=== PATIENT | female | born 1985 | race Caucasian/White ===

== ENCOUNTER 2017-02-22 13:29 | Inpatient (IN) | payer OTHER ==
[~2017-02-22] VITALS: Ht 185.4 cm; Wt 112.6 kg
[2017-02-22] VITALS (7 sets, daily range): BP systolic 110–147; BP diastolic 59–93; PULSE 48–98; RESP 14–22; O2SAT 91–100
--- NOTE | 2017-02-22 13:29 | ED.REPORT ---
HPI-Cardiac Arrest Date of Service Feb 22, 2017 ED Provider: Jenaro Lang MD Patient is a 31 year old female with a history of depression and previous cardiac arrest (torsades de pointes) Who presents to the ED via EMS due to cardiac arrest. Per the patient's Mother, the patient was in a chair, started having difficulty breathing and then became unresponsive, as she slumped to the ground she said in an agonal voice, "it is my heart". Upon EMS arrival, the patient was pulseless and apneic and CPR was started. Patient received cardioversion when found to be in ventricular tachycardia, also received 2 doses of epinephrine with a return of spontaneous circulation and a sinus rhythm. En route that patient was given Succs and Etomidate follow by Versed. She was intubated prior to arrival. She never regained consciousness other than to "alonzo the tube " Nursing Notes Stated Complaint: CARDIAC ARREST Nursing Notes Reviewed: Yes Allergies: Coded Allergies: lactase (Verified Allergy, Intermediate, 05/30/15) PALPITATIONS Sulfa (Sulfonamide Antibiotics) (Verified Adverse Reaction, Unknown, hallucinations, 02/22/17) General Time Seen by Provider: 01:44 Chief Complaint Cardiac arrest, found dwn Down Time Prior to EMS: 1 - 20 min Total Time Arrest to Arrival: 21 - 40 min Context: Resuscitation: Initial rhythm V tach Hx Obtained From: Other family..., EMS Unable to Obtain Hx: Patient condition (intubated) Arrived By: Ambulance Onset Occurred: Just prior to arrival Symptom Duration: Since onset Similar Sx Previous: No Past Medical History Past Medical History Patient states history of V-tach related to anti-depressent use for which she reports she was shocked 7 times (Torsades de Pointes) Reports: Depression Smoking History Never Smoker Social History Alcohol Use: Denies alcohol use Drug Use: Denies drug use Other Social History: Lives with parents Ambulatory Status Independent Review of Systems Unable to Obtain ROS Patient condition, Intubated Physical Exam Initial Vital Signs Vital Signs (First) Date Time Temp Pulse Resp B/P Pulse Ox O2 Delivery O2 Flow Rate FiO2 02/22/17 13:36 93 14 110/69 96 Mechanical Ventilator Initial VS: Reviewed Alertness: Positive: Sedated, Unresponsive Respiratory / Chest: Atraumatic, Breath sounds NL, Breath sounds = bilat Cardiovascular: Heart rate NL, Regular rhythm, Heart sounds NL Abdomen: Atraumatic, Soft Head / Eyes: Atraumatic, Normocephalic blood in ET tube Neck: Atraumatic, Supple Back: Atraumatic Upper Extremity / MS: Atraumatic, Inspection NL Lower Extremity / Pelvis / MS: Atraumatic, No edema Skin: Atraumatic, Color NL, No rash, Warm, Dry Mental Status: Positive: Unresponsive Interpretation & Diagnostics Lab Results Interpretation Result Diagram: 02/22/17 1340 02/22/17 1340 Test 02/22/17 13:40 White Blood Count 11.9th/mm3 (3.8-10.1) Red Blood Count 4.46mil/mm3 (3.90-5.20) Hemoglobin 13.7g/dL (12.0-15.6) Hematocrit 41.3% (35.0-46.0) Mean Corpuscular Volume 92.6fL (81-100) Mean Corpuscular Hemoglobin 30.7pg (27.0-35.0) Mean Corpuscular Hemoglobin Concent 33.2% (32.0-37.0) Red Cell Distribution Width 13.7% (12.3-15.4) Platelet Count chanelle/L (150-400) Neutrophils (%) (Auto) 68.3% (40-74) Lymphocytes (%) (Auto) 25.0% (14-46) Monocytes (%) (Auto) 2.4% (4-12) Eosinophils (%) (Auto) 2.8% (0-5) Basophils (%) (Auto) 0.3% (0-3) Hold Blue Top Tube Received (Received) Sodium Level 139mEq/L (134-144) Potassium Level 3.8mEq/L (3.5-5.2) Chloride Level 101mEq/L (97-108) Carbon Dioxide Level 16mmol/L (18-29) Blood Urea Nitrogen 10mg/dL (6-20) Creatinine 0.85mg/dL (0.57-1.00) Estimat Glomerular Filtration Rate 110mL/min (>59) Glucose Level 233mg/dL (60-99) Calcium Level 8.7mg/dL (8.5-10.1) Total Bilirubin 0.5mg/dL (0.0-1.2) Aspartate Amino Transf (AST/SGOT) 194U/L (0-50) Alanine Aminotransferase (ALT/SGPT) 125U/L (0-32) Alkaline Phosphatase 103U/L (25-150) Troponin T 0.200ug/L (0.0-0.011) Pro-B-Type Natriuretic Peptide 113.4pg/mL (0-130) Total Protein 6.5g/dL (6.4-8.4) Albumin 3.9g/dL (3.4-5.0) Lab Results Interpretation: BLOOD GAS REPORT: pH 7.140/pCO2 67/pO2 73.6/ cHCO3(P) 21.9/cBase(B) -8.0 ECG Interpretation ECG Interpretation: nonspecific intraventricular conduction delay nonspecific diffuse repol abnormalities Time: 14:09 Interpreted by: ED physician Normal ECG Interpretation: Normal rate (87), Normal sinus rhythm X-Ray Chest Interpretation Chest Xray Interpretation: infiltrate in the right lung line and tube in expected position View: Portable, 1 view Interpretation / Wet Read by: Wet read ED physician Procedures Central Line Placement Time: 13:53 Procedure Performed by: ED physician Consent / Setup / Site Prep: No consent - emergent, Needle aspirate performed, Oxygen administered, Pulse oximeter applied, ocean fishing guide applied , Hand hygiene observed, Standard surgical scrub, Sterile drapes applied, Position supine Skin Preparation Agent: Betadine Local Anesthesia: Lidocaine 1% Procedural Sedation/Analgesia: Sedation: Versed Side / Location / Ultrasound: Internal jugular right Catheter / Lumen / Technique: Triple lumen, Good blood return, Secured w catheter device Post-Procedure / Complications: Antibiotic oint applied, Dressing placed, CXR neg for pneumothorax, Condition improved, Tolerated procedure well, Patient stable Re-Eval/Medical Decision Re-Evaluation/Progress : Time of Eval: 14:04 Re-Evaluation/Progress Note: Discussed plan for admit with family. All questions were addressed. Consultation : Referral / Consult Name: Kai Guallpa MD Consulted With: Hospitalist Call Returned at: 14:17 Director Sanitation Bureau: Agrees with eval, Agrees with plan, Accepts admit Counseled Regarding: Diagnosis, Lab results, Need for admission Discharge & Departure Impression: Primary Impression: Cardiac arrest Disposition: ADMITTED TO HOSPITAL All VS Reviewed: Yes Condition: Stable Referrals: NURIS REEDER PA-C (PCP) Crit Care Except Billable Proc Time Spent: 30-74 minutes Services Performed: Patient management by me, Time spent at bedside, Reviewing test results, Reviewing imaging, Discussing patient care, Documentation in record, Time with fam/surrogate Scribe Attestation Portions of this note were transcribed by Sunita Lockwood. I, Dr. Lang personally performed the history, physical exam and medical decision-making; I reviewed and confirmed the accuracy of the information in the transcribed note. Signed by: Milton Wilde, 02/22/17 copies to: NURIS REEDER PA-C, Kirk H MD Feb 22, 2017 13:29 Clarita Lockwood Feb 22, 2017 13:53 Jenaro Lang MD Feb 22, 2017 13:29 Clarita Lockwood Feb 22, 2017 13:53
--- NOTE | 2017-02-22 13:53 | ABG ---
DateTimeAnalyzed 13:46:00 -_ pH ____7.140 - 7.350 7.450 pCO2 ___67.1__ -mmHg 35.0 45.0 pO2 ___73.6__ -mmHg 69.0 116 HCO3- ___21.9__ -mmol/L 22.0 26.0 ABE ___-8.0__ -mmol/L -2.0 2.0 tHb ___13.1__ -g/dL 12.0 18.0 O2Hb ___88.3__ -% COHb ____0.2__ -% 0.0 1.5 MetHb ____0.9__ -% 0.4 1.5 sO2 ___89.3__ -% FIO2 __100.0__ -% PEEP ___10.0__ -cmH2O Set_RR ___22.0__ -b/min Vt __550.0__ -L Drawn By as - Date/Time Notified____ 13:52:00 -_ Spontaneous_RR ___22.0__ -b/min Oxygen Device 1 VENTILATOR - Notified By ams - Notified Whom dr trung - B 757 -mmHg tO2 ___16.3__ -Vol% Jim test _Positive -
[2017-02-22 13:56] LABS: BASOPHILS % (AUTO) 0.3 % (0-3)
[2017-02-22 14:01] LABS: EOSINOPHILS % (AUTO) 2.8 % (0-5); MONOCYTES % (AUTO) 2.4 % (4-12); Mean Corpuscular Hemoglobin 30.7 pg (27.0-35.0); Mean Corpuscular Volume 92.6 fL (81-100); NEUTROPHILS % (AUTO) 68.3 % (40-74)
[2017-02-22 14:32] LABS: TROPONIN T 0.2 ug/L (0.0-0.011)
--- NOTE | 2017-02-22 14:39 | DRSVH ---
PROCEDURE: X-RAY CHEST ONE VIEW, PORTABLE ([id number]) INDICATIONS: Respiratory distress syndrome TECHNIQUE: One view of the chest was acquired. COMPARISON: None. FINDINGS: Surgical changes and devices: Endotracheal tube is present approximately 37 mm superior to the justin . Right-sided central venous catheter is present with distal tip overlying the distal SVC/right atria l junction. Nasogastric tube is present with distal tip projecting below the left hemidiaphragm. Lungs and pleura: There is an overall appearance of increased pulmonary vascularity with more focal o pacities identified in the right upper and mid lobes as well as left upper lobe. Mediastinum: Mediastinal contours appear normal. Heart size is normal. Bones and chest wall: No suspicious bony lesions. Overlying soft tissues appear unremarkable. IMPRESSION: 1. Support lines as above. 2. Patchy opacities as described above. These could be customer response representative of Findings are suggestive of e meme. However, developing areas of airspace disease such as atelectasis and/or pneumonia cannot be ex cluded. Dictated by: Mikaela Davila M.D. on 02/22/2017 at 14:36 Approved by: Mikaela Davila M.D. on 02/22/2017 at 14:38
[2017-02-22] MEDS ORDERED: LAMO25TA2 PO (14:55)
[2017-02-22] MEDS ORDERED: fentaNYL-PF 50 mCg/mL 2 mL Inj IV PRN (14:55)
[2017-02-22] MEDS ORDERED: 0.9% Sodium Chloride 500 ML IV PRN (14:55)
[2017-02-22] MEDS ORDERED: ARIP10TA16 PO (14:55)
[2017-02-22] MEDS ORDERED: NS IV SCH ×2 (14:55)
[2017-02-22] MEDS ORDERED: FENTANYL IV SCH ×2 (14:55)
[2017-02-22] MEDS ORDERED: OMEP20CA11 PO (15:01)
[2017-02-22] MEDS ORDERED: FEG324 PO (15:01)
[2017-02-22] MEDS ORDERED: VALC TOP (15:01)
[2017-02-22] MEDS ORDERED: IBUP-1827 PO (15:01)
[2017-02-22] MEDS ORDERED: ASCO250T7 PO (15:01)
[2017-02-22] MEDS ORDERED: OXYC-407 PO (15:01)
[2017-02-22] MEDS ORDERED: NORE-75 PO (15:01)
[2017-02-22] MEDS ORDERED: LORA0.5T PO (15:01)
[2017-02-22] MEDS ORDERED: SIME125C PO (15:01)
[2017-02-22] MEDS ORDERED: SODI51CR DT (15:01)
[2017-02-22] MEDS ORDERED: ACET500C49 PO (15:01)
--- NOTE | 2017-02-22 15:03 | DRSVH ---
PROCEDURE: CT BRAIN WITHOUT CONTRAST ([id number]) INDICATIONS: altered LOC TECHNIQUE: Noncontrast 4.5 mm thick angled axial sections acquired from the foramen magnum to the vertex, with c oronal reformats. COMPARISON: None. FINDINGS: Image quality: Excellent. CSF spaces: Basal cisterns are patent. No extra-axial fluid collections. Ventricles are normal in size and shape. Brain: No midline shift. No intracranial masses or hemorrhage. Burgos-white matter interface is norm al. Skull and face: Calvarium and visualized facial bones are intact, without suspicious lesions. Sinuses: Scattered, mild fluid is present within the ethmoid and sphenoid sinuses. IMPRESSION: 1. No acute intracranial process. 2. Scattered ethmoid and sphenoid sinus fluid Dictated by: Mikaela Davila M.D. on 02/22/2017 at 15:01 Approved by: Mikaela Davila M.D. on 02/22/2017 at 15:02
[2017-02-22] MEDS ORDERED: ZINC50TA4 PO (15:06)
[2017-02-22] MEDS ORDERED: VITA1CAP16 PO (15:06)
[2017-02-22] MEDS ORDERED: [UNRECOGNIZED DRUG - CODE] PO (15:06)
[2017-02-22] MEDS ORDERED: MAGN500C4 PO (15:06)
[2017-02-22] MEDS ORDERED: CLOT15CR66 TP (15:06)
[2017-02-22] MEDS ORDERED: UBID100C PO (15:06)
[2017-02-22] MEDS ORDERED: CHOL10008 PO (15:06)
[2017-02-22] MEDS ORDERED: 0.9% Sodium Chloride (Chilled) 500 ML IV PRN (15:11)
[2017-02-22] MEDS ORDERED: 0.9% Sodium Chloride (Chilled) 1,000 ML IV PRN (15:11)
[2017-02-22] MEDS ORDERED: 0.9% Sodium Chloride (Chilled) 2,000 ML IV ONE (15:11)
[2017-02-22] MEDS ORDERED: Acetaminophen IV 1,000 MG in IV Premix 1 EACH IV PRN (15:15)
[2017-02-22] MEDS ORDERED: Calcium GLUCOnate 10% (Gm) 1 Gm/10 mL Inj IV PRN (15:15)
[2017-02-22] MEDS ORDERED: Dexmedetomidine Inj 400 MCG in 0.9% Sodium Chloride 100 ML IV PRN (15:30)
[2017-02-22] MEDS ORDERED: Dexmedetomidine 400 mCg/100 mL 400 MCG in IV Premix 1 EACH IV PRN (15:36)
--- NOTE | 2017-02-22 15:49 | PCM.HPMED ---
Subjective Date of Service Feb 22, 2017 Primary Provider: Admitting Physician: Kai Guallpa MD Primary Care Physician: Nuris Reeder Pa-C Attending Physician: Kai Guallpa MD Admit Status: From the Emergency Department Chief Complaint: Cardiac Arrest History of Present Illness: Nancy Leon is a 31-year-old female patient with past medical history significant for triple X syndrome(47XXX), chronic anxiety, depression, and previous cardiac arrest in 2011 who presents to the ED via EMS as a result of cardiac arrest. 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 Mother tried to open her airway by moving her jaw. Patient then states in an agonal voice, "it is my heart" and slumps to the ground. When EMS arrived, the patient was pulseless and apneic and CPR was started. Patient received cardioversion when found to be in ventricular tachycardia, also received 2 doses of epinephrine with a return of spontaneous circulation and a sinus rhythm. En route that patient was given Succs and Etomidate follow by Versed. She was intubated prior to arrival. Earlier in the day, patient was doing her usual routine and walking the dogs for less than half a mile. Patient's mother states that she has not been involved much with her daughter's medical care because she has been trying to back off in allow her daughter some more independence. As a result, it was difficult for her to recount recent doctor appointments, medication changes, and diagnoses. Mother mentions that patient had her galbladder removed at [facility] in 2012 due to the "liver problems" and jaundice. Mother states that patient was recently seen at [facility] by a memory care physician. She is also being seen by [facility] psychiatrist. Currently, her medications include aripiprazole 5 mg by mouth daily, lamotrigine 200 mg daily, Fluoxetine 20 mg daily, lorazepam 0.5 by mouth 3 times a day when necessary anxiety, and oxycodone/acetaminophen when necessary for pain. Based on clinic records by Dr. 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 She was brought to [facility] in [place], intubated and received 7 cardioversion shocks. Her medications were discontinued with the exception of 5 mg of Abilify daily and with that her prolonged QT interval normalized. She was seen by Dr. Constance Kothari on a couple of occasions the following year. A one- week Holter monitor was performed for evaluation of symptomatic palpitations and eventually she was told that her heart was normal and that no further treatment was needed. In 2013, she underwent an exercise stress echo cardiogram at [facility] to evaluate her palpitations and this showed a normal size left ventricle and normal left ventricular contractility post exercise. More recently, in July 2016, she underwent a 48 hour Holter monitor to evaluate her symptoms of palpitations which demonstrated rare PAC and rare PVC Vital signs on arrival shows pulse of 93, RR 18, blood pressure 110/69, 96% on mechanical ventilator. Initial ABGs were significant for pH 7.140/pCO2 67/pO2 73.6/ cHCO3(P) 21.9/cBase(B) -8.0. Chest x-ray shows patchy opacities in the right upper and middle lobes as well as the left upper lobe the ojy, could be circulation representative of edema or atelectasis or pneumonia. CT of the brain showed no acute intracranial process. EKG shows sinus rhythm with heart rate of 87 and QTC of 483. Patient was brought to CCU and started on cooling protocol. Review of Systems: The comprehensive review of systems was conducted with the patient and found to be negative except as above in the history of present illness. Allergies Coded Allergies: lactase (Verified Allergy, Intermediate, 05/30/15) PALPITATIONS Sulfa (Sulfonamide Antibiotics) (Verified Adverse Reaction, Unknown, hallucinations, 02/22/17) Home Medications Acetaminophen 500 mg PRN Aripiprazole 5 mg daily Ferrous gluconate 324 mg daily Ibuprofen 600 mg every 6 when necessary Lamictal 200 mg daily Fluoxetine 20 mg daily Lorazepam 0.5 mg 3 times a day as needed Magnesium 500 mg at bedtime Omeprazole 20 mg daily Oxycodone 5 mg every 6 when necessary Simethicone 125 mg every 8 when necessary PMH Patient states history of V-tach related to anti-depressent use for which she reports she was shocked 7 times (Torsades de Pointes) in 2011, triple X syndrome(47XXX), chronic anxiety, and depression Surgical History patient had a cholecystectomy in 2013 at [facility]. Family History Family history significant for cardiovascular disease and diabetes: Father with diabetes mellitus type II and dementia, mother with hyperlipidemia and hypertension Social History Hx Alcohol Use: No Hx Substance Use: No Smoking Status: Never Smoker Living Arrangement: with Family Exam Vital Signs Vital Sign - Last Date Time Temp Pulse Resp B/P Pulse Ox O2 Delivery O2 Flow Rate FiO2 02/22/17 14:55 88 98 100 02/22/17 14:17 20 147/93 Mechanical Ventilator Exam General: Intubated and comatose, well-developed, well-nourished Head: Normocephalic, atraumatic. External ears without defect. Eyes: Pupils equal, round, and reactive to light and accommodation. Anicteric sclerae, injected conjunctivae. Cardiovascular: Regular rate and rhythm with no murmurs, rubs, or gallops appreciated Pulmonary: Coarse breath sounds due to ventilation status, no wheezes, rales, or rhonchi. Normal respiratory effort with no use of accessory muscles. Abdomen: Bowel tones present. Soft, nontender, nondistended. Extremities: No clubbing, cyanosis, trace edema Skin: Normal temperature, turgor, and texture; no rash, ulcers, or subcutaneous nodules appreciated. Neurological: Unable to assess Psychiatric: Unable to assess Lab and Diagnostics Result Diagram: 02/22/17 1340 02/22/17 1340 X-Rays, CTs and MRIs X-RAY CHEST ONE VIEW, PORTABLE IMPRESSION: 1. Support lines as above. 2. Patchy opacities as described above. These could be circulation representative of Findings are suggestive of edema. However, developing areas of airspace disease such as atelectasis and/or pneumonia cannot be excluded. Dictated by: Mikaela Davila M.D. on 02/22/2017 at 14:36 Approved by: Mikaela Davila M.D. on 02/22/2017 at 14:38 CT BRAIN WITHOUT CONTRAST IMPRESSION: 1. No acute intracranial process. 2. Scattered ethmoid and sphenoid sinus fluid Dictated by: Mikaela Davila M.D. on 02/22/2017 at 15:01 Approved by: Mikaela Davila M.D. on 02/22/2017 at 15:02 Assessment & Plan 31-year-old female patient with past medical history significant for triple X syndrome(47XXX), chronic anxiety, depression, and previous cardiac arrest in 2011 who presents to the ED via EMS as a result of cardiac arrest. Acute cardiac arrest, present on arrival, active Prior episode in 2011 suspected due to long QT syndrome secondary to polypharmacy Patient saw Dr. Trina Villagran for workup of palpitations. Workup suggests no arrhythmia or cardiac ischemia. Per pt's pharmacy pt takes Fluoxetine, Aripiprazole which could possibly contribute to QT elongation - QTc on arrival 483, EKG in Jul shows QTc 433 - Patient placed on cooling protocol - Given LR fluid bolus 500 mL - Norepinephrine for pressure support - Initial troponin elevated, continue to trend - CK-MB pending, continue to trend - Keep magnesium >2, potassium >4 - Blood cultures 4 - Serial ABGs - Echo pending - Cardiology consulting, Dr. Peña, recommending possible ICD placement pending successful outcome. Acute hypoxemic respiratory distress, present on arrival, active Patient unconscious on arrival, required intubation by EMS - Patient initially sedated with Propofol and fentanyl - Vent settings to be managed by CCU team Acute leukocytosis, present on arrival, active Minimal elevation of white blood cells, likely secondary to stress reaction, although pneumonia process cannot be ruled out at this time. - Chest x-ray shows edema possibly secondary to pneumonia - Blood cultures 4 - Sputum cultures pending - Procalcitonin pending - UA pending - Prophylactic Zosyn to cover for aspiration pneumonia. Elevations in liver enzymes, present on arrival, active Possibly due to hypoperfusion secondary to cardiac arrest, however unlikely to occur so quickly Per mother pt has history of elevated liver enzymes secondary to unspecific biliary pathology, requesting records from [place] where workup was done. - Continue to monitor Lactic acidosis, present on arrival, active Likely secondary to stress reaction in conjunction with cardiac hypoperfusion - Continue to monitor until normalized Acute Hyperglycemia, present on arrival, active - Glucose on admission 233 - No prior history of diabetes - A1c pending - Glucose management per cooling protocol Chronic pain, presumed stable - Patient currently sedated with propofol and fentanyl - Resume home medications when awake Anxiety - Takes Abilify and Lamictal at home - Currently sedated with propofol and fentanyl - Resume home medications when awake Depression Possibly due to suicide attempt/overdose, mother states prior history of suicidal ideation without a plan or previous attempts. - Utox pending - Per Pharmacy, takes Prozac, Abilify and Lamictal at home - Currently sedated with propofol and fentanyl - Resume home medications when awake Triple X syndrome, presumed stable - No known correlation with cardiac arrhythmia or cardiac arrest. - Consider other genetic phenomena as possible explanations to cardiac arrest/ arrhythmias - Per cardiology, possible channelopathy which would be treated with ICD placement. Disposition: Patient admitted under inpatient status with expected length of stay > 2 midnights for severity of present symptoms, complexities of treatment plan and risk for adverse event VTE Prophylaxis: Sub-Q Heparin (Unfractionated) Resuscitation Status: CPR: Attempt Resuscitation Attending Statement The patient was seen and examined together with Drs. Luevano and on 02/22 and I agree with the history, exam and plan as outlined in the note above. . copies to: NURIS REEDER PA-C, Adam J DO Feb 22, 2017 15:49 Rosanne Luevano DO Feb 22, 2017 17:08 Kai Guallpa MD Feb 23, 2017 07:35
[2017-02-22] MEDS ORDERED: Piper-Tazo 3.375 Gm/50 mL D5W Minibag Plus - Q8H over 4 hrs IV ONE ×2 (16:00)
[2017-02-22 16:06] LABS: APPEARANCE,URINE CLEAR (CLEAR,HAZY); COLOR,URINE STRAW (YELLOW); OCCULT BLOOD,URINE SMALL (NEGATIVE); PH,URINE 5.5 (5.0-8.0); UROBILINOGEN,URINE NORMAL (NORMAL)
[2017-02-22] MEDS: fentaNYL 2,500 mCg/250 mL IV Premix IV SCH (16:13)
[2017-02-22] MEDS: Cisatracurium 2,000 mCg/mL 10 mL Inj IV PRN ×3 (16:24→23:03)
[2017-02-22 16:28] LABS: INR 0.94 ratio
[2017-02-22] MEDS ORDERED: Sodium Chloride LOK Flush 10 mL Syringe IVFLUSH PRN ×2 (16:50)
--- NOTE | 2017-02-22 17:05 | ABG ---
DateTimeAnalyzed 16:58:00 -_ pH ____7.417 - 7.350 7.450 pCO2 ___27.9__ -mmHg 35.0 45.0 pO2 287 -mmHg 69.0 116 HCO3- ___17.6__ -mmol/L 22.0 26.0 ABE ___-5.3__ -mmol/L -2.0 2.0 tHb ___12.5__ -g/dL 12.0 18.0 O2Hb ___98.1__ -% COHb ____0.4__ -% 0.0 1.5 MetHb ____1.0__ -% 0.4 1.5 sO2 ___99.5__ -% FIO2 __100.0__ -% PEEP ___10.0__ -cmH2O Set_RR ___22.0__ -b/min Vt __580.0__ -L Drawn By as - Date/Time Notified____ 17:04:00 -_ Spontaneous_RR ___22.0__ -b/min Oxygen Device 1 VENTILATOR - Notified By ams - Notified Whom dr lorenz - B 756 -mmHg tO2 ___17.9__ -Vol% Jim test _Positive -
[2017-02-22 17:16] LABS: BASOPHILS % (AUTO) 0.3 % (0-3)
[2017-02-22 17:54] LABS: Magnesium 1.7 mg/dL (1.6-2.6); Phosphorus 2.5 mg/dL (2.5-4.9)
[2017-02-22 18:00] LABS: EOSINOPHILS % (AUTO) 0.3 % (0-5); Mean Corpuscular Hemoglobin 30.4 pg (27.0-35.0); Mean Corpuscular Volume 91.1 fL (81-100); NEUTROPHILS % (AUTO) 75.4 % (40-74); Platelet Count 226 bil/L (150-400)
[2017-02-22 18:23] LABS: TROPONIN T 2.62 ug/L (0.0-0.011)
--- NOTE | 2017-02-22 18:25 | CONS ---
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 HISTORY OF ILLNESS: The patient is a 31-year-old, white female, with triple X, trisomy X syndrome, and a prior history of eij-ur-cchmeeip cardiac arrest with polymorphic ventricular tachycardia several years ago. She was seen at [facility] for that episode and those records are not currently available to me. She was in her usual state of health earlier today when she suddenly developed shortness of breath and lightheadedness. She called her mother stating, "It's my heart," and then collapsed. Paramedics arrived to find her pulseless and apneic in ventricular tachycardia. It is not clear whether she received bystander CPR. After several countershocks and rounds of epinephrine, return of spontaneous circulation occurred. My best estimate of time elapsed to ROSC is 10-15 minutes. She was intubated during this process and transported to [facility]. She has had a CT scan of the brain which was unremarkable. A chest x-ray showed appropriate position of her endotracheal tube and central venous catheter. Her EKG showed minimal prolongation of her QT interval to 480 msec and only slight elevation of her troponin to 0.2. She was brought to the intensive care unit on mechanical ventilation, and I have been asked to participate in her care by providing ventilator management. All other orders have already been written and all other aspects of her complex presentation will be managed by either her primary team or other consultants, and this was expressed to me by her attending physician, Dr. Guallpa. She has been placed on a hypothermia protocol with a goal temperature of 33 degrees and is receiving boluses of chilled saline. She has become hypotensive and norepinephrine has been ordered. It is not clear that Cardiology has yet seen the patient. She has now also been pharmacologically paralyzed due to shivering. No additional history is available. PAST MEDICAL HISTORY: 1. Trisomy X. 2. Prior history [id number] cardiac arrest. 3. Depression. PAST SURGICAL HISTORY: Status post lap cholecystectomy. FAMILY HISTORY: Significant for cardiovascular disease and diabetes. SOCIAL HISTORY: A never smoker who does not use alcohol or recreational drugs. She lives with her mother. OUTPATIENT MEDICATIONS: Include: 1. Aripiprazole 5 mg daily. 2. Iron sulfate. 3. Ibuprofen. 4. Lamictal 200 mg daily. 5. Fluoxetine 20 mg daily. 6. Lorazepam 0.5 mg t.i.d. p.r.n. 7. Magnesium at h.s. 8. Omeprazole 20 mg daily. 9. Oxycodone 5 mg q.6 as needed. 10. Simethicone 125 mg q.8 p.r.n. DRUG ALLERGIES: 1. SULFONAMIDE ANTIBIOTICS. 2. LACTASE. REVIEW OF SYSTEMS: Unobtainable from patient as she is intubated, sedated, and paralyzed. Mother is at her bedside and reports that the patient had not reported any acute complaints in the day preceding her collapse. PHYSICAL EXAMINATION: This is an obese woman who is orally intubated and on mechanical ventilation. When she first arrived in ICU, she had spontaneous opening of her eyes with dysconjugate gaze and blinking. Pupils were equal at 9 mm and equally reactive directly and consensually. HEENT exam: She has a right IJ catheter in place, advanced to 18 cm. She has an orotracheal tube and orogastric tube in place as well. The neck is free of adenopathy or crepitus. The trachea seems midline and there is no palpable thyroid tissue. The chest shows symmetric expansion. On auscultation, she has scattered coarse rales in all phan without wheezing. Cardiac exam shows a regularly regular rhythm with soft S1 and S2. No murmur, gallop, or rub is heard. There are occasional extrasystoles. The abdomen is soft. There is no organomegaly, mass or bruit. I cannot detect any bowel tones. The extremities are without cyanosis, clubbing. They are cool. Pulses are 1+ at the radial arteries bilaterally as well as the dorsalis pedis bilaterally. Database is per the electronic medical record. Chest x-ray shows asymmetric diffuse reticular interstitial infiltrate throughout the right lung which is suggestive of unilateral pulmonary edema. Heart is relatively somewhat displaced into the right chest. Endotracheal tube tip lies approximately 3.5 cm above the justin and a right internal jugular and gastric tube appear to lie in their appropriate positions. Her CBC showed a hemoglobin of 13.7, hematocrit of 41. WBC of 11.9, and platelets were clumped and unable to be counted accurately. Her chemistries show sodium 139, potassium 3.8, chloride 101, total CO2 of 16, BUN of 10, creatinine of 0.85, random glucose of 233, and a lactic acid of 2.2. Total calcium is 8.7. LFTs are mildly elevated with an AST of 194 and an ALT of 155. Alk phos is normal. Troponin slightly elevated at 0.20. BNP is normal at 113. Her initial arterial blood gas showed a pH of 7.14 with a pCO2 of 67 and a pO2 of 73. A more recent gas while on mechanical ventilation shows a pH of 7.4, pCO2 of 28, and a pO2 of 287. Her EKG shows normal sinus rhythm, with minimally prolonged QT, corrected of 480 msec. Otherwise, intervals and segments without any evidence for acute or remote ischemia or infarct. IMPRESSION: [id number] cardiac arrest with what was ventricular tachycardia by report. This occurs in a relatively young woman with a prior personal history of polymorphic ventricular tachycardia in 2011. Based on this history, a primary arrhythmia is likely. Nevertheless, drug toxicities and other common causes for cardiac arrest including pulmonary embolism should be considered. The medication list provided by the patient's mother does include oral estrogens which might place her at risk for thromboembolic disease and the mother does report that the patient has a history of intermittent lower extremity edema, although it has always been symmetric. Her ventilator settings are appropriate for now but for her hyperoxia and I have ordered her fractional inspired oxygen concentration to be titrated to maintain her O2 saturation at 93% or greater. Some form of therapeutic temperature management does seem appropriate, although targeting her temperature to 33 degrees as opposed to 36 does not appear to be any more effective, based on recent studies. Furthermore, it may produce greater problems in her management with regard to hypotension, bradyarrhythmias and fluid and electrolyte disorders in addition to necessitating the use of pharmacologic paralysis with its attendant additional risks. I would not have selected 33 as her goal temperature but was not consulted before this was chosen by her admitting hospitalist team. She should have routine intensive care unit prophylactic measures instituted and in addition to writing ventilator orders, I have taken the liberty of writing for some subcutaneous heparin and acid suppression. RECOMMEND: 1. Maintain mechanical ventilation until she has completed prescribed period of therapeutic temperature management/hypothermia. Once she is normothermic, further decision regarding suitability for ventilator liberation will be based on her neurologic exam and cardiopulmonary status at the time. 2. Routine ICU prophylaxis with elevation of head of bed, chlorhexidine, oral hygiene, acid suppression, and VTE (venous thromboembolism) prophylaxis with subcutaneous unfractionated heparin. All other aspects of her care will be the domain of her primary admitting service and those consultants that they involve, including Cardiology. Thank you for requesting a ventilator management consultation in this unfortunate woman. We will continue to follow her oxygenation and ventilation until she has been extubated. 25 minutes critical care time exclusive of shared time and procedures MTDD
--- NOTE | 2017-02-22 18:31 | NUR ---
Transfer Pt arrived from ED to CCU room #2019 at 1445. Intubated with vent at 100% and Spo2 100% Hypothermia protocol started. Propofol at 20mcg/kg/min, Fentanyl at 50mcg/hr, and chilled NS wide open. Pt started to shiver, nimbex push given. BP dropped to 88/37. Dr. Guallpa notified and consulted pt and pts mother who is at bedside. Levophed started at 0.05mcg/kg/min and would like it to stay that low. ordered for K+ to stay >4 and Mg >2. CVP=18, titrated fluids in half. Right 3L IJ patent.Labs sent. Urine sent. MRSA swab sent.Donohue had 1850cc out of light yellow urine. Large loose BM. Zosyn given. Lungs course. Suctioning bright red blood r/t difficult intubation per transport team.
--- NOTE | 2017-02-22 19:01 | CONS ---
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 At present, patient is intubated, sedated, going through hypothermia protocol. I got most of the history from the patient's mother, reviewed Cardiology office note dictated by Dr. Mena. CHIEF COMPLAINT: Cardiac arrest. PRESENT HISTORY: This 31-year-old, female, who has a history of triple X syndrome, severe depression, chronic anxiety, history of syncopal polymorphous ventricular tachycardia cardiac arrest in 2011 which was thought due to prolonged QTc due to multiple psychotropic medications. Required seven cardioversion shocks, treated at [facility] at that time, had cardiac arrest again today. 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 Suddenly, her mother heard gurgling noises coming from the patient. There was a foam coming from her mouth. Her arm was twisted. Patient's mother is a nurse. She checked her pulse and tried to listen to her heart using a stethoscope but she could not find a pulse or heart sounds. Before the patient completely collapsed, she heard the voice that, "It is my heart." Patient's mother called 911. According to her, it took about 9 minutes for the EMS to arrive to the patient's house. The patient was found to be in ventricular tachycardia and received epinephrine as well as cardioversion. The patient underwent ACLS protocol. Spontaneous circulation was obtained. She got intubated. She was brought to the hospital. At present, she is going through hypothermia protocol. I reviewed Dr. Mena's note done in August 2016. The patient had an exercise stress echo in September 2013. At that time, there was no obvious ischemia infarction. LV function was preserved. The patient underwent 48-hour Holter monitor on July 24, 2016. At that time, predominant rhythm was sinus with average heart rate 92, minimum 55, maximum 148 with sinus tachycardia. There were rare PACs and PVCs. No ventricular tachycardia. During symptoms of palpitations, lightheadedness, weakness, nausea, and anxiety, most of the time rhythm was sinus with heart rate ranging 84-133 beats per minute without any other significant arrhythmias. According to her mother, a couple of months ago, she was started on fluoxetine as well. She has been on Abilify and Lamictal for long time. The patient has very severe depression. There have been times patient has thought about suicide but never carried out. According to the mother recently she was not thinking about suicide. No history of drug abuse or alcohol abuse. No family history of sudden cardiac . No recent fever, chills or chest pain or palpitation or shortness of breath or recurrence of seizure. PAST MEDICAL HISTORY: History of torsades type of polymorphic ventricular tachycardia in 2011. which was felt due to prolonged QTc due to multiple psychotropic medications. History of triple X syndrome, anxiety, severe depression. PAST SURGICAL HISTORY: History of cholecystectomy in 2012. ALLERGIES: The patient is allergic to: 1. LACTASE. 2. SULFA. HOME MEDICATION: 1. Abilify 5 mg daily. 2. Ferrous sulfate 325 mg daily. 3. Ibuprofen 600 mg as needed. 4. Lamictal 200 mg daily. 5. Fluoxetine 20 mg daily. 6. Lorazepam 0.5 mg three times a day. 7. Magnesium 500 mg at bedtime. 8. Omeprazole 20 mg daily. 9. Oxycodone 5 mg as needed. 10. Simethicone 125 mg every 8 hours. FAMILY HISTORY: Positive for hypertension, hyperlipidemia, diabetes mellitus, and cardiovascular disease. SOCIAL HISTORY: As per mother, no history of substance abuse or alcohol abuse or smoking. REVIEW OF SYSTEM: As patient is intubated, unable to obtain review of system. I tried to get as much information from the mother as possible. PHYSICAL EXAMINATION: At present, patient is on levophed 0.5. Blood pressure systolic around 110. Pulse rate about 88, respiratory rate 20, oxygen saturation on FiO2 60, 99%. HEENT: No significant anemia, jaundice. Neck: No apparent JVD. Chest: Decreased air entry at the bases. CVS: S1, S2 normal. No S3, no S4. I do not appreciate any significant murmur. Abdomen: No obvious pulsatile mass or hepatosplenomegaly. Extremities cool. She is going through hypothermia protocol. No evidence of critical limb ischemia. STATISTICAL ANALYST could not be performed as patient is sedated. LABORATORIES: WBC 11.9, hemoglobin 13.7, platelets pending. Polymorphs 68.3. Sodium 139, potassium 3.8, BUN 10, creatinine 0.85. Lactic acid 2.2. Total bilirubin 0.5. AST 194, ALT 125, troponin T 0.200. Albumin 3.9. INR 0.94. CT head did not reveal any acute process. Scattered ethmoid and sphenoid sinus fluid. X-ray chest: Normal size heart. Increased pulmonary vascularity and more focal opacities identified in the right upper and middle lobes as well as left upper lobe. EKG today at around 2:09 p.m. revealed sinus rhythm with normal axis, MN interval 177 msec, QTc 483 msec, with some nonspecific ST-T changes. No evidence of pre-excitation. ASSESSMENT AND PLAN: Acute cardiac arrest due to ventricular tachycardia with prolonged QTc on surface EKG, likely due to prolonged QT likely due to psychiatric medications. The patient has known history of polymorphic ventricular tachycardia in 2011 with cardiac arrest at that time. At that time, she was treated in [facility]. Previous stress echo did not reveal any ischemia, infarction or structural heart disease. She had a Holter monitor in July 2016. At that time also she did not have any significant ventricular arrhythmias. There is a possibility that she may have some kind of channelopathy which is triggered by antidepressant psych medications. She has history of severe depression and she will need those medications. At this point of time will continue hypothermia protocol. Continue pressor support with Levophed. With central line check CVP and keep the CVP around 12. Close monitoring of electrolytes. Once hypothermia protocol is completed and there is a meaningful recovery, I will ask our EP team to evaluate the patient regarding AICD insertion. Management of other medical problems I will leave up to hospitalist team. Discussed the plan with the patient's mother. She agrees and concurs. At present, overall prognosis is guarded. We will also obtain 2D echo in the morning. Thanks for the cardiology consult. This is a critical care cardiology consult, and total time spent today about 75 minutes.
[2017-02-22] MEDS: LacriLube S.O.P. 3.5 Gm Ophthalmic Ointment BOTH_EYES SCH (19:59)
[2017-02-22] MEDS: Norepinephrine 8,000 mCg/250 mL NS Premix IV PRN ×2 (20:01→23:09)
[2017-02-22] MEDS: Heparin 5,000 Unit/mL Inj SUBQ SCH (20:54)
[2017-02-22] MEDS: Famotidine Inj 20 MG in IV Premix 1 EACH IV SCH (20:55)
[2017-02-22] MEDS: Chlorhexidine 0.12% 15 mL Oral Solution MT SCH (20:55)
[2017-02-22] MEDS: Piperacillin-Tazo 3.375 Gm Inj 3.375 GM in Dextrose 5% Minibag Plus 50 ML IV SCH (20:55)
--- NOTE | 2017-02-22 21:37 | ABG ---
DateTimeAnalyzed 21:28:00 -_ pH ____7.373 - 7.350 7.450 pCO2 ___22.6__ -mmHg 35.0 45.0 pO2 165 -mmHg 69.0 116 HCO3- ___12.8__ -mmol/L 22.0 26.0 ABE __-10.3__ -mmol/L -2.0 2.0 tHb ___13.9__ -g/dL 12.0 18.0 O2Hb ___97.8__ -% COHb ____0.3__ -% 0.0 1.5 MetHb ____0.8__ -% 0.4 1.5 sO2 ___98.9__ -% FIO2 ___60.0__ -% PEEP ___10.0__ -cmH2O Set_RR ___22.0__ -b/min Vt __580.0__ -L Drawn By TLA - Date/Time Notified____ 21:36:00 -_ Spontaneous_RR ___22.0__ -b/min Oxygen Device 1 VENTILATOR - Notified By TLA - Notified Whom ___Dr. Robert/Nathan- RN - B 756 -mmHg tO2 ___19.4__ -Vol% Jim test N/A -
[2017-02-22 21:50] LABS: BASOPHILS % (AUTO) 0.1 % (0-3); EOSINOPHILS % (AUTO) 0.2 % (0-5); MONOCYTES % (AUTO) 5.9 % (4-12); Mean Corpuscular Hemoglobin 30.5 pg (27.0-35.0); Mean Corpuscular Volume 92.1 fL (81-100); NEUTROPHILS % (AUTO) 77.2 % (40-74); Platelet Count 326 bil/L (150-400)
[2017-02-22 22:21] LABS: Magnesium 1.6 mg/dL (1.6-2.6)
[2017-02-22 22:33] LABS: Phosphorus 0.9 mg/dL (2.5-4.9)
[2017-02-22 22:34] LABS: TROPONIN T 1.49 ug/L (0.0-0.011)
[2017-02-22] MEDS: Magnesium Sulf 4 Gm/100 mL H2O 4 GM in IV Premix 1 EACH IV PRN (22:54)
[2017-02-22] MEDS: KCl 40 mEq/100 mL IV Premix (K < 3 & Creat <2) IV SCH (23:09)
--- NOTE | 2017-02-22 23:53 | NUR ---
TEMP/shivering/BP: At the start of of shift pt was alarming venting with arm and shoulder tremors noted. Pt was given 20,000 mcg bolus of nimbex T of four was 0:4 after nimbex and Bis was 42-47. At 1850 pt's temp was 35.2 1000ml bolus of chilled NS was given ice packs were placed to bilateral groin area and in arm pits. IV tylenol was given and arctic sun was checked. Water flow rate said marginal connections were checked and one was not completely engaged. After connections were checked water flow rate said good. BP dropped into 80s/40s and levophed was titrated to keep MAP >80 per hypothermia protocol. After aggressive treatment temp reached target at 2035 1 1/2 hours after start of shift and 6hrs after protocol was started.
[2017-02-22] MEDS ORDERED: POTASSIUM PHOS IV ONE (23:59)
[2017-02-22] MEDS ORDERED: SODIUM CHLORIDE 0.9% IV ONE (23:59)
[2017-02-23] VITALS (14 sets, daily range): BP systolic 107–136; BP diastolic 60–84; PULSE 41–57; RESP 20; O2SAT 99–100
[2017-02-23] MEDS: Heparin 5,000 Unit/mL Inj SUBQ SCH ×3 (01:02→16:05)
[2017-02-23] MEDS: Chlorhexidine 0.12% 15 mL Oral Solution MT SCH ×6 (01:02→20:09)
[2017-02-23] MEDS ORDERED: DOBUTamine 500 mg/250 D5W 500,000 MCG in IV Premix 1 EACH IV PRN (01:03)
[2017-02-23 01:04] LABS: Magnesium 3.4 mg/dL (1.6-2.6)
[2017-02-23] MEDS ORDERED: DOBUTamine 500 mg/250 mL D5W IV PRN (01:05)
--- NOTE | 2017-02-23 01:34 | ABG ---
DateTimeAnalyzed 01:26:00 -_ pH ____7.313 - 7.350 7.450 pCO2 ___26.0__ -mmHg 35.0 45.0 pO2 198 -mmHg 69.0 116 HCO3- ___12.8__ -mmol/L 22.0 26.0 ABE __-11.7__ -mmol/L -2.0 2.0 tHb ___14.1__ -g/dL 12.0 18.0 O2Hb ___97.9__ -% COHb ____0.2__ -% 0.0 1.5 MetHb ____0.8__ -% 0.4 1.5 sO2 ___98.9__ -% FIO2 ___60.0__ -% PEEP ___10.0__ -cmH2O Set_RR ___22.0__ -b/min Vt __580.0__ -L Drawn By TLA - Date/Time Notified____ 01:34:00 -_ Spontaneous_RR ___20.0__ -b/min Oxygen Device 1 VENTILATOR - Notified By TLA - Notified Whom ___Dr. Sullenberger/Nathan-RN - B 757 -mmHg tO2 ___19.7__ -Vol% Jim test _Positive -
[2017-02-23] MEDS: Cisatracurium 2,000 mCg/mL 10 mL Inj IV PRN ×5 (02:20→21:31)
[2017-02-23] MEDS: KCl 40 mEq/100 mL IV Premix (K < 3 & Creat <2) IV SCH (03:31)
[2017-02-23 03:46] LABS: BASOPHILS % (AUTO) 0.1 % (0-3); EOSINOPHILS % (AUTO) 0.1 % (0-5); MONOCYTES % (AUTO) 6.5 % (4-12); Mean Corpuscular Hemoglobin 30.7 pg (27.0-35.0); Mean Corpuscular Volume 91.1 fL (81-100); NEUTROPHILS % (AUTO) 79.5 % (40-74); Platelet Count 180 bil/L (150-400)
[2017-02-23 04:06] LABS: INR 0.95 ratio
[2017-02-23 04:26] LABS: Magnesium 2.8 mg/dL (1.6-2.6); Phosphorus 1.5 mg/dL (2.5-4.9)
[2017-02-23 04:36] LABS: TROPONIN T 0.966 ug/L (0.0-0.011)
[2017-02-23] MEDS: Piperacillin-Tazo 3.375 Gm Inj 3.375 GM in Dextrose 5% Minibag Plus 50 ML IV SCH ×3 (04:43→20:09)
[2017-02-23] MEDS ORDERED: Cisatracurium 2,000 mCg/mL 10 mL Inj ONE (05:23)
--- NOTE | 2017-02-23 05:53 | ABG ---
DateTimeAnalyzed 05:47:00 -_ pH ____7.352 - 7.350 7.450 pCO2 ___27.9__ -mmHg 35.0 45.0 pO2 244 -mmHg 69.0 116 HCO3- ___15.1__ -mmol/L 22.0 26.0 ABE ___-8.8__ -mmol/L -2.0 2.0 tHb ___12.8__ -g/dL 12.0 18.0 O2Hb ___98.3__ -% COHb ____0.1__ -% 0.0 1.5 MetHb ____1.0__ -% 0.4 1.5 sO2 ___99.4__ -% FIO2 ___60.0__ -% PEEP ___10.0__ -cmH2O Set_RR ___20.0__ -b/min Vt __580.0__ -L Drawn By TLA - Date/Time Notified____ 05:53:00 -_ Spontaneous_RR ___20.0__ -b/min Oxygen Device 1 VENTILATOR - Notified By TLA - Notified Whom Nathan- RN - B 757 -mmHg tO2 ___18.2__ -Vol% Jim test _Positive -
[2017-02-23] MEDS: Magnesium Sulf 4 Gm/100 mL H2O 4 GM in IV Premix 1 EACH IV PRN (06:12)
[2017-02-23] MEDS ORDERED: 0.9% Sodium Chloride 500 ML IV ONE (06:30)
--- NOTE | 2017-02-23 06:46 | NUR ---
Labs/shivering: Pt currently has K-phos, K, and Mag rides infusing. Lactic acid has been climbing and 0330 result of 4.[address] Alvarado orders were received to give 500ml bolus of NS and recheck lactic at 0700. Nimbex boluses were reordered for shivering about every 3-4 hours.
[2017-02-23] MEDS: Lactated Ringer's 1,000 ML IV PRN ×4 (07:35→20:09)
[2017-02-23] MEDS: Famotidine Inj 20 MG in IV Premix 1 EACH IV SCH ×2 (08:07→20:09)
[2017-02-23] MEDS: LacriLube S.O.P. 3.5 Gm Ophthalmic Ointment BOTH_EYES SCH ×2 (08:07→20:09)
--- NOTE | 2017-02-23 09:14 | DRSVH ---
[facility] [address] [place] [address] Echocardiogram Report Name: MOMO WORKMAN LStudy Date: 08/2016 Height: 73 in Hospital Exam Location: [facility] Weight: 286 lb Gender: Female BSA: 2.5 m2 : 1985 Age: 31 yrs BP: 136/82 mm Hg Reason For Study: Cardiac Arrest Ordering Physician: HOSPITALIST [facility] Performed By: Aleshia Vo Ref[facility] Phys[facility] Interpretation Summary Technically difficult echocardiogram due to patient positioning and limited acoustic imaging windows. The patient was intubated during the exam. The left ventricle is grossly normal size. The ejection fraction is estimated to be 50-55% (s/p cardiac arrest). In 09/2013, LV EF was 60-65%. The right ventricle is not well visualized. No significant valvular pathology seen. The IVC is dilated. Inspiratory collapse cannot be assessed because of mechanical ventilation, thus CVP cannot be estimated.. Procedure: A two-dimensional transthoracic echocardiogram with color flow and Doppler was performed. Technically difficult echocardiogram due to patient positioning and limited acoustic imaging windows. The patient was intubated during the exam. The apical views were difficult to obtain and are suboptimal in quality. The subcostal views were difficult to obtain and are suboptimal in quality. The patient was in normal sinus rhythm during the exam. Left Ventricle: The left ventricle is grossly normal size. Proximal septal thickening is noted. The ejection fraction is estimated to be 50-55%. Regional wall motion abnormalities cannot be excluded due to limited visualization. Assessment of diastolic parameters indicates normal left ventricular diastolic function and normal filling pressures. Right Ventricle: The right ventricle is not well visualized. Atria: The left atrium grossly appears normal in size. Right atrium not well visualized. Mitral Valve: The mitral valve is grossly normal. There is no mitral regurgitation noted. Aortic Valve: The aortic valve is grossly normal. There is no hemodynamically significant valvular aortic stenosis. No aortic regurgitation is present. Tricuspid Valve: The tricuspid valve is not well visualized. There is trace tricuspid regurgitation. Pulmonary artery pressures cannot be estimated because of the lack of a measurable TR jet velocity. Pulmonic Valve: The pulmonic valve is not well visualized. There is no pulmonic valvular regurgitation. Great Vessels: The aortic root is normal size. The ascending aorta could not be visualized. Inspiratory collapse cannot be assessed because of mechanical ventilation, thus CVP cannot be estimated.. The IVC is dilated, but has some respiratory collapse suggesting high central venous pressure. Pericardium/ Pleura There is no pericardial effusion. There is no pleural effusion. MMode/2D Measurements & Calculations IVC diam: 2.5 cm LVOT diam: 2.2 cm Doppler Measurements & Calculations Ao V2 max Ao V2 mean LV V1 max PG LALA indexed to BSA : 113.7 cm/sec : 78.1 cm/sec (cm^2/m^2): 1.3 Ao max P.2 mmHgAo V2 VTI LV V1 VTI Ao mean PG : 19.5 cm LVOT Max Jhonatan LALA(V,D): 3.4 cm2 : 98.3 cm/sec LALA(I,D): 3.3 cm sev ratio: 0.83 Reading Physician:HENRIQUE
--- NOTE | 2017-02-23 09:57 | ABG ---
DateTimeAnalyzed 09:49:00 -_ pH ____7.283 - 7.350 7.450 pCO2 ___37.7__ -mmHg 35.0 45.0 pO2 115 -mmHg 69.0 116 HCO3- ___17.3__ -mmol/L 22.0 26.0 ABE ___-8.3__ -mmol/L -2.0 2.0 tHb ___12.7__ -g/dL 12.0 18.0 O2Hb ___96.2__ -% COHb ____0.2__ -% 0.0 1.5 MetHb ____1.0__ -% 0.4 1.5 sO2 ___97.4__ -% FIO2 ___40.0__ -% PRVC 580 - PEEP ___10.0__ -cmH2O Set_RR ___20.0__ -b/min Vt __586.0__ -L Drawn By jmw - Date/Time Notified____ 09:56:00 -_ Spontaneous_RR ___20.0__ -b/min Oxygen Device 1 VENTILATOR - Notified By jmw - Notified Whom DR GEE - B 758 -mmHg tO2 ___17.3__ -Vol% Jim test _Positive -
[2017-02-23 10:05] LABS: INR 0.97 ratio
[2017-02-23 10:13] LABS: BASOPHILS % (AUTO) 0.1 % (0-3); EOSINOPHILS % (AUTO) 0.1 % (0-5); MONOCYTES % (AUTO) 4.7 % (4-12); Mean Corpuscular Hemoglobin 30.1 pg (27.0-35.0); Mean Corpuscular Volume 91.1 fL (81-100); Platelet Count 170 bil/L (150-400)
[2017-02-23] MEDS: Norepinephrine 8,000 mCg/250 mL NS Premix IV PRN ×2 (10:24→22:57)
--- NOTE | 2017-02-23 10:32 | PCM.PNMED ---
Subjective Date of Service Feb 23, 2017 Subjective Ventilator management Consult Note Nancy is a 31 yo woman with triple X syndrome and a history of prior out of hospital cardiac arrest due to Tors[place] who sustained an [id number] VT arrest 02/22 and was brought to [facility] ED intubated. Her admitting team has start her on hypothermia protocol with a goal temperature of 33. I have been asked to provide ventilator management while she requires intubation and ventilation. Interval History Over night, she has been hypotensive, requiring both norepinephrine and dobutamine. Additionally, she has a metabolic acidosis and multiple metabolic abnormalities.She has received sedation, magnesium and cisatracurium to manage the shivering associated with the hypothermia ordered but continues to shiver. Exam Vital Signs Vital Sign - Last Date Time Temp Pulse Resp B/P Pulse Ox O2 Delivery O2 Flow Rate FiO2 02/23/17 08:41 55 134/81 100 50 02/23/17 08:01 Ventilator 02/23/17 08:01 32.9 20 Intake and Output 02/22/17 02/22/17 02/23/17 Cumulative From/Thru 15:00 23:00 07:00 02/22/17 13:36 - 02/23/17 05:44 Intake Total 1610 ml 4768 ml 6378 ml Output Total 1860 ml 1470 ml 3330 ml Balance -250 ml 3298 ml 3048 ml Intake IV Total 1610 ml 4768 ml 6378 ml Output Urine Total 1850 ml 1270 ml 3120 ml Gastric Drainage Total 10 ml 200 ml 210 ml # Bowel Movements 1 1 Exam Pale, obese woman orally intubated on vent. No response to voice or light touch. SpO2 100% Lungs Scattered fine rales, NO wheezes CV Distant HT's , normal S1S2, no m/g/r Abd Soft, No HSM, No BT's, mass, bruit Ext Cool, 1+ DP pulses, trace LE edema Neuro Sedated and pharmacologically paralyzed on ventilator. IVs and Medications Medications Reviewed: Medications were reviewed in detail Lab and Diagnostics Reviewed in detail Result Diagram: 02/23/1733502/23/17335 X-Rays, CTs and MRIs X-RAY CHEST ONE VIEW, PORTABLE IMPRESSION: 1. Support lines as above. 2. Patchy opacities as described above. These could be herbicide service sales representative of Findings are suggestive of edema. However, developing areas of airspace disease such as atelectasis and/or pneumonia cannot be excluded. Dictated by: Mikaela Davila M.D. on 02/22/2017 at 14:36 Approved by: Mikaela Davila M.D. on 02/22/2017 at 14:38 CT BRAIN WITHOUT CONTRAST IMPRESSION: 1. No acute intracranial process. 2. Scattered ethmoid and sphenoid sinus fluid Dictated by: Mikaela Davila M.D. on 02/22/2017 at 15:01 Approved by: Mikaela Davila M.D. on 02/22/2017 at 15:02 Assessment & Plan IMPRESSION Acute respiratory failure following out of hospital cardiac arrest. Oxygenation and ventilation are appropriate. She is developing a metabolic acidosis which may reflect poor tissue perfusion as a result of poor cardiac output which would not be explained by her ejection fraction of 50% by echocardiogram yesterday. Her echocardiogram was very technically difficult due to her positioning and medical devices but her CXR has an unusual cardiac shadow and her heart appears shifted towards the right side and I wonder if she has additional congenital structural cardiac anomalies. In addition to a primary arrhythmia as the cause for her arrest, other potential causes including PE should be considered but I will leave it to her primary team and cardiology to consider whether to obtain a CT angiogram which in addition to examining for PE would also give us some reassurance regarding her cardiovascular anatomy. RECOMMENDATION No change in ventilation for now. Continue to titrate FiO2 to maintain SpO2 >/= 93% Consider CT pulmonary angiogram Adjust her temperature goal if her shock and acidosis progress Pain Evaluation: Adequate Pain Control VTE Prophylaxis: Sub-Q Heparin (Unfractionated) Resuscitation Status: CPR: Attempt Resuscitation Time spent 15 minutes spent in ventilator management Zaid Ramos MD Feb 23, 2017 10:32 although pneumonia process cannot be ruled out at this time. - Chest x-ray shows edema possibly secondary to pneumonia - Blood cultures 4 - Sputum cultures pending - Procalcitonin pending - UA pending - Prophylactic Zosyn to cover for aspiration pneumonia. Elevations in liver enzymes, present on arrival, active Possibly due to hypoperfusion secondary to cardiac arrest, however unlikely to occur so quickly Per mother pt has history of elevated liver enzymes secondary to unspecific biliary pathology, requesting records from [facility] where workup was done. - Continue to monitor Lactic acidosis, present on arrival, active Likely secondary to stress reaction in conjunction with cardiac hypoperfusion - Continue to monitor until normalized Acute Hyperglycemia, present on arrival, active - Glucose on admission 233 - No prior history of diabetes - A1c pending - Glucose management per cooling protocol Chronic pain, presumed stable - Patient currently sedated with propofol and fentanyl - Resume home medications when awake Anxiety - Takes Abilify and Lamictal at home - Currently sedated with propofol and fentanyl - Resume home medications when awake Depression Possibly due to suicide attempt/overdose, mother states prior history of suicidal ideation without a plan or previous attempts. - Utox pending - Per Pharmacy, takes Prozac, Abilify and Lamictal at home - Currently sedated with propofol and fentanyl - Resume home medications when awake Triple X syndrome, presumed stable - No known correlation with cardiac arrhythmia or cardiac arrest. - Consider other genetic phenomena as possible explanations to cardiac arrest/ arrhythmias - Per cardiology, possible channelopathy which would be treated with ICD placement. Disposition: Patient admitted under inpatient status with expected length of stay > 2 midnights for severity of present symptoms, complexities of treatment plan and risk for adverse event Pain Evaluation: Adequate Pain Control VTE Prophylaxis: Sub-Q Heparin (Unfractionated) Resuscitation Status: CPR: Attempt Resuscitation Time spent 15 minutes spent in ventilator management Zaid Ramos MD Feb 23, 2017 10:32
[2017-02-23 10:35] LABS: Magnesium 3.4 mg/dL (1.6-2.6); Phosphorus 2.2 mg/dL (2.5-4.9)
[2017-02-23] MEDS ORDERED: 0.9% Sodium Chloride 1,000 ML IV SCH (10:40)
[2017-02-23 10:48] LABS: TROPONIN T 0.783 ug/L (0.0-0.011)
--- NOTE | 2017-02-23 11:24 | DRSVH ---
PROCEDURE: X-RAY CHEST ONE VIEW, PORTABLE ([id number]) INDICATIONS: respiratory failure TECHNIQUE: One view of the chest was acquired. COMPARISON: [facility], CR, XR CHEST 1VW (PORTABLE), 02/22/2017, 14:03. FINDINGS: Surgical changes and devices: Endotracheal tube and right internal jugular catheter appears unchanged in position. The internal jugular catheter tip is redemonstrated within the proximal right atrium a pproximately 2 cm inferior to the cavoatrial junction. There is a nasogastric tube redemonstrated wi th the tip not well-visualized. Lungs and pleura: No pleural effusions or pneumothorax. There are confluent airspace opacities rede monstrated within the right lung suggestive of pneumonia. Mild pulmonary edema is redemonstrated. Mediastinum: Mediastinal contours appear unchanged. Heart size is normal. Bones and chest wall: No suspicious bony lesions. Overlying soft tissues appear unremarkable. IMPRESSION: 1. Confluent right airspace opacities suggestive of pneumonia. Recommend attention on followup. 2. Persistent mild pulmonary edema. 3. Lines and tubes redemonstrated with the tip of the right internal jugular catheter redemonstrated in the right atrium. The tip of the nasogastric tube is not well-visualized on the current study wi th possible interval retraction. Recommend a repeat study when clinically feasible. Dictated by: Nate Cai M.D. on 02/23/2017 at 11:20 Approved by: Nate Cai M.D. on 02/23/2017 at 11:22
[2017-02-23] MEDS ORDERED: Sodium Phosphate Inj 40 MEQ in Dextrose 5% 500 ML IV ONE (13:10)
--- NOTE | 2017-02-23 13:43 | PROG NOTE ---
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 She is sedated. She is on vent. She had an echocardiogram today which revealed grossly normal left ventricular size. LV ejection fraction appears to be 50% to 55%. In September 2013, it was about 60% to 65%. Right ventricle was not well seen. I do not see any significant pericardial effusion. No significant valvular pathology. IVC dilated. Inspiratory collapse could not be assessed because of mechanical ventilation. She is on Levophed 0.07 and 2.5 mcg of dobutamine. Cardiac index is about 3.2 L and cardiac output 8. She is on FiO2 40%, with oxygen saturation 100%. CVP is around 12-14. OBJECTIVE: Blood pressure 134/81, heart rate 55, respiratory rate 20. Patient is sedated. Neck: Difficult to comment upon JVD. Chest: Decreased air entry. CVS: Distant heart sounds but no new murmur. No S3, no S4. Abdomen: No obvious pulsatile mass. Extremities: No new significant pedal edema or evidence of critical limb ischemia. TAG PRESS OPERATOR could not be examined. Telemetry: Sinus with sinus mary without any sustained ventricular tachycardia. LABORATORIES: WBC 9, hemoglobin 11.9, platelets 170. Sodium 139, potassium 4.6, BUN 8, creatinine 0.55. Lactic acid in the morning was 4.3, now decreased to 2.6. Magnesium 3.4, AST 105, ALT 90, phosphorus 2.2. Calcium 7.8. The peak CPK 364, now 458. Troponin T peaked to 0.62; decreased to 0.783. Procalcitonin 1.52. X-ray chest: Right lung airspace opacities suggestive of pneumonia with mild pulmonary edema. Heart size normal. Yesterday, she was on negative balance of 250 mL. Today she is in positive balance of 3298 mL. ASSESSMENT AND PLAN: Cardiac arrest due to ventricular tachycardia with prolonged QTc on surface EKG, likely due to psychiatric medications. The patient has known history of polymorphic ventricular tachycardia in 2011 due to multiple psychiatric medications. For at least 9 minutes, there was no CPR done before EMS came and resuscitated her. She has known history of triple X syndrome and very severe depression, chronic anxiety. She cannot function without psychiatric medications. At this point of time, she is undergoing hypothermia protocol. Will stop dobutamine but continue small dose of Levophed. Her troponin elevation, CPK, likely due to CPR. Considering her age and lack of CAD risk factors, I am not suspecting atherosclerotic coronary artery disease. In the past exercise stress echo did not reveal ischemia infarction. She has metabolic acidosis which can cause myocardial suppression as well. At this point of time, from cardiac perspective, we will recommend continuation of hemodynamic support. Pulmonary team suggested PE workup, which I will leave up to our hospitalist team. From cardiac perspective, we will continue to evaluate her. Once hypothermia protocol is completed and good neurological recovery, I will recommend AICD insertion for secondary prevention. Discussed the plan with the hospitalist team, as well as her mother. Total time spent today for this critical care followup, at least 50 minutes.
--- NOTE | 2017-02-23 15:36 | NUR ---
Restraints discontinued at 0830 Pt has been receiving nimbex as needed for shivering. She has not made attempts to move her arms in between doses. Restraints discontinued for now. Will continue to observe and request order if needed to protect lines and tubes.
[2017-02-23] MEDS: fentaNYL 2,500 mCg/250 mL IV Premix IV SCH (16:04)
[2017-02-23 16:50] LABS: Magnesium 2.9 mg/dL (1.6-2.6)
--- NOTE | 2017-02-23 17:35 | NUR ---
P: Resp, Hemodynamics, Neuro, Social I,E: Pt remains on the vent, FIO2 was weaned down to 40% this am and sats remain 99-100%. Secretions are minimal to scant, pt does not have a cough effort. Secretions are clear with blood in them. Pt is in SB with IVCD (at times) and increased QT, no ectopi. BP has been stable with MAP high 70's to 80's. Although I titrated the Dobutamine down and just turned it off at 1630 hrs and pt did drop her BP to 88/54, CI is 2.2 currently. Levophed was increased to .08mcg. Pt's CVP was 16 at 1600hrs. UOP was 2050cc this shift. She received a total of 2000cc fluid bolus's this shift per protocol. Last hemodynamics were CI 2.2, CVP 16, SVI 52 TPRI 2595. Labs per protocol and replacing phos at this time. Pt is sedated with propofol and fentanyl. She does not obey commands, pupils are reactive to light. She has brief episodes of a shivering type of shaking which lasts briefly and then she stops. She does not seem to have a gag reflex at this time either. Mother is in the room at the bedside and asking approp questions.
--- NOTE | 2017-02-23 17:49 | NUR ---
Social Work- Initial Assessment/Multidisciplinary Rounds Data: See Initial Assessment and Advance Directive intervention for additional information. Pt is a 31 year old female admitted post cardiac and pulmonary arrest per H&P. Pt's insurance is [employer] and PCP is Sona Huerta PA-C. Pt's readmit risk score is 3/8, moderate risk. Pt's NOK and d/c planning lathe operator contact lens is mother Slava Leon, . Pt discussed in multidisciplinary rounds, pt is vented undergoing cooling and re-warming protocol. No SW needs identified in rounds at this time, no SW orders received. SW met with mother at bedside regarding d/c plan, SW role explained. Pt sedated and vented and unable to participate at this time. Pt's capacity for self-care assessed. 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 Pt drives. Pt uses no DME. Pt has no LTC or VA benefits. Pt has no Advance Directive and pt's mother declined this information. Pt has diagnosis of chronic anxiety and depression. Pt's mother reports that pt sees a psychiatrist through [facility] in [place] as well as a private therapist [facility]rera in [place]. [facility] manages pt's psychiatric medications. Pt's mother feels that pt is coping well and her mental health is stable. Pt's mother confirms that pt knows the crisis line if she were to need it. SW wrote phone number and plan on whiteboard for reference, pt's mother declined d/c planning checklist. Provided business card to pt's mother. SW will continue to follow and check in with pt when pt is appropriate. Assessment: Pt was previously independent with ADLs and self-care Plan: Evolving; pt will be evaluated by Cardiology mid week, potential ICD placement. No SW needs identified at this time, SW continues to follow for discharge planning needs as they arise. JUAN Strong Addendum: 02/23/17 at 1753 by ZURDO MCCABE Amended: Links added.
--- NOTE | 2017-02-23 18:37 | PCM.PNMED ---
Subjective Date of Service Feb 23, 2017 Subjective overnight: Difficulty with reaching goal temperature not entertained until 2034 approximately 6 hours after cooling protocol was initiated. Patient remained on levo fed and dobutamine with blood pressures as low as 80s/40s overnight for mean arterial pressure less than 80 per hypothermia protocol. Today given the patient's echo with normal EF the patient was slowly titrated off dobutamine. She remained on it nor epi to keep pressures stabilized. Patient's fluids were changed to one half normal saline with lactated Ringer boluses. Patient's procalcitonin and white blood cell count dropped, given findings on x-ray of pneumonia, clinical indications that antibiotics are working. Exam Vital Signs Vital Sign - Last Date Time Temp Pulse Resp B/P Pulse Ox O2 Delivery O2 Flow Rate FiO2 02/23/17 04:30 Ventilator 02/23/17 04:30 33.0 57 20 136/82 100 60 Intake and Output 02/22/17 02/22/17 02/23/17 Cumulative From/Thru 15:00 23:00 07:00 02/22/17 13:36 - 02/23/17 05:44 Intake Total 1610 ml 4768 ml 6378 ml Output Total 1860 ml 1470 ml 3330 ml Balance -250 ml 3298 ml 3048 ml Intake IV Total 1610 ml 4768 ml 6378 ml Output Urine Total 1850 ml 1270 ml 3120 ml Gastric Drainage Total 10 ml 200 ml 210 ml # Bowel Movements 1 1 Exam General: Young female intubated and sedated Eyes: Pupils constricted equal round and reactive to light, anicteric sclera, noninjected conjunctiva HENT: ET tube in place, dry mucous membranes without central cyanosis, oropharynx clear without purulent exudate or cobblestoning mucosa Neck: Supple, trachea midline, without thyromegaly or JVD Cardiovascular: Bradycardic rate and regular rhythm, distant S1 and S2 heart sounds without murmurs rubs or gallops noted Lungs: Are to Wrap around Torso, Coarse breath sounds noted bilaterally in the axillary regions right worse than left, no wheezing noted Abdomen: Soft, nondistended, tympanic to percussion, normal active bowel sounds , without organomegaly Extremities: No cyanosis clubbing or edema noted, pulses intact bilaterally at dorsalis pedis and radial : Donohue catheter in place Skin: Cool and dry Neuro: Unable to assess given intubated and sedated Psych: Unable to assess given intubated and sedated Lab and Diagnostics Result Diagram: 02/23/17 03302/23/17 033 X-Rays, CTs and MRIs X-RAY CHEST ONE VIEW, PORTABLE IMPRESSION: 1. Support lines as above. 2. Patchy opacities as described above. These could be sales representative cash registers of Findings are suggestive of edema. However, developing areas of airspace disease such as atelectasis and/or pneumonia cannot be excluded. Approved by: Mikaela Davila M.D. on 02/22/2017 at 14:38 CT BRAIN WITHOUT CONTRAST IMPRESSION: 1. No acute intracranial process. 2. Scattered ethmoid and sphenoid sinus fluid Approved by: Mikaela Davila M.D. on 02/22/2017 at 15:02 X-RAY CHEST ONE VIEW, PORTABLE IMPRESSION: 1. Confluent right airspace opacities suggestive of pneumonia. Recommend attention on followup. 2. Persistent mild pulmonary edema. 3. Lines and tubes redemonstrated with the tip of the right internal jugular catheter redemonstrated in the right atrium. The tip of the nasogastric tube is not well-visualized on the current study with possible interval retraction. Recommend a repeat study when clinically feasible. Approved by: Nate Cai M.D. on 02/23/2017 at 11:22 Cardiac Echo Impressions Echocardiogram Report Interpretation Summary Technically difficult echocardiogram due to patient positioning and limited acoustic imaging windows. The patient was intubated during the exam. The left ventricle is grossly normal size. The ejection fraction is estimated to be 50-55% (s/p cardiac arrest). In 09/2013, LV EF was 60-65%. The right ventricle is not well visualized. No significant valvular pathology seen. The IVC is dilated. Inspiratory collapse cannot be assessed because of mechanical ventilation, thus CVP cannot be estimated.. Reading Physician:AM Assessment & Plan 31-year-old female patient with past medical history significant for triple X syndrome([id number]), chronic anxiety, depression, and previous cardiac arrest in 2011 who presents to the ED via EMS as a result of cardiac arrest. Acute cardiac arrest, present on arrival, active Prior episode in 2011 at [facility] suspected due to long QT syndrome secondary to polypharmacy Patient saw Dr. Mena August for workup of palpitations. Workup suggests no arrhythmia or cardiac ischemia. Per pt's pharmacy pt takes Fluoxetine, Aripiprazole which could possibly contribute to QT elongation - QTc on arrival 483, EKG in Jul shows QTc 433 - Patient placed on cooling protocol, with plans to initiate rewarming at approximately 8:30 PM - Norepinephrine for pressure support, currently titrating off the dobutamine - Initial troponin elevated and trended until negative - CK-MB elevated and trended until negative - Keep magnesium >2, potassium >4 - Blood cultures 4 - Serial daily ABGs and chest x-rays while intubated - Echo shows intact EF - Cardiology consulting, Dr. Peña, recommending possible ICD placement pending successful outcome. Acute hypoxemic respiratory distress, present on arrival, active Patient unconscious on arrival, required intubation by EMS - Patient sedated with Propofol and fentanyl - Vent settings to be managed by CCU team - ABG when corrected for hypothermia protocol shows a primary metabolic acidosis with compensated toward respiratory alkalosis with low CO2 Acute pneumonia likely secondary to aspiration, present on arrival, active - Given leukocytosis with elevated pro calcitonin and Chest x-ray consistent with to pneumonia - Blood cultures 4 - Sputum cultures pending - Prophylactic Zosyn to cover for aspiration pneumonia. Elevations in liver enzymes, present on arrival, active Possibly due to hypoperfusion secondary to cardiac arrest, currently improving consistent with hypoperfusion Per mother pt has history of elevated liver enzymes secondary to unspecific biliary pathology, requesting records from [facility] where workup was done. - Continue to monitor Lactic acidosis, present on arrival, active - Lactic acid trended until normal - ABG when corrected for hypothermia protocol shows a primary metabolic acidosis with compensated toward respiratory alkalosis with low CO2 Likely secondary to stress reaction in conjunction with cardiac hypoperfusion - Continue to monitor until normalized Acute Hyperglycemia, present on arrival, active - Glucose on admission 233 - No prior history of diabetes - A1c pending - Glucose management per cooling protocol Chronic pain, presumed stable - Patient currently sedated with propofol and fentanyl - Resume home medications when awake Anxiety - Takes Abilify and Lamictal at home - Currently sedated with propofol and fentanyl - Resume home medications and monitoring for QT prolongation when awake Depression Possibly due to suicide attempt/overdose, mother states prior history of suicidal ideation without a plan or previous attempts. - Utox pending - Per Pharmacy, takes Prozac, Abilify and Lamictal at home - Currently sedated with propofol and fentanyl - Resume home medications when awake Triple X syndrome, presumed stable - No known correlation with cardiac arrhythmia or cardiac arrest. - Consider other genetic phenomena as possible explanations to cardiac arrest/ arrhythmias - Per cardiology, possible channelopathy which would be treated with ICD placement. The patient is likely to remain inpatient for several more days at minimal as she is weaned off ventilator support and pressor medications. Pain Evaluation: Adequate Pain Control VTE Prophylaxis: Sub-Q Heparin (Unfractionated) Resuscitation Status: CPR: Attempt Resuscitation Attending Statement The patient was seen and examined together with Dr. Petersen on 02/23/2017 and I agree with the history, exam and plan as outlined in the note above. . Saul Petersen DO Feb 23, 2017 07:19 Kai Guallpa MD Feb 24, 2017 13:50
[2017-02-23] MEDS: Cisatracurium 200,000 mCg/100 mL NS IV SCH ×2 (22:38)
[2017-02-23 22:40] LABS: Magnesium 2.6 mg/dL (1.6-2.6)
[2017-02-24] VITALS (13 sets, daily range): BP systolic 105–139; BP diastolic 61–94; PULSE 38–90; RESP 18–20; O2SAT 98–100
[2017-02-24] MEDS: Heparin 5,000 Unit/mL Inj SUBQ SCH ×3 (00:52→16:03)
[2017-02-24] MEDS: Chlorhexidine 0.12% 15 mL Oral Solution MT SCH ×6 (00:52→20:27)
[2017-02-24] MEDS: Norepinephrine 8,000 mCg/250 mL NS Premix IV PRN ×4 (02:15→11:50)
[2017-02-24 03:30] LABS: BASOPHILS % (AUTO) 0.2 % (0-3); EOSINOPHILS % (AUTO) 1.1 % (0-5); MONOCYTES % (AUTO) 3.3 % (4-12); Mean Corpuscular Volume 89.5 fL (81-100); NEUTROPHILS % (AUTO) 70.8 % (40-74); Platelet Count 247 bil/L (150-400)
[2017-02-24 04:04] LABS: Magnesium 2.5 mg/dL (1.6-2.6); Phosphorus 3.9 mg/dL (2.5-4.9)
[2017-02-24] MEDS: Piperacillin-Tazo 3.375 Gm Inj 3.375 GM in Dextrose 5% Minibag Plus 50 ML IV SCH ×3 (04:42→20:42)
--- NOTE | 2017-02-24 06:10 | NUR ---
Heart rate/BP/shivering: Pt was started back on dobutamine for slow HR of 36 it was titrate on and off twice. Pt BP was up and down LR bolus was given and levophed was titrated. Pt had large amount of urine output for first 4 hours of shift then decreased to between 40-80 mls/hr. Nimbex gtt was started for shivering was able to titrate off.
[2017-02-24] MEDS: Cisatracurium 200,000 mCg/100 mL NS IV SCH ×6 (06:14→21:57)
--- NOTE | 2017-02-24 06:28 | ABG ---
DateTimeAnalyzed 06:19:00 -_ pH ____7.371 - 7.350 7.450 pCO2 ___26.2__ -mmHg 35.0 45.0 pO2 104 -mmHg 69.0 116 HCO3- ___14.8__ -mmol/L 22.0 26.0 ABE ___-8.6__ -mmol/L -2.0 2.0 tHb ___12.6__ -g/dL 12.0 18.0 O2Hb ___95.9__ -% COHb ____0.4__ -% 0.0 1.5 MetHb ____1.0__ -% 0.4 1.5 sO2 ___97.3__ -% FIO2 ___30.0__ -% PRVC 580 - PEEP ___10.0__ -cmH2O Set_RR ___20.0__ -b/min Vt __586.0__ -L Drawn By TLA - Date/Time Notified____ 06:28:00 -_ Spontaneous_RR ___20.0__ -b/min Oxygen Device 1 VENTILATOR - Notified By TLA - Notified Whom Nathan- RN - B 759 -mmHg tO2 ___17.1__ -Vol% Jim test _Positive -
[2017-02-24] MEDS: Famotidine Inj 20 MG in IV Premix 1 EACH IV SCH ×2 (07:50→20:27)
[2017-02-24] MEDS: LacriLube S.O.P. 3.5 Gm Ophthalmic Ointment BOTH_EYES SCH ×2 (07:50→20:27)
[2017-02-24] MEDS: Lactated Ringer's 1,000 ML IV PRN (07:51)
--- NOTE | 2017-02-24 08:34 | DRSVH ---
PROCEDURE: X-RAY CHEST ONE VIEW, PORTABLE ([id number]) INDICATIONS: pneumonia TECHNIQUE: One view of the chest was acquired. COMPARISON: [facility], CR, XR CHEST 1VW (PORTABLE), 02/23/2017, 4:50. FINDINGS: Surgical changes and devices: Endotracheal and nasogastric tubes are redemonstrated with interval adv ancement of the nasogastric tube into the stomach. Right internal jugular catheter is unchanged in p osition with the tip in the proximal right atrium. Lungs and pleura: No pleural effusions or pneumothorax. There is persistent mild pulmonary edema, d ecreased from the prior study. Evaluation slightly limited due to rotation. Mediastinum: Mediastinal contours appear prominent due to rotation. Heart size is normal. Bones and chest wall: No suspicious bony lesions. Overlying soft tissues appear unremarkable. IMPRESSION: 1. Decreased but persistent mild pulmonary edema. Dictated by: Nate Cai M.D. on 02/24/2017 at 8:31 Approved by: Nate Cai M.D. on 02/24/2017 at 8:33
--- NOTE | 2017-02-24 11:31 | PCM.PNMED ---
Subjective Date of Service Feb 24, 2017 Subjective Subjective: Patient unable to participate in her care at this point due to be intubated and comatose. Events Overnight: No acute events overnight. ROS: Due to the patient being comatose, a review of systems was unable to be obtained. Exam Vital Signs Vital Sign - Last Date Time Temp Pulse Resp B/P Pulse Ox O2 Delivery O2 Flow Rate FiO2 02/24/17 08:30 Ventilator 02/24/17 08:30 35.9 58 18 118/78 100 30 Intake and Output 02/23/17 02/23/17 02/24/17 Cumulative From/Thru 15:00 23:00 07:00 02/22/17 13:36 - 02/24/17 06:08 Intake Total 3664 ml 5698 ml 48118 ml Output Total 2130 ml 1000 ml 6460 ml Balance 1534 ml 4698 ml 9280 ml Intake IV Total 3664 ml 5698 ml 31470 ml Output Urine Total 2050 ml 900 ml 6070 ml Gastric Drainage Total 80 ml 100 ml 390 ml # Bowel Movements 1 2 Exam General: Intubated and comatose, well-developed, well-nourished Head: Normocephalic, atraumatic. External ears without defect. Eyes: Pupils equal, round, and minimally reactive to light. Anicteric sclerae, injected conjunctivae. Cardiovascular: Regular rate and rhythm with no murmurs, rubs, or gallops appreciated Pulmonary: Coarse breath sounds due to ventilation status, no wheezes, rales, or rhonchi. Normal respiratory effort with no use of accessory muscles. Abdomen: Bowel tones present. Soft, nondistended. Extremities: No clubbing, cyanosis, trace edema Skin: Normal temperature, turgor, and texture; no rash, ulcers, or subcutaneous nodules appreciated. Neurological: Unable to assess Psychiatric: Unable to assess IVs and Medications IV Fluids 5700 mL normal saline delivered with IV medications. Medications Reviewed: Medications were reviewed in detail Medications High-risk medications include: Propofol Fentanyl Norepinephrine Lab and Diagnostics Result Diagram: 02/24/1731702/24/17317 X-Rays, CTs and MRIs X-RAY CHEST ONE VIEW, PORTABLE IMPRESSION: 1. Support lines as above. 2. Patchy opacities as described above. These could be international representative of Findings are suggestive of edema. However, developing areas of airspace disease such as atelectasis and/or pneumonia cannot be excluded. Approved by: Mikaela Davila M.D. on 02/22/2017 at 14:38 CT BRAIN WITHOUT CONTRAST IMPRESSION: 1. No acute intracranial process. 2. Scattered ethmoid and sphenoid sinus fluid Approved by: Mikaela Davila M.D. on 02/22/2017 at 15:02 X-RAY CHEST ONE VIEW, PORTABLE IMPRESSION: 1. Confluent right airspace opacities suggestive of pneumonia. Recommend attention on followup. 2. Persistent mild pulmonary edema. 3. Lines and tubes redemonstrated with the tip of the right internal jugular catheter redemonstrated in the right atrium. The tip of the nasogastric tube is not well-visualized on the current study with possible interval retraction. Recommend a repeat study when clinically feasible. Approved by: Nate Cai M.D. on 02/23/2017 at 11:22 X-RAY CHEST ONE VIEW, PORTABLE IMPRESSION: 1. Decreased but persistent mild pulmonary edema. Dictated by: Nate Cai M.D. on 02/24/2017 at 8:31 Approved by: Nate Cai M.D. on 02/24/2017 at 8:33 Cardiac Echo Impressions Echocardiogram Report Interpretation Summary Technically difficult echocardiogram due to patient positioning and limited acoustic imaging windows. The patient was intubated during the exam. The left ventricle is grossly normal size. The ejection fraction is estimated to be 50-55% (s/p cardiac arrest). In 09/2013, LV EF was 60-65%. The right ventricle is not well visualized. No significant valvular pathology seen. The IVC is dilated. Inspiratory collapse cannot be assessed because of mechanical ventilation, thus CVP cannot be estimated.. Reading Physician:AM Assessment & Plan 31-year-old female patient with past medical history significant for triple X syndrome([id number]), chronic anxiety, depression, and previous cardiac arrest in 2011 who presents to the ED via EMS as a result of cardiac arrest. Acute cardiac arrest, present on arrival, active Prior episode in 2011 at [facility] suspected due to long QT syndrome secondary to polypharmacy Patient saw Dr. Trina Villagran for workup of palpitations. Workup suggests no arrhythmia or cardiac ischemia. Per pt's pharmacy pt takes Fluoxetine, Aripiprazole which could possibly contribute to QT elongation - QTc on arrival 483, EKG in Jul shows QTc 433 - Patient initially placed on cooling protocol, with rewarming terminating at approximately 12:00 PM on 02/24 - Continue Norepinephrine for pressure support as needed - Keep magnesium >2, potassium >4 - Blood cultures 4 - Serial daily ABGs and chest x-rays while intubated - Echo shows intact EF other results as above - Cardiology consulting, Dr. Peña, recommending possible ICD placement pending successful outcome. Acute hypoxemic respiratory distress, present on arrival, active Patient unconscious on arrival, required intubation by EMS - Patient sedated with Propofol and fentanyl - Vent settings to be managed by CCU team - Saturating well on current vent settings Acute pneumonia likely secondary to aspiration, present on arrival, active - Given leukocytosis with elevated procalcitonin and Chest x-ray consistent with to pneumonia - Blood cultures 4 pending - Sputum cultures pending - Prophylactic Zosyn to cover for aspiration pneumonia. Elevations in liver enzymes, present on arrival, improving Possibly due to hypoperfusion secondary to cardiac arrest, currently improving consistent with hypoperfusion - Continue to monitor Lactic acidosis, present on arrival, Resolved Likely secondary to stress reaction in conjunction with cardiac hypoperfusion - Lactic acid trended until normal - ABG when corrected for hypothermia protocol shows a primary metabolic acidosis with compensated toward respiratory alkalosis with low CO2 Acute Hyperglycemia, present on arrival, active - Glucose on admission 233 - No prior history of diabetes - A1c 5.8 - Glucose management per cooling protocol Chronic pain, presumed stable - Patient currently sedated with propofol and fentanyl - Resume home medications when awake Anxiety - Takes Aripiprazole and Lamotrigine at home - Currently sedated with propofol and fentanyl - Resume home medications and monitoring for QT prolongation when awake Depression Possibly due to suicide attempt/overdose, mother states prior history of suicidal ideation without a plan or previous attempts. - Utox pending - Per Pharmacy, takes Prozac, Aripiprazole and Lamotrigine at home - Currently sedated with propofol and fentanyl - Resume home medications when awake Triple X syndrome, presumed stable - No known correlation with cardiac arrhythmia or cardiac arrest. - Consider other genetic phenomena as possible explanations to cardiac arrest/ arrhythmias - Per cardiology, possible channelopathy which would be treated with ICD placement. Disposition: Prognosis guarded in this case due to presentation. I expect 2-3 more days of ventilation management with 5-7 more days of hospitalization in best case scenario. VTE Prophylaxis: Sub-Q Heparin (Unfractionated) VTE Mechanical Devices: Intermittant Pneumatic CD Resuscitation Status: CPR: Attempt Resuscitation Attending Statement The patient was seen and examined together with Dr. Carvalho on 02/24/17 and I agree with the history, exam and plan as outlined in the note above. Alcon Carvalho DO Feb 24, 2017 11:31 Vale Hairston DO Feb 27, 2017 16:29 Alcon Carvalho DO Feb 24, 2017 11:31
[2017-02-24 13:39] LABS: Magnesium 2.3 mg/dL (1.6-2.6); Phosphorus 4.4 mg/dL (2.5-4.9)
--- NOTE | 2017-02-24 14:41 | PCM.PNMED ---
Subjective Date of Service Feb 24, 2017 Subjective Ventilator Management Note Nancy is a 31 yo woman with triple X syndrome and a history of prior out of hospital cardiac arrest due to [place] who sustained an [id number] VT arrest 02/22 and was brought to [facility] ED intubated. Her admitting team has start her on hypothermia protocol with a goal temperature of 33. I have been asked to provide ventilator management while she requires intubation and ventilation. Interval History Now rewarmed and off paralytics but continues on fentanyl at 75 mcg/hr and propofol at 20 mcg/kg/hr. Has spontaneous eye opening and appears at times to follow some commands from her mother who is at bedside. Remains on norepi gtt to support BP. Exam Vital Signs Vital Sign - Last Date Time Temp Pulse Resp B/P Pulse Ox O2 Delivery O2 Flow Rate FiO2 02/24/17 12:30 36.8 68 18 132/77 100 Mechanical Ventilator 30 Intake and Output 02/23/17 02/23/17 02/24/17 Cumulative From/Thru 15:00 23:00 07:00 02/22/17 13:36 - 02/24/17 06:08 Intake Total 3664 ml 5698 ml 46743 ml Output Total 2130 ml 1000 ml 6460 ml Balance 1534 ml 4698 ml 9280 ml Intake IV Total 3664 ml 5698 ml 11369 ml Output Urine Total 2050 ml 900 ml 6070 ml Gastric Drainage Total 80 ml 100 ml 390 ml # Bowel Movements 1 2 Exam Obese pale woman orally intubated on vent. Eyes open but not tracking. SpO2 100%, Temp 37.2 Lungs Good air movement, NO wheezes CV RRR, no m/g/r, Normal S1S2 Abd Soft, NO HSM, rare BT's, not apparently tender Ext Warm, DP pulses 1+ bilaterally Neuro Gaze appears conjugate, PERRL, No spontaneous movements. no tremor, myoclonus. IVs and Medications Medications Reviewed: Medications were reviewed in detail Lab and Diagnostics Reviewed in detail Result Diagram: 02/24/17 0318 02/24/17 1235 X-Rays, CTs and MRIs X-RAY CHEST ONE VIEW, PORTABLE IMPRESSION: 1. Support lines as above. 2. Patchy opacities as described above. These could be airline security representative of Findings are suggestive of edema. However, developing areas of airspace disease such as atelectasis and/or pneumonia cannot be excluded. Approved by: Mikaela Davila M.D. on 02/22/2017 at 14:38 CT BRAIN WITHOUT CONTRAST IMPRESSION: 1. No acute intracranial process. 2. Scattered ethmoid and sphenoid sinus fluid Approved by: Mikaela Davila M.D. on 02/22/2017 at 15:02 X-RAY CHEST ONE VIEW, PORTABLE IMPRESSION: 1. Confluent right airspace opacities suggestive of pneumonia. Recommend attention on followup. 2. Persistent mild pulmonary edema. 3. Lines and tubes redemonstrated with the tip of the right internal jugular catheter redemonstrated in the right atrium. The tip of the nasogastric tube is not well-visualized on the current study with possible interval retraction. Recommend a repeat study when clinically feasible. Approved by: Nate Cai M.D. on 02/23/2017 at 11:22 X-RAY CHEST ONE VIEW, PORTABLE IMPRESSION: 1. Decreased but persistent mild pulmonary edema. Dictated by: Nate Cai M.D. on 02/24/2017 at 8:31 Approved by: Nate Cai M.D. on 02/24/2017 at 8:33 Personally reviewed today's CXR. Heart appears displaced rightward but she is rotated. Prominent Lt pulmonary artery and slight increase in interstitial markings bilaterally. All devices appear to be in proper position Cardiac Echo Impressions Echocardiogram Report Interpretation Summary Technically difficult echocardiogram due to patient positioning and limited acoustic imaging windows. The patient was intubated during the exam. The left ventricle is grossly normal size. The ejection fraction is estimated to be 50-55% (s/p cardiac arrest). In 09/2013, LV EF was 60-65%. The right ventricle is not well visualized. No significant valvular pathology seen. The IVC is dilated. Inspiratory collapse cannot be assessed because of mechanical ventilation, thus CVP cannot be estimated.. Reading Physician:AM Assessment & Plan IMPRESSION Acute respiratory failure following out of hospital cardiac arrest. Oxygenation and ventilation are appropriate. She remains with a significant metabolic acidosis which may reflect poor tissue perfusion as a result of poor cardiac output which would not be explained by her ejection fraction of 50% by echocardiogram yesterday. Propofol infusion syndrome can also produce a metabolic acidosis but this would be highly unlikely in her age and at her relatively low dose. Her echocardiogram was very technically difficult due to her positioning and medical devices but her CXR has an unusual cardiac shadow and her heart appears shifted towards the right side and I wonder if she has additional congenital structural cardiac anomalies. In addition to a primary arrhythmia as the cause for her arrest, other potential causes including PE should be considered but I will leave it to her primary team and cardiology to consider whether to obtain a CT angiogram which in addition to examining for PE would also give us some reassurance regarding her cardiovascular anatomy. If she undergoes a brain CT, I will repeat my recommendation to consider CT pulmonary angiogram to exclude pulmonary embolism as the cause for her collapse. RECOMMENDATION No change in ventilation for now. Continue to titrate FiO2 to maintain SpO2 >/= 93% Hold sedation and perform serial neurological exams off sedation. Spontaneous breathing trial should be deferred until her metabolic acidosis has been evaluated and addressed. If she does not appear to have normal awakening after 12 to 24 hours off all sedation, obtain CT, EEG, and Neurologic consultation. Please see above recommendations regarding CT pulmonary angiogram. Evaluate and correct her metabolic acidosis at least some of which is likely to be iatrogenic and due to the large amounts of saline that she has received. Remaining aspects of her care to be addressed by her primary team and their other consultants. Pain Evaluation: Adequate Pain Control VTE Prophylaxis: Sub-Q Heparin (Unfractionated) Resuscitation Status: CPR: Attempt Resuscitation Time spent 15 minutes spent in ventilator management Pain Evaluation: Adequate Pain Control VTE Prophylaxis: Sub-Q Heparin (Unfractionated) VTE Mechanical Devices: Intermittant Pneumatic CD Resuscitation Status: CPR: Attempt Resuscitation Time spent 20 minutes spent in ventilator management. Zaid Ramos MD Feb 24, 2017 14:41 - Resume home medications when awake Anxiety - Takes Abilify and Lamictal at home - Currently sedated with propofol and fentanyl - Resume home medications and monitoring for QT prolongation when awake Depression Possibly due to suicide attempt/overdose, mother states prior history of suicidal ideation without a plan or previous attempts. - Utox pending - Per Pharmacy, takes Prozac, Abilify and Lamictal at home - Currently sedated with propofol and fentanyl - Resume home medications when awake Triple X syndrome, presumed stable - No known correlation with cardiac arrhythmia or cardiac arrest. - Consider other genetic phenomena as possible explanations to cardiac arrest/ arrhythmias - Per cardiology, possible channelopathy which would be treated with ICD placement. The patient is likely to remain inpatient for several more days at minimal as she is weaned off ventilator support and pressor medications. VTE Prophylaxis: Sub-Q Heparin (Unfractionated) VTE Mechanical Devices: Intermittant Pneumatic CD Resuscitation Status: CPR: Attempt Resuscitation Zaid Ramos MD Feb 24, 2017 14:41
--- NOTE | 2017-02-24 15:54 | NUR ---
P: Change in neuro status I: Pt normothermic on cooling blanket. Re-warmed at 1230. Labs drawn and electrolytes WNL. NPO. OGT draining brownish fluid. Donohue patent and draining 100-200cc/hr. Norepinephrine gtt down to 0.15mcqs. Propofol and fentanyl gtts off per Dr. Ramos. Restraints applied at that time for pt safety when she wakes up. Pt opens her eyes but stares upward. Does not trach or follow any commands. CVP 16. Cheetah numbers okay. Turned Q 2 hours. Oral care Q 4 hours. Mother at bedside and updated on pt's condition and plan of care. SCD's on. E: Stable S: Restraints on for pt safety while sedation off. Frequent rounding.
[2017-02-24] MEDS: fentaNYL 2,500 mCg/250 mL IV Premix IV SCH (16:02)
--- NOTE | 2017-02-24 16:10 | PROG NOTE ---
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 She has finished cooling protocol. Now she is going through this warm-up phase. No active movement. She is on 0.3 Levophed. Dobutamine was discontinued. OBJECTIVE: Vitals: Blood pressure 132/77, heart rate 68, respiratory rate 18, oxygen saturation 100% on 30% FiO2. Cardiac index 3.2. Cardiac output 9.3. TPR 77. CVP around 16. Urine output yesterday 3600; today so far 1000 mL. It is somewhere 100-200 cc/hour. Upon admission, her weight was 130 kg; today 135 kg. No significant anemia. Neck; Difficult to comment upon JVD. Chest: Decreased air entry. CVS: S1, S2 normal. No S3, no S4. Abdomen: No obvious pulsatile mass. Extremities: No significant pedal edema. Vascular: No evidence of critical limb ischemia. GAMING CAGE CASHIER: The patient is sedated. Telemetry: At present sinus rhythm without any obvious ventricular tachycardia, occasional PVCs. LABORATORIES: WBC 16, hemoglobin 12.1, platelets 247. Sodium 142, potassium 4.6, BUN 5, creatinine 0.62. AST decreased to 55. ALT 69. Lactic acid 1.2. ASSESSMENT AND PLAN: Status post cardiac arrest due to ventricular tachycardia with prolonged QTc on surface EKG, likely due to psychiatric medications with underlying respiratory failure, possible pneumonia with abnormal troponin likely due to CPR cardiac resuscitation and LV ejection fraction 50% to 55%, sinus bradycardia during hypothermia. At present, patient is going through hypothermia protocol. She has a history of polymorphic ventricular tachycardia, cardiac arrest in 2011 due to multiple psychiatric medications. The patient has known history of syndrome X and severe depression. At present, from cardiology perspective, we will recommend continuation of supportive management. I would like to keep her CVP around 12. If needed will recommend intermittent IV Lasix to optimize the volume status. Since her admission, she is up by 5 kg as per the input/output charting. If she wakes up with complete neurological recovery, she will benefit with AICD insertion. She does not have any traditional significant atherosclerotic CAD risk factors. Previous ischemic workup was negative. Discussed the plan with the patient's mother as well as hospital staff. Tomorrow, my associate, Dr. Bhakta, will be available to evaluate the patient. Total time spent today for critical care followup is about 40 minutes.
--- NOTE | 2017-02-24 17:57 | NUR ---
P: Pt's Mother anxiety. I: Pt's mother is getting very irritated and worried over updates from and myself. and came back to talk with the pt's mother and sister. Both Doctors stressed that we had to wait and give the pt time to wake up. Pt's mother and sister demonstrates understanding and is more calm E: Family calmer Try and reinforce having to wait. Pt is stable otherwise with norepinephrine gtt off and propofol gtt and fentanyl gtt off as well.
[2017-02-24] MEDS: Acetaminophen IV 1,000 MG in IV Premix 1 EACH IV PRN (18:32)
[2017-02-25] VITALS (11 sets, daily range): BP systolic 93–125; BP diastolic 47–105; PULSE 78–97; RESP 18; O2SAT 98–100
[2017-02-25] MEDS: Chlorhexidine 0.12% 15 mL Oral Solution MT SCH ×6 (01:15→19:54)
[2017-02-25] MEDS: Heparin 5,000 Unit/mL Inj SUBQ SCH ×3 (01:15→17:20)
[2017-02-25] MEDS: Acetaminophen IV 1,000 MG in IV Premix 1 EACH IV PRN ×2 (01:16→12:31)
--- NOTE | 2017-02-25 03:34 | ABG ---
DateTimeAnalyzed 03:28:00 -_ pH ____7.358 - 7.350 7.450 pCO2 ___33.9__ -mmHg 35.0 45.0 pO2 ___84.7__ -mmHg 69.0 116 HCO3- ___18.6__ -mmol/L 22.0 26.0 ABE ___-5.7__ -mmol/L -2.0 2.0 tHb ___10.6__ -g/dL 12.0 18.0 O2Hb ___94.6__ -% COHb ____0.6__ -% 0.0 1.5 MetHb ____0.8__ -% 0.4 1.5 sO2 ___95.9__ -% FIO2 ___30.0__ -% PRVC 580 - PEEP ___10.0__ -cmH2O Set_RR ___18.0__ -b/min Drawn By MD - Date/Time Notified____ 03:34:00 -_ Spontaneous_RR ___20.0__ -b/min Oxygen Device 1 VENTILATOR - Notified By MD - Notified Whom RN J.ELENO - B 755 -mmHg tO2 ___14.1__ -Vol% Jim test N/A -
[2017-02-25] MEDS: Piperacillin-Tazo 3.375 Gm Inj 3.375 GM in Dextrose 5% Minibag Plus 50 ML IV SCH ×3 (04:39→19:54)
[2017-02-25 06:16] LABS: BASOPHILS % (AUTO) 0.2 % (0-3); EOSINOPHILS % (AUTO) 0.7 % (0-5); MONOCYTES % (AUTO) 5.1 % (4-12); Mean Corpuscular Hemoglobin 30.2 pg (27.0-35.0); Mean Corpuscular Volume 92.6 fL (81-100); NEUTROPHILS % (AUTO) 72.5 % (40-74); Platelet Count 184 bil/L (150-400)
--- NOTE | 2017-02-25 07:37 | PCM.PNMED ---
Subjective Date of Service Feb 25, 2017 Subjective Pulmonology Critical Care Progress Note: Nancy Leon is a 31 yo woman with triple X syndrome and a prior history of cardiac arrest due to polymorphic VT in 2011 who was brought to [facility] ED intubated for out of hospital cardiac arrest on 02/22/2017. She was on hypothermia protocol with a goal temperature of 33 until yesterday 02/24/2017. ICU team have been asked to provide ventilator management while she requires intubation and ventilation. Hospital and Ventilator Day #4. She was rewarmed and off all paralytics, sedation, and vasopressor yesterday. No acute event overnight. This morning, patient has spontaneous eye opening and appears at times to follow some commands from her mother who is at bedside. However, she does not follow commands for me. Exam Vital Signs Vital Sign - Last Date Time Temp Pulse Resp B/P Pulse Ox O2 Delivery O2 Flow Rate FiO2 02/25/17 04:30 Ventilator 02/25/17 04:30 37.5 97 18 115/67 100 30 Intake and Output 02/24/17 02/24/17 02/25/17 Cumulative From/Thru 15:00 23:00 07:00 02/22/17 13:36 - 02/25/17 06:01 Intake Total 3375 ml 2531 ml 08632 ml Output Total 1850 ml 2000 ml 02808 ml Balance 1525 ml 531 ml 86705 ml Intake IV Total 3375 ml 2531 ml 70373 ml Output Urine Total 1800 ml 1600 ml 9470 ml Gastric Drainage Total 50 ml 400 ml 840 ml # Bowel Movements 2 Exam General: Obese young woman, intubated and sedated, spontaneously opens eyes upon verbal stimuli with dysconjugate gaze and blinking. Head: Normocephalic, atraumatic. External ears without defect. Eyes: Pupils equal, round, and minimally reactive to light. Anicteric sclerae, conjunctivae moist. Mouth: ET and OG tube in place. Cardiovascular: Regular rate and rhythm with no murmurs, rubs, or gallops appreciated Pulmonary: Coarse breath sounds, no wheezes, rales, or rhonchi. Normal respiratory effort with no use of accessory muscles. Abdomen: Bowel tones present. Soft, nondistended, no apparent tenderness Extremities: No clubbing, cyanosis, trace edema. Skin: hands are cool to touch, normal turgor and texture; no rash, ulcers, or subcutaneous nodules appreciated. Neurological: Unable to assess due to patient's inability to follow command. IVs and Medications Medications Reviewed: Medications were reviewed in detail Lab and Diagnostics Result Diagram: 02/25/17 0545 02/24/17 1235 X-Rays, CTs and MRIs X-RAY CHEST ONE VIEW, PORTABLE IMPRESSION: 1. Support lines as above. 2. Patchy opacities as described above. These could be hospital sales representative of Findings are suggestive of edema. However, developing areas of airspace disease such as atelectasis and/or pneumonia cannot be excluded. Approved by: Mikaela Davila M.D. on 02/22/2017 at 14:38 CT BRAIN WITHOUT CONTRAST IMPRESSION: 1. No acute intracranial process. 2. Scattered ethmoid and sphenoid sinus fluid Approved by: Mikaela Davila M.D. on 02/22/2017 at 15:02 X-RAY CHEST ONE VIEW, PORTABLE IMPRESSION: 1. Confluent right airspace opacities suggestive of pneumonia. Recommend attention on followup. 2. Persistent mild pulmonary edema. 3. Lines and tubes redemonstrated with the tip of the right internal jugular catheter redemonstrated in the right atrium. The tip of the nasogastric tube is not well-visualized on the current study with possible interval retraction. Recommend a repeat study when clinically feasible. Approved by: Nate Cai M.D. on 02/23/2017 at 11:22 X-RAY CHEST ONE VIEW, PORTABLE IMPRESSION: 1. Decreased but persistent mild pulmonary edema. Dictated by: Nate Cai M.D. on 02/24/2017 at 8:31 Approved by: Nate Cai M.D. on 02/24/2017 at 8:33 Personally reviewed today's CXR. Heart appears displaced rightward but she is rotated. Prominent Lt pulmonary artery and slight increase in interstitial markings bilaterally. All devices appear to be in proper position Cardiac Echo Impressions Echocardiogram Report Interpretation Summary Technically difficult echocardiogram due to patient positioning and limited acoustic imaging windows. The patient was intubated during the exam. The left ventricle is grossly normal size. The ejection fraction is estimated to be 50-55% (s/p cardiac arrest). In 09/2013, LV EF was 60-65%. The right ventricle is not well visualized. No significant valvular pathology seen. The IVC is dilated. Inspiratory collapse cannot be assessed because of mechanical ventilation, thus CVP cannot be estimated.. Reading Physician:HENRIQUE Assessment & Plan 31-year-old female patient with past medical history significant for triple X syndrome(47XXX), chronic anxiety, depression, and previous cardiac arrest in 2011 who presents to the ED intubated on the field as a result of cardiac arrest. Acute hypoxemic respiratory distress following cardiac arrest, present on admission, active -Oxygenation and ventilation are appropriate on current vent settings. Patient has been off all sedation since yesterday. -Continue to titrate FiO2 and PEEP to maintain SpO2 >/= 93%. Will consider spontaneous breathing trial today if patient is more alert. -CXR today does not show significant changes from yesterday, but has a persistent, unusual cardiac shadow and her heart appears shifted towards the right side. Her echocardiogram was very technically difficult due to her positioning and medical devices. -In addition to a primary arrhythmia as the cause for her arrest, other potential causes including PE should be considered. Note that patient is taking Estrogen as outpatient. -Will obtain a CT angiogram which in addition to examining for PE would also give us some reassurance regarding her cardiovascular anatomy. -Will also check CT brain at the same time as the CT angiogram chest. Acute cardiac arrest, present on admission, resolved. - Likely secondary to QT prolongation due to polypharmacy. Similar episode in 2011 at [place] suspected due to long QT syndrome secondary to polypharmacy as well. - Per pt's pharmacy patient takes Fluoxetine and Aripiprazole which could possibly contribute to QT elongation. - QTc on arrival 483, EKG in Jul shows QTc 433 - Patient was initially placed on cooling protocol and was rewarmed yesterday; now at normal temperature. - Keep magnesium >2, potassium >4 - Echo shows normal EF as above - Per Cardiology, possible channelopathy which would be treated with ICD placement. Metabolic acidosis, present on admission, improved. - Anion gap is 13 today. - May reflect poor tissue perfusion as a result of poor cardiac output which would not be explained by her ejection fraction of 50% by echocardiogram. Also could be iatrogenic and due to the large amounts of saline that she has received. - Lactic acid normalized. Acute pneumonia likely secondary to aspiration, present on arrival, improved. - Given leukocytosis with elevated procalcitonin and Chest x-ray consistent with pneumonia, now improving - Blood and sputum cultures have been negative. - Continue empirical antibiotic with Zosyn to cover for aspiration pneumonia. Day #4. Remaining aspects of her care to be addressed by her primary team and their other consultants. Elevations in liver enzymes, present on arrival, improving - Possibly due to hypoperfusion secondary to cardiac arrest, currently improving consistent with hypoperfusion Acute Hyperglycemia, present on arrival, resolved - Glucose on admission 233 - No prior history of diabetes - A1c 5.8 Triple X syndrome, presumed stable - No known correlation with cardiac arrhythmia or cardiac arrest. - Consider other genetic phenomena as possible explanations to cardiac arrest/ arrhythmia Chronic pain, presumed stable Anxiety/Depression Patient is on Ranitidine BID for GI prophylaxis and Heparin SQ for DVT prophylaxis. Pain Evaluation: Adequate Pain Control VTE Prophylaxis: Sub-Q Heparin (Unfractionated) VTE Mechanical Devices: Intermittant Pneumatic CD Resuscitation Status: CPR: Attempt Resuscitation Ara Lehman DO Feb 25, 2017 07:37 VTE Mechanical Devices: Intermittant Pneumatic CD Resuscitation Status: CPR: Attempt Resuscitation Ara Lehman DO Feb 25, 2017 07:37 VTE Mechanical Devices: Intermittant Pneumatic CD Resuscitation Status: CPR: Attempt Resuscitation Ara Lehman DO Feb 25, 2017 07:37 Ara Lehman DO Feb 25, 2017 07:37
[2017-02-25] MEDS: Cisatracurium 200,000 mCg/100 mL NS IV SCH ×4 (08:02→16:35)
[2017-02-25] MEDS: LacriLube S.O.P. 3.5 Gm Ophthalmic Ointment BOTH_EYES SCH ×2 (08:06→19:54)
[2017-02-25] MEDS: Famotidine Inj 20 MG in IV Premix 1 EACH IV SCH ×2 (08:09→19:54)
--- NOTE | 2017-02-25 08:14 | DRSVH ---
PROCEDURE: X-RAY CHEST ONE VIEW, PORTABLE ([id number]) INDICATIONS: respiratory distress TECHNIQUE: One view of the chest was acquired. COMPARISON: [facility], CR, XR CHEST 1VW (PORTABLE), 02/24/2017, 5:02. FINDINGS: Surgical changes and devices: ET tube with tip 3.9 CM above the justin or at right IJ CVC with tip at the RA/SVC junction. Enteric tube with tip in the proximal stomach. Lungs and pleura: No pleural effusions or pneumothorax. Left basilar and midlung pulmonary opacities . Stable pulmonary edema. Mediastinum: Mediastinal contours appear normal. Heart size is normal. Bones and chest wall: No suspicious bony lesions. Overlying soft tissues appear unremarkable. IMPRESSION: Stable pulmonary edema and left mid and lower lung pulmonary opacities. Stable support devices. Dictated by: Nazario Cr M.D. on 02/25/2017 at 8:10 Approved by: Nazario Cr M.D. on 02/25/2017 at 8:12
--- NOTE | 2017-02-25 08:56 | NUR ---
NUTRITION ASSESSMENT Assess: 31 YO F admitted to CCU for cardiac arrest requiring intubation. Pt s/p cooling protocol, now off sedation. Plan to check for PE. Pt with likely aspiration PNA. Pt has been NPO X 3 days. Plan for breathing trials, possible extubation in the near future per CCU rounds. PMHX: V-tach, Triple X syndrome, anxiety, depression, cardiac arrest. DIET: NPO. LABS: Ca 7.8, (02/24): Alb 3.2 MEDICATIONS: Reviewed. GI: 1 BM 02/23. OGT. SKIN: No issues noted. ANTHROPOMETRICS: Wt: 134.4 kg, BMI 39.1 kg/m2, Admit: 130.0 kg, IBW: 75.0 kg. ESTIMATED NEEDS: BMI/VENT Calories: 8947-0969 kcal/day (20-22 kcal/kg BW) Protein: 113-135 g/day (1.5-1.8 g/kg IBW) NUTRITION DIAGNOSIS: 1) Inadequate oral intake related to decreased ability to consume sufficient energy as evidenced by NPO/Vent status. INTERVENTION: 1) If pt unable to be extubated soon, recommend initiating enteral nutrition. Recommend Jevity 1.5 starting at 10 ml/hr. Once tolerance established, advanced 10 ml q 4 hr to goal rate of 80 ml/hr. At goal TF will provide 2640 kcal, 112 g protein; meeting 100% calorie, 99% protein needs. MONITOR/EVALUATE: NPO/Vent status, nutrition support, POC, labs, GI/nutrition status. Follow per high nutrition risk guidelines. Addendum: 02/25/17 at [address] Unsigned orders placed in chart.
[2017-02-25] MEDS: Lactated Ringer's 1,000 ML IV PRN (11:14)
--- NOTE | 2017-02-25 15:08 | PCM.PNMED ---
Subjective Date of Service Feb 25, 2017 Subjective Subjective: Patient is unable to participate in her care this time due to being intubated and comatose. Events Overnight: No acute events overnight. ROS: Due to the patient being comatose, a review of systems was unable to be obtained. Exam Vital Signs Vital Sign - Last Date Time Temp Pulse Resp B/P Pulse Ox O2 Delivery O2 Flow Rate FiO2 02/25/17 12:53 85 114/57 100 45 02/25/17 12:00 37.7 18 Mechanical Ventilator Intake and Output 02/24/17 02/24/17 02/25/17 Cumulative From/Thru 15:00 23:00 07:00 02/22/17 13:36 - 02/25/17 06:01 Intake Total 3375 ml 2531 ml 32426 ml Output Total 1850 ml 2000 ml 95566 ml Balance 1525 ml 531 ml 91199 ml Intake IV Total 3375 ml 2531 ml 60779 ml Output Urine Total 1800 ml 1600 ml 9470 ml Gastric Drainage Total 50 ml 400 ml 840 ml # Bowel Movements 2 Exam General: Intubated and comatose, well-developed, well-nourished Head: Normocephalic, atraumatic. External ears without defect. Eyes: Pupils equal, round, and reactive to light. Anicteric sclerae, injected conjunctivae. Cardiovascular: Regular rate and rhythm with no murmurs, rubs, or gallops appreciated Pulmonary: Coarse breath sounds due to ventilation status, no wheezes, rales, or rhonchi. Normal respiratory effort with no use of accessory muscles. Abdomen: Bowel tones present. Soft, obese nondistended. Extremities: No clubbing, cyanosis, trace edema Skin: Normal temperature, turgor, and texture; no rash, ulcers, or subcutaneous nodules appreciated. Neurological: Eye opening to verbal stimuli, withdrawing to pain, Babinski negative, pupillary reflex intact Psychiatric: Unable to assess IVs and Medications IV Fluids 2500 mL normal saline delivered with IV medications. Medications Reviewed: Medications were reviewed in detail Lab and Diagnostics Result Diagram: 02/25/17 0545 02/25/1745 X-Rays, CTs and MRIs X-RAY CHEST ONE VIEW, PORTABLE IMPRESSION: 1. Support lines as above. 2. Patchy opacities as described above. These could be international sales representative of Findings are suggestive of edema. However, developing areas of airspace disease such as atelectasis and/or pneumonia cannot be excluded. Approved by: Mikaela Davila M.D. on 02/22/2017 at 14:38 CT BRAIN WITHOUT CONTRAST IMPRESSION: 1. No acute intracranial process. 2. Scattered ethmoid and sphenoid sinus fluid Approved by: Mikaela Davila M.D. on 02/22/2017 at 15:02 X-RAY CHEST ONE VIEW, PORTABLE IMPRESSION: 1. Confluent right airspace opacities suggestive of pneumonia. Recommend attention on followup. 2. Persistent mild pulmonary edema. 3. Lines and tubes redemonstrated with the tip of the right internal jugular catheter redemonstrated in the right atrium. The tip of the nasogastric tube is not well-visualized on the current study with possible interval retraction. Recommend a repeat study when clinically feasible. Approved by: Nate Cai M.D. on 02/23/2017 at 11:22 X-RAY CHEST ONE VIEW, PORTABLE IMPRESSION: 1. Decreased but persistent mild pulmonary edema. Dictated by: Nate Cai M.D. on 02/24/2017 at 8:31 Approved by: Nate Cai M.D. on 02/24/2017 at 8:33 Personally reviewed today's CXR. Heart appears displaced rightward but she is rotated. Prominent Lt pulmonary artery and slight increase in interstitial markings bilaterally. All devices appear to be in proper position Cardiac Echo Impressions Echocardiogram Report Interpretation Summary Technically difficult echocardiogram due to patient positioning and limited acoustic imaging windows. The patient was intubated during the exam. The left ventricle is grossly normal size. The ejection fraction is estimated to be 50-55% (s/p cardiac arrest). In 09/2013, LV EF was 60-65%. The right ventricle is not well visualized. No significant valvular pathology seen. The IVC is dilated. Inspiratory collapse cannot be assessed because of mechanical ventilation, thus CVP cannot be estimated.. Reading Physician:HENRIQUE Assessment & Plan 31-year-old female patient with past medical history significant for triple X syndrome(47XXX), chronic anxiety, depression, and previous cardiac arrest in 2011 who presents to the ED via EMS as a result of cardiac arrest. Acute cardiac arrest, present on arrival, active Prior episode in 2011 at [place] suspected due to long QT syndrome secondary to polypharmacy Patient saw Dr. Trina Villagran for workup of palpitations. Workup suggests no arrhythmia or cardiac ischemia. Per pt's pharmacy pt takes Fluoxetine, Aripiprazole which could possibly contribute to QT elongation - QTc on arrival 483, EKG in Jul shows QTc 433 - Patient initially placed on cooling protocol, with rewarming terminating at approximately 12:00 PM on 02/24 - Patient maintaining blood pressures without support - Keep magnesium >2, potassium >4 - Blood cultures 4 negative - Serial daily ABGs and chest x-rays while intubated - Echo shows intact EF other results as above - Cardiology consulting, Dr. Peña, recommending possible ICD placement pending successful outcome. Acute hypoxemic respiratory distress, present on arrival, active Patient unconscious on arrival, required intubation by EMS - Patient initially sedated with Propofol and fentanyl - No sedation currently, patient continues to have minimal neurologic activity. - Vent settings to be managed by CCU team - Pressure support trial on 02/25 continue to extubation when appropriate - Saturating well on current vent settings Acute pneumonia likely secondary to aspiration, present on arrival, active - Given leukocytosis with elevated procalcitonin and Chest x-ray consistent with pneumonia - Blood cultures 4 negative - Sputum cultures showed normal erin - Prophylactic Zosyn to cover for aspiration pneumonia. Elevations in liver enzymes, present on arrival, improving Possibly due to hypoperfusion secondary to cardiac arrest - Continue to monitor Lactic acidosis, present on arrival, Resolved Likely secondary to stress reaction in conjunction with cardiac hypoperfusion - Lactic acid trended until normal Acute Hyperglycemia, present on arrival, active - Glucose on admission 233 - No prior history of diabetes - A1c 5.8 - Glucose management per cooling protocol Chronic pain, presumed stable - Resume home medications when awake and alert Anxiety - Takes Aripiprazole and Lamotrigine at home - Resume home medications and monitoring for QT prolongation when awake Depression Possibly due to suicide attempt/overdose, mother states prior history of suicidal ideation without a plan or previous attempts. - Per Pharmacy, takes Prozac, Aripiprazole and Lamotrigine at home - Resume home medications when awake Triple X syndrome, presumed stable - No known correlation with cardiac arrhythmia or cardiac arrest. - Consider other genetic phenomena as possible explanations to cardiac arrest/ arrhythmias - Per cardiology, possible channelopathy which would be treated with ICD placement. VTE Prophylaxis: Sub-Q Heparin (Unfractionated) VTE Mechanical Devices: Intermittant Pneumatic CD Resuscitation Status: CPR: Attempt Resuscitation Attending Statement The patient was seen and examined together with Dr. Carvalho on 02/25/17 and I agree with the history, exam and plan as outlined in the note above. Alcon Carvalho DO Feb 25, 2017 15:08 Vale Hairston DO Feb 26, 2017 07:34 Alcon Carvalho DO Feb 25, 2017 15:08
--- NOTE | 2017-02-25 15:40 | DRSVH ---
PROCEDURE: CT BRAIN WITHOUT CONTRAST ([id number]) INDICATIONS: cardiac arrest GCS of 6-9 off sedation TECHNIQUE: Noncontrast 4.5 mm thick angled axial sections acquired from the foramen magnum to the vertex, with c oronal reformats. COMPARISON: [facility], CT, CT BRAIN WO CON, 02/22/2017, 14:35. FINDINGS: Image quality: Excellent. CSF spaces: Basal cisterns are patent. No extra-axial fluid collections. Ventricles are normal in size and shape. Brain: No midline shift. No intracranial masses or hemorrhage. Burgos-white matter interface is norm al. Skull and face: Calvarium and visualized facial bones are intact, without suspicious lesions. Sinuses: Moderate mucosal thickening within the bilateral sphenoid sinuses. Visualized sinuses and m astoids are otherwise clear. IMPRESSION: No acute process. Dictated by: Cruz Morley M.D. on 02/25/2017 at 15:38 Approved by: Cruz Morley M.D. on 02/25/2017 at 15:39
--- NOTE | 2017-02-25 15:44 | DRSVH ---
PROCEDURE: CT ANGIO CHEST PULMONARY EMBOLISM ([id number]) INDICATIONS: cardiac arrest TECHNIQUE: After the administration of intravenous contrast, 2 mm thick sections acquired from the pulmonary api misbah to the posterior costophrenic angles. 3-dimensional maximum intensity projection (MIP) coronal a nd sagittal reformats were then acquired through the thorax. For radiation dose reduction, the follo wing was used: automated exposure control, adjustment of mA and/or kV according to patient size. COMPARISON: None. FINDINGS: Image quality: Partially degraded by motion artifact. Pulmonary arteries: Pulmonary arteries are normal in size, and demonstrate no intraluminal filling d efects to suggest central pulmonary embolism. Lungs and pleura: Moderate bilateral lower lobe airspace opacity. Mild patchy airspace opacity within the right upper lobe dependently. No pneumothorax. Small bilateral pleural effusions are present. Ce ntral and peripheral airways are patent. ETT is present. Mediastinum: Heart size is enlarged, without pericardial effusion. No mediastinal or hilar adenopat hy. Thoracic aorta is normal in caliber and enhancement. Esophagus is normal in caliber, without hi atal hernia. Bones and chest wall: No suspicious bony lesions. Ribs and thoracic spine appear intact throughout. Thyroid gland is within normal limits. No axillary or supraclavicular adenopathy. Abdomen: Visualized portions of the upper abdomen demonstrate a small amount of perihepatic ascites. IMPRESSION: 1. No pulmonary embolus. 2. Bilateral lower lobe and right upper lobe pneumonia. Small parapneumonic effusions bilaterally. 3. Small amount of perihepatic ascites. 4. Cardiomegaly. Dictated by: Cruz Morley M.D. on 02/25/2017 at 15:39 Approved by: Cruz Morley M.D. on 02/25/2017 at 15:43
[2017-02-25] MEDS: fentaNYL 2,500 mCg/250 mL IV Premix IV SCH (16:10)
--- NOTE | 2017-02-25 19:25 | NUR ---
Stable on current vent settings, PEEP decreased to 6, FiO2 45%. Saturations 98-100%. Suctioning for small amounts rust tinged secretions. Positive cough and gag. Opens eyes to verbal stimuli but is not purposeful with gaze or following cues. fine tremor noted with turns or PROM, mother states that pt has similar tremor at home when anxious or having "panic attack". Tube feeds not initiated until Furnace [employer]er is able to meet with mother regarding gluten and lactose intolerance. Pt has been eliminating both from diet over past 18 months r/t belief they were contributing to her palpitations. Even with reassurance that her heart issues most likely were not related to dietary issues it also seems that it has lessened some irritable bowel symptoms she also had been experiencing.
[2017-02-26] VITALS (12 sets, daily range): BP systolic 107–136; BP diastolic 52–78; PULSE 67–79; RESP 14–18; O2SAT 97–100
[2017-02-26] MEDS: Chlorhexidine 0.12% 15 mL Oral Solution MT SCH ×6 (00:17→20:45)
[2017-02-26] MEDS: Heparin 5,000 Unit/mL Inj SUBQ SCH ×3 (00:17→16:31)
[2017-02-26] MEDS: Cisatracurium 200,000 mCg/100 mL NS IV SCH ×6 (01:08→18:14)
[2017-02-26] MEDS: Piperacillin-Tazo 3.375 Gm Inj 3.375 GM in Dextrose 5% Minibag Plus 50 ML IV SCH ×3 (04:40→20:45)
[2017-02-26 04:55] LABS: BASOPHILS % (AUTO) 0.2 % (0-3); EOSINOPHILS % (AUTO) 1.3 % (0-5); MONOCYTES % (AUTO) 4.3 % (4-12); Mean Corpuscular Hemoglobin 30.4 pg (27.0-35.0); NEUTROPHILS % (AUTO) 64.4 % (40-74); Platelet Count 147 bil/L (150-400)
--- NOTE | 2017-02-26 04:57 | NUR ---
Vent, Neuro VS as noted. Sats high 90s on 45% fio2 without desats. Suctioning small amounts brownish sputum per ETT. Tele sinus rhythm 60-70s. Pt opens eyes to stimulation. Has very slow protective blink response. Does not follow commands, interact or track. Extention of arms and legs with tremors noted after stimulation. Resolve briefly with repositioning then return and eventually resolve at rest. Mother at bedside and answered her questions as needed. Am labs drawn easily per R CVL. CXR completed. Tolerated well.
--- NOTE | 2017-02-26 05:25 | NUR ---
Donor Referral Service. Confirmed Donor Referral Service has been notified re pt status with referral number [id number].
[2017-02-26 05:39] LABS: Magnesium 1.9 mg/dL (1.6-2.6)
--- NOTE | 2017-02-26 06:27 | ABG ---
DateTimeAnalyzed 06:19:00 -_ pH ____7.497 - 7.350 7.450 pCO2 ___23.6__ -mmHg 35.0 45.0 pO2 168 -mmHg 69.0 116 HCO3- ___18.1__ -mmol/L 22.0 26.0 ABE ___-3.9__ -mmol/L -2.0 2.0 tHb ____9.2__ -g/dL 12.0 18.0 O2Hb ___97.5__ -% COHb ____0.9__ -% 0.0 1.5 MetHb ____0.8__ -% 0.4 1.5 sO2 ___99.2__ -% FIO2 ___45.0__ -% PRVC 580 - PEEP ____6.0__ -cmH2O Set_RR ___18.0__ -b/min Drawn By TLA - Date/Time Notified____ 06:26:00 -_ Spontaneous_RR ___18.0__ -b/min Oxygen Device 1 VENTILATOR - Notified By TLA - Notified Whom Ananth W- RN - B 756 -mmHg tO2 ___13.0__ -Vol% Jim test _Positive -
[2017-02-26] MEDS: Famotidine Inj 20 MG in IV Premix 1 EACH IV SCH ×2 (08:17→20:45)
[2017-02-26] MEDS: LacriLube S.O.P. 3.5 Gm Ophthalmic Ointment BOTH_EYES SCH ×2 (08:17→20:45)
--- NOTE | 2017-02-26 08:49 | DRSVH ---
PROCEDURE: X-RAY CHEST ONE VIEW, PORTABLE ([id number]) INDICATIONS: respiratory failure TECHNIQUE: One view of the chest was acquired. COMPARISON: [facility], CR, XR CHEST 1VW (PORTABLE), 02/25/2017, 5:33. FINDINGS: Surgical changes and devices: ET tube, central venous catheter and NG tube are stable in appearance. Lungs and pleura: No pleural effusions or pneumothorax. Increasing opacification noted in the lung b ases which could represent atelectasis, aspiration or pneumonia. Mediastinum: Mediastinal contours appear normal. Heart size is normal. Bones and chest wall: No suspicious bony lesions. Overlying soft tissues appear unremarkable. IMPRESSION: Increasing by basilar opacities compatible atelectasis, pneumonia or aspiration. Please c orrelate with clinical and laboratory data. Dictated by: Sharona Gaspar MD, PhD on 02/26/2017 at 8:46 Approved by: Sharona Gaspar MD, PhD on 02/26/2017 at 8:47
--- NOTE | 2017-02-26 11:09 | NUR ---
NUTRITION ASSESSMENT Assess: 31 YO F admitted to CCU for cardiac arrest requiring intubation. Pt s/p cooling protocol, now off sedation. Pt with likely aspiration PNA. Pt has been NPO X 3 days. Enteral nutrition to start today. TF was unable to be started yesterday due to pt's mother's concerns regarding gluten and lactose, as pt has been following these diet restrictions. During CCU rounds, reassured mother that formula is gluten free and suitable for lactose intolerance but does contain milk ingredients. Mother okay with proceeding with enteral nutrition. Orders already in [employer]. Plan for EEG today. PMHX: V-tach, Triple X syndrome, anxiety, depression, cardiac arrest. DIET: NPO. LABS: Ca 7.8, T.bili 1.9, ALT 40, Alb 2.8 MEDICATIONS: Reviewed. Pressor. GI: 1 BM 02/23. OGT. SKIN: No issues noted. ANTHROPOMETRICS: Wt: 133.5 kg, BMI 38.8 kg/m2, Admit: 130.0 kg, IBW: 75.0 kg. ESTIMATED NEEDS: BMI/VENT Calories: 5974-6929 kcal/day (20-22 kcal/kg BW) Protein: 113-135 g/day (1.5-1.8 g/kg IBW) NUTRITION DIAGNOSIS: 1) Inadequate oral intake related to decreased ability to consume sufficient energy as evidenced by NPO/Vent status.---PERSISTS. INTERVENTION: 1) Recommend Jevity 1.5 starting at 10 ml/hr. Once tolerance established, advanced 10 ml q 4 hr to goal rate of 80 ml/hr. At goal TF will provide 2640 kcal, 112 g protein; meeting 100% calorie, 99% protein needs. Orders already in [employer]. MONITOR/EVALUATE: NPO/Vent status, TF tolerance/advance, POC, labs, GI/nutrition status. Follow per high nutrition risk guidelines.
[2017-02-26 12:30] LABS: Mean Corpuscular Hemoglobin 30.3 pg (27.0-35.0); Mean Corpuscular Volume 93.2 fL (81-100)
--- NOTE | 2017-02-26 14:50 | PCM.PNMED ---
Subjective Date of Service Feb 26, 2017 Subjective Subjective: Patient continues to be unable to participate in her care at this point due to intubation and being comatose despite lack of sedation Events Overnight: No acute events overnight. ROS: Due to the patient being comatose, a review of systems was unable to be obtained. Exam Vital Signs Vital Sign - Last Date Time Temp Pulse Resp B/P Pulse Ox O2 Delivery O2 Flow Rate FiO2 02/26/17 12:25 37.4 79 14 126/64 98 35 02/26/17 12:24 Ventilator Intake and Output 02/25/17 02/25/17 02/26/17 Cumulative From/Thru 15:00 23:00 07:00 02/22/17 13:36 - 02/26/17 06:49 Intake Total 1130 ml 670 ml 30883 ml Output Total 1200 ml 1550 ml 34742 ml Balance -70 ml -880 ml 64716 ml Intake IV Total 1130 ml 670 ml 00054 ml Output Urine Total 1200 ml 1200 ml 74006 ml Gastric Drainage Total 350 ml 1190 ml # Bowel Movements 0 2 Exam General: Intubated and comatose, well-developed, well-nourished Head: Normocephalic, atraumatic. External ears without defect. Eyes: Pupils equal, round, and reactive to light. Anicteric sclerae, injected conjunctivae. Cardiovascular: Regular rate and rhythm with no murmurs, rubs, or gallops appreciated Pulmonary: Coarse breath sounds due to ventilation status, no wheezes, rales, or rhonchi. Normal respiratory effort with no use of accessory muscles. Abdomen: Bowel tones present. Soft, obese nondistended. Extremities: No clubbing, cyanosis, trace edema Skin: Normal temperature, turgor, and texture; no rash, ulcers, or subcutaneous nodules appreciated. Neurological: Spontaneous eye opening, appears to be responding to verbal stimuli, unable to follow commands at this point, withdrawing to pain, Babinski negative, pupillary reflex intact Psychiatric: Unable to assess IVs and Medications IV Fluids 670 mL normal saline delivered with IV medications. Medications Reviewed: Medications were reviewed in detail Lab and Diagnostics Result Diagram: 02/26/17 1219 02/26/17 0445 X-Rays, CTs and MRIs X-RAY CHEST ONE VIEW, PORTABLE IMPRESSION: 1. Support lines as above. 2. Patchy opacities as described above. These could be development representative of Findings are suggestive of edema. However, developing areas of airspace disease such as atelectasis and/or pneumonia cannot be excluded. Approved by: Mikaela Davila M.D. on 02/22/2017 at 14:38 CT BRAIN WITHOUT CONTRAST IMPRESSION: 1. No acute intracranial process. 2. Scattered ethmoid and sphenoid sinus fluid Approved by: Mikaela Davila M.D. on 02/22/2017 at 15:02 X-RAY CHEST ONE VIEW, PORTABLE IMPRESSION: 1. Confluent right airspace opacities suggestive of pneumonia. Recommend attention on followup. 2. Persistent mild pulmonary edema. 3. Lines and tubes redemonstrated with the tip of the right internal jugular catheter redemonstrated in the right atrium. The tip of the nasogastric tube is not well-visualized on the current study with possible interval retraction. Recommend a repeat study when clinically feasible. Approved by: Nate Cai M.D. on 02/23/2017 at 11:22 X-RAY CHEST ONE VIEW, PORTABLE IMPRESSION: 1. Decreased but persistent mild pulmonary edema. Dictated by: Nate Cai M.D. on 02/24/2017 at 8:31 Approved by: Nate Cai M.D. on 02/24/2017 at 8:33 Personally reviewed today's CXR. Heart appears displaced rightward but she is rotated. Prominent Lt pulmonary artery and slight increase in interstitial markings bilaterally. All devices appear to be in proper position Cardiac Echo Impressions Echocardiogram Report Interpretation Summary Technically difficult echocardiogram due to patient positioning and limited acoustic imaging windows. The patient was intubated during the exam. The left ventricle is grossly normal size. The ejection fraction is estimated to be 50-55% (s/p cardiac arrest). In 09/2013, LV EF was 60-65%. The right ventricle is not well visualized. No significant valvular pathology seen. The IVC is dilated. Inspiratory collapse cannot be assessed because of mechanical ventilation, thus CVP cannot be estimated.. Reading Physician:HENRIQUE Assessment & Plan 31-year-old female patient with past medical history significant for triple X syndrome([id number]), chronic anxiety, depression, and previous cardiac arrest in 2011 who presents to the ED via EMS as a result of cardiac arrest. Acute encephalopathy, present on admission, active - Since weaning from sedation patient continues to have minimal neurologic activity - This is possibly secondary to slow metabolism of propofol and fentanyl, however likely due to anoxic brain injury secondary to cardiac arrest - Patient continues to progress slowly from a neurologic standpoint - EEG obtained 02/26, results pending - Discussed with the family the fact that she may continue to progress neurologically, however there is also possibility that she will stop progressing at some point and this may become her new baseline. - Goals at this point are to progress toward extubation while awaiting return of neurological function. Acute cardiac arrest, present on arrival, stable Prior episode in 2011 at [place] suspected due to long QT syndrome secondary to polypharmacy Patient saw Dr. Trina Villagran for workup of palpitations. Workup suggests no arrhythmia or cardiac ischemia. Per pt's pharmacy pt takes Fluoxetine, Aripiprazole which could possibly contribute to QT elongation - QTc on arrival 483, EKG in Jul shows QTc 433 - Patient initially placed on cooling protocol, with rewarming terminating at approximately 12:00 PM on 02/24 - Patient maintaining blood pressures without support - Blood cultures 4 negative - Keep magnesium >2, potassium >4 - Serial daily ABGs and chest x-rays while intubated - Echo shows intact EF other results as above - Cardiology consulting, Dr. Peña, recommending possible ICD placement pending successful outcome. Acute hypoxemic respiratory distress, present on arrival, stable Patient unconscious on arrival, required intubation by EMS - Patient initially sedated with Propofol and fentanyl - No sedation currently, patient continues to have minimal neurologic activity. - Vent settings to be managed by CCU team, decreasing ventilation needs at this time - Pressure support trial on 02/26 continue to extubation when appropriate - Saturating well on current vent settings Acute pneumonia likely secondary to aspiration, present on arrival, resolving - Given leukocytosis with elevated procalcitonin and Chest x-ray consistent with pneumonia - Blood cultures 4 negative - Sputum cultures showed normal erin - Prophylactic Zosyn to cover for aspiration pneumonia. Elevations in liver enzymes, present on arrival, resolved Possibly due to hypoperfusion secondary to cardiac arrest - Continue to monitor Lactic acidosis, present on arrival, Resolved Likely secondary to stress reaction in conjunction with cardiac hypoperfusion - Lactic acid trended until normal Acute Hyperglycemia, present on arrival, stable - Glucose on admission 233 - No prior history of diabetes - A1c 5.8 -Patient is currently NPO, continue to monitor glucose Chronic pain, presumed stable - Resume home medications when awake and alert Anxiety - Takes Aripiprazole and Lamotrigine at home - Resume home medications and monitoring for QT prolongation when awake Depression Cannot rule out suicide attempt/overdose, mother states prior history of suicidal ideation without a plan or previous attempts. - Per Pharmacy, takes Prozac, Aripiprazole and Lamotrigine at home - Resume home medications when awake Triple X syndrome, presumed stable - No known correlation with cardiac arrhythmia or cardiac arrest. - Consider other genetic phenomena as possible explanations to cardiac arrest/ arrhythmias - Per cardiology, possible channelopathy which would be treated with ICD placement. Disposition: Prognosis guarded at this time due to minimal neurological progression off of sedation. VTE Prophylaxis: Sub-Q Heparin (Unfractionated) VTE Mechanical Devices: Intermittant Pneumatic CD Resuscitation Status: CPR: Attempt Resuscitation Attending Statement The patient was seen and examined together with Dr. Carvalho on 02/26/17 and I agree with the history, exam and plan as outlined in the note above. Alcon Carvalho DO Feb 26, 2017 14:50 Vale Hairston DO Feb 27, 2017 07:33
[2017-02-26 16:37] LABS: Mean Corpuscular Hemoglobin 30.4 pg (27.0-35.0); Mean Corpuscular Volume 93.4 fL (81-100)
--- NOTE | 2017-02-26 17:57 | PROG NOTE ---
[address] [address] PROGRESS NOTE PATIENT: MOMO OWRKMAN : 1985 MR#: [id number] ADMIT: 02/22/2017 JOB ID: [id number] DATE: 02/26/2017 PULMONARY CRITICAL CARE FOLLOWUP NOTE: PROBLEM NUMBER: 1. Polymorphic V-tach. 2. Long QT syndrome. 3. Anoxic encephalopathy secondary to number one. SUBJECTIVE: None. OBJECTIVE: Temperature 37.1 with T-max being 37.4. Pulse mid 70s. Respiratory rate 14 with ventilator set at 14. Blood pressure 128/78. O2 sat on an FiO2 of 35%, PEEP of 6, is 99%. I and O shows 3.6 L in, 3.2 L out. General appearance: No acute distress. Eyes: Conjunctivae are pink. Pupils about 2-3 mm and reactive. Neurologic: Opens eyes to verbal stimuli. No conjugate movement. Pupils react to light. Motor: Maybe some very slight withdrawal from painful stimuli to lower extremities. No withdrawal to uncomfortable stimuli to the arms. Chest: Clear anterolaterally. Pulmonary mechanics normal. Heart: Regular rhythm. Heart tones normal. Abdomen: Soft. Bowel tones present. Extremities: Trace to 1+ pretibial edema. LABORATORY DATA: Shows a white count of 7400. No differential available. Hemoglobin stable at 8.7. Platelet count stable at 153,000. Sodium 140, potassium 4.3, chloride 108, CO2 is 17, BUN 11, creatinine 0.7. Calcium 7.8, phosphorus 1.9. Total bilirubin 1.9. AST 46 and normal. ALT 40 and slightly elevated. Alkaline phos normal at 84. Albumin 2.8. TSH is 0.8. IMAGING: Chest x-ray shows some slight increase in bibasilar infiltrates. ASSESSMENT: 1. Polymorphic ventricular tachycardia. No evidence of arrhythmias. 2. Anoxic encephalopathy. No particular change in her neuro status. EEG has been accomplished. Waiting for report. 3. Aspiration pneumonia. Doing reasonably well. No real good evidence for significant infection. May only be a pneumonitis. In any case, antibiotics will continue for a bit longer and then are probably being DC'ed. PLAN: 1. Continue current regimen. 2. Continue to monitor neuro status. 3. Discussed the situation with the patient's sister and mother. TIME SPENT: 45 minutes.
--- NOTE | 2017-02-26 17:58 | NUR ---
Cardiac/respiratory/neuro SR per cardiac rehabilitation specialist, HR 80s. QT 0.37. Temperature max, 37.4. Pt opening eyes to verbal stimuli, unable to track or make eye contact. Flexion/small movements noted in upper extremities with painful stimuli, left>right. Continues on PRVC with 35% fi02 and peep of 6. Overbreathing ventilator, RR 14 to 17. Scant secretions with ET suction. Sp02 >98%. Tolerating trickle feeding. Blood glucose trending in 80s. Donohue to DD with adequate output. Family remains at bedside.
[2017-02-26 22:06] LABS: Mean Corpuscular Hemoglobin 30.8 pg (27.0-35.0); Mean Corpuscular Volume 93.8 fL (81-100)
[2017-02-27] VITALS (12 sets, daily range): BP systolic 110–139; BP diastolic 61–88; PULSE 63–82; RESP 14–15; O2SAT 96–99
[2017-02-27] MEDS: Chlorhexidine 0.12% 15 mL Oral Solution MT SCH ×6 (00:17→21:36)
[2017-02-27] MEDS: Heparin 5,000 Unit/mL Inj SUBQ SCH ×3 (00:20→17:36)
[2017-02-27] MEDS: Lactated Ringer's 1,000 ML IV PRN ×2 (02:15→05:37)
[2017-02-27] MEDS: Cisatracurium 200,000 mCg/100 mL NS IV SCH ×2 (02:47)
[2017-02-27 05:16] LABS: BASOPHILS % (AUTO) 0.3 % (0-3); EOSINOPHILS % (AUTO) 2.6 % (0-5); MONOCYTES % (AUTO) 5.6 % (4-12); Mean Corpuscular Hemoglobin 31.2 pg (27.0-35.0); Mean Corpuscular Volume 92.6 fL (81-100); NEUTROPHILS % (AUTO) 53.2 % (40-74); Platelet Count 168 bil/L (150-400)
[2017-02-27] MEDS: Piperacillin-Tazo 3.375 Gm Inj 3.375 GM in Dextrose 5% Minibag Plus 50 ML IV SCH ×3 (05:36→21:36)
[2017-02-27 07:07] LABS: Unsaturated Iron Binding 193.8 ug/dL
--- NOTE | 2017-02-27 07:36 | NUR ---
Respiratory/Neuro Patient remains vented, 30% FiO2, PEEP 6, RR 14, TV 580. Patient opens eyes to vocal stimuli, moves BUE spontaneously but not to command, will grimace with turns, and occationally emotional and appears to be crying.SR to SBrady with rest, Stach to 100s with activity. Mom remained at bedside through date night caregiver.
[2017-02-27] MEDS: Famotidine Inj 20 MG in IV Premix 1 EACH IV SCH ×2 (07:42→21:35)
[2017-02-27] MEDS: LacriLube S.O.P. 3.5 Gm Ophthalmic Ointment BOTH_EYES SCH ×2 (07:43→21:35)
--- NOTE | 2017-02-27 09:57 | PCM.PNMED ---
Subjective Date of Service Feb 27, 2017 Subjective Pulmonology Critical Care Progress Note: Nancy Leon is a 31 yo woman with triple X syndrome and a prior history of cardiac arrest due to polymorphic VT in 2011 who was brought to [facility] ED intubated for out of hospital cardiac arrest on 02/22/2017. She was on hypothermia protocol with a goal temperature of 33 until 02/24/2017, when she was rewarmed and taken off all paralytics, sedations, and vasopressor. ICU team have been asked to provide ventilator management while she requires intubation and ventilation. She was Hospital and Ventilator Day #6. No acute event overnight. Patient remains on the ventilator at 30% FiO2 and 6cm PEEP. Nursing reports that patient has been opening eyes to vocal stimuli, moving bilateral upper extremities spontaneously, will grimace with turns, and occasionally becomes teary. This morning, patient opens eyes spontaneously and withdraws from pain stimuli in the UE and LE. She appears slightly more alert than the past couple days, but still does not follow commands. Patient has had good urine output and normal BMs. Tube feeding was initiated yesterday. Exam Vital Signs Vital Sign - Last Date Time Temp Pulse Resp B/P Pulse Ox O2 Delivery O2 Flow Rate FiO2 02/27/17 07:52 Ventilator 02/27/17 07:46 37.2 64 15 128/69 97 30 Intake and Output 02/26/17 02/26/17 02/27/17 Cumulative From/Thru 15:00 23:00 07:00 02/22/17 13:36 - 02/27/17 06:30 Intake Total 721 ml 1054 ml 00097 ml Output Total 1300 ml 1400 ml 02711 ml Balance -579 ml -346 ml 9461 ml Intake IV Total 634 ml 854 ml 74801 ml Tube Feeding 47 ml 120 ml 167 ml Tube Irrigant 40 ml 80 ml 120 ml Output Urine Total 1300 ml 1400 ml 53514 ml Gastric Drainage Total 1190 ml # Bowel Movements 1 3 Exam General: Obese young woman, intubated and sedated, spontaneously opens eyes upon verbal stimuli. Head: Normocephalic, atraumatic. External ears without defect. Eyes: Pupils equal, round, and minimally reactive to light. Anicteric sclerae, conjunctivae moist. Mouth: ET and OG tube in place. Cardiovascular: Regular rate and rhythm with no murmurs, rubs, or gallops appreciated Pulmonary: Coarse breath sounds, but relatively clear to auscultation. No wheezes, rales, or rhonchi. Abdomen: Bowel tones present. Soft, nondistended, no apparent tenderness Extremities: No clubbing, cyanosis, trace edema. Skin: extremities are warm to touch, normal turgor and texture; no rash, ulcers , or subcutaneous nodules appreciated. Neurological: Unable to assess due to patient's inability to follow command. Slight withdrawal from pain stimuli. IVs and Medications Medications Reviewed: Medications were reviewed in detail Lab and Diagnostics Result Diagram: 02/27/17 0500 02/27/17 0500 X-Rays, CTs and MRIs X-RAY CHEST ONE VIEW, PORTABLE IMPRESSION: 1. Support lines as above. 2. Patchy opacities as described above. These could be mill representative of Findings are suggestive of edema. However, developing areas of airspace disease such as atelectasis and/or pneumonia cannot be excluded. Approved by: Mikaela Davila M.D. on 02/22/2017 at 14:38 CT BRAIN WITHOUT CONTRAST IMPRESSION: 1. No acute intracranial process. 2. Scattered ethmoid and sphenoid sinus fluid Approved by: Mikaela Davila M.D. on 02/22/2017 at 15:02 X-RAY CHEST ONE VIEW, PORTABLE IMPRESSION: 1. Confluent right airspace opacities suggestive of pneumonia. Recommend attention on followup. 2. Persistent mild pulmonary edema. 3. Lines and tubes redemonstrated with the tip of the right internal jugular catheter redemonstrated in the right atrium. The tip of the nasogastric tube is not well-visualized on the current study with possible interval retraction. Recommend a repeat study when clinically feasible. Approved by: Nate Cai M.D. on 02/23/2017 at 11:22 X-RAY CHEST ONE VIEW, PORTABLE IMPRESSION: 1. Decreased but persistent mild pulmonary edema. Dictated by: Nate Cai M.D. on 02/24/2017 at 8:31 Approved by: Nate Cai M.D. on 02/24/2017 at 8:33 Personally reviewed today's CXR. Heart appears displaced rightward but she is rotated. Prominent Lt pulmonary artery and slight increase in interstitial markings bilaterally. All devices appear to be in proper position Cardiac Echo Impressions Echocardiogram Report Interpretation Summary Technically difficult echocardiogram due to patient positioning and limited acoustic imaging windows. The patient was intubated during the exam. The left ventricle is grossly normal size. The ejection fraction is estimated to be 50-55% (s/p cardiac arrest). In 09/2013, LV EF was 60-65%. The right ventricle is not well visualized. No significant valvular pathology seen. The IVC is dilated. Inspiratory collapse cannot be assessed because of mechanical ventilation, thus CVP cannot be estimated.. Reading Physician:HENRIQUE Assessment & Plan 31-year-old female with medical history of triple X syndrome(47XXX), chronic anxiety, depression, and previous cardiac arrest in 2011 who was sent to the ED via EMS after she was intubated on the field as a result of cardiac arrest. Anoxic encephalopathy, active. -Patient has slight improvement in her mental status today. Will continue to monitor. -Patient has been off all sedation medications for a few days. -EEG was done yesterday. Report still pending. Will contact neurology to follow up on this. -Brain CT did not reveal any acute intracranial processes. -Avoid drugs that can induce cognitive impairment like benzo or opioids if possible. Acute hypoxemic respiratory distress following cardiac arrest, present on admission, improved. -Oxygenation and ventilation are appropriate on current vent settings. -Continue to titrate FiO2 and PEEP to maintain SpO2 >/= 93%. Will consider spontaneous breathing trial today if patient is more alert. -Her echocardiogram was very technically difficult due to her positioning and medical devices, but cardiac anatomy appears normal on CT chest. -In addition to a primary arrhythmia as the cause for her arrest, other potential causes including PE was considered and ruled out by CT angiogram chest. Polymorphic ventricular tachycardia, present on admission, resolved. - Likely secondary to QT prolongation due to polypharmacy. Similar episode in 2011 at [place] suspected due to long QT syndrome secondary to polypharmacy as well. - Per pt's pharmacy patient takes Fluoxetine and Aripiprazole which could possibly contribute to QT elongation. - QTc on arrival 483, EKG in Jul shows QTc 433 - Patient was initially placed on cooling protocol and was rewarmed. - Normal - Keep magnesium >2, potassium >4 - Echo shows normal EF as above - Per Cardiology, possible channelopathy which would be treated with AICD placement. Normocytic anemia, stable. - Likely secondary to hemodilution from IVF. - Patient is off on all IVF currently and has had good urine output, but she is still positive over 9L. - No other sign of fluid overload and thus will hold off diuresis. - H/H has been stable. Will continue to monitor. Transfusion threshold is <7. - Iron panel showed slightly low Fe (34) but high Ferritin (274). Patient takes Iron supplement as outpatient. - B12 and Folate pending. Acute pneumonia likely secondary to aspiration, present on arrival, improved. - Given leukocytosis with elevated procalcitonin and Chest x-ray consistent with pneumonia, now improving - Blood and sputum cultures have been negative. - Patient finishes the 5 days of Zosyn today. Will continue to monitor her signs and symptoms off the antibiotics. Metabolic acidosis, present on admission, resolved. - May reflect poor tissue perfusion as a result of poor cardiac output which would not be explained by her ejection fraction of 50% by echocardiogram. Also could be iatrogenic and due to the large amounts of saline that she has received. - Lactic acid normalized. Remaining aspects of her care to be addressed by her primary team and their other consultants: Elevations in liver enzymes, present on arrival, resolved. - Possibly due to hypoperfusion secondary to cardiac arrest, currently improving consistent with hypoperfusion Acute Hyperglycemia, present on arrival, resolved. - Glucose on admission 233 - No prior history of diabetes - A1c 5.8 Triple X syndrome, presumed stable. - No known correlation with cardiac arrhythmia or cardiac arrest. - Consider other genetic phenomena as possible explanations to cardiac arrest/ arrhythmia Chronic pain, presumed stable Anxiety/Depression Patient is on Ranitidine BID for GI prophylaxis and Heparin SQ for DVT prophylaxis. Time spent: 40 minutes. Pain Evaluation: Adequate Pain Control GI Prophylaxis: H2 maddison VTE Prophylaxis: Sub-Q Heparin (Unfractionated) VTE Mechanical Devices: Intermittant Pneumatic CD Resuscitation Status: CPR: Attempt Resuscitation Aar Lehman DO Feb 27, 2017 09:56
[2017-02-27] MEDS: Acetaminophen IV 1,000 MG in IV Premix 1 EACH IV PRN ×2 (11:11→18:09)
--- NOTE | 2017-02-27 12:02 | PCM.PNMED ---
Subjective Date of Service Feb 27, 2017 Subjective Subjective: Patient is still intubated and currently only response minimally to pain. The patient responds in the lower extremities more significantly than in the upper extremities, however yesterday she was not responding in the upper extremities at all so this is an improvement. Events Overnight: No acute events overnight. ROS: Due to the patient being comatose, a review of systems was unable to be obtained. Exam Vital Signs Vital Sign - Last Date Time Temp Pulse Resp B/P Pulse Ox O2 Delivery O2 Flow Rate FiO2 02/27/17 11:27 Ventilator 02/27/17 11:26 37.0 63 14 125/73 98 30 Intake and Output 02/26/17 02/26/17 02/27/17 Cumulative From/Thru 15:00 23:00 07:00 02/22/17 13:36 - 02/27/17 06:30 Intake Total 721 ml 1054 ml 81077 ml Output Total 1300 ml 1400 ml 57811 ml Balance -579 ml -346 ml 9461 ml Intake IV Total 634 ml 854 ml 11593 ml Tube Feeding 47 ml 120 ml 167 ml Tube Irrigant 40 ml 80 ml 120 ml Output Urine Total 1300 ml 1400 ml 75778 ml Gastric Drainage Total 1190 ml # Bowel Movements 1 3 Exam General: Intubated and comatose, well-developed, well-nourished Head: Normocephalic, atraumatic. External ears without defect. Eyes: Pupils equal, round, and reactive to light. Anicteric sclerae, injected conjunctivae. Cardiovascular: Regular rate and rhythm with no murmurs, rubs, or gallops appreciated Pulmonary: Coarse breath sounds due to ventilation status, no wheezes, rales, or rhonchi. Normal respiratory effort with no use of accessory muscles. Abdomen: Bowel tones present. Soft, obese nondistended. Extremities: No clubbing, cyanosis, trace edema Skin: Normal temperature, turgor, and texture; no rash, ulcers, or subcutaneous nodules appreciated. Neurological: Spontaneous eye opening, appears to be responding to verbal stimuli, unable to follow commands at this point, withdrawing to pain, Babinski negative, pupillary reflex intact Psychiatric: Unable to assess IVs and Medications Medications Reviewed: Medications were reviewed in detail Lab and Diagnostics Result Diagram: 02/27/17 0500 02/27/17 0500 X-Rays, CTs and MRIs X-RAY CHEST ONE VIEW, PORTABLE IMPRESSION: 1. Support lines as above. 2. Patchy opacities as described above. These could be industrial sales representative of Findings are suggestive of edema. However, developing areas of airspace disease such as atelectasis and/or pneumonia cannot be excluded. Approved by: Mikaela Davila M.D. on 02/22/2017 at 14:38 CT BRAIN WITHOUT CONTRAST IMPRESSION: 1. No acute intracranial process. 2. Scattered ethmoid and sphenoid sinus fluid Approved by: Mikaela Davila M.D. on 02/22/2017 at 15:02 X-RAY CHEST ONE VIEW, PORTABLE IMPRESSION: 1. Confluent right airspace opacities suggestive of pneumonia. Recommend attention on followup. 2. Persistent mild pulmonary edema. 3. Lines and tubes redemonstrated with the tip of the right internal jugular catheter redemonstrated in the right atrium. The tip of the nasogastric tube is not well-visualized on the current study with possible interval retraction. Recommend a repeat study when clinically feasible. Approved by: Nate Cai M.D. on 02/23/2017 at 11:22 X-RAY CHEST ONE VIEW, PORTABLE IMPRESSION: 1. Decreased but persistent mild pulmonary edema. Dictated by: Nate Cai M.D. on 02/24/2017 at 8:31 Approved by: Nate Cai M.D. on 02/24/2017 at 8:33 Personally reviewed today's CXR. Heart appears displaced rightward but she is rotated. Prominent Lt pulmonary artery and slight increase in interstitial markings bilaterally. All devices appear to be in proper position Cardiac Echo Impressions Echocardiogram Report Interpretation Summary Technically difficult echocardiogram due to patient positioning and limited acoustic imaging windows. The patient was intubated during the exam. The left ventricle is grossly normal size. The ejection fraction is estimated to be 50-55% (s/p cardiac arrest). In 09/2013, LV EF was 60-65%. The right ventricle is not well visualized. No significant valvular pathology seen. The IVC is dilated. Inspiratory collapse cannot be assessed because of mechanical ventilation, thus CVP cannot be estimated.. Reading Physician:AM Assessment & Plan 31-year-old female patient with past medical history significant for triple X syndrome(47XXX), chronic anxiety, depression, and previous cardiac arrest in 2011 who presents to the ED via EMS as a result of cardiac arrest. Acute anoxic encephalopathy, present on admission, active Since weaning from sedation patient continues to have minimal neurologic activity - Likely due to anoxic brain injury secondary to cardiac arrest - Patient continues to progress slowly from a neurologic standpoint - EEG obtained 02/26, results show delta waves with some possible anoxic brain injury -Neurology (Dr. Marc) has been contacted and will evaluate the patient - Discussed with the family the fact that she may continue to progress neurologically, however there is also possibility that she will stop progressing at some point and this may become her new baseline. - Goals at this point are to progress toward extubation while awaiting return of neurological function. Acute cardiac arrest, present on arrival, stable Prior episode in 2011 at [facility] suspected due to long QT syndrome secondary to polypharmacy Patient saw Dr. Trina Villagran for workup of palpitations. Workup suggests no arrhythmia or cardiac ischemia. Per pt's pharmacy pt takes Fluoxetine, Aripiprazole which could possibly contribute to QT elongation - QTc on arrival 483, EKG in Jul shows QTc 433 - Patient initially placed on cooling protocol, with rewarming terminating at approximately 12:00 PM on 02/24 - Patient maintaining blood pressures without support - Blood cultures 4 negative - Keep magnesium >2, potassium >4 - Serial daily ABGs and chest x-rays while intubated - Echo shows intact EF other results as above - Cardiology consulted, Dr. Peña, recommending possible ICD placement pending successful outcome. Acute hypoxemic respiratory distress, present on arrival, stable Patient unconscious on arrival, required intubation by EMS - Patient initially sedated with Propofol and fentanyl - No sedation currently, patient continues to have minimal neurologic activity. - Vent settings to be managed by CCU team, decreasing ventilation needs at this time - Pressure support trial on 02/27 continue to extubation when appropriate - Saturating well on current vent settings Acute pneumonia likely secondary to aspiration, present on arrival, resolving - Given leukocytosis with elevated procalcitonin and Chest x-ray consistent with pneumonia - Blood cultures 4 negative - Sputum cultures showed normal erin - Prophylactic Zosyn to cover for aspiration pneumonia. Elevations in liver enzymes, present on arrival, resolved Possibly due to hypoperfusion secondary to cardiac arrest - Continue to monitor Lactic acidosis, present on arrival, Resolved Likely secondary to stress reaction in conjunction with cardiac hypoperfusion - Lactic acid trended until normal Acute Hyperglycemia, present on arrival, stable - Glucose on admission 233 - No prior history of diabetes - A1c 5.8 -Patient is currently NPO, continue to monitor glucose Chronic pain, presumed stable - Resume home medications when awake and alert Anxiety - Takes Aripiprazole and Lamotrigine at home - Resume home medications and monitoring for QT prolongation when awake Depression Cannot rule out suicide attempt/overdose, mother states prior history of suicidal ideation without a plan or previous attempts. - Per Pharmacy, takes Prozac, Aripiprazole and Lamotrigine at home - Resume home medications when awake Triple X syndrome, presumed stable - No known correlation with cardiac arrhythmia or cardiac arrest. - Consider other genetic phenomena as possible explanations to cardiac arrest/ arrhythmias - Per cardiology, possible channelopathy which would be treated with ICD placement. Disposition: Patient prognosis guarded due to decreased neurological activity, no assessments for discharge can be made at this time. GI Prophylaxis: H2 maddison VTE Prophylaxis: Sub-Q Heparin (Unfractionated) VTE Mechanical Devices: Intermittant Pneumatic CD Resuscitation Status: CPR: Attempt Resuscitation Attending Statement The patient was seen and examined together with Dr. Carvalho on 02/27/17 and I have added additional information to the note above. Alcon Carvalho DO Feb 27, 2017 12:02 Vale Hairston DO Feb 27, 2017 16:12
[2017-02-27] MEDS: fentaNYL-PF 50 mCg/mL 2 mL Inj IVPUSH PRN (13:00)
--- NOTE | 2017-02-27 13:14 | NUR ---
NUTRITION FOLLOW-UP: Assess: 31 YO F admitted to CCU following cardiac arrest, requiring intubation, now status post hypothermia protocol. Sedation has been discontinued due to patient's acute encephalopathy. However, the report today during CCU rounds is that the patient's mentation is significantly improved. POC today is potential spontaneous breathing trial. Enteral feeding was initiated yesterday, and the patient appears to be tolerating it well, advancing toward goal appropriately. PMHX: V-tach, Triple X syndrome, anxiety, depression, cardiac arrest. DIET: NPO. ENTERAL FEEDING: Jevity 1.5 currently at 20 ml/hr, advancing 10 ml every 4 hr. to goal rate 80 ml/hr, which will provide 2640 kcal, 112 g protein; meeting 100% calorie, 99% protein needs. LABS: Ca 8.4, Iron 34, Ferritin 75, Alb 2.9. MEDICATIONS: Reviewed. GI: BM x 1 today. SKIN: No issues noted. ANTHROPOMETRICS: Wt: 133.5 kg, BMI 38.8 kg/m2, Admit: 130.0 kg, IBW: 75.0 kg. ESTIMATED NEEDS: BMI/VENT Calories: 9336-1065 kcal/day (20-22 kcal/kg BW) Protein: 113-135 g/day (1.5-1.8 g/kg IBW) NUTRITION DIAGNOSIS: 1) Inadequate oral intake related to decreased ability to consume sufficient energy as evidenced by NPO/Vent status - IMPROVED WITH ENTERAL FEEDING. INTERVENTION: 1) No additional interventions at this time. MONITOR/EVALUATE: NPO/Vent status, enteral feeding tolerance/advance, POC, labs, GI/nutrition status. Follow per high nutrition risk guidelines.
--- NOTE | 2017-02-27 16:41 | NUR ---
Respiratory/cardiac/pain/neuro/nutrition Pulmonary: Continues on PRVC with 30% fi02 and 6 of PEEP. Attempted SBT twice this shift, RR decreased to < 4 and trial discontinued. Scant creamy secretions with pink streaks. Viscous lidocaine applied to oral cavity for patient comfort. Cardiac: SR/SB with IVCD per grommet machine operator. Pressure stable. QT within normal limits. Afebrile. Neuro: Neurology consulted. Pt opening eyes to verbal stimuli and withdraws to painful stimuli in upper and lower extremities. Making eye contact with staff and open/closing eyes on command. Pain: Tearful and restless throughout shift. PRN tylenol and fentanyl ordered and administered for pain, continuing to monitor. Nutrition: Tolerating jevity 1.5 tube feeding. Residuals < 50cc. Blood glucose controlled, 90s.
--- NOTE | 2017-02-27 18:40 | PCM.CHPMED ---
Subjective Date of Service: Feb 27, 2017 Provider requesting consult: Ara Lehman DO Primary Physician: Admitting Physician: Vale Hairston DO Primary Care Physician: Sona Huerta Pa-C Attending Physician: Vale Hairston DO Chief Complaint: Chief Complaint: NEUROLOGY CONSULTATION Encephalopathy in CCU post cardiac arrest. History of Present Illness: Nancy Leon is a 31-year-old female patient with past medical history significant for triple X syndrome(47XXX), chronic anxiety, depression, and previous cardiac arrest in 2011 secondary to [place] who presents to the ED via EMS as a result of cardiac arrest . Neurology consultation is being obtained due to encephalopathy. Per patient's mother who is at bedside, patient is in her usual state of health sitting on a chair when she suddenly heard gurgling noises and saw the patient foaming at the mouth. The patient's mother was concerned that this was due to a seizure and she attempted to protect her airway by jaw thrust. Patient's mother states that the patient stated in distressing voice that "it is my heart" and subsequently lost tone and follow ground. Patient's mother states that during this time no CPR was performed. Patient subsequent called 911 and took EMS about 10 minutes to arrive at the scene. Patient's mother states that she attempted to listen to the patient's heart with a stethoscope and heard no heart sounds. After EMS arrival patient had a return of spontaneous circulation with sinus rhythm. On admission 6 days ago patient had a CT of her brain which was unremarkable. She subsequently had a repeat CT of the brain 2 days ago which again was unremarkable. Patient has now been off of sedation for several days, completing cooling protocol 4 days prior. She remains intubated. Per the ICU team the patient has been difficult to arouse but has been improving over the last few days. She has some spontaneous movement of her upper and lower extremities and is able to turn her head spontaneously. She is able to localize to voice and does appear to recognize her name. Patient was given 1 dose of fentanyl today due to pain. No other sedative has been provided to the patient last several days. Review of Systems: A comprehensive review of systems was not obtainable due to the patient's mental status. PMH Past Medical History triple X syndrome(47XXX) chronic anxiety depression Bedside Blood Glucose: 99 Surgical History cholecystectomy in 2013 at [place] in [facility]. Home Medications Acetaminophen 500 mg PRN Aripiprazole 5 mg daily Ferrous gluconate 324 mg daily Ibuprofen 600 mg every 6 when necessary Lamictal 200 mg daily Fluoxetine 20 mg daily Lorazepam 0.5 mg 3 times a day as needed Magnesium 500 mg at bedtime Omeprazole 20 mg daily Oxycodone 5 mg every 6 when necessary Simethicone 125 mg every 8 when necessary Allergies: Coded Allergies: lactase (Verified Allergy, Intermediate, 05/30/15) PALPITATIONS Sulfa (Sulfonamide Antibiotics) (Verified Adverse Reaction, Unknown, hallucinations, 02/22/17) Family History Family History Family history significant for cardiovascular disease and diabetes: Father with diabetes mellitus type II and dementia, mother with hyperlipidemia and hypertension Social History Hx Alcohol Use: NoHx Substance Use: No Smoking Status: Never Smoker Living Arrangement: with Family Exam Vital Signs Vital Sign - Last Date Time Temp Pulse Resp B/P Pulse Ox O2 Delivery O2 Flow Rate FiO2 02/27/17 15:14 36.9 82 15 119/88 97 Mechanical Ventilator 30 Intake and Output 02/26/17 02/26/17 02/27/17 Cumulative From/Thru 15:00 23:00 07:00 02/22/17 13:36 - 02/27/17 06:30 Intake Total 721 ml 1054 ml 16397 ml Output Total 1300 ml 1400 ml 64690 ml Balance -579 ml -346 ml 9461 ml Intake IV Total 634 ml 854 ml 89520 ml Tube Feeding 47 ml 120 ml 167 ml Tube Irrigant 40 ml 80 ml 120 ml Output Urine Total 1300 ml 1400 ml 81281 ml Gastric Drainage Total 1190 ml # Bowel Movements 1 3 Additional Information: General: Obese female laying in a CCU room intubated and restrained at 2 points. Respiratory: Mechanically ventilated Abdomen: Obese, soft Neuro: Unable to follow commands, pupils are dilated, equal round and reactive to light, corneal reflex is intact, no doll's eyes, gag reflex intact, deep tendon reflexes brisk at the biceps tendon of the right arm as well as patellar tendon after right leg as compared to the left biceps and patellar tendons. Toes upgoing on the right leg. Positive Norma's bilaterally. No clonus. Lab and Diagnostics Result Diagram: 02/27/17 0500 02/27/17 0500 X-Rays, CTs and MRIs CT BRAIN WITHOUT CONTRAST IMPRESSION: 1. No acute intracranial process. 2. Scattered ethmoid and sphenoid sinus fluid Dictated by: Mikaela Davila M.D. on 02/22/2017 at 15:01 CT BRAIN WITHOUT CONTRAST IMPRESSION: No acute process. Dictated by: Cruz Morley M.D. on 02/25/2017 at 15:38 Assessment & Plan Assessment Nancy Leon is a 31-year-old female patient with past medical history significant for triple X syndrome(47XXX), chronic anxiety, depression, and previous cardiac arrest in 2011 secondary to [place] who presents to the ED via EMS as a result of cardiac arrest . Neurology consultation is being obtained due to encephalopathy. Encephalopathy -Likely secondary to anoxic brain injury. -EEG reviewed by Dr. Marc and notable for diffuse slowing is nonspecific however posterior region does have sweats present which is suggestive of anoxic brain injury. -Patient's exam does show brisk flexes on the right side with positive Babinski and Norma's reflexes which could be suggestive of either an upper motor neuron lesion or spinal cord lesion but may be nonspecific. -Review of patient's CT on admission and most recent CT from 2 days ago is surprisingly unremarkable and does not correlate to her localized neurological findings which argues that they are nonspecific. -Reassuring signs are reserved corneal reflex and negative doll's eyes however she is not able to follow commands. -There is a possible spike on the EEG although the patient's history is not consistent with seizure. We will repeat EEG tomorrow a.m. -If patient continues in her current state and no improvement is noted consider repeating a CT on Friday. -MRI would be a much more sensitive and specific test however we are unable to perform due to patient's intubated status. Thank you for allowing us to participate in the care of this patient. Problems: Pain Evaluation: Adequate Pain Control GI Prophylaxis: H2 maddison VTE Prophylaxis: Sub-Q Heparin (Unfractionated) VTE Mechanical Devices: Intermittant Pneumatic CD Resuscitation Status: CPR: Attempt Resuscitation Thao Doran DO Feb 27, 2017 17:04
[2017-02-28] VITALS (11 sets, daily range): BP systolic 113–167; BP diastolic 64–94; PULSE 59–78; RESP 14–19; O2SAT 96–99
[2017-02-28] MEDS: Heparin 5,000 Unit/mL Inj SUBQ SCH ×3 (00:33→16:27)
[2017-02-28] MEDS: Chlorhexidine 0.12% 15 mL Oral Solution MT SCH ×6 (00:33→19:56)
[2017-02-28] MEDS: Acetaminophen IV 1,000 MG in IV Premix 1 EACH IV PRN (01:12)
[2017-02-28 04:44] LABS: BASOPHILS % (AUTO) 0.2 % (0-3); EOSINOPHILS % (AUTO) 4.2 % (0-5); MONOCYTES % (AUTO) 8.6 % (4-12); Mean Corpuscular Hemoglobin 31.3 pg (27.0-35.0); Mean Corpuscular Volume 91.3 fL (81-100); Platelet Count 202 bil/L (150-400)
--- NOTE | 2017-02-28 06:30 | NUR ---
Respiratory/Neuro/Pain/Nutrition Patient slept through most of the night, able to open eyes to voice, opens and closes eyes to command, able to grossly move upper extremities bilaterally. Patient grows tense with fine tremors with activity, resolves with rest. Temp max 37.9. Tylenol given for pain, patient grimaces and occationally cries with activity. Vent 30%FiO2, PEEP 6, RR 14, TV 580. Tube feed Jevity 1.5 infusing at 60ml/hr, increase to goal of 80ml/hr. Mom slept at bedside.
[2017-02-28] MEDS ORDERED: Ondansetron 2 mg/mL 2 mL Inj IVPUSH SCH (08:05)
--- NOTE | 2017-02-28 08:52 | DRSVH ---
PROCEDURE: X-RAY CHEST ONE VIEW, PORTABLE ([id number]) INDICATIONS: Respiratory failure TECHNIQUE: One view of the chest was acquired. COMPARISON: [facility], CT, CT ANGIO CHEST PE, 02/25/2017, 15:05. [facility] , CR, XR CHEST 1VW (PORTABLE), 02/26/2017, 4:12. FINDINGS: Surgical changes and devices: Endotracheal and nasogastric tubes as well as right internal jugular ca theter appear unchanged in position. The right internal jugular catheter tip extends into the right atrium. Lungs and pleura: There are persistent small bilateral pleural effusions and medial bibasilar retroc ardiac consolidation. There is also mild left perihilar consolidation. Mediastinum: Mediastinal contours appear normal. Heart size is normal. Bones and chest wall: No suspicious bony lesions. Overlying soft tissues appear unremarkable. IMPRESSION: 1. Persistent bibasilar retrocardiac consolidation consistent with pneumonia possibly due to aspirat ion. 2. Small bilateral pleural effusions. 3. Right internal jugular catheter tip demonstrated in the right atrium, approximately 3 cm inferior to the cavoatrial junction. Dictated by: Nate Cai M.D. on 02/28/2017 at 8:42 Approved by: Nate Cai M.D. on 02/28/2017 at 8:50
[2017-02-28] MEDS: Famotidine Inj 20 MG in IV Premix 1 EACH IV SCH ×2 (09:28→19:56)
[2017-02-28] MEDS: LacriLube S.O.P. 3.5 Gm Ophthalmic Ointment BOTH_EYES SCH ×2 (09:28→19:56)
--- NOTE | 2017-02-28 10:56 | PCM.PNMED ---
Subjective Date of Service Feb 28, 2017 Subjective Pulmonology Critical Care Progress Note: Nancy Leon is a 31 yo woman with triple X syndrome and a prior history of cardiac arrest due to polymorphic VT in 2011 who was brought to [facility] ED intubated for out of hospital cardiac arrest on 02/22/2017. She was on hypothermia protocol with a goal temperature of 33 until 02/24/2017, when she was rewarmed and taken off all paralytics, sedations, and vasopressor. ICU team have been asked to provide ventilator management while she requires intubation and ventilation. She was Hospital and Ventilator Day #7. Rewarm day #5. Overnight, patient had a temperature of 37.9 that resolved with Tylenol. Per nursing, she was able to open eyes to voice and verbal command as well as grossly move upper extremities bilaterally. She also grimaces and occasionally cries with activity. Patient remains on the ventilator at 30%FiO2, PEEP 6, RR 14 , TV 580. Tube feed was increased to goal of 80ml/hr. Early this morning, nursing reports an episode vomiting that followed by a 30- second asystole on telemetry. Tube feeding was therefore put on hold. Patient was given a dose of Zofran and has not had any symptoms since. At the time of my examination, patient does not open eyes or have any meaningful response. She does not open eyes or withdraw from pain stimuli today. Apparently, her neurological status has been waxed and waned as she is more responsive to the nurses. Exam Vital Signs Vital Sign - Last Date Time Temp Pulse Resp B/P Pulse Ox O2 Delivery O2 Flow Rate FiO2 02/28/17 08:18 79 167/94 99 30 02/28/17 07:45 37.2 19 Nasal Cannula Intake and Output 02/27/17 02/27/17 02/28/17 Cumulative From/Thru 15:00 23:00 07:00 02/22/17 13:36 - 02/28/17 06:22 Intake Total 996 ml 1435 ml 11303 ml Output Total 1250 ml 1500 ml 41031 ml Balance -254 ml -65 ml 9142 ml Intake IV Total 711 ml 795 ml 24120 ml Tube Feeding 205 ml 560 ml 932 ml Tube Irrigant 80 ml 80 ml 280 ml Output Urine Total 1250 ml 1500 ml 43816 ml Gastric Drainage Total 1190 ml # Bowel Movements 3 Exam General: Obese young woman, intubated and sedated, unresponsive to pain or verbal commands, no eye opening. Head: Normocephalic, atraumatic. External ears without defect. Eyes: Pupils are dilated, equal, round, and reactive to light. Anicteric sclerae , conjunctivae moist. Mouth: ET and OG tube in place. Cardiovascular: Regular rate and rhythm with no murmurs, rubs, or gallops appreciated Pulmonary: Coarse breath sounds, but relatively clear to auscultation. No wheezes, rales, or rhonchi. Abdomen: Bowel tones present. Soft, nondistended, no apparent tenderness. Extremities: No clubbing, cyanosis, trace edema. Skin: extremities are warm to touch, normal turgor and texture; no rash, ulcers , or subcutaneous nodules appreciated. Neurological: Unable to follow commands. Negative Babinski's. Positive Norma' s bilaterally. No clonus. IVs and Medications Medications Reviewed: Medications were reviewed in detail Medications Fentanyl 25-50mcg IVP Q4H PRN severe pain. Lab and Diagnostics Result Diagram: 02/28/1742902/28/17429 X-Rays, CTs and MRIs X-RAY CHEST ONE VIEW, PORTABLE IMPRESSION: 1. Support lines as above. 2. Patchy opacities as described above. These could be entry level sales representative of Findings are suggestive of edema. However, developing areas of airspace disease such as atelectasis and/or pneumonia cannot be excluded. Approved by: Mikaela Davila M.D. on 02/22/2017 at 14:38 CT BRAIN WITHOUT CONTRAST IMPRESSION: 1. No acute intracranial process. 2. Scattered ethmoid and sphenoid sinus fluid Approved by: Mikaela Davila M.D. on 02/22/2017 at 15:02 X-RAY CHEST ONE VIEW, PORTABLE IMPRESSION: 1. Confluent right airspace opacities suggestive of pneumonia. Recommend attention on followup. 2. Persistent mild pulmonary edema. 3. Lines and tubes redemonstrated with the tip of the right internal jugular catheter redemonstrated in the right atrium. The tip of the nasogastric tube is not well-visualized on the current study with possible interval retraction. Recommend a repeat study when clinically feasible. Approved by: Nate Cai M.D. on 02/23/2017 at 11:22 X-RAY CHEST ONE VIEW, PORTABLE IMPRESSION: 1. Decreased but persistent mild pulmonary edema. Dictated by: Nate Cai M.D. on 02/24/2017 at 8:31 Approved by: Nate Cai M.D. on 02/24/2017 at 8:33 Personally reviewed today's CXR. Heart appears displaced rightward but she is rotated. Prominent Lt pulmonary artery and slight increase in interstitial markings bilaterally. All devices appear to be in proper position Cardiac Echo Impressions Echocardiogram Report Interpretation Summary Technically difficult echocardiogram due to patient positioning and limited acoustic imaging windows. The patient was intubated during the exam. The left ventricle is grossly normal size. The ejection fraction is estimated to be 50-55% (s/p cardiac arrest). In 09/2013, LV EF was 60-65%. The right ventricle is not well visualized. No significant valvular pathology seen. The IVC is dilated. Inspiratory collapse cannot be assessed because of mechanical ventilation, thus CVP cannot be estimated.. Reading Physician:AM Assessment & Plan 31-year-old female with medical history of triple X syndrome(47XXX), chronic anxiety, depression, and previous cardiac arrest in 2011 who was sent to the ED via EMS after she was intubated on the field as a result of cardiac arrest. Anoxic encephalopathy, active. -Inconsistent and fluctuating neurological status, appears worse today. -Neurological exam reveals brisk flexes on the right side with Norma's reflexes which could be suggestive of an upper motor neuron lesion or cortical injury. Per neurology, there is also a brainstem injury. -Neurology consulted. We appreciate their input. EEG done on 02/[address] Marc and notable for diffuse slowing, but is nonspecific for seizure or brain injury. Plan for repeat EEG today. -CT brain on admission and 02/25 were both unremarkable and do not correlate to her localized neurological findings . -MRI would be a much more sensitive and specific test, but unable to perform due to patient's intubated status and arrhythmia. Will discuss with neurology about repeating CT head today. -Patient has been off all sedation medications for a few days, except for Fentanyl PRN severe pain, which she only got a dose yesterday. -Minimize drugs that can induce cognitive impairment like benzo or opioids if possible. Acute hypoxemic respiratory distress following cardiac arrest, present on admission, improved. -Oxygenation and ventilation are appropriate on current vent settings. -Continue to titrate FiO2 and PEEP to maintain SpO2 >/= 93%. Will continue with spontaneous breathing trial once daily. -Her echocardiogram was very technically difficult due to her positioning and medical devices, but cardiac anatomy appears normal on CT chest. -In addition to a primary arrhythmia as the cause for her arrest, other potential causes including PE was considered and ruled out by CT angiogram chest. Polymorphic ventricular tachycardia, present on admission, resolved. - Likely secondary to QT prolongation due to polypharmacy. Similar episode in 2011 at [place] suspected due to long QT syndrome secondary to polypharmacy as well. - Per pt's pharmacy patient takes Fluoxetine and Aripiprazole which could possibly contribute to QT elongation. - QTc on arrival 483, EKG in Jul shows QTc 433 - Patient was initially placed on cooling protocol and was rewarmed. - Patient had an episode of 30-sec asytole this morning, which is concerning for anoxic brain injury. - Keep magnesium >2, potassium >4 - Echo shows normal EF as above - Per Cardiology, will place EAD pads and consider life vest vs. AICD placement if patient wakes up. - Avoid QT-prolongation medications, including antiemetics. Normocytic anemia, stable. - Likely secondary to hemodilution from IVF. - Patient is off on all IVF currently and has had good urine output, but she is still positive over 9L. - No other sign of fluid overload and thus will hold off diuresis. - H/H has been stable. Will continue to monitor. Transfusion threshold is <7. - Iron panel showed slightly low Fe (34) but high Ferritin (274). Patient takes Iron supplement as outpatient. - B12 and Folate pending. Acute pneumonia likely secondary to aspiration, present on arrival, improved. - Given leukocytosis with elevated procalcitonin and Chest x-ray consistent with pneumonia, now improving - Blood and sputum cultures have been negative. - Patient finishes the 5 days of Zosyn today. Will continue to monitor her signs and symptoms off the antibiotics. Metabolic acidosis, present on admission, resolved. - May reflect poor tissue perfusion as a result of poor cardiac output which would not be explained by her ejection fraction of 50% by echocardiogram. Also could be iatrogenic and due to the large amounts of saline that she has received. - Lactic acid normalized. Remaining aspects of her care to be addressed by her primary team and their other consultants: Elevations in liver enzymes, present on arrival, resolved. - Possibly due to hypoperfusion secondary to cardiac arrest, currently improving consistent with hypoperfusion Acute Hyperglycemia, present on arrival, resolved. - Glucose on admission 233 - No prior history of diabetes - A1c 5.8 Triple X syndrome, presumed stable. - No known correlation with cardiac arrhythmia or cardiac arrest. - Consider other genetic phenomena as possible explanations to cardiac arrest/ arrhythmia Chronic pain, presumed stable Anxiety/Depression Patient is on Ranitidine BID for GI prophylaxis and Heparin SQ for DVT prophylaxis. Time spent: 50 minutes. Pain Evaluation: Adequate Pain Control GI Prophylaxis: H2 maddison VTE Prophylaxis: Sub-Q Heparin (Unfractionated) VTE Mechanical Devices: Intermittant Pneumatic CD Resuscitation Status: CPR: Attempt Resuscitation LehmanAra Reddy Feb 28, 2017 10:56 Resuscitation Status: CPR: Attempt Resuscitation Ara Lehman DO Feb 28, 2017 10:56
[2017-02-28] MEDS: MetoCLOpramide 5 mg/mL 2 mL Inj IVPUSH SCH ×2 (12:13→16:28)
--- NOTE | 2017-02-28 13:04 | DRSVH ---
PROCEDURE: CT BRAIN WITHOUT CONTRAST ([id number]) INDICATIONS: Encephalopathy TECHNIQUE: Noncontrast 4.5 mm thick angled axial sections acquired from the foramen magnum to the vertex, with c oronal reformats. COMPARISON: [facility], CT, CT BRAIN WO CON, 02/25/2017, 15:05. [facility], CT, CT BRAIN WO CON, 02/22/2017, 14:35. FINDINGS: Image quality: Degraded by motion artifact. CSF spaces: Basal cisterns are patent. No extra-axial fluid collections. Ventricles are normal in size and shape. Brain: No midline shift. No intracranial masses or hemorrhage. [place]-white matter interface is norm al. Skull and face: Calvarium and visualized facial bones are intact, without suspicious lesions. Sinuses: Visualized sinuses and mastoids are clear. IMPRESSION: Limited evaluation demonstrating no acute process. Dictated by: Cruz Morley M.D. on 02/28/2017 at 13:02 Approved by: Cruz Morley M.D. on 02/28/2017 at 13:02
--- NOTE | 2017-02-28 13:21 | PCM.PNMED ---
Subjective Date of Service Feb 28, 2017 Subjective NEUROLOGY PROGRESS NOTE Patient remains obtunded and non-verbal. No reports of seizure activity. Per primary team patient had a 30 second sinus pause earlier today. EEG is pending this morning. Exam Vital Signs Vital Sign - Last Date Time Temp Pulse Resp B/P Pulse Ox O2 Delivery O2 Flow Rate FiO2 02/28/17 08:18 79 167/94 99 30 02/28/17 07:45 37.2 19 Nasal Cannula Intake and Output 02/27/17 02/27/17 02/28/17 Cumulative From/Thru 15:00 23:00 07:00 02/22/17 13:36 - 02/28/17 06:22 Intake Total 996 ml 1435 ml 71053 ml Output Total 1250 ml 1500 ml 11679 ml Balance -254 ml -65 ml 9142 ml Intake IV Total 711 ml 795 ml 79446 ml Tube Feeding 205 ml 560 ml 932 ml Tube Irrigant 80 ml 80 ml 280 ml Output Urine Total 1250 ml 1500 ml 24925 ml Gastric Drainage Total 1190 ml # Bowel Movements 3 Exam General: Obese female laying in a CCU room intubated and restrained at 2 points. Respiratory: Mechanically ventilated Abdomen: Obese, soft Neuro: Unable to follow commands, pupils are dilated, equal round and reactive to light, corneal reflex is intact, patient unable to protect her eyes, no doll' s eyes, gag reflex intact, deep tendon reflexes brisk bilaterally today. Toes upgoing on the right leg. Positive Norma's bilaterally and more notable today. 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 Neurology consultation is being obtained due to encephalopathy. Encephalopathy -Likely secondary to anoxic brain injury. -EEG reviewed by Dr. Marc and notable for diffuse slowing is nonspecific however posterior region does have slowing present which is suggestive of anoxic brain injury. -Patient's exam is worsened today with now diffuse hyperreflexia. This coupled with sinus pause is suggestive of brainstem injury. -Would repeat CT brain JANEE. MRI would be preferable but will differ to primary team regarding the safety during such a prolonged test with sinus pauses. -Patient is not able to protect her eyes this morning which she was able to do yesterday. -EEG today. -No indication for mannitol or steroids give this patient's likely etiology of likely increased ICP is anoxic injury. Thank you for allowing us to participate in the care of this patient. GI Prophylaxis: H2 maddison VTE Prophylaxis: Sub-Q Heparin (Unfractionated) VTE Mechanical Devices: Intermittant Pneumatic CD Resuscitation Status: CPR: Attempt Resuscitation Thao Doran DO Feb 28, 2017 11:21
--- NOTE | 2017-02-28 15:10 | NUR ---
Emesis/neuro response At 0817 this morning patient had 32second cardiac paus. At the time patient had perfuse emesis of undigested gastric tube feed. Patient had estimated 300ml of emesis. Oral care/suction and ET suction was done. Tube feeding was stopped and additional 200ml of undigested feed was removed through OG. MD was made aware. Portable chest X-ray to follow up on possible aspiration during emesis was completed. Patient received a dose of Zofran IV x1 following emesis. Consulted with MD and pharmacist regarding unit-nausea medications- Antiemetic was changes to Reglan 10mg IV q6h based on patients resent cardiac events. Dose was also given this morning prior to transfer to CT for schedule head CT today. Patient did not have any additional emesis episodes so far today. OG remained to low continue suction, tube feeding was not resumed at this time. Pacer pads were placed on the patient this morning per MD requesting-ZOLL in the room at all times. Cardiology consult was ordered by attending hospitalist. Eye opening to verbal commands but past that patient was not able to follow commands. Occasionally perform a weak hand squeeze to repeated requests but not consistently. Lower extremity rigid bilaterally. Patient was more ridged during turning and repositioning and was experiencing body shaking from waist down. Pupils were equal about 4-5mm in diameter and slow to response to the light- MD aware- head CT completed today, EEG to complete today.
--- NOTE | 2017-02-28 15:46 | PCM.PNCARD ---
Subjective Date of service Feb 28, 2017 Chief Complaint Cardiac arrest History of Present Illness 31 yo h/o report torsades de pointes cardiac arrest in 2011 here with recurrent cardiac arrest while on antipsychotics and anti-depressants. Subjective: Patient remains intubated. Patient was thought to have a long 22 second pause this morning, during/right after moving and during emesis. Exam Vital Signs Vital Sign - Last Date Time Temp Pulse Resp B/P Pulse Ox O2 Delivery O2 Flow Rate FiO2 02/28/17 12:06 37.1 59 14 141/78 99 Mechanical Ventilator 40 Intake and Output 02/27/17 02/27/17 02/28/17 Cumulative From/Thru 15:00 23:00 07:00 02/22/17 13:36 - 02/28/17 06:22 Intake Total 996 ml 1435 ml 42411 ml Output Total 1250 ml 1500 ml 82598 ml Balance -254 ml -65 ml 9142 ml Intake IV Total 711 ml 795 ml 55273 ml Tube Feeding 205 ml 560 ml 932 ml Tube Irrigant 80 ml 80 ml 280 ml Output Urine Total 1250 ml 1500 ml 85255 ml Gastric Drainage Total 1190 ml # Bowel Movements 3 General appearance: intubated HEET: Normocephalic atraumatic, no scleral icterus, tongue midline, mucous membranes moist Neck: supple Cardiovascular: RRR, normal S1 and normal S2, no murmurs/ rubs/gallops, PMI nondisplaced, no JVD, no peripheral edema Respiratory: Good aeration, coarse Abdomen: Soft, nontender, obese, + bowel sounds Neuro: obtunded with occasional flickering of eyes and opened eyes twice to command, opened eyes wide with noxious stimuli to her sternum, unable to move fingers to command Lab and Diagnostics Result Diagram: 02/28/17 0430 02/28/17 0430 Assessment & Plan Assessment 31 yo h/o report torsades de pointes cardiac arrest in 2011 here with recurrent cardiac arrest while on antipsychotics and anti-depressants: # Telemetry pause: The reported telemetry pause of over 20 seconds appears to be a cooking malfunction as it is a completely straight line without any activity. Patient does not have other smaller pauses but they all appear less than 3 seconds. Patient does not need temporary pacemaker pads on her at this time. # Cardiac arrest: Patient has history of torsades related to VT arrest in 2011. Suspect that this current cardiac arrest is due to prolonged QTc from her multiple antipsychotics. Patient is already severe psychotics now in her QTc is normal. I think patient would benefit from a ICD for secondary prevention of sudden cardiac , assuming she has a reasonable recovery from neurological standpoint. - Continue to monitor for meaningful neurological recovery to consider ICD placement # Neurological injury: Patient has suffered significant anoxic brain injury based on her poor neurological function. She does have some purposeful eye movement but no limb movements. Would defer to neurology for assessment and prognosis. - Continue to monitor. Problems: Pain Evaluation: Adequate Pain Control GI Prophylaxis: H2 maddison VTE Prophylaxis: Sub-Q Heparin (Unfractionated) VTE Mechanical Devices: Intermittant Pneumatic CD Resuscitation Status: CPR: Attempt Resuscitation Time spent I spent 45 minutes of critical care time taking care of the patient's electrical issues of the heart and speaking with the mother, sister, and primary hospitalist service. Simone Friend MD Feb 28, 2017 15:46
--- NOTE | 2017-02-28 16:09 | PCM.PNMED ---
Subjective Date of Service Feb 28, 2017 Subjective Subjective: Patient unable to participate in her care at this time due to being intubated and comatose Events Overnight: No acute events overnight. ROS: Due to the patient being comatose, a review of systems was unable to be obtained. Exam Vital Signs Vital Sign - Last Date Time Temp Pulse Resp B/P Pulse Ox O2 Delivery O2 Flow Rate FiO2 02/28/17 15:41 75 147/81 98 30 02/28/17 12:06 37.1 14 Mechanical Ventilator Intake and Output 02/27/17 02/27/17 02/28/17 Cumulative From/Thru 14:59 22:59 06:59 02/22/17 13:36 - 02/28/17 06:22 Intake Total 996 ml 1435 ml 19156 ml Output Total 1250 ml 1500 ml 74229 ml Balance -254 ml -65 ml 9142 ml Intake IV Total 711 ml 795 ml 82504 ml Tube Feeding 205 ml 560 ml 932 ml Tube Irrigant 80 ml 80 ml 280 ml Output Urine Total 1250 ml 1500 ml 50340 ml Gastric Drainage Total 1190 ml # Bowel Movements 3 Exam General: Intubated and comatose, well-developed, well-nourished Head: Normocephalic, atraumatic. External ears without defect. Eyes: Pupils equal, round, and reactive to light. Anicteric sclerae, injected conjunctivae. Cardiovascular: Regular rate and rhythm with no murmurs, rubs, or gallops appreciated Pulmonary: Coarse breath sounds due to ventilation status, no wheezes, rales, or rhonchi. Normal respiratory effort with no use of accessory muscles. Abdomen: Bowel tones present. Soft, obese nondistended. Extremities: No clubbing, cyanosis, trace edema Skin: Normal temperature, turgor, and texture; no rash, ulcers, or subcutaneous nodules appreciated. Neurological: Neurological exam changes significantly minute to minute. Typically observed: Spontaneous eye opening, appears to be responding to verbal stimuli, at times able to follow commands with repeated stimulation, withdrawing to pain, Babinski negative on the left, weakly positive on the right , pupillary reflex intact Psychiatric: Unable to assess IVs and Medications IV Fluids 800 mL normal saline delivered with IV medications. Medications Reviewed: Medications were reviewed in detail Lab and Diagnostics Result Diagram: 9/8/17 0430 9/8/17 0430 X-Rays, CTs and MRIs X-RAY CHEST ONE VIEW, PORTABLE IMPRESSION: 1. Support lines as above. 2. Patchy opacities as described above. These could be order entry representative of Findings are suggestive of edema. However, developing areas of airspace disease such as atelectasis and/or pneumonia cannot be excluded. Approved by: Mikaela Davila M.D. on 02/22/2017 at 14:38 CT BRAIN WITHOUT CONTRAST IMPRESSION: 1. No acute intracranial process. 2. Scattered ethmoid and sphenoid sinus fluid Approved by: Mikaela Davila M.D. on 02/22/2017 at 15:02 X-RAY CHEST ONE VIEW, PORTABLE IMPRESSION: 1. Confluent right airspace opacities suggestive of pneumonia. Recommend attention on followup. 2. Persistent mild pulmonary edema. 3. Lines and tubes redemonstrated with the tip of the right internal jugular catheter redemonstrated in the right atrium. The tip of the nasogastric tube is not well-visualized on the current study with possible interval retraction. Recommend a repeat study when clinically feasible. Approved by: Nate Cai M.D. on 02/23/2017 at 11:22 X-RAY CHEST ONE VIEW, PORTABLE IMPRESSION: 1. Decreased but persistent mild pulmonary edema. Dictated by: Nate Cai M.D. on 02/24/2017 at 8:31 Approved by: Nate Cai M.D. on 02/24/2017 at 8:33 CT ANGIO CHEST PULMONARY EMBOLISM IMPRESSION: 1. No pulmonary embolus. 2. Bilateral lower lobe and right upper lobe pneumonia. Small parapneumonic effusions bilaterally. 3. Small amount of perihepatic ascites. 4. Cardiomegaly. Dictated by: Cruz Morley M.D. on 02/25/2017 at 15:39 Approved by: Cruz Morley M.D. on 02/25/2017 at 15:43 CT BRAIN WITHOUT CONTRAST IMPRESSION: No acute process. Dictated by: Cruz Morley M.D. on 02/25/2017 at 15:38 Approved by: Cruz Morley M.D. on 02/25/2017 at 15:39 X-RAY CHEST ONE VIEW, PORTABLE IMPRESSION: Increasing by basilar opacities compatible atelectasis, pneumonia or aspiration. Please correlate with clinical and laboratory data. Dictated by: Sharona Gaspar MD, PhD on 02/26/2017 at 8:46 Approved by: Sharona Gaspar MD, PhD on 02/26/2017 at 8:47 X-RAY CHEST ONE VIEW, PORTABLE IMPRESSION: 1. Persistent bibasilar retrocardiac consolidation consistent with pneumonia possibly due to aspiration. 2. Small bilateral pleural effusions. 3. Right internal jugular catheter tip demonstrated in the right atrium, approximately 3 cm inferior to the cavoatrial junction. Dictated by: Nate Cai M.D. on 02/28/2017 at 8:42 Approved by: Nate Cai M.D. on 02/28/2017 at 8:50 CT BRAIN WITHOUT CONTRAST IMPRESSION: Limited evaluation demonstrating no acute process. Dictated by: Cruz Morley M.D. on 02/28/2017 at 13:02 Approved by: Cruz Morley M.D. on 02/28/2017 at 13:02 Cardiac Echo Impressions Echocardiogram Report Interpretation Summary Technically difficult echocardiogram due to patient positioning and limited acoustic imaging windows. The patient was intubated during the exam. The left ventricle is grossly normal size. The ejection fraction is estimated to be 50-55% (s/p cardiac arrest). In 09/2013, LV EF was 60-65%. The right ventricle is not well visualized. No significant valvular pathology seen. The IVC is dilated. Inspiratory collapse cannot be assessed because of mechanical ventilation, thus CVP cannot be estimated.. Reading Physician:AM Assessment & Plan 31-year-old female patient with past medical history significant for triple X syndrome([id number]), chronic anxiety, depression, and previous cardiac arrest in 2011 who presents to the ED via EMS as a result of cardiac arrest. Acute anoxic encephalopathy, present on admission, active Since weaning from sedation patient continues to have minimal neurologic activity Likely due to anoxic brain injury secondary to cardiac arrest - Patient continues to progress slowly from a neurologic standpoint - EEG obtained 02/26, results show delta waves with some possible anoxic brain injury -Neurology (Dr. Marc) has been contacted and will evaluate the patient On 02/28 patient had a 30sec sinus pause while being moved, patient was unresponsive during this time, and subsequently vomited. - New symptoms are suggestive of brainstem injury secondary to increased intracranial pressure . - Stat CT scan showed no acute changes from previous. - MRI would be the preferred modality for brain imaging, however considering the patient's recent sinus pause, combined with the length of the test it seems to be imprudent to attempt at this time. - Repeat EEG scheduled for 02/28 -Discussed the new findings with family who is aware that the situation is tenuous - Goals at this point are to progress toward extubation while awaiting return of neurological function. Acute cardiac arrest, present on arrival, stable Prior episode in 2011 at [place] suspected due to long QT syndrome secondary to polypharmacy Patient saw Dr. Trina Villagran for workup of palpitations. Workup suggests no arrhythmia or cardiac ischemia. Per pt's pharmacy pt takes Fluoxetine, Aripiprazole which could possibly contribute to QT elongation - QTc on arrival 483, EKG in Jul shows QTc 433 - Patient initially placed on cooling protocol, with rewarming terminating at approximately 12:00 PM on 02/24 - Keep magnesium >2, potassium >4 - Echo shows intact EF other results as above - On 02/28 patient had a 30sec sinus pause while being moved, patient was unresponsive during this time, and subsequently vomited. - New symptoms are suggestive of increased intracranial pressure. - Cardiology consulted, Dr. Friend following case was discussed with him at length Acute hypoxemic respiratory distress, present on arrival, stable Patient unconscious on arrival, required intubation by EMS - Patient initially sedated with Propofol and fentanyl - No sedation currently, patient continues to have minimal neurologic activity. - Vent settings to be managed by CCU team - Daily pressure support trials, continue to extubation when appropriate - Saturating well on current vent settings - Pulmonology (Dr. Sol) following case was discussed extensively with him today. Acute pneumonia likely secondary to aspiration, present on arrival, resolving - Given leukocytosis with elevated procalcitonin and Chest x-ray consistent with pneumonia - Blood cultures 4 negative - Sputum cultures showed normal erin - Prophylactic Zosyn discontinued Elevations in liver enzymes, present on arrival, resolved Possibly due to hypoperfusion secondary to cardiac arrest - Continue to monitor Lactic acidosis, present on arrival, Resolved Likely secondary to stress reaction in conjunction with cardiac hypoperfusion - Lactic acid trended until normal Acute Hyperglycemia, present on arrival, stable - Glucose on admission 233 - No prior history of diabetes - A1c 5.8 -Patient is currently NPO, continue to monitor glucose Chronic pain, presumed stable - Resume home medications when awake and alert Anxiety - Takes Aripiprazole and Lamotrigine at home - Hold home medications Depression Cannot rule out suicide attempt/overdose, mother states prior history of suicidal ideation without a plan or previous attempts. - Per Pharmacy, takes Prozac, Aripiprazole and Lamotrigine at home - Hold home medications Triple X syndrome, presumed stable - No known correlation with cardiac arrhythmia or cardiac arrest. - Consider other genetic phenomena as possible explanations to cardiac arrest/ arrhythmias - Per cardiology, possible channelopathy which would be treated with ICD placement. Disposition: Patient prognosis guarded due to decreased neurological activity, no assessments for discharge can be made at this time. GI Prophylaxis: H2 maddison VTE Prophylaxis: Sub-Q Heparin (Unfractionated) VTE Mechanical Devices: Intermittant Pneumatic CD Resuscitation Status: CPR: Attempt Resuscitation Attending Statement The patient was seen and examined together with Dr. Carvalho on 02/28/17 and I have added additional information to the note above. Alcon Carvalho DO Feb 28, 2017 16:09 Vlae Hairston DO Mar 01, 2017 13:05
--- NOTE | 2017-02-28 17:35 | NUR ---
Social Work: Multidisciplinary Rounds D/A: Pt discussed in multidisciplinary rounds; the patient remains in CCU vented in a comatose state. Per provider and progress notes, pt is having minimal neurologic activity. Pt is having 30 second cardiac pauses. Prognosis is unknown at this time. Per progress notes, suicide attempt/overdose cannot be ruled out at this time. P: Case management/social work continues to follow. At this time, we just continue to follow and will assist if needs arise. JAUN Paiz
[2017-02-28] MEDS: Lactated Ringer's 1,000 ML IV SCH (18:13)
[2017-02-28] MEDS ORDERED: Alteplase (Cathflo) 1 mg/mL 2 mL Inj IVPUSH ONE ×3 (18:15)
--- NOTE | 2017-02-28 18:34 | NUR ---
Diarrhea Patient had two diarrheal stools this afternoon and again this evening- Reglan 10mg IV was heled at 1630 today. MD was made aware and discontinued Reglan IV. Patient required full linen changes and received two full bed baths during the shift following each stooling. Skin care as per protocol and PRN, continue assessment.
--- NOTE | 2017-02-28 19:35 | PROCED ---
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 TECHNICAL DESCRIPTION: This digital EEG was recorded using 25 scalp and ear, and two EKG electrodes. It was reviewed in bipolar and referential montages following reformatting in the [employer]. During the recording, the patient was noted to be comatose. There was no clear background activity. This EEG is characterized by delta activity (at times high amplitude) which is interrupted by 3-5 second pauses of burst suppression. The patient did not respond to voice commands. There was no electrocortical change noted. Deep pressure stimulation to the index finger and great toenail bed did demonstrate withdrawal; however, no electrocortical correlation was noted. Hyperventilation was not performed. Photic stimulation from 1-30 hertz did not elicit any photic driving response. The EKG rhythm strip revealed a heart rate of 40-60 beats per minute. No sleep was appreciated. There appears to be less cortical activity on today's electroencephalogram when compared to yesterday's. IMPRESSION: This electroencephalogram performed in the comatose state is abnormal. The generalized high-amplitude delta slowing associated with intermittent burst suppression lasting from 3-5 seconds is suggestive of moderate to severe cerebral cortical dysfunction/encephalopathy. Although this may be seen in a wide variety of different clinical conditions, given the patient's clinical history, this is highly suggestive of anoxic brain damage and associated with a poor prognosis. Clinical correlation is advised. [facility]
[2017-03-01] VITALS (13 sets, daily range): BP systolic 123–154; BP diastolic 62–88; PULSE 55–86; RESP 12–20; O2SAT 97–99
[2017-03-01] MEDS: Chlorhexidine 0.12% 15 mL Oral Solution MT SCH ×6 (00:07→21:06)
[2017-03-01] MEDS: Heparin 5,000 Unit/mL Inj SUBQ SCH ×3 (00:07→17:04)
[2017-03-01 04:27] LABS: BASOPHILS % (AUTO) 0.2 % (0-3); EOSINOPHILS % (AUTO) 3.5 % (0-5); MONOCYTES % (AUTO) 7.6 % (4-12); Mean Corpuscular Hemoglobin 30.6 pg (27.0-35.0); Mean Corpuscular Volume 93.3 fL (81-100); NEUTROPHILS % (AUTO) 38.9 % (40-74); Platelet Count 177 bil/L (150-400)
--- NOTE | 2017-03-01 04:32 | ABG ---
DateTimeAnalyzed 04:25:00 -_ pH ____7.480 - 7.350 7.450 pCO2 ___25.8__ -mmHg 35.0 45.0 pO2 100 -mmHg 69.0 116 HCO3- ___19.0__ -mmol/L 22.0 26.0 ABE ___-3.4__ -mmol/L -2.0 2.0 tHb ____8.4__ -g/dL 12.0 18.0 O2Hb ___96.5__ -% COHb ____0.9__ -% 0.0 1.5 MetHb ____0.7__ -% 0.4 1.5 sO2 ___98.1__ -% FIO2 ___30.0__ -% PRVC 580 - PEEP ____6.0__ -cmH2O Set_RR ___14.0__ -b/min Drawn By MK - Date/Time Notified____ 04:31:00 -_ Spontaneous_RR ___14.0__ -b/min Oxygen Device 1 VENTILATOR - Notified By MK - B 757 -mmHg tO2 ___11.6__ -Vol% Ijm test _Positive -
[2017-03-01 05:11] LABS: Magnesium 1.8 mg/dL (1.6-2.6); Phosphorus 2.8 mg/dL (2.5-4.9)
--- NOTE | 2017-03-01 06:40 | DRSVH ---
PROCEDURE: X-RAY CHEST ONE VIEW, PORTABLE ([id number]) INDICATIONS: 31 year-old female with respiratory failure. TECHNIQUE: One view of the chest was acquired. COMPARISON: [facility], CR, XR CHEST 1VW (PORTABLE), 02/28/2017, 8:31. [facility], CR, XR CHEST 1VW (PORTABLE), 02/26/2017, 4:12. [facility], CR, XR CHEST 1VW (ZORAN BLE), 02/25/2017, 5:33. FINDINGS: Patient is rotated on the frontal projection. Surgical changes and devices: Endotracheal tube and nasogastric tube remain in expected positions. Ri ght internal jugular central venous catheter is again noted, with tip in the right atrium. Lungs and pleura: No pleural effusions or pneumothorax. Bilateral infrahilar airspace opacities pers ist. Lung volumes are decreased. Mediastinum: Mediastinal contours appear normal. Heart size is normal. Bones and chest wall: No suspicious bony lesions. Overlying soft tissues appear unremarkable. IMPRESSION: 1. Decreased lung volumes, with persistent bibasilar atelectasis, aspiration, or pneumonia. 2. Right internal jugular central venous catheter tip remains in the right atrium. Dictated by: Saud Ruiz M.D. on 03/01/2017 at 6:34 Approved by: Saud Ruiz M.D. on 03/01/2017 at 6:38
--- NOTE | 2017-03-01 07:19 | NUR ---
P) Cardiac/Respiratory Pt.'s cardiac rhythm is sinus/sinus mary with MF PVC's, rate initially in the 80's and dropped to the 50's, BP stable. Lungs mildly coarse and decreased in bases, bronchospastic cough, hyper gag reflex, parra mucous suctioned from ET tube, small to moderate amounts. Opens her eyes but does not appear to track or follow any commands. Of note on release of restraints for repositioning her L hand flew towards her face and the ET tube. Mother in attendance and seems hopeful. I) Close observation, meds per 's orders, turning q2h and cont. rotation, floating heels. E) resting, frequently restless but not purposeful, does withdraw from pain.
[2017-03-01] MEDS: LacriLube S.O.P. 3.5 Gm Ophthalmic Ointment BOTH_EYES SCH ×2 (08:55→21:06)
[2017-03-01] MEDS: Famotidine Inj 20 MG in IV Premix 1 EACH IV SCH ×2 (08:55→21:06)
--- NOTE | 2017-03-01 11:01 | NUR ---
NUTRITION FOLLOW-UP: Assess: 31 YO F admitted to CCU following cardiac arrest, requiring intubation, now status post hypothermia protocol. Sedation has been discontinued due to patient's likely anoxic brain injury and possible brainstem injury. Enteral feeding was initiated 02/26; she was tolerating feeding well until she had a large emesis early yesterday morning, when it was put on hold, where it remains. Residuals were minimal, and the patient was having normal bowel movements. Overnight, however, the patient began to have diarrhea. The patient's mother is concerned that the patient's lactose intolerance may be a contributory factor. However, during case management rounds today, Dr. Hairston doesn't feel the emesis or the diarrhea are related to the tube feeding formula, which is designed for lactose intolerance. Orders received to restart enteral feeding following MRI possibly scheduled today. Orders rewritten to restart at trophic rate for 12 hours to better assess tolerance. PMHX: V-tach, Triple X syndrome, anxiety, depression, cardiac arrest. DIET: NPO. ENTERAL FEEDING TO BE RESTARTED TODAY: Jevity 1.5 to restart at 10 ml/hr x 12 hr; subsequently advancing 5 ml every 4 hr. to goal rate 80 ml/hr, which will provide 2640 kcal, 112 g protein; meeting 100% calorie, 99% protein needs. LABS: Cr 0.47, Alb 3.1, Procalcitonin 0.19. MEDICATIONS: Reviewed. No sedation. GI: BM x 2 (02/28), diarrhea. SKIN: No issues noted. Antonio 12. ANTHROPOMETRICS: Wt: 129.9 kg, BMI 37.0 kg/m2, Admit: 130.0 kg, IBW: 75.0 kg. ESTIMATED NEEDS: BMI/VENT Calories: 4677-0584 kcal/day (20-22 kcal/kg BW) Protein: 113-135 g/day (1.5-1.8 g/kg IBW) NUTRITION DIAGNOSIS: 1) Inadequate oral intake related to decreased ability to consume sufficient energy as evidenced by NPO/Vent status - PERSISTS. INTERVENTION: 1) No additional interventions at this time. MONITOR/EVALUATE: NPO/Vent status, enteral feeding restart / tolerance/advance, POC, labs, GI/nutrition status. Follow per high nutrition risk guidelines.
[2017-03-01] MEDS: Lactated Ringer's 1,000 ML IV SCH (11:38)
--- NOTE | 2017-03-01 11:41 | PCM.PNMED ---
Subjective Date of Service Mar 01, 2017 Subjective Subjective: Events Overnight: No acute events overnight. ROS: Due to the patient being comatose, a review of systems was unable to be obtained. Exam Vital Signs Vital Sign - Last Date Time Temp Pulse Resp B/P Pulse Ox O2 Delivery O2 Flow Rate FiO2 03/01/17 10:32 66 14 124/67 97 30 03/01/17 08:20 Ventilator 03/01/17 08:20 37.2 Intake and Output 02/28/17 02/28/17 03/01/17 Cumulative From/Thru 15:00 23:00 07:00 02/22/17 13:36 - 03/01/17 06:00 Intake Total 758 ml 723 ml 46847 ml Output Total 600 ml 1425 ml 82925 ml Balance 158 ml -702 ml 8598 ml Intake IV Total 758 ml 723 ml 35744 ml Tube Feeding 932 ml Tube Irrigant 280 ml Output Urine Total 825 ml 43779 ml Gastric Drainage Total 300 ml 600 ml 2090 ml Emesis 300 ml 300 ml # Bowel Movements 2 5 Exam General: Intubated and somnolent, well-developed, well-nourished Head: Normocephalic, atraumatic. External ears without defect. Eyes: Pupils equal, round, and reactive to light. Anicteric sclerae, injected conjunctivae. Cardiovascular: Regular rate and rhythm with no murmurs, rubs, or gallops appreciated Pulmonary: Coarse breath sounds due to ventilation status, no wheezes, rales, or rhonchi. Normal respiratory effort with no use of accessory muscles. Abdomen: Bowel tones present. Soft, obese nondistended. Extremities: No clubbing, cyanosis, trace edema Skin: Normal temperature, turgor, and texture; no rash, ulcers, or subcutaneous nodules appreciated. Neurological: Neurological exam changes minute to minute. However typically observed: Spontaneous eye opening, responding to verbal stimuli, at times able to follow commands, withdrawing to pain, pupillary reflex intact Psychiatric: Unable to assess IVs and Medications Medications Reviewed: Medications were reviewed in detail Lab and Diagnostics Result Diagram: 03/01/1741903/01/17419 X-Rays, CTs and MRIs X-RAY CHEST ONE VIEW, PORTABLE IMPRESSION: 1. Support lines as above. 2. Patchy opacities as described above. These could be commissary representative of Findings are suggestive of edema. However, developing areas of airspace disease such as atelectasis and/or pneumonia cannot be excluded. Approved by: Mikaela Davila M.D. on 02/22/2017 at 14:38 CT BRAIN WITHOUT CONTRAST IMPRESSION: 1. No acute intracranial process. 2. Scattered ethmoid and sphenoid sinus fluid Approved by: Mikaela Davila M.D. on 02/22/2017 at 15:02 X-RAY CHEST ONE VIEW, PORTABLE IMPRESSION: 1. Confluent right airspace opacities suggestive of pneumonia. Recommend attention on followup. 2. Persistent mild pulmonary edema. 3. Lines and tubes redemonstrated with the tip of the right internal jugular catheter redemonstrated in the right atrium. The tip of the nasogastric tube is not well-visualized on the current study with possible interval retraction. Recommend a repeat study when clinically feasible. Approved by: Nate Cai M.D. on 02/23/2017 at 11:22 X-RAY CHEST ONE VIEW, PORTABLE IMPRESSION: 1. Decreased but persistent mild pulmonary edema. Dictated by: Nate Cai M.D. on 02/24/2017 at 8:31 Approved by: Nate Cai M.D. on 02/24/2017 at 8:33 CT ANGIO CHEST PULMONARY EMBOLISM IMPRESSION: 1. No pulmonary embolus. 2. Bilateral lower lobe and right upper lobe pneumonia. Small parapneumonic effusions bilaterally. 3. Small amount of perihepatic ascites. 4. Cardiomegaly. Dictated by: Cruz Morley M.D. on 02/25/2017 at 15:39 Approved by: Cruz Morley M.D. on 02/25/2017 at 15:43 CT BRAIN WITHOUT CONTRAST IMPRESSION: No acute process. Dictated by: Cruz Morley M.D. on 02/25/2017 at 15:38 Approved by: Cruz Morley M.D. on 02/25/2017 at 15:39 X-RAY CHEST ONE VIEW, PORTABLE IMPRESSION: Increasing by basilar opacities compatible atelectasis, pneumonia or aspiration. Please correlate with clinical and laboratory data. Dictated by: Sharona Gaspar MD, PhD on 02/26/2017 at 8:46 Approved by: Sharona Gaspar MD, PhD on 02/26/2017 at 8:47 X-RAY CHEST ONE VIEW, PORTABLE IMPRESSION: 1. Persistent bibasilar retrocardiac consolidation consistent with pneumonia possibly due to aspiration. 2. Small bilateral pleural effusions. 3. Right internal jugular catheter tip demonstrated in the right atrium, approximately 3 cm inferior to the cavoatrial junction. Dictated by: Nate Cai M.D. on 02/28/2017 at 8:42 Approved by: Nate Cai M.D. on 02/28/2017 at 8:50 CT BRAIN WITHOUT CONTRAST IMPRESSION: Limited evaluation demonstrating no acute process. Dictated by: Cruz Morley M.D. on 02/28/2017 at 13:02 Approved by: Cruz Morley M.D. on 02/28/2017 at 13:02 Cardiac Echo Impressions Echocardiogram Report Interpretation Summary Technically difficult echocardiogram due to patient positioning and limited acoustic imaging windows. The patient was intubated during the exam. The left ventricle is grossly normal size. The ejection fraction is estimated to be 50-55% (s/p cardiac arrest). In 09/2013, LV EF was 60-65%. The right ventricle is not well visualized. No significant valvular pathology seen. The IVC is dilated. Inspiratory collapse cannot be assessed because of mechanical ventilation, thus CVP cannot be estimated.. Reading Physician:HENRIQUE Assessment & Plan 31-year-old female patient with past medical history significant for triple X syndrome([id number]), chronic anxiety, depression, and previous cardiac arrest in 2011 who presents to the ED via EMS as a result of cardiac arrest. Acute anoxic encephalopathy, present on admission, active Since weaning from sedation patient continues to have minimal neurologic activity Likely due to anoxic brain injury secondary to cardiac arrest - Patient continues to progress slowly from a neurologic standpoint - EEG obtained 02/26, results show delta waves with some possible anoxic brain injury - Neurology (Dr. Marc) has been contacted and will evaluate the patient - On 02/28 patient had a 30sec sinus pause while being moved, patient was unresponsive during this time, and subsequently vomited. - Dr. Friend believes this is more likely due to a nonfunctioning lead versus true asystole - Stat CT scan showed no acute changes from previous. - MRI scheduled for 03/01 - Repeat results EEG pending - Discussed the new findings with family who is aware that the situation is tenuous - Goals at this point are to progress toward extubation while awaiting return of neurological function. Acute cardiac arrest, present on arrival, stable Prior episode in 2011 at [facility] suspected due to long QT syndrome secondary to polypharmacy Patient saw Dr. Mena August for workup of palpitations. Workup suggested no arrhythmia or cardiac ischemia. Per pt's pharmacy pt takes Fluoxetine, Aripiprazole which could possibly contribute to QT elongation - QTc on arrival 483, EKG in Jul shows QTc 433 - Patient initially placed on cooling protocol, with rewarming terminating at approximately 12:00 PM on 02/24 - Keep magnesium >2, potassium >4 - Echo shows intact EF other results as above - On 02/28 patient had a 30sec sinus pause while being moved, patient was unresponsive during this time, and subsequently vomited. - Dr. Friend believes this is more likely due to a nonfunctioning lead versus true asystole - Cardiology consulted, Dr. Friend following Acute hypoxemic respiratory distress, present on arrival, stable Patient unconscious on arrival, required intubation by EMS - Patient initially sedated with Propofol and fentanyl - No sedation currently, patient continues to have minimal neurologic activity. - Vent settings to be managed by CCU team - Daily pressure support trials, continue to extubation when appropriate - Saturating well on current vent settings Acute pneumonia likely secondary to aspiration, present on arrival, resolving - Given leukocytosis with elevated procalcitonin and Chest x-ray consistent with pneumonia - Blood cultures 4 negative - Sputum cultures showed normal erin - Prophylactic Zosyn discontinued Elevations in liver enzymes, present on arrival, resolved Likely due to hypoperfusion secondary to cardiac arrest - Continue to monitor Lactic acidosis, present on arrival, Resolved Likely secondary to stress reaction in conjunction with cardiac hypoperfusion - Lactic acid trended until normal Acute Hyperglycemia, present on arrival, stable - Glucose on admission 233 - No prior history of diabetes - A1c 5.8 -Patient is currently NPO, continue to monitor glucose Chronic pain, presumed stable - Resume home medications when awake and alert Anxiety - Takes Aripiprazole and Lamotrigine at home - Hold home medications Depression Cannot rule out suicide attempt/overdose, mother states prior history of suicidal ideation without a plan or previous attempts. - Per Pharmacy, takes Prozac, Aripiprazole and Lamotrigine at home - Hold home medications Triple X syndrome, presumed stable - No known correlation with cardiac arrhythmia or cardiac arrest. - Consider other genetic phenomena as possible explanations to cardiac arrest/ arrhythmias - Per cardiology, possible channelopathy which would be treated with ICD placement. Disposition: Patient prognosis guarded due to decreased neurological activity, no assessments for discharge can be made at this time. Patient overall does seem progressively better compared to yesterday she seems to be responding more and is able to follow commands better. The patient has been placed on pressure support trials and she seems to be tolerating this longer and longer. We will continue to monitor and wean from the ventilator when patient is able to protect her own airway. GI Prophylaxis: H2 maddison VTE Prophylaxis: Sub-Q Heparin (Unfractionated) VTE Mechanical Devices: Intermittant Pneumatic CD Resuscitation Status: CPR: Attempt Resuscitation Attending Statement The patient was seen and examined together with Dr. Carvalho on 03/01/17 and I have added additional information to the note above. Alcon Carvalho DO Mar 01, 2017 11:22 Vale Hairston DO Mar 01, 2017 13:00
--- NOTE | 2017-03-01 14:26 | PROG NOTE ---
[address] [address] PROGRESS NOTE PATIENT: MOMO WORKMAN : 1985 MR#: [id number] ADMIT: 02/22/2017 JOB ID: [id number] DATE: 03/01/2017 PULMONARY CRITICAL CARE FOLLOWUP NOTE: PROBLEMS: 1. Anoxic encephalopathy secondary to cardiac arrest. 2. Polymorphic V-tach. 3. Long QT syndrome. SUBJECTIVE: None. OBJECTIVE: Temperature 37.1, pulse 66-81, respiratory rate 12-17 with ventilator set at 12, blood pressure 140/72. O2 sat on FiO2 of 30%, PEEP of 5, is 97%. I and O shows 2.1 L in, 2.1 L out. General appearance: Seems a bit more awake today. Eyes open a bit more. No tracking however. No cognitive response. Chest: Clear anterolaterally. Fairly good breath sounds bilaterally. With tidal volume of 520, PEEP of 6, peak inspiratory pressure 24, plateau 19. PEEP is set at 6, measured at six. Heart: Regular rhythm. Heart tones normal. Abdomen: Soft. Some bowel tones present. Extremities: 1+ pretibial edema. Skin: Warm. LABORATORY DATA: Shows a white count of 4900 with 38 polymorphonuclears, 49 lymphs, 7 monos, 3 eosinophils. Hemoglobin 8.2, down from 9 from yesterday. Platelet count 177,000. No particular change. Lytes are normal, though potassium is at the lower limits of normal at 33.9. BUN stable at 13. Creatinine 0.47, somewhat improved. Calcium 8.7 with an albumin of 3.1. Phosphorus 2.8. Magnesium 1.8. Total bilirubin 0.7. Transaminases as well as alkaline phosphatase are normal. Procalcitonin continues to fall 0.19. Chest x-ray shows some decreased lung volumes with some opacification at the bases. The CT of the brain did not show any particular abnormalities; however, it was a limited evaluation. EEG shows some generalized high amplitude delta slowing associated with some intermittent burst suppression suggestive of moderate to severe cerebral cortical dysfunction. The study is highly suggestive of anoxic brain damage. Prognosis felt to be poor based on this study. ASSESSMENT: 1. Anoxic encephalopathy. Certainly seeing some damage on studies. However, the patient's mental status seems to be improving. More awake. However, we have not seen any cognitive function at this point. This is day six after rewarming. Hopefully, will continue to see improvement with marked acceleration. 2. Respiratory status. Doing reasonably well. Did a pressure support trial which did fairly well. Blood gases show a pO2 of 100 on an FiO2 of 0.3, PRVC of 580, PEEP of 6, and a rate of 14. PCO2 28, pH 7.48. Therefore ventilator changed to tidal volume from 585 to 520 and a respiratory rate of 14 down to 10. Doing reasonably well otherwise. PLAN: 1. Vent changes as above. 2. Continue supportive care. 3. Continue breathing trials. Case discussed with neurology as well as primary care team. Case discussed briefly with the patient's sister. I spoke with mother early this morning for a longer period of time, though without the EEG and blood gas information. TIME: Time spent in critical care 47 minutes.
--- NOTE | 2017-03-01 17:01 | ABG ---
DateTimeAnalyzed 16:53:00 -_ pH ____7.389 - 7.350 7.450 pCO2 ___38.0__ -mmHg 35.0 45.0 pO2 ___36.1__ -mmHg 69.0 116 HCO3- ___22.4__ -mmol/L 22.0 26.0 ABE ___-1.7__ -mmol/L -2.0 2.0 tHb ____9.1__ -g/dL 12.0 18.0 O2Hb ___65.8__ -% COHb ____1.2__ -% 0.0 1.5 MetHb ____0.9__ -% 0.4 1.5 sO2 ___67.2__ -% FIO2 ___30.0__ -% PRVC 520 - PEEP ____6.0__ -cmH2O Set_RR ___10.0__ -b/min Drawn By ____A.F./ nurse - Date/Time Notified____ 17:01:00 -_ Spontaneous_RR ___14.0__ -b/min Oxygen Device 1 VENTILATOR - Notified By NB - Notified Whom ____A. Bishop, RN - B 759 -mmHg tO2 ____8.4__ -Vol% Jim test N/A -
--- NOTE | 2017-03-01 18:30 | NUR ---
Note Patient was more responsive today. Patient was able to indicate with her head appropriately to yes/no questions. Ventilator pressure support trial this morning / for 1h and 30min patient tolerated PS well. Next trail tomorrow. Tube feeding resumed at 10ml/h at 1630 today- HOB up 30 degrees at all times, continue assessment.
[2017-03-02] VITALS (15 sets, daily range): BP systolic 103–153; BP diastolic 57–86; PULSE 57–82; RESP 14–23; O2SAT 95–99
[2017-03-02] MEDS: Chlorhexidine 0.12% 15 mL Oral Solution MT SCH ×7 (00:34→23:56)
[2017-03-02] MEDS: Heparin 5,000 Unit/mL Inj SUBQ SCH ×4 (00:34→23:56)
[2017-03-02] MEDS: Lactated Ringer's 1,000 ML IV SCH ×2 (05:15→19:41)
[2017-03-02 05:24] LABS: BASOPHILS % (AUTO) 0.6 % (0-3); EOSINOPHILS % (AUTO) 2.9 % (0-5); MONOCYTES % (AUTO) 8.2 % (4-12); Mean Corpuscular Hemoglobin 30.8 pg (27.0-35.0); Mean Corpuscular Volume 93.8 fL (81-100); Platelet Count 209 bil/L (150-400)
[2017-03-02] MEDS: LacriLube S.O.P. 3.5 Gm Ophthalmic Ointment BOTH_EYES SCH ×2 (07:55→19:40)
[2017-03-02] MEDS: Famotidine Inj 20 MG in IV Premix 1 EACH IV SCH ×2 (07:55→20:44)
[2017-03-02] MEDS ORDERED: Acetaminophen 32.5 mg/mL 20 mL Liquid TUBE PRN (16:00)
--- NOTE | 2017-03-02 16:19 | PROG NOTE ---
[address] [address] PROGRESS NOTE PATIENT: MOMO WORKMAN : 1985 MR#: [id number] ADMIT: 02/22/2017 JOB ID: [id number] DATE: 03/02/2017 PROBLEM: 1. Anoxic encephalopathy. 2. Polymorphic ventricular tachycardia. 3. Long QT interval. SUBJECTIVE: None. OBJECTIVE: Temperature 36.7 with T-max being 37.6. Pulse mid 70s. Respiratory rate mid teens. Blood pressure 145/73, O2 sat on FiO2 of 30%, PEEP of 6 is 98%. I and O shows 1.5 L in, 2.6 L out. General appearance: Seems a bit more awake today. Eyes open. No apparent tracking and does not look towards examiner. Does have some spontaneous movement, left lower extremity. Occasionally some odd finger movements of the right hand reminiscent of exam for rapid finger movement. Does raise her right lower extremity to pain but also with a flexor motion of the ankle. Some flexor withdrawal of the left upper extremity to painful stimuli. Does close her eyes to touch of the eyelashes. Other examiners have described a more purposeful exam though, again, seemingly more appropriate on the left than the right. Chest is clear with fairly good breath sounds bilaterally. Heart: Regular rhythm. Heart tones normal. Abdomen is soft. Bowel tones present. Extremities: Trace pretibial edema. Tolerating lower rate of tube feeding. LABORATORY DATA: Shows a white count of 6200 with a normal differential. Hemoglobin stable at 8.9. Platelet count stable at 209,000. Lytes are normal. BUN normal at 12. Creatinine normal at 0.5. Calcium 8.9 with albumin of 3.3. Total bilirubin, transaminases and alkaline phosphatase all normal. Procalcitonin 0.13 and decreasing. Venous blood gases from a mixed venous sample shows a pCO2 of 38, a pH 7.38. ASSESSMENT: 1. Anoxic encephalopathy. Doing a little bit better. Seems more awake. Some more motor movement. Also having some spontaneous movement of the right lower extremity and maybe the right hand. 2. Ventilator dependence. Currently trying a pressure support trial. Will see how she does. 3. Nutritional support. Back on a trophic tube feed. Did not tolerate the higher feed from two days ago with some nausea and vomiting. PLAN: 1. Pressure support trial. 2. Continue present regimen. Rediscussed EEG with the patient's mother. It seemed that she misunderstood my report yesterday which was given to the patient's sister. Possibly in relaying that report, either the sister was somewhat confused or the patient's mother became somewhat confused with the discussion. Discussed EEG findings though in light of her somewhat better motor function. TIME SPENT IN CRITICAL CARE: 40 minutes.
--- NOTE | 2017-03-02 18:46 | NUR ---
Vent/feeding Ventilator pressure support trail for 4.5h today. Patient tolerated PS well but towards the end appeared to be tire- patient was placed on PRVC mode RR rate 10 and allowed to rest. Patient indicated having mouth discomfort/pain from ET tube-Q2H and PRN oral care and ET tube repositioning form one side of her moth to the middle and to the opposite side of the mouth with oral care to relive pressure on lips/pallet. Lidocaine viscus swabbing of mouth PRN. Increased gastric residual at 120mla noon time- tube feeding rate continue at 15ml/h- continue assessment, HOB up 30degrees at all t
[2017-03-02] MEDS: fentaNYL-PF 50 mCg/mL 2 mL Inj IVPUSH PRN (20:43)
--- NOTE | 2017-03-02 22:57 | PCM.PNMED ---
Subjective Date of Service Mar 02, 2017 Subjective overnight: No acute events overnight Today: Patient had a noted significant improvement in her neuro function able to follow commands and move all extremities however with significantly limited function. The patient also was able to have a spontaneous breathing trial maintained for 1 hour with good saturation per the pulmonary service report. Exam Vital Signs Vital Sign - Last Date Time Temp Pulse Resp B/P Pulse Ox O2 Delivery O2 Flow Rate FiO2 03/02/17 04:51 71 133/78 99 30 03/02/17 04:30 Ventilator 03/02/17 04:30 37.1 16 Intake and Output 03/01/17 03/01/17 03/02/17 Cumulative From/Thru 15:00 23:00 07:00 02/22/17 13:36 - 03/02/17 06:13 Intake Total 815 ml 1052 ml 98881 ml Output Total 1250 ml 2000 ml 15761 ml Balance -435 ml -948 ml 7215 ml Intake IV Total 815 ml 794 ml 59516 ml Tube Feeding 138 ml 1070 ml Tube Irrigant 120 ml 400 ml Output Urine Total 1250 ml 2000 ml 27674 ml Gastric Drainage Total 2090 ml Emesis 300 ml # Bowel Movements 1 6 Exam General: Young obese female intubated lying in hospital bed Eyes: Pupils equal round and reactive to light, anicteric sclera, noninjected conjunctiva HENT: Normocephalic atraumatic, moist mucous membranes without central cyanosis , ET tube in place Neck: Supple, trachea midline, without thyromegaly or JVD Cardiovascular: Regular rate and regular rhythm, S1-S2 present, without murmurs rubs or gallops noted Lungs: Mild coarse breath sounds noted bilaterally in the axillary regions however Clear to auscultation bilaterally in all other lung phan without wheezing rales or rhonchi Abdomen: Soft, nondistended, tympanic to percussion, normal active bowel sounds , without organomegaly Extremities: No cyanosis clubbing or edema noted, pulses intact bilaterally at dorsalis pedis and radial : Donohue catheter in place Skin: Warm and dry Neuro: Patient was able to follow directions by tracking eyes left to see physician Dr. Hairston, the patient was also able to squeeze both hands and move both feet however right extremities appear more functionally debilitated than left Psych: Unable to assess given intubated Lab and Diagnostics Result Diagram: 03/02/17 0515 03/02/17 0515 X-Rays, CTs and MRIs X-RAY CHEST ONE VIEW, PORTABLE IMPRESSION: 1. Support lines as above. 2. Patchy opacities as described above. These could be front desk representative of Findings are suggestive of edema. However, developing areas of airspace disease such as atelectasis and/or pneumonia cannot be excluded. Approved by: Mikaela Davila M.D. on 02/22/2017 at 14:38 CT BRAIN WITHOUT CONTRAST IMPRESSION: 1. No acute intracranial process. 2. Scattered ethmoid and sphenoid sinus fluid Approved by: Mikaela Davila M.D. on 02/22/2017 at 15:02 X-RAY CHEST ONE VIEW, PORTABLE IMPRESSION: 1. Confluent right airspace opacities suggestive of pneumonia. Recommend attention on followup. 2. Persistent mild pulmonary edema. 3. Lines and tubes redemonstrated with the tip of the right internal jugular catheter redemonstrated in the right atrium. The tip of the nasogastric tube is not well-visualized on the current study with possible interval retraction. Recommend a repeat study when clinically feasible. Approved by: Nate Cai M.D. on 02/23/2017 at 11:22 X-RAY CHEST ONE VIEW, PORTABLE IMPRESSION: 1. Decreased but persistent mild pulmonary edema. Dictated by: Nate Cai M.D. on 02/24/2017 at 8:31 Approved by: Nate Cai M.D. on 02/24/2017 at 8:33 CT ANGIO CHEST PULMONARY EMBOLISM IMPRESSION: 1. No pulmonary embolus. 2. Bilateral lower lobe and right upper lobe pneumonia. Small parapneumonic effusions bilaterally. 3. Small amount of perihepatic ascites. 4. Cardiomegaly. Dictated by: Cruz Morley M.D. on 02/25/2017 at 15:39 Approved by: Cruz Morley M.D. on 02/25/2017 at 15:43 CT BRAIN WITHOUT CONTRAST IMPRESSION: No acute process. Dictated by: Cruz Morley M.D. on 02/25/2017 at 15:38 Approved by: Cruz Morley M.D. on 02/25/2017 at 15:39 X-RAY CHEST ONE VIEW, PORTABLE IMPRESSION: Increasing by basilar opacities compatible atelectasis, pneumonia or aspiration. Please correlate with clinical and laboratory data. Dictated by: Sharona Gaspar MD, PhD on 02/26/2017 at 8:46 Approved by: Sharona Gaspar MD, PhD on 02/26/2017 at 8:47 X-RAY CHEST ONE VIEW, PORTABLE IMPRESSION: 1. Persistent bibasilar retrocardiac consolidation consistent with pneumonia possibly due to aspiration. 2. Small bilateral pleural effusions. 3. Right internal jugular catheter tip demonstrated in the right atrium, approximately 3 cm inferior to the cavoatrial junction. Dictated by: Nate Cai M.D. on 02/28/2017 at 8:42 Approved by: Nate Cai M.D. on 02/28/2017 at 8:50 CT BRAIN WITHOUT CONTRAST IMPRESSION: Limited evaluation demonstrating no acute process. Dictated by: Cruz Morley M.D. on 02/28/2017 at 13:02 Approved by: Cruz Morley M.D. on 02/28/2017 at 13:02 Cardiac Echo Impressions Echocardiogram Report Interpretation Summary Technically difficult echocardiogram due to patient positioning and limited acoustic imaging windows. The patient was intubated during the exam. The left ventricle is grossly normal size. The ejection fraction is estimated to be 50-55% (s/p cardiac arrest). In 09/2013, LV EF was 60-65%. The right ventricle is not well visualized. No significant valvular pathology seen. The IVC is dilated. Inspiratory collapse cannot be assessed because of mechanical ventilation, thus CVP cannot be estimated.. Reading Physician:AM Assessment & Plan 31-year-old female patient with past medical history significant for triple X syndrome([id number]), chronic anxiety, depression, and previous cardiac arrest in 2011 who presents to the ED via EMS as a result of cardiac arrest. Acute anoxic encephalopathy, present on admission, active After weaning from sedation patient continued to have minimal neurologic activity likely due to anoxic brain injury secondary to cardiac arrest however this is improving - Patient continues to progress slowly from a neurologic standpoint, however showed significant improvement on 03/02 able to move all extremities on command, however was significant functional limitation - EEG obtained 02/26 and 02/28, results show delta waves with some possible anoxic brain injury and possible burst suppression -Neurology (Dr. Marc) has been contacted and will evaluate the patient - On 02/28 patient had a malfunction of her cardiac monitor technician which was initially considered to be consistent with a prolonged sinus pause however after cardiology consultation and this was redacted - MRI would be the preferred modality for brain imaging, MRI was foregone on January 28 due to pacer pad placement for possible sinus pause described above as well as noted vomiting making patient unstable for prolonged imaging modality, in place of CT imaging on 02/28 showed no acute changes from previous. - Goals at this point are to progress toward extubation while awaiting return of neurological function. - Prognosis appears to be improving however patient is likely to have some prolonged functional limitations at minimum Acute cardiac arrest, present on arrival, stable Prior episode in 2011 at [place] suspected due to long QT syndrome secondary to polypharmacy Patient saw Dr. Trina Villagran for workup of palpitations. Workup suggests no arrhythmia or cardiac ischemia. Per pt's pharmacy pt takes Fluoxetine, Aripiprazole which could possibly contribute to QT elongation - QTc on arrival 483, EKG in Jul shows QTc 433 - Patient initially placed on cooling protocol, with rewarming terminating at approximately 12:00 PM on 02/24 - Keep magnesium >2, potassium >4 - Echo shows intact EF other results as above - On 02/28 patient had a malfunction of her cardiac monitor technician which was initially considered to be consistent with a prolonged sinus pause however after cardiology consultation and this was thought to be a problem with lead placement - Cardiology consulted, Dr. Friend following case was discussed with him at length, cardiology to consider pacer placement with significant neurologic improvement Acute hypoxemic respiratory distress, present on arrival, stable Patient unconscious on arrival, required intubation by EMS - Patient initially sedated with Propofol and fentanyl - No sedation currently, patient continues to have minimal neurologic activity but this is improved today. - Vent settings to be managed by CCU team - Daily pressure support trials, continue to extubation when appropriate - Saturating well on current vent settings - Pulmonology (Dr. Sol) following case was discussed extensively with him today. Acute pneumonia likely secondary to aspiration, present on arrival, resolving - Given leukocytosis with elevated procalcitonin and Chest x-ray consistent with pneumonia - Blood cultures 4 negative - Sputum cultures showed normal erin - Prophylactic Zosyn discontinued Elevations in liver enzymes, present on arrival, resolved Possibly due to hypoperfusion secondary to cardiac arrest - Continue to monitor Lactic acidosis, present on arrival, Resolved Likely secondary to stress reaction in conjunction with cardiac hypoperfusion Acute Hyperglycemia, present on arrival, stable - Glucose on admission 233 - No prior history of diabetes - A1c 5.8 - Patient is currently NPO, continue to monitor glucose Chronic pain, presumed stable - Resume home medications when awake and alert Anxiety - Takes Aripiprazole and Lamotrigine at home - Hold home medications Depression Cannot rule out suicide attempt/overdose, mother states prior history of suicidal ideation without a plan or previous attempts. - Per Pharmacy, takes Prozac, Aripiprazole and Lamotrigine at home - Hold home medications Triple X syndrome, presumed stable - No known correlation with cardiac arrhythmia or cardiac arrest. - Consider other genetic phenomena as possible explanations to cardiac arrest/ arrhythmias - Per cardiology, possible channelopathy which would be treated with ICD placement. Disposition: Patient prognosis is improving with significant noted improvement in neurological function however with likely significant residual deficits, no assessments for discharge can be made at this time. GI Prophylaxis: H2 maddison VTE Prophylaxis: Sub-Q Heparin (Unfractionated) VTE Mechanical Devices: Intermittant Pneumatic CD Resuscitation Status: CPR: Attempt Resuscitation Attending Statement The patient was seen and examined together with Dr. Petersen on 03/02/17 and I have added additional information to the note above. Saul Petersen DO Mar 02, 2017 07:07 Vale Hairston DO Mar 08, 2017 01:10
[2017-03-02] MEDS ORDERED: Acetaminophen IV 1,000 MG in IV Premix 1 EACH IV ONE (23:45)
[2017-03-03] VITALS (10 sets, daily range): BP systolic 115–153; BP diastolic 70–89; PULSE 66–84; RESP 13–29; O2SAT 95–98
[2017-03-03] MEDS: fentaNYL-PF 50 mCg/mL 2 mL Inj IVPUSH PRN (02:07)
[2017-03-03] MEDS: Chlorhexidine 0.12% 15 mL Oral Solution MT SCH ×5 (04:50→21:36)
--- NOTE | 2017-03-03 04:56 | NUR ---
Nutrition/Cardiac/Respiratory Mentation: Pt has been off sedation, more awake and follows command, restless at times. c/o gen pain, given fentanyl IV prn. Resp: continue on vent support, RR briefly high 20s-low 30s when restless, sp02 >94% on fio2 0.30. Cardiac: HR resting 58-62 SB-SR, can go up to 105s ST when restless. GI: tolerating TF with low residuals, able to adv. TF as ordered, no n/v/d : doyle draining with adequate uo. Skin: low grade temp, tmax 37.7C, given tylenol IV, last temp down to 37.5C. Safety: soft wrist restraints on, CMS+
[2017-03-03 05:44] LABS: BASOPHILS % (AUTO) 0.7 % (0-3); EOSINOPHILS % (AUTO) 3.6 % (0-5); MONOCYTES % (AUTO) 7.8 % (4-12); NEUTROPHILS % (AUTO) 50.4 % (40-74); Platelet Count 235 bil/L (150-400)
[2017-03-03 06:17] LABS: Magnesium 1.8 mg/dL (1.6-2.6)
--- NOTE | 2017-03-03 08:14 | PCM.PNMED ---
Subjective Date of Service Mar 03, 2017 Subjective Pulmonology Critical Care Progress Note: Nancy Leon is a 31 yo woman with triple X syndrome and a prior history of cardiac arrest due to polymorphic VT in 2011 who was brought to [facility] ED intubated for out of hospital cardiac arrest on 02/22/2017. She was on hypothermia protocol with a goal temperature of 33 until 02/24/2017, when she was rewarmed and taken off all paralytics, sedations, and vasopressor. ICU team have been asked to provide ventilator management while she requires intubation and ventilation. She was Hospital and Ventilator Day #10. Rewarm day #8. Overnight, patient had a temperature of 37.7 that resolved with Tylenol. No other acute event. Per nursing, she was more awake and able to follow commands. IV Fentanyl PRN for pain. Patient remains on the ventilator at 0.3 FiO2, PEEP 6. She tolerates TF well with low residuals and no emesis. This morning, patient's neurological status has significantly improved. She is alert and follows commands appropriately. She denies any discomfort at this point. Exam Vital Signs Vital Sign - Last Date Time Temp Pulse Resp B/P Pulse Ox O2 Delivery O2 Flow Rate FiO2 03/03/17 08:00 66 22 115/72 98 30 03/03/17 04:24 37.5 Mechanical Ventilator Intake and Output 03/02/17 03/02/17 03/03/17 Cumulative From/Thru 15:00 23:00 07:00 02/22/17 13:36 - 03/03/17 05:43 Intake Total 945 ml 1174 ml 40920 ml Output Total 2500 ml 1250 ml 01718 ml Balance -1555 ml -76 ml 5584 ml Intake IV Total 685 ml 879 ml 29476 ml Tube Feeding 180 ml 215 ml 1465 ml Tube Irrigant 80 ml 80 ml 560 ml Output Urine Total 2500 ml 1250 ml 39798 ml Gastric Drainage Total 2090 ml Emesis 300 ml # Bowel Movements 0 6 Exam General: Obese young woman, intubated and appears more alert today with spontaneous eye opening and following commands. Patient is able to respond appropriately with head movement. Head: Normocephalic, atraumatic. External ears without defect. Eyes: Pupils are dilated, equal, round, and reactive to light. Anicteric sclerae , conjunctivae moist. Mouth: ET and OG tube in place. Cardiovascular: Regular rate and rhythm with no murmurs, rubs, or gallops appreciated Pulmonary: Coarse breath sounds, but relatively clear to auscultation. No wheezes, rales, or rhonchi. Abdomen: Bowel tones present. Soft, nondistended, no apparent tenderness. Extremities: No clubbing, cyanosis, trace pretibial edema. Skin: extremities are warm to touch, normal turgor and texture; no rash, ulcers , or subcutaneous nodules appreciated. Neurological: Some flexor withdrawal of bilateral lower extremities and left upper extremity to painful stimuli. Negative Babinski's. No clonus. IVs and Medications Medications Reviewed: Medications were reviewed in detail Medications Fentanyl 25-50 mg IV Q4H PRN Lab and Diagnostics Result Diagram: 03/03/1753903/03/17 05 X-Rays, CTs and MRIs X-RAY CHEST ONE VIEW, PORTABLE IMPRESSION: 1. Support lines as above. 2. Patchy opacities as described above. These could be patient financial representative of Findings are suggestive of edema. However, developing areas of airspace disease such as atelectasis and/or pneumonia cannot be excluded. Approved by: Mikaela Davila M.D. on 02/22/2017 at 14:38 CT BRAIN WITHOUT CONTRAST IMPRESSION: 1. No acute intracranial process. 2. Scattered ethmoid and sphenoid sinus fluid Approved by: Mikaela Davila M.D. on 02/22/2017 at 15:02 X-RAY CHEST ONE VIEW, PORTABLE IMPRESSION: 1. Confluent right airspace opacities suggestive of pneumonia. Recommend attention on followup. 2. Persistent mild pulmonary edema. 3. Lines and tubes redemonstrated with the tip of the right internal jugular catheter redemonstrated in the right atrium. The tip of the nasogastric tube is not well-visualized on the current study with possible interval retraction. Recommend a repeat study when clinically feasible. Approved by: Nate Cai M.D. on 02/23/2017 at 11:22 X-RAY CHEST ONE VIEW, PORTABLE IMPRESSION: 1. Decreased but persistent mild pulmonary edema. Dictated by: Nate Cai M.D. on 02/24/2017 at 8:31 Approved by: Nate Cai M.D. on 02/24/2017 at 8:33 CT ANGIO CHEST PULMONARY EMBOLISM IMPRESSION: 1. No pulmonary embolus. 2. Bilateral lower lobe and right upper lobe pneumonia. Small parapneumonic effusions bilaterally. 3. Small amount of perihepatic ascites. 4. Cardiomegaly. Dictated by: Cruz Morley M.D. on 02/25/2017 at 15:39 Approved by: Cruz Morley M.D. on 02/25/2017 at 15:43 CT BRAIN WITHOUT CONTRAST IMPRESSION: No acute process. Dictated by: Cruz Morley M.D. on 02/25/2017 at 15:38 Approved by: Cruz Morley M.D. on 02/25/2017 at 15:39 X-RAY CHEST ONE VIEW, PORTABLE IMPRESSION: Increasing by basilar opacities compatible atelectasis, pneumonia or aspiration. Please correlate with clinical and laboratory data. Dictated by: Sharona Gaspar MD, PhD on 02/26/2017 at 8:46 Approved by: Sharona Gaspar MD, PhD on 02/26/2017 at 8:47 X-RAY CHEST ONE VIEW, PORTABLE IMPRESSION: 1. Persistent bibasilar retrocardiac consolidation consistent with pneumonia possibly due to aspiration. 2. Small bilateral pleural effusions. 3. Right internal jugular catheter tip demonstrated in the right atrium, approximately 3 cm inferior to the cavoatrial junction. Dictated by: Nate Cai M.D. on 02/28/2017 at 8:42 Approved by: Nate Cai M.D. on 02/28/2017 at 8:50 CT BRAIN WITHOUT CONTRAST IMPRESSION: Limited evaluation demonstrating no acute process. Dictated by: Cruz Morley M.D. on 02/28/2017 at 13:02 Approved by: Cruz Morley M.D. on 02/28/2017 at 13:02 Cardiac Echo Impressions Echocardiogram Report Interpretation Summary Technically difficult echocardiogram due to patient positioning and limited acoustic imaging windows. The patient was intubated during the exam. The left ventricle is grossly normal size. The ejection fraction is estimated to be 50-55% (s/p cardiac arrest). In 09/2013, LV EF was 60-65%. The right ventricle is not well visualized. No significant valvular pathology seen. The IVC is dilated. Inspiratory collapse cannot be assessed because of mechanical ventilation, thus CVP cannot be estimated.. Reading Physician:HENRIQUE Assessment & Plan 31-year-old female with medical history of triple X syndrome(47XXX), chronic anxiety, depression, and previous cardiac arrest in 2011 who was sent to the ED via EMS after she was intubated on the field as a result of cardiac arrest. Anoxic encephalopathy, slightly improved. -Neurological exam reveals brisk flexes on the right side with Norma's reflexes which could be suggestive of an upper motor neuron lesion or cortical injury. -Neurology consulted. We appreciate their input. EEG x2 with the most recent one on 02/28 showed generalized high-amplitude delta slowing associated with intermittent burst suppression lasting from 3-5 seconds is suggestive of moderate to severe cerebral cortical dysfunction/encephalopathy. This is highly suggestive of anoxic brain damage and associated with a poor prognosis. -However, patient has a significant improvement in her neurological status today. -Repeat CT brain were unremarkable and do not correlate to her localized neurological findings . -Patient has been off all sedation medications for a few days, except for Fentanyl PRN severe pain currently.Will avoid other drugs that can induce cognitive impairment like benzo or opioids if possible. Acute hypoxemic respiratory distress following cardiac arrest, present on admission, improved. -Oxygenation and ventilation are appropriate on current vent settings, progressing toward extubation. -Continue to titrate FiO2 and PEEP to maintain SpO2 >/= 93%. She tolerated Ventilator pressure support for 4.5h yesterday, but appeared tired at the end. Will attempt extubation today. -Her echocardiogram was very technically difficult due to her positioning and medical devices, but cardiac anatomy appears normal on CT chest. -In addition to a primary arrhythmia as the cause for her arrest, other potential causes including PE was considered and ruled out by CT angiogram chest. Polymorphic ventricular tachycardia, present on admission, resolved. - Likely secondary to QT prolongation due to polypharmacy. Similar episode in 2011 at [place] suspected due to long QT syndrome secondary to polypharmacy as well. - Per pt's pharmacy patient takes Fluoxetine and Aripiprazole which could possibly contribute to QT elongation. - QTc on arrival 483, EKG in Jul shows QTc 433. Repeat EKG today to monitor QTc. - Patient was initially placed on cooling protocol and was rewarmed. - Echo shows normal EF as above - Patient had an episode of 30-sec pause on 02/28, but it was thought due to technical error. continue to monitor telemetry. - Keep magnesium >2, potassium >4. - Primary care team to contact Cardiology regarding AICD placement after patient is extubated. - Avoid QT-prolongation medications, including antiemetics. Normocytic anemia, stable. - Likely secondary to hemodilution from IVF. - Patient is off on all IVF currently and has had good urine output, but she is still positive over 5L. - No other sign of fluid overload, but will give a dose of Lasix 20mg IV today. - H/H has been stable. Will continue to monitor. Transfusion threshold is <7. - Iron panel showed slightly low Fe (34) but high Ferritin (274). Patient takes Iron supplement as outpatient. - B12 and Folate normal. Acute pneumonia likely secondary to aspiration, present on arrival, improved. - Given leukocytosis with elevated procalcitonin and Chest x-ray consistent with pneumonia, now improving - Blood and sputum cultures have been negative. Repeat sputum culture if extubated given her intermittent low-grade fever. - Patient finished the 5 days of Zosyn on 02/28/17. Will continue to monitor her signs and symptoms off the antibiotics. Metabolic acidosis, present on admission, resolved. - May reflect poor tissue perfusion as a result of poor cardiac output which would not be explained by her ejection fraction of 50% by echocardiogram. Also could be iatrogenic and due to the large amounts of saline that she has received. - Lactic acid normalized. Remaining aspects of her care to be addressed by her primary team and their other consultants: Elevations in liver enzymes, present on arrival, resolved. - Possibly due to hypoperfusion secondary to cardiac arrest, currently improving consistent with hypoperfusion Acute Hyperglycemia, present on arrival, resolved. - Glucose on admission 233 - No prior history of diabetes - A1c 5.8 Triple X syndrome, presumed stable. - No known correlation with cardiac arrhythmia or cardiac arrest. - Consider other genetic phenomena as possible explanations to cardiac arrest/ arrhythmia Chronic pain, presumed stable Anxiety/Depression Patient is on Ranitidine BID for GI prophylaxis and Heparin SQ for DVT prophylaxis. Time spent: 40 minutes. Pain Evaluation: Adequate Pain Control GI Prophylaxis: H2 maddison VTE Prophylaxis: Sub-Q Heparin (Unfractionated) VTE Mechanical Devices: Intermittant Pneumatic CD Resuscitation Status: CPR: Attempt Resuscitation Attending Statement I have seen and examined this patient with the resident physician. Vital signs , labs, imaging have been reviewed. I agree with the assessment and plan above. Please refer to my separately dictated progress note for any modifications to above. Yaquelin Hurtado M.D. Pulmonary and Critical Care medicine Pager [phone] Ara Lehman DO Mar 03, 2017 08:14 Yaquelin Hurtado MD Mar 04, 2017 16:02
[2017-03-03] MEDS ORDERED: Furosemide 10 mg/mL 2 mL Inj IVPUSH ONE (09:05)
[2017-03-03] MEDS: LacriLube S.O.P. 3.5 Gm Ophthalmic Ointment BOTH_EYES SCH ×2 (10:09→21:36)
[2017-03-03] MEDS: Famotidine Inj 20 MG in IV Premix 1 EACH IV SCH ×2 (10:09→21:36)
--- NOTE | 2017-03-03 10:09 | ABG ---
DateTimeAnalyzed 10:01:00 -_ pH ____7.407 - 7.350 7.450 pCO2 ___41.1__ -mmHg 35.0 45.0 pO2 ___74.8__ -mmHg 69.0 116 HCO3- ___25.4__ -mmol/L 22.0 26.0 ABE ____1.1__ -mmol/L -2.0 2.0 tHb ____9.3__ -g/dL 12.0 18.0 O2Hb ___92.9__ -% COHb ____1.1__ -% 0.0 1.5 MetHb ____0.9__ -% 0.4 1.5 sO2 ___94.8__ -% FIO2 ___30.0__ -% Pressure_Support ____5.0__ -cmH2O PEEP ____5.0__ -cmH2O Drawn By gj - Date/Time Notified____ 10:08:00 -_ Spontaneous_RR ___26.0__ -b/min Oxygen Device 1 VENTILATOR - Notified By gj - Notified Whom ___DR. PARIMI - B 761 -mmHg tO2 ___12.3__ -Vol% Jim test _Positive -
[2017-03-03] MEDS: Lactated Ringer's 1,000 ML IV SCH (10:10)
[2017-03-03] MEDS: Heparin 5,000 Unit/mL Inj SUBQ SCH ×2 (10:10→18:03)
--- NOTE | 2017-03-03 11:09 | PROG NOTE ---
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 The patient was seen and examined with resident physician, Dr. Noelle Wynne. Please refer to her separate detailed note for additional information. The following is the attending note. INTERVAL HISTORY: A 31-year-old woman with triple X syndrome 47XXX, prior cardiac arrest in 2011, brought in with another cardiac arrest, from polymorphic VT. She is doing well on her spontaneous breathing trial today and is neurologically responsive, eyes open, following commands, which is a significant improvement from prior. REVIEW OF SYSTEMS: Review of systems could not be obtained since the patient is intubated. PHYSICAL EXAMINATION: Vital signs reviewed. She is afebrile, but T-max is 37.7. General: Intubated, on no sedation and nodding, tracking in response to questions. Chest: Clear to auscultation. Heart: Regular rate, rhythm. Abdomen: Soft, nontender. No organomegaly. LABORATORIES: Reviewed. WBC 5.9. Chemistry also reviewed. Procalcitonin is coming down, 0.13. Cultures no growth. IMAGING: Chest x-ray reviewed from 03/01, low lung volumes with some basilar atelectasis. ASSESSMENT AND RECOMMENDATIONS: 1. Pulseless ventricular tachycardia, cardiac arrest on February 22, 2017. 2. Acute hypoxic respiratory failure, on mechanical ventilation since February 22, 2017. 3. Aspiration pneumonia--completed treatment. 4. Acute encephalopathy/delirium--improving. 5. Triple X syndrome 47XXX. 6. Prior history of ventricular tachycardia arrest in 2011. A 31-year-old woman with triple X syndrome, prior history of polymorphic VT cardiac arrest in 2011, now admitted with the same issue, we were concerned about anoxic encephalopathy but she is doing well today, following commands, etc., although she has taken a while to wake up despite sedation being off for many days. She is doing really well on her spontaneous breathing trial except for low H tidal volumes. We did get a blood gas on her. CO2 and pH are completely normal, so we will go ahead and extubate her. We have requested physical therapy and speech therapy to evaluate her. She is getting appropriate DVT and GI prophylaxis. Cardiology is aware and will reassess her for ICD placement, and I wonder if there is any role for an EP study and ablation in this case. TIME: Critical care time is 45 minutes.
--- NOTE | 2017-03-03 11:41 | NUR ---
NUTRITION FOLLOW-UP: Assess: 31 YO F admitted to CCU following cardiac arrest, requiring intubation, now status post hypothermia protocol. Sedation has been discontinued. Enteral feeding was initiated 02/26; she was tolerating feeding well until she had a large emesis 02/28. TF has been re-started and is slowly advancing towards goal. Currently at 30ml/hr. Plan today is for possible extubation. PMHX: V-tach, Triple X syndrome, anxiety, depression, cardiac arrest. DIET: NPO. ENTERAL FEEDING: Jevity 1.5 @ 30ml/hr LABS: Digital Strategy Manager .46, Glu 108, Alb 3.3 MEDICATIONS: Reviewed. No sedation. GI: BM x 2 03/02 SKIN: No issues noted. ANTHROPOMETRICS: Wt: 122.7 kg, BMI 35.7 kg/m2, Admit: 130.0 kg, IBW: 75.0 kg. ESTIMATED NEEDS: BMI/VENT Calories: 8362-2553 kcal/day (20-22 kcal/kg BW) Protein: 115-135 g/day (1.5-1.8 g/kg IBW) NUTRITION DIAGNOSIS: 1) Inadequate oral intake related to decreased ability to consume sufficient energy as evidenced by NPO/Vent status - PERSISTS. INTERVENTION: 1) Continue to advance TF towards goal of 80ml/hr x 22hrs 2) If pt is extubated, recommend ST eval MONITOR/EVALUATE: NPO/Vent status, enteral feeding advance, ST?, POC, labs, GI/nutrition status. Follow per high nutrition risk guidelines.
--- NOTE | 2017-03-03 14:02 | NUR ---
Social Work: Continued Discharge Planning/Multidisciplinary Rounds D: Pt discussed in multidisciplinary rounds; the patient remains in CCU and is still vented. Team is starting breathing trials with the patient in hopes to move towards extubation. Per attending provider, patient will likely require some kind of placement, possibly [facility]. CM order placed to explore LTAC and SNF options. ELECTRICAL FITTER acknowledges order and has requested administrative support specialist place referrals to [place] and local skilled rehab facilities. Pt has [employer]inated [employer] Blind/Disabled insurance. This may present as a barrier to possible placement. ELECTRICAL FITTER attempted to meet with pt's family to discuss SNF preferences. No family available at this time. A: Pt who lives in [place] with her mother. P: Evolving; [facility] is reviewing along with local SNFs who are also reviewing for possible admission. JUAN Paiz
--- NOTE | 2017-03-03 14:19 | NUR ---
SHELTER TRANSFER FOLLOW UP : Faxed clinicals to [facility] and left message for Richelle and asked her to call me back about referral Checked CC list and faxed facesheet to Mariel Daley, LIZBETH and KINSEY Updated [employer] PPM CONSULTANT
--- NOTE | 2017-03-03 14:27 | DRSVH ---
PROCEDURE: X-RAY CHEST ONE VIEW, PORTABLE ([id number]) INDICATIONS: aspiration pneumonitis, anoxic encephalopathy TECHNIQUE: One view of the chest was acquired. COMPARISON: [facility], CR, XR CHEST 1VW (PORTABLE), 02/28/2017, 8:31. [facility], CR, XR CHEST 1VW (PORTABLE), 03/01/2017, 5:38. FINDINGS: Surgical changes and devices: Stable positioning of the ETT, nasogastric tube and right IJ CVL. Lungs and pleura: No pleural effusions or pneumothorax. Near resolution of bilateral infrahilar and basilar airspace opacities. Mediastinum: Mediastinal contours appear normal. Heart size is normal. Bones and chest wall: No suspicious bony lesions. Overlying soft tissues appear unremarkable. IMPRESSION: Resolving pneumonia versus aspiration. Dictated by: Ananth LOVE Interpreted: Jaqueline Montes De Oca MD on 03/03/2017 at 9:54 Approved by: Jaqueline Montes De Oca M.D. on 03/03/2017 at 14:25
--- NOTE | 2017-03-03 17:20 | NUR ---
Evaluation completed. Please go to "Notes" then click on "Assessments and Notes" (bottom left corner of screen). Then select appropriate discipline tab on top of screen.
--- NOTE | 2017-03-03 17:23 | PCM.PNMED ---
Subjective Date of Service Mar 03, 2017 Subjective Subjective: Patient trialed on 03/02 with pressure support successfully for 4 hours. This morning the patient remained intubated however with no sedation. Patient was responding to verbal commands, appeared awake and moderately coherent. Based unsuccessful breathing trials the patient was subsequently extubated later this afternoon which is been so far successful. Patient is conversive at this point. Events Overnight: No acute events overnight. ROS: Denies fever/chills, nausea/vomiting, headache, weakness, abdominal pain, chest pain, shortness of breath. Exam Vital Signs Vital Sign - Last Date Time Temp Pulse Resp B/P Pulse Ox O2 Delivery O2 Flow Rate FiO2 03/03/17 08:00 36.6 70 23 138/87 96 Mechanical Ventilator 03/03/17 08:00 30 Intake and Output 03/02/17 03/02/17 03/03/17 Cumulative From/Thru 15:00 23:00 07:00 02/22/17 13:36 - 03/03/17 05:43 Intake Total 945 ml 1174 ml 37741 ml Output Total 2500 ml 1250 ml 44211 ml Balance -1555 ml -76 ml 5584 ml Intake IV Total 685 ml 879 ml 52471 ml Tube Feeding 180 ml 215 ml 1465 ml Tube Irrigant 80 ml 80 ml 560 ml Output Urine Total 2500 ml 1250 ml 89482 ml Gastric Drainage Total 2090 ml Emesis 300 ml # Bowel Movements 0 6 Exam General: Extubated and lethargic, well-developed, well-nourished Head: Normocephalic, atraumatic. External ears without defect. Eyes: Pupils equal, round, and reactive to light. Anicteric sclerae, injected conjunctivae. Cardiovascular: Regular rate and rhythm with no murmurs, rubs, or gallops appreciated Pulmonary: Clear to auscultation, no wheezes, rales, or rhonchi. Normal respiratory effort with no use of accessory muscles. Abdomen: Bowel tones present. Soft, obese nondistended. Extremities: No clubbing, cyanosis, trace edema Skin: Normal temperature, turgor, and texture; no rash, ulcers, or subcutaneous nodules appreciated. Neurological: Following commands, responding to yes or no questions, post- extubation patient was conversive Psychiatric: Difficult to assess as patient remained lethargic. IVs and Medications Medications Reviewed: Medications were reviewed in detail Lab and Diagnostics Result Diagram: 03/03/1740 03/03/17 0540 X-Rays, CTs and MRIs X-RAY CHEST ONE VIEW, PORTABLE IMPRESSION: 1. Support lines as above. 2. Patchy opacities as described above. These could be metals sales representative of Findings are suggestive of edema. However, developing areas of airspace disease such as atelectasis and/or pneumonia cannot be excluded. Approved by: Mikaela Davila M.D. on 02/22/2017 at 14:38 CT BRAIN WITHOUT CONTRAST IMPRESSION: 1. No acute intracranial process. 2. Scattered ethmoid and sphenoid sinus fluid Approved by: Mikaela Davila M.D. on 02/22/2017 at 15:02 X-RAY CHEST ONE VIEW, PORTABLE IMPRESSION: 1. Confluent right airspace opacities suggestive of pneumonia. Recommend attention on followup. 2. Persistent mild pulmonary edema. 3. Lines and tubes redemonstrated with the tip of the right internal jugular catheter redemonstrated in the right atrium. The tip of the nasogastric tube is not well-visualized on the current study with possible interval retraction. Recommend a repeat study when clinically feasible. Approved by: Nate Cai M.D. on 02/23/2017 at 11:22 X-RAY CHEST ONE VIEW, PORTABLE IMPRESSION: 1. Decreased but persistent mild pulmonary edema. Dictated by: Nate Cai M.D. on 02/24/2017 at 8:31 Approved by: Nate Cai M.D. on 02/24/2017 at 8:33 CT ANGIO CHEST PULMONARY EMBOLISM IMPRESSION: 1. No pulmonary embolus. 2. Bilateral lower lobe and right upper lobe pneumonia. Small parapneumonic effusions bilaterally. 3. Small amount of perihepatic ascites. 4. Cardiomegaly. Dictated by: Cruz Morley M.D. on 02/25/2017 at 15:39 Approved by: Cruz Morley M.D. on 02/25/2017 at 15:43 CT BRAIN WITHOUT CONTRAST IMPRESSION: No acute process. Dictated by: Cruz Morley M.D. on 02/25/2017 at 15:38 Approved by: Cruz Morley M.D. on 02/25/2017 at 15:39 X-RAY CHEST ONE VIEW, PORTABLE IMPRESSION: Increasing by basilar opacities compatible atelectasis, pneumonia or aspiration. Please correlate with clinical and laboratory data. Dictated by: Sharona Gaspar MD, PhD on 02/26/2017 at 8:46 Approved by: Sharona Gaspar MD, PhD on 02/26/2017 at 8:47 X-RAY CHEST ONE VIEW, PORTABLE IMPRESSION: 1. Persistent bibasilar retrocardiac consolidation consistent with pneumonia possibly due to aspiration. 2. Small bilateral pleural effusions. 3. Right internal jugular catheter tip demonstrated in the right atrium, approximately 3 cm inferior to the cavoatrial junction. Dictated by: Nate Cai M.D. on 02/28/2017 at 8:42 Approved by: Nate Cai M.D. on 02/28/2017 at 8:50 CT BRAIN WITHOUT CONTRAST IMPRESSION: Limited evaluation demonstrating no acute process. Dictated by: Cruz Morley M.D. on 02/28/2017 at 13:02 Approved by: Cruz Morley M.D. on 02/28/2017 at 13:02 X-RAY CHEST ONE VIEW, PORTABLE IMPRESSION: Resolving pneumonia versus aspiration. Dictated by: Ananth Curiel [facility] Interpreted: Jaqueline Montes De Oca MD on 03/03/2017 at 9:54 Approved by: Jaqueline Montes De Oca M.D. on 03/03/2017 at 14:25 Cardiac Echo Impressions Echocardiogram Report Interpretation Summary Technically difficult echocardiogram due to patient positioning and limited acoustic imaging windows. The patient was intubated during the exam. The left ventricle is grossly normal size. The ejection fraction is estimated to be 50-55% (s/p cardiac arrest). In 09/2013, LV EF was 60-65%. The right ventricle is not well visualized. No significant valvular pathology seen. The IVC is dilated. Inspiratory collapse cannot be assessed because of mechanical ventilation, thus CVP cannot be estimated.. Reading Physician:AM Assessment & Plan 31-year-old female patient with past medical history significant for triple X syndrome(47XXX), chronic anxiety, depression, and previous cardiac arrest in 2011 who presents to the ED via EMS as a result of cardiac arrest. Acute anoxic encephalopathy, present on admission, active After weaning from sedation patient continued to have minimal neurologic activity likely due to anoxic brain injury secondary to cardiac arrest - Patient continues to progress slowly from a neurologic standpoint, however showed significant improvement on 03/02 able to move all extremities on command, however was significant functional limitation - EEG obtained 02/26 and 02/28, results show delta waves with some possible anoxic brain injury and possible burst suppression - Neurology (Dr. Marc) has been contacted and will evaluate the patient - On 02/28 patient had a malfunction of her teletypesetter monitor which was initially considered to be consistent with a prolonged sinus pause however after cardiology consultation and this was redacted - MRI would be the preferred modality for brain imaging, MRI was foregone on January 28 due to pacer pad placement for possible sinus pause described above as well as noted vomiting making patient unstable for prolonged imaging modality, in place of CT imaging on 02/28 showed no acute changes from previous. - Patient was able to progress enough from a neurological standpoint to be extubated on 03/03, continue to monitor on CCU status for 24 hours prior to de- escalation of care. - Patient appears to be answering questions appropriately at this time, however remains lethargic - Prognosis appears to be improving however patient is likely to have some prolonged functional limitations at minimum - Swallow eval pending Acute cardiac arrest, present on arrival, stable Prior episode in 2011 at [facility] suspected due to long QT syndrome secondary to polypharmacy Patient saw Dr. Trina Villagran for workup of palpitations. Workup suggests no arrhythmia or cardiac ischemia. Per pt's pharmacy pt takes Fluoxetine, Aripiprazole which could possibly contribute to QT elongation - QTc on arrival 483, EKG in Jul shows QTc 433 - Patient initially placed on cooling protocol, with rewarming terminating at approximately 12:00 PM on 02/24 - Keep magnesium >2, potassium >4 - Echo shows intact EF other results as above - On 02/28 patient had a malfunction of her teletypesetter monitor which was initially considered to be consistent with a prolonged sinus pause however after cardiology consultation and this was redacted - Cardiology consulted, Dr. Friend following case was discussed with him at length, cardiology to consider pacer placement with significant neurologic improvement Acute hypoxemic respiratory distress, present on arrival, stable Patient unconscious on arrival, required intubation by EMS - Patient initially sedated with Propofol and fentanyl - No sedation currently, patient continues to have minimal neurologic activity. - Vent settings to be managed by CCU team - Extubation successful 03/03 - Currently saturating well on 4 L nasal cannula - Pulmonology following Acute pneumonia likely secondary to aspiration, present on arrival, resolved - Given leukocytosis with elevated procalcitonin and Chest x-ray consistent with pneumonia - Blood cultures 4 negative - Sputum cultures showed normal erin - Prophylactic Zosyn discontinued Elevations in liver enzymes, present on arrival, resolved Likely due to hypoperfusion secondary to cardiac arrest Lactic acidosis, present on arrival, Resolved Likely secondary to stress reaction in conjunction with cardiac hypoperfusion Acute Hyperglycemia, present on arrival, resolved - Glucose on admission 233 - No prior history of diabetes - A1c 5.8 - Continue to monitor glucose Chronic pain, presumed stable - Resume home medications when awake and alert Anxiety - Takes Aripiprazole and Lamotrigine at home - Hold home medications Depression Cannot rule out suicide attempt/overdose, mother states prior history of suicidal ideation without a plan or previous attempts. - Per Pharmacy, takes Prozac, Aripiprazole and Lamotrigine at home - Hold home medications Triple X syndrome, presumed stable - No known correlation with cardiac arrhythmia or cardiac arrest. - Consider other genetic phenomena as possible explanations to cardiac arrest/ arrhythmias - Per cardiology, possible channelopathy which would be treated with ICD placement. Disposition: Patient prognosis is improving with significant noted improvement in neurological function however with possibility for significant residual deficits, with successful extubation on 03/03 patient will likely require 3-5 days of inpatient management prior to [facility] facility. GI Prophylaxis: H2 maddison VTE Prophylaxis: Sub-Q Heparin (Unfractionated) VTE Mechanical Devices: Intermittant Pneumatic CD Resuscitation Status: CPR: Attempt Resuscitation Attending Statement The patient was seen and examined together with Dr. Carvalho on 03/03/2017 and I agree with the history, exam and plan as outlined in the note above. . Aclon Carvalho DO Mar 03, 2017 17:23 Kai Guallpa MD Mar 04, 2017 17:57
--- NOTE | 2017-03-03 18:12 | NUR ---
Extubated at 1030 to 4L/NC 02 this morning. No respiratory distress. VSS, afebrile. Sinus rhythm on tele, rare PVC. Alert with sluggish speech and gross motor movements. Denies pain when asked. Has been declining to turn when encouraged. Skin intact, no redness observed. Incontinent of large amount unformed stool this morning. Donohue drained 4L teetee urine, received a dose of Lasix today. Frequent oral care offered. Remains NPO, evaluated by speech therapy. Supportive mother at bedside.
[2017-03-04] VITALS (7 sets, daily range): BP systolic 114–147; BP diastolic 46–82; PULSE 79–100; RESP 16–34; O2SAT 95–98
[2017-03-04] MEDS: Heparin 5,000 Unit/mL Inj SUBQ SCH ×3 (00:07→18:12)
[2017-03-04] MEDS: Chlorhexidine 0.12% 15 mL Oral Solution MT SCH ×4 (00:07→12:30)
[2017-03-04] MEDS: fentaNYL-PF 50 mCg/mL 2 mL Inj IVPUSH PRN ×2 (03:31→21:15)
[2017-03-04 04:09] LABS: BASOPHILS % (AUTO) 0.7 % (0-3); EOSINOPHILS % (AUTO) 3.8 % (0-5); MONOCYTES % (AUTO) 7.5 % (4-12); Mean Corpuscular Hemoglobin 30.4 pg (27.0-35.0); Mean Corpuscular Volume 93.2 fL (81-100); NEUTROPHILS % (AUTO) 50.4 % (40-74); Platelet Count 320 bil/L (150-400)
[2017-03-04 04:32] LABS: Magnesium 1.8 mg/dL (1.6-2.6)
--- NOTE | 2017-03-04 04:55 | NUR ---
Cardiac/Respiratory/Pain Pt has been SR 70's to 90's with some PVC's. Pt c/o of CP and was 5/10 and became worse with coughing and with touch to the chest. Pt had received CPR in the field. EKG ordered and no changes noted. 25mcg of Fentynal given and effective. Pt stating pain was decreasing. Pt has weak cough and weak voice but is improving with communication. Pt currently on 2L NC with SpO2 's 96-99%. VSS
[2017-03-04] MEDS ORDERED: Magnesium Sulfate 50% 1 Gm/2 mL 10 mL Inj ONE (06:09)
[2017-03-04] MEDS ORDERED: Sodium Chloride LOK Flush 10 mL Syringe ONE (06:09)
[2017-03-04] MEDS: LacriLube S.O.P. 3.5 Gm Ophthalmic Ointment BOTH_EYES SCH (08:30)
[2017-03-04] MEDS: Famotidine Inj 20 MG in IV Premix 1 EACH IV SCH ×2 (10:39→20:40)
--- NOTE | 2017-03-04 11:17 | NUR ---
NUTRITION FOLLOW-UP: Assess: 31 YO F admitted to CCU following cardiac arrest, requiring intubation, now status post hypothermia protocol. Pt was able to be extubated 03/03. TF is off. ST cleared pt for pureed diet with HT liquids. No PO recorded yet. PMHX: V-tach, Triple X syndrome, anxiety, depression, cardiac arrest. DIET: Puree, HT LABS: Reviewed. ALT 34 MEDICATIONS: Reviewed. GI: BM x1 03/03 SKIN: No issues noted. ANTHROPOMETRICS: Wt: 116.3kg, BMI 33.8kg/m2, Admit: 130.0 kg, IBW: 75.0 kg. ESTIMATED NEEDS: BMI Calories: 2325-2560kcal/day (20-22 kcal/kg BW) Protein: 90-115g/day (1.2-1.5g/kg IBW) NUTRITION DIAGNOSIS: 1) Inadequate oral intake related to decreased ability to consume sufficient energy as evidenced by NPO/Vent status - IMPROVING 2) Chew/swallow difficulty related to dysphagia and prolonged intubation as evidence by need for pureed diet order with HT liquids per ST INTERVENTION: 1) Continue diet per ST. Will monitor for PO intake/tolerance MONITOR/EVALUATE: PO intake/tolerance, ST, wt, GI, POC, labs, nutrition status. Follow per high nutrition risk guidelines. Addendum: 03/04/17 at [address] Spoke with pt and mother about pt's gluten free and lactose free diet. Pt stated that she does not have a true gluten allergy and is okay to have some gluten in her diet. She stated that lactose gives her GI issues and would like to continue on a lactose free diet. Diet has been updated and pt agreed to try Gelatein at [facility] to help increase kcal/pro intake.
--- NOTE | 2017-03-04 11:20 | PCM.PNMED ---
Subjective Date of Service Mar 04, 2017 Subjective NEUROLOGY PROGRESS NOTE Patient was extubated yesterday and is able to communicate. She complains that she is unable to see and sees "big digitalized pixels" and sees her vision is blurry. She was able to state that she is at a hospital and her birthday. She has been evaluated by speech therapy and is not cleared for any by mouth substances. She denies any numbness or tingling but does feel severely fatigued. Exam Vital Signs Vital Sign - Last Date Time Temp Pulse Resp B/P Pulse Ox O2 Delivery O2 Flow Rate FiO2 03/04/17 08:48 37.0 84 16 147/81 97 Nasal Cannula 2.00 03/03/17 08:00 30 Intake and Output 03/03/17 03/03/17 03/04/17 Cumulative From/Thru 15:00 23:00 07:00 02/22/17 13:36 - 03/04/17 06:14 Intake Total 260 ml 50 ml 64510 ml Output Total 4600 ml 950 ml 25046 ml Balance -4340 ml -900 ml 344 ml Intake Oral 0 ml 0 ml 0 ml IV Total 260 ml 50 ml 51279 ml Tube Feeding 1465 ml Tube Irrigant 560 ml Output Urine Total 4100 ml 950 ml 33855 ml Stool Total 500 ml 500 ml Gastric Drainage Total 2090 ml Emesis 300 ml # Bowel Movements 1 7 Exam General: Obese female laying in a hospital bed. Respiratory: Extubated and breathing spontaneously with normal effort. Abdomen: Obese, soft Neuro: Able to follow some commands, pupils are dilated, equal round and reactive to light, deep tendon reflexes brisk bilaterally. Unable to assess extra occular muscles as patient is unable to see. She did note some mild improvement with vision while using one eye. Negative Norma's bilaterally, negative Babinski. Diffuse weakness. Patient unable to sense touch. Able to state her birthday and location. IVs and Medications Medications Reviewed: Medications were reviewed in detail Lab and Diagnostics Result Diagram: 03/04/17 0350 03/04/17 035 X-Rays, CTs and MRIs CT BRAIN WITHOUT CONTRAST IMPRESSION: 1. No acute intracranial process. 2. Scattered ethmoid and sphenoid sinus fluid Approved by: Mikaela Davila M.D. on 02/22/2017 at 15:02 CT BRAIN WITHOUT CONTRAST IMPRESSION: No acute process. Dictated by: Cruz Morley M.D. on 02/25/2017 at 15:38 Approved by: Cruz Morley M.D. on 02/25/2017 at 15:39 CT BRAIN WITHOUT CONTRAST IMPRESSION: Limited evaluation demonstrating no acute process. Dictated by: Cruz Morley M.D. on 02/28/2017 at 13:02 Approved by: Cruz Morley M.D. on 02/28/2017 at 13:02 Assessment & Plan Nancy Leon is a 31-year-old female patient with past medical history significant for triple X syndrome(47XXX), chronic anxiety, depression, and previous cardiac arrest in 2011 secondary to [place] [facility] who presents to the ED via EMS as a result of cardiac arrest . Neurology consultation is being obtained due to encephalopathy. Encephalopathy -Likely secondary to anoxic brain injury. -EEGs nonspecific but suggestive of anoxic brain injury. -Patient has been successfully extubated but has significant vision problems which appears to be more likely secondary to a occipital lesion. Patient's right eye deviates laterally but a full exam of EOM is not possible as patient is unable to see any objects to follow. Per patient's mother the eye deviation is new which may suggest of a central lesion. The lateral deviation may suggest brainstem injury. -She also appears to have some neglect as well. -Strongly recommend MRI of brain today, we will await the results for further recommendations. -Continue rehab -Would restart Lamictal and Abilify for depression -Would also consider amantadine given neglect. Thank you for allowing us to participate in the care of this patient. GI Prophylaxis: H2 maddison VTE Prophylaxis: Sub-Q Heparin (Unfractionated) VTE Mechanical Devices: Intermittant Pneumatic CD Resuscitation Status: CPR: Attempt Resuscitation Thao Doran DO Mar 04, 2017 09:16
[2017-03-04] MEDS ORDERED: Magnesium Sulf 2 Gm/50mL Water 2 GM in IV Premix 1 EACH IV ONE ×2 (16:05→22:45)
--- NOTE | 2017-03-04 16:36 | PCM.PNMED ---
Subjective Date of Service Mar 04, 2017 Subjective Subjective: Patient conversive this morning denies pain, mom states that she continues to have difficulty moving arms and limbs as well as speaking appropriately. Patient describes blurry vision, unable to focus on single objects. Events Overnight: No acute events overnight. ROS: Denies fever/chills, nausea/vomiting, headache, weakness, abdominal pain, chest pain, shortness of breath, increased swelling in hands or feet. Exam Vital Signs Vital Sign - Last Date Time Temp Pulse Resp B/P Pulse Ox O2 Delivery O2 Flow Rate FiO2 03/04/17 12:44 37.2 79 23 139/82 96 Nasal Cannula 2.00 03/03/17 08:00 30 Intake and Output 03/03/17 03/03/17 03/04/17 Cumulative From/Thru 15:00 23:00 07:00 02/22/17 13:36 - 03/04/17 06:14 Intake Total 260 ml 50 ml 00193 ml Output Total 4600 ml 950 ml 43048 ml Balance -4340 ml -900 ml 344 ml Intake Oral 0 ml 0 ml 0 ml IV Total 260 ml 50 ml 63149 ml Tube Feeding 1465 ml Tube Irrigant 560 ml Output Urine Total 4100 ml 950 ml 66890 ml Stool Total 500 ml 500 ml Gastric Drainage Total 2090 ml Emesis 300 ml # Bowel Movements 1 7 Exam General: No acute distress, well-developed, well-nourished Head: Normocephalic, atraumatic. External ears without defect. Eyes: Pupils equal, round, and reactive to light. Anicteric sclerae, injected conjunctivae. Cardiovascular: Regular rate and rhythm with no murmurs, rubs, or gallops appreciated Pulmonary: Clear to auscultation, no wheezes, rales, or rhonchi. Normal respiratory effort with no use of accessory muscles. Abdomen: Bowel tones present. Soft, obese nondistended. Extremities: No clubbing, cyanosis, trace edema Skin: Normal temperature, turgor, and texture; no rash, ulcers, or subcutaneous nodules appreciated. Neurological: Following commands, responding to questions, conversive, slurring of speech, decreased visual acuity Psychiatric: Difficult to assess however patient appears appropriate at this time IVs and Medications Medications Reviewed: Medications were reviewed in detail Lab and Diagnostics Result Diagram: 03/04/17 0350 03/04/17 0350 X-Rays, CTs and MRIs CT BRAIN WITHOUT CONTRAST IMPRESSION: 1. No acute intracranial process. 2. Scattered ethmoid and sphenoid sinus fluid Approved by: Mikaela Davila M.D. on 02/22/2017 at 15:02 CT BRAIN WITHOUT CONTRAST IMPRESSION: No acute process. Dictated by: Cruz Morley M.D. on 02/25/2017 at 15:38 Approved by: Cruz Morley M.D. on 02/25/2017 at 15:39 CT BRAIN WITHOUT CONTRAST IMPRESSION: Limited evaluation demonstrating no acute process. Dictated by: Cruz Morley M.D. on 02/28/2017 at 13:02 Approved by: Cruz Morley M.D. on 02/28/2017 at 13:02 Cardiac Echo Impressions Echocardiogram Report Interpretation Summary Technically difficult echocardiogram due to patient positioning and limited acoustic imaging windows. The patient was intubated during the exam. The left ventricle is grossly normal size. The ejection fraction is estimated to be 50-55% (s/p cardiac arrest). In 09/2013, LV EF was 60-65%. The right ventricle is not well visualized. No significant valvular pathology seen. The IVC is dilated. Inspiratory collapse cannot be assessed because of mechanical ventilation, thus CVP cannot be estimated.. Reading Physician:HENRIQUE Assessment & Plan 31-year-old female patient with past medical history significant for triple X syndrome([id number]), chronic anxiety, depression, and previous cardiac arrest in 2011 who presents to the ED via EMS as a result of cardiac arrest. Acute anoxic encephalopathy secondary to cardiac arrest, present on admission, active - Patient continues to make slow progression from a neurologic standpoint. - Neurology (Dr. Marc) has been contacted and will evaluate the patient - MRI planned prior to pacer placement - Extubated on 03/03 - Patient answering questions appropriately at this time, patient complains of decreased visual acuity bilaterally - Prognosis appears to be improving however patient is likely to have some prolonged functional limitations - Swallow eval daily as patient continues to progress Acute cardiac arrest, present on arrival, stable Prior episode in 2011 at [place] suspected due to long QT syndrome secondary to polypharmacy Patient saw Dr. Mena in August for workup of palpitations. Workup suggests no arrhythmia or cardiac ischemia. Per pt's pharmacy pt takes Fluoxetine, Aripiprazole which could possibly contribute to QT elongation - QTc on arrival 483, EKG in Feb shows QTc 433 - Keep magnesium >2, potassium >4 - Echo shows intact EF other results as above - Cardiology consulted, Dr. Martinez to place ICD on 03/06 Acute hypoxemic respiratory distress, present on arrival, resolved Patient unconscious on arrival, required intubation by EMS - Patient initially sedated with Propofol and fentanyl - No sedation currently, patient continues to have minimal neurologic activity. - Extubation successful 03/03 - Currently saturating well on room air Acute pneumonia likely secondary to aspiration, present on arrival, resolved - Given leukocytosis with elevated procalcitonin and Chest x-ray consistent with pneumonia - Blood cultures 4 negative - Sputum cultures showed normal erin - Prophylactic Zosyn discontinued Elevations in liver enzymes, present on arrival, resolved Likely due to hypoperfusion secondary to cardiac arrest Lactic acidosis, present on arrival, Resolved Likely secondary to stress reaction in conjunction with cardiac hypoperfusion Acute Hyperglycemia, present on arrival, resolved - Glucose on admission 233 - No prior history of diabetes - A1c 5.8 - Continue to monitor glucose Chronic pain, presumed stable - Resume home medications when awake and alert Anxiety - Takes Aripiprazole and Lamotrigine at home - Restart home medications if patient displays symptoms of anxiety Depression Cannot rule out suicide attempt/overdose, mother states prior history of suicidal ideation without a plan or previous attempts. - Per Pharmacy, takes Prozac, Aripiprazole and Lamotrigine at home - Restart home medications if patient displays symptoms of depression Triple X syndrome, presumed stable - No known correlation with cardiac arrhythmia or cardiac arrest. - Consider other genetic phenomena as possible explanations to cardiac arrest/ arrhythmias - Per cardiology, possible channelopathy which would be treated with ICD placement. Disposition: Patient prognosis is improving with significant noted improvement in neurological function however with possibility for significant residual deficits, with successful extubation on 03/03 patient will likely require 3-5 days of inpatient management prior to discharge to group home facility. GI Prophylaxis: H2 maddison VTE Prophylaxis: Sub-Q Heparin (Unfractionated) VTE Mechanical Devices: Intermittant Pneumatic CD Resuscitation Status: CPR: Attempt Resuscitation Attending Statement The patient was seen and examined together with Dr. Carvalho on 03/04/2017 and I agree with the history, exam and plan as outlined in the note above. . Alcon Carvalho DO Mar 04, 2017 16:36 Kai Guallpa MD Mar 04, 2017 17:59 - No known correlation with cardiac arrhythmia or cardiac arrest. - Consider other genetic phenomena as possible explanations to cardiac arrest/ arrhythmias - Per cardiology, possible channelopathy which would be treated with ICD placement. Disposition: Patient prognosis is improving with significant noted improvement in neurological function however with possibility for significant residual deficits, with successful extubation on 03/03 patient will likely require 3-5 days of inpatient management prior to discharge to group home facility. GI Prophylaxis: H2 maddison VTE Prophylaxis: Sub-Q Heparin (Unfractionated) VTE Mechanical Devices: Intermittant Pneumatic CD Resuscitation Status: CPR: Attempt Resuscitation Alcon Mar 04, 2017 16:36
--- NOTE | 2017-03-04 19:40 | DRSVH ---
PROCEDURE: MRI BRAIN WITH AND WITHOUT CONTRAST ([id number]) INDICATIONS: anoxic brain injury TECHNIQUE: Noncontrast axial T1 spin echo, axial T2 fast spin echo, sagittal and axial FLAIR, coronal T2 fast sp in echo, axial gradient echo, axial diffusion and ADC through the brain. After the administration of contrast, axial and coronal 3D VIBE or T1 spin echo with fat saturation through the brain. COMPARISON: None. FINDINGS: Image quality: Excellent. CSF Spaces: Basal cisterns are patent. No extra-axial fluid collections. Ventricles are normal in size and shape. Brain: No midline shift. No intracranial bleeds or masses. No abnormal intracranial enhancement. The brainstem appears normal. Diffusion-weighted images demonstrate no acute ischemic insults. No c hronic ischemic insults. Normal intravascular flow voids are present. Skull and face: Calvarial marrow is normal in signal. Orbits appear normal. Sinuses: Sinuses and mastoids appear clear. IMPRESSION: 1. No acute intracranial findings. Specifically, no increased restricted diffusion to suggest acute o r subacute infarct. Dictated by: Jaqueline Montes De Oca M.D. on 03/04/2017 at 19:34 Approved by: Jaqueline Montes De Oca M.D. on 03/04/2017 at 19:38
--- NOTE | 2017-03-04 19:41 | NUR ---
Torsades Cardiac: pt denies CP, Tele: SR 70-80. pt had run of torsades, resolved spontaneously. Pt was symptomatic and felt lightheaded. Dr notified, 2mg mag given. Resp: Pt denies SOB. O2 titrated down to RA, SPO2 97% on RA. GI/: Pt denies n/v, diet advanced per speech therapy to honey thick with puree. Neuro: A&Ox3, converses slowly, slurred speech. Pt reports significant deficit in vision. "Everything is blurry and I can only see motion". pt has trouble tracking with her eyes.
[2017-03-04] MEDS ORDERED: Heparin 25K Unit/500mL 0.45 NS 25,000 UNIT in IV Premix 1 EACH IV SCH (20:00)
[2017-03-04] MEDS ORDERED: Heparin 5,000 Unit/mL Inj IVPUSH PRN (20:00)
[2017-03-04] MEDS ORDERED: Amiodarone 150 mg/100 mL D5W 150 MG in IV Premix 1 EACH IV ONE (20:00)
[2017-03-04] MEDS ORDERED: Amiodarone 150 mg/100 mL D5W Premix IV ONE (20:02)
[2017-03-04] MEDS ORDERED: Amiodarone 150 mg/100 mL D5W IV ONE (20:05)
[2017-03-04] MEDS ORDERED: Amiodarone 360 mg/200 mL D5W IV SCH (20:05)
[2017-03-04] MEDS: Amiodarone 360 mg/200 mL D5W 360 MG in IV Premix 1 EACH IV SCH (20:19)
--- NOTE | 2017-03-04 20:32 | ABG ---
DateTimeAnalyzed 20:22:55 -_ pH ____7.405 - 7.350 7.450 pCO2 ___34.6__ -mmHg 35.0 45.0 pO2 129 -mmHg 69.0 116 HCO3- ___21.6__ -mmol/L 22.0 26.0 ABE ___-2.8__ -mmol/L -2.0 2.0 tHb ___11.6__ -g/dL 12.0 18.0 O2Hb ___98.4__ -% COHb ____2.0__ -% 0.0 1.5 MetHb ____0.0__ -% 0.4 1.5 sO2 __100.0__ -% FIO2 ___80.0__ -% Drawn By MK - Date/Time Notified____ 20:31:00 -_ Liter_Flow ___15.00_ -L/min Oxygen Device 1 NON RE-BERTHA - Notified By MK - K+ ____3.2__ -mmol/L 3.5 5.0 tO2 ___16.2__ -Vol% OrderingPhysicianInitials mf - Jim test _Positive -
[2017-03-04 20:42] LABS: Magnesium 2.5 mg/dL (1.6-2.6); Phosphorus 3.8 mg/dL (2.5-4.9)
[2017-03-04] MEDS ORDERED: KCl 40 mEq/D5W 500 mL 40 MEQ in IV Premix 1 EACH IV ONE (21:20)
[2017-03-04] MEDS ORDERED: Magnesium Sulfate 50% 1 Gm/2 mL 10 mL Inj IV ONE (22:49)
[2017-03-05 00:30] VITALS: BP 115/83; PULSE 86; RESP 25; O2SAT 94
[2017-03-05] MEDS: Amiodarone 360 mg/200 mL D5W 360 MG in IV Premix 1 EACH IV SCH ×2 (01:30→14:42)
[2017-03-05 02:27] LABS: APPEARANCE,URINE SLIGHTLY CLOUDY (CLEAR,HAZY); COLOR,URINE YELLOW (YELLOW); OCCULT BLOOD,URINE LARGE (NEGATIVE); UROBILINOGEN,URINE NORMAL (NORMAL)
[2017-03-05 02:32] LABS: Mean Corpuscular Hemoglobin 30.9 pg (27.0-35.0); Mean Corpuscular Volume 90.8 fL (81-100)
[2017-03-05 02:58] LABS: Magnesium 2.6 mg/dL (1.6-2.6); Phosphorus 3.6 mg/dL (2.5-4.9)
[2017-03-05 04:05] VITALS: BP 101/67; PULSE 72; RESP 22; O2SAT 96
--- NOTE | 2017-03-05 06:13 | NUR ---
Cardiac/Resp Patient went into Torsades x2 this shift, CPR and shocked x1 the first time and then shocked at the start of the second code and no CPR needed, patient awake after both codes and talking to staff and mom, Amioadrone bolus and gtt started after 1st code, total of 3 grams Magnesium given this shift and 40KCL rider given, resting and calm since 0100 after Donohue catheter put in for urinary retention and unable to void, bladder scan showed 228ml, 500ml urine out this shift from catheter, HR 70's NSR with no PVCs, BP 118/70 no distress noted at this time. Addendum: 03/05/17 at 0621 by DARI JACQUES RN Amended: Links added.
[2017-03-05 08:11] VITALS: BP 122/70; PULSE 79; RESP 21; O2SAT 97
[2017-03-05] MEDS: Famotidine Inj 20 MG in IV Premix 1 EACH IV SCH ×2 (08:12→22:38)
--- NOTE | 2017-03-05 11:11 | NUR ---
Tongue numbness Initial assessment this morning patient complained off increased numbness to her tongue and joann- was made aware. Patient to remained NPO except form meds and given width cousin. Pending speech evaluation.
[2017-03-05 11:51] VITALS: BP 124/74; PULSE 72; RESP 27; O2SAT 97
--- NOTE | 2017-03-05 12:43 | DRSVH ---
PROCEDURE: X-RAY CHEST ONE VIEW, PORTABLE ([id number]) INDICATIONS: CPR overnight TECHNIQUE: One view of the chest was acquired. COMPARISON: [facility], CT, CT ANGIO CHEST PE, 02/25/2017, 15:05. [facility] , CR, XR CHEST 1VW (PORTABLE), 02/28/2017, 8:31. [facility], CR, XR CHEST 1VW (PORTABLE), 03/01/2017, 5:38. [facility], CR, XR CHEST 1VW (PORTABLE), 03/03/2017, 5:58. FINDINGS: Surgical changes and devices: None. Lungs and pleura: No pleural effusions or pneumothorax. Lungs are somewhat difficult to accurately assess due to reduced inspiratory volume. There is a pneumonia pattern seen on the right, patchy, th rough the upper, mid and lower lung and most prominent at the medial right lung base. Mediastinum: Mediastinal contours appear normal. Heart size is normal. Bones and chest wall: No suspicious bony lesions. Overlying soft tissues appear unremarkable. IMPRESSION: Patchy pneumonia pattern right hemithorax, prominent at the medial right lower lobe. Rec ent CT scanning 02/25/17 does not identify mass lesions in these areas. Dictated by: Marcial Kohli M.D. on 03/05/2017 at 12:40 Approved by: Marcial Kohli M.D. on 03/05/2017 at 12:42
--- NOTE | 2017-03-05 13:26 | PCM.PNMED ---
Subjective Date of Service Mar 05, 2017 Subjective Pulmonology Critical Care Progress Note: Nancy Leon is a 31 yo woman with triple X syndrome and a prior history of cardiac arrest due to polymorphic VT in 2011 [address] to [facility] ED intubated for out of hospital cardiac arrest on 02/22/2017. She was on hypothermia protocol with a goal temperature of 33 until 02/24/2017, when she was rewarmed and taken off all paralytics, sedations, and vasopressor. ICU team have been asked to provide ventilator management while she requires intubation and ventilation. She was Hospital and Ventilator Day #12. Extubation day #3. Overnight, patient went into Torsades x2, and had CPR and defibrillator x1 the first time and then defib at the start of the second code and no CPR needed. Amioadrone bolus and gtt started after the 1st code, and given 3 g of Magnesium and 40KCL rider. Patient remains stable for the rest of the night. She is still on 12L of O2 via Oxymask to maintain SpO2 at 94%. This morning, patient denies any symptoms. She admits that she cannot see very well and her vision is "fragmented." Her mother reports that she tolerates the pureed diet fine, but does not seem to have an appetite. Exam Vital Signs Vital Sign - Last Date Time Temp Pulse Resp B/P Pulse Ox O2 Delivery O2 Flow Rate FiO2 03/05/17 08:11 Supplement Oxygen 03/05/17 08:11 79 03/05/17 08:11 36.5 21 122/70 97 5.00 03/03/17 08:00 30 Intake and Output 03/04/17 03/04/17 03/05/17 Cumulative From/Thru 15:00 23:00 07:00 02/22/17 13:36 - 03/05/17 06:08 Intake Total 100 ml 1165 ml 30502 ml Output Total 1200 ml 500 ml 05136 ml Balance -1100 ml 665 ml -91 ml Intake Oral 0 ml 0 ml IV Total 100 ml 1165 ml 24680 ml Tube Feeding 1465 ml Tube Irrigant 560 ml Output Urine Total 1200 ml 500 ml 64884 ml Stool Total 500 ml Gastric Drainage Total 2090 ml Emesis 300 ml # Bowel Movements 7 Exam General: Obese young woman, alert and oriented to self and place. No acute distress. Head: Normocephalic, atraumatic. External ears without defect. Eyes: Pupils are equal, round, and reactive to light. EOMI. Anicteric sclerae, conjunctivae moist. Cardiovascular: Regular rate and rhythm with no murmurs, rubs, or gallops appreciated Pulmonary: Clear to auscultation. No wheezes, rales, or rhonchi. Abdomen: Bowel tones present. Soft, nondistended, no apparent tenderness. Extremities: No clubbing, cyanosis, trace pretibial edema. Skin: extremities are warm to touch, normal turgor and texture; no rash, ulcers , or subcutaneous nodules appreciated. Neurological: Slow speech but is able to follow commands. 4/5 motor strength in all extremities. Sensation is grossly intact. Unable to do [id number] due to poor vision. IVs and Medications Medications Reviewed: Medications were reviewed in detail Lab and Diagnostics Result Diagram: 03/05/17 0805 03/05/17 0225 X-Rays, CTs and MRIs CT BRAIN WITHOUT CONTRAST IMPRESSION: 1. No acute intracranial process. 2. Scattered ethmoid and sphenoid sinus fluid Approved by: Mikaela Davila M.D. on 02/22/2017 at 15:02 CT BRAIN WITHOUT CONTRAST IMPRESSION: No acute process. Dictated by: Cruz Morley M.D. on 02/25/2017 at 15:38 Approved by: Cruz Morley M.D. on 02/25/2017 at 15:39 CT BRAIN WITHOUT CONTRAST IMPRESSION: Limited evaluation demonstrating no acute process. Dictated by: Cruz Morley M.D. on 02/28/2017 at 13:02 Approved by: Cruz Morley M.D. on 02/28/2017 at 13:02 Cardiac Echo Impressions Echocardiogram Report Interpretation Summary Technically difficult echocardiogram due to patient positioning and limited acoustic imaging windows. The patient was intubated during the exam. The left ventricle is grossly normal size. The ejection fraction is estimated to be 50-55% (s/p cardiac arrest). In 09/2013, LV EF was 60-65%. The right ventricle is not well visualized. No significant valvular pathology seen. The IVC is dilated. Inspiratory collapse cannot be assessed because of mechanical ventilation, thus CVP cannot be estimated.. Reading Physician:AM Assessment & Plan 31-year-old female with medical history of triple X syndrome([id number]), chronic anxiety, depression, and previous cardiac arrest in 2011 who was sent to the ED via EMS after she was intubated on the field as a result of cardiac arrest. Polymorphic ventricular tachycardia, present on admission, active. - Likely secondary to QT prolongation due to polypharmacy. Similar episode in 2011 at [place] suspected due to long QT syndrome secondary to polypharmacy as well. - Per pt's pharmacy patient takes Fluoxetine and Aripiprazole which could possibly contribute to QT elongation. - QTc on arrival 483, EKG in Jul shows QTc 433. Repeat EKG today to monitor QTc. - Patient was initially placed on cooling protocol and was rewarmed. - Echo shows normal EF as above - Patient had an episode of 30-sec pause on 02/28, but it was thought due to technical error. continue to monitor telemetry. On the night of 03/04/17, patient had 2 episodes of Vtach that required defibrillation and CPR. ROSC quickly achieved with no intubation required. - Followed by cardiology. Will continue with Amiodarone ggt and Propranolol at this point. Keep magnesium >2, potassium >4. - Dr. Hurtado will contact Cardiology to expedite the AICD placement. - Avoid QT-prolongation medications, including antiemetics. Anoxic encephalopathy, improved. -Neurology consulted. We appreciate their input. EEG x2 with the most recent one on 02/28 showed generalized high-amplitude delta slowing associated with intermittent burst suppression lasting from 3-5 seconds is suggestive of moderate to severe cerebral cortical dysfunction/encephalopathy. T -Both MRI and CT brain were unremarkable and do not correlate to her localized neurological findings . -Patient's neurological status continues to improve. Continue to work with PT and speech therapy for rehabilitation. Acute hypoxemic respiratory distress following cardiac arrest, extubated on 03/03, present on admission, improved. -Continue to titrate O2 to maintain SpO2 >/= 93% on Oxymask. -Her echocardiogram was very technically difficult due to her positioning and medical devices, but cardiac anatomy appears normal on CT chest. -In addition to a primary arrhythmia as the cause for her arrest, other potential causes including PE was considered and ruled out by CT angiogram chest. Normocytic anemia, stable. - Likely secondary to hemodilution from IVF. - Patient is off on all IVF currently and has had good urine output, but she is still positive over 5L. - No other sign of fluid overload, but will give a dose of Lasix 20mg IV today. - H/H has been stable. Will continue to monitor. Transfusion threshold is <7. - Iron panel showed slightly low Fe (34) but high Ferritin (274). Patient takes Iron supplement as outpatient. - B12 and Folate normal. Acute pneumonia likely secondary to aspiration, present on arrival, improved. - Given leukocytosis with elevated procalcitonin and Chest x-ray consistent with pneumonia, now improving - Blood and sputum cultures have been negative. Repeat sputum culture if extubated given her intermittent low-grade fever. - Patient finished the 5 days of Zosyn on 02/28/17. Will continue to monitor her signs and symptoms off the antibiotics. Metabolic acidosis, present on admission, resolved. - May reflect poor tissue perfusion as a result of poor cardiac output which would not be explained by her ejection fraction of 50% by echocardiogram. Also could be iatrogenic and due to the large amounts of saline that she has received. - Lactic acid normalized. Remaining aspects of her care to be addressed by her primary team and their other consultants: Elevations in liver enzymes, present on arrival, resolved. Acute Hyperglycemia, present on arrival, resolved. Triple X syndrome, presumed stable. Chronic pain, presumed stable Anxiety/Depression Patient is on Ranitidine BID for GI prophylaxis and Heparin SQ for DVT prophylaxis. Pain Evaluation: Adequate Pain Control GI Prophylaxis: H2 maddison VTE Prophylaxis: Sub-Q Heparin (Unfractionated) VTE Mechanical Devices: Intermittant Pneumatic CD Resuscitation Status: CPR: Attempt Resuscitation Attending Statement I have seen and examined this patient with the resident physician. Vital signs , labs, imaging have been reviewed. I agree with the assessment and plan above. Please refer to my separately dictated progress note for any modifications to above. Yaquelin Hurtado M.D. Pulmonary and Critical Care medicine Pager [phone] Ara Lehman DO Mar 05, 2017 11:55 Yaquelin Hurtado MD Mar 06, 2017 13:33
--- NOTE | 2017-03-05 14:22 | PCM.PNMED ---
Subjective Date of Service Mar 05, 2017 Subjective Subjective: Despite the patient's uneventful night she states that she continues to be without pain, specifically chest pain, and does not report any other symptoms at this time, other than neurological which appears to be slowly progressing in a positive direction. Events Overnight: Overnight patient went into ventricular tachycardia with torsades, CODE BLUE was called and chest compressions were initiated for a short time before defibrillator could be located and patient was subsequently defibrillated. Post defibrillation patient return to normal sinus. A few hours after this the patient again returned to a ventricular tachycardia rhythm and was subsequently cardioverted again. At this point an amiodarone drip was initiated. ROS: Denies fever/chills, nausea/vomiting, headache, weakness, abdominal pain, chest pain, shortness of breath, increased swelling in hands or feet. Exam Vital Signs Vital Sign - Last Date Time Temp Pulse Resp B/P Pulse Ox O2 Delivery O2 Flow Rate FiO2 03/05/17 11:51 36.8 72 27 124/74 97 Nasal Cannula 5.00 03/03/17 08:00 30 Intake and Output 03/04/17 03/04/17 03/05/17 Cumulative From/Thru 15:00 23:00 07:00 02/22/17 13:36 - 03/05/17 06:08 Intake Total 100 ml 1165 ml 72642 ml Output Total 1200 ml 500 ml 53531 ml Balance -1100 ml 665 ml -91 ml Intake Oral 0 ml 0 ml IV Total 100 ml 1165 ml 75820 ml Tube Feeding 1465 ml Tube Irrigant 560 ml Output Urine Total 1200 ml 500 ml 14061 ml Stool Total 500 ml Gastric Drainage Total 2090 ml Emesis 300 ml # Bowel Movements 7 Exam General: No acute distress, well-developed, well-nourished Head: Normocephalic, atraumatic. External ears without defect. Eyes: Pupils equal, round, and reactive to light. Anicteric sclerae, injected conjunctivae. Cardiovascular: Regular rate and rhythm with no murmurs, rubs, or gallops appreciated Pulmonary: Clear to auscultation, no wheezes, rales, or rhonchi. Normal respiratory effort with no use of accessory muscles. Abdomen: Bowel tones present. Soft, obese nondistended. Extremities: No clubbing, cyanosis, trace edema Skin: Normal temperature, turgor, and texture; no rash, ulcers, or subcutaneous nodules appreciated. Neurological: Following commands, responding to questions, conversive, slurring of speech, decreased visual acuity Psychiatric: Difficult to assess however patient appears appropriate at this time IVs and Medications Medications Reviewed: Medications were reviewed in detail Lab and Diagnostics Result Diagram: 03/05/17 0805 03/05/17 0225 X-Rays, CTs and MRIs CT BRAIN WITHOUT CONTRAST IMPRESSION: 1. No acute intracranial process. 2. Scattered ethmoid and sphenoid sinus fluid Approved by: Mikaela Davila M.D. on 02/22/2017 at 15:02 CT BRAIN WITHOUT CONTRAST IMPRESSION: No acute process. Dictated by: Cruz Morley M.D. on 02/25/2017 at 15:38 Approved by: Cruz Morley M.D. on 02/25/2017 at 15:39 CT BRAIN WITHOUT CONTRAST IMPRESSION: Limited evaluation demonstrating no acute process. Dictated by: Cruz Morley M.D. on 02/28/2017 at 13:02 Approved by: Cruz Morley M.D. on 02/28/2017 at 13:02 Cardiac Echo Impressions Echocardiogram Report Interpretation Summary Technically difficult echocardiogram due to patient positioning and limited acoustic imaging windows. The patient was intubated during the exam. The left ventricle is grossly normal size. The ejection fraction is estimated to be 50-55% (s/p cardiac arrest). In 09/2013, LV EF was 60-65%. The right ventricle is not well visualized. No significant valvular pathology seen. The IVC is dilated. Inspiratory collapse cannot be assessed because of mechanical ventilation, thus CVP cannot be estimated.. Reading Physician:HENRIQUE Assessment & Plan 31-year-old female patient with past medical history significant for triple X syndrome(47XXX), chronic anxiety, depression, and previous cardiac arrest in 2011 who presents to the ED via EMS as a result of cardiac arrest. Acute anoxic encephalopathy secondary to cardiac arrest, present on admission, active - Patient continues to make slow progression from a neurologic standpoint. - Neurology (Dr. Marc) has been contacted and will evaluate the patient - MRI completed 03/04 shows no focal findings - Patient answering questions appropriately at this time, patient complains of decreased visual acuity bilaterally - Prognosis appears to be improving however patient is likely to have some prolonged functional limitations - Swallow eval daily as patient continues to progress Acute cardiac arrest, present on arrival, stable Prior episode in 2011 at [facility] suspected due to long QT syndrome secondary to polypharmacy Patient saw Dr. Mena in August for workup of palpitations. Workup suggests no arrhythmia or cardiac ischemia. Per pt's pharmacy pt takes Fluoxetine, Aripiprazole which could possibly contribute to QT elongation - QTc on arrival 483, EKG in Jul shows QTc 433 - Keep magnesium >2, potassium >4 - Echo shows intact EF other results as above - Cardiology consulted, Dr. Martinez to place ICD on 03/06 - On 03/04 pt coverted to ventricular tachycardia with runs of torsades. Code blue was called and chest compressions were initiated. - The pt was rapidly cardioverted and remained normal sinus for a number of hours before undergoing another episode of Vtach. - Pt was initiated on an amioderone drip, Dr. Martinez aware, AICD placement as soon as possible. Acute hypoxemic respiratory distress, present on arrival, resolved Patient unconscious on arrival, required intubation by EMS - Patient initially sedated with Propofol and fentanyl - No sedation currently, patient continues to have minimal neurologic activity. - Extubation successful 03/03 - Patient previously saturating well on room air - Currently requiring 5 L nasal cannula for oxygen support post ventricular tachycardic episodes. Acute pneumonia likely secondary to aspiration, present on arrival, resolved - Given leukocytosis with elevated procalcitonin and Chest x-ray consistent with pneumonia - Blood cultures 4 negative - Sputum cultures showed normal erin - Prophylactic Zosyn discontinued Elevations in liver enzymes, present on arrival, resolved Likely due to hypoperfusion secondary to cardiac arrest Lactic acidosis, present on arrival, Resolved Likely secondary to stress reaction in conjunction with cardiac hypoperfusion Acute Hyperglycemia, present on arrival, resolved - Glucose on admission 233 - No prior history of diabetes - A1c 5.8 - Continue to monitor glucose Chronic pain, presumed stable - Resume home medications when awake and alert Chronic Anxiety/depression Cannot rule out suicide attempt/overdose, mother states prior history of suicidal ideation without a plan or previous attempts. - Previously taking Aripiprazole 5 mg, Lamotrigine 200 mg, Prozac 20 mg, this was verified by outpatient pharmacy on 03/04 - Restart home medications if patient displays symptoms of anxiety - I would be very hesitant to restart home meds at this time due to recurrent Vtach. - Especially given the patient's neurologic status, it is highly likely that the patient will present much differently from a psychiatric standpoint, and I would hesitate to reinitiate medications that may or may not be useful Triple X syndrome, presumed stable - No known correlation with cardiac arrhythmia or cardiac arrest. - Consider other genetic phenomena as possible explanations to cardiac arrest/ arrhythmias - Per cardiology, possible channelopathy which would be treated with ICD placement. Disposition: Patient prognosis is improving with significant noted improvement in neurological function however with possibility for significant residual deficits, with successful extubation on 03/03 patient will likely require 3-5 days of inpatient management prior to discharge to nursing home facility. GI Prophylaxis: H2 maddison VTE Prophylaxis: Sub-Q Heparin (Unfractionated) VTE Mechanical Devices: Intermittant Pneumatic CD Resuscitation Status: CPR: Attempt Resuscitation Attending Statement The patient was seen and examined together with Dr. Carvalho on 03/05/2017 and I agree with the history, exam and plan as outlined in the note above. . Alcon Carvalho DO Mar 05, 2017 14:22 Kai Guallpa MD Mar 05, 2017 16:20
--- NOTE | 2017-03-05 15:46 | NUR ---
MATT FOLLOW UP: Spoke with [facility] and they do not have actual contract with patient's insurance but they are willing to run through the referral and try to process for one time contract, they are working on this contract and they would like to be able to show they have patient's who meet criteria and need approval. Updated WEIGHT ANALYST
--- NOTE | 2017-03-05 15:57 | PROG NOTE ---
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 The patient was seen and examined with resident physician, Noelle Lehman. Please refer to her separate detailed note for additional information. The following is a brief attending note. INTERVAL HISTORY: She had two additional episodes of ventricular tachycardia/torsades yesterday briefly requiring CPR and then transferred to the ICU. She is neurologically intact, on higher FiO2 but otherwise stable. She is still complaining of significant severe visual disturbances. REVIEW OF SYSTEMS: As above. PHYSICAL EXAMINATION: Vital signs reviewed. She is on 12 L Oxy Mask. General: Lying in bed, answering questions. Her eyes are unfocused with slightly dilated pupils. She is not really tracking. Chest is clear. LABORATORIES: Reviewed. IMAGING: Results including MRI reviewed and MRI shows no acute findings. Chest x-ray shows patchy infiltrate right lower lobe. ASSESSMENT AND RECOMMENDATIONS: 1. Recurrent torsade depointes with some cardiac arrest, most recently on March 04. 2. Acute hypoxic respiratory failure-on Oxy Mask. 3. Aspiration pneumonia. 4. Acute encephalopathy and visual disturbance-unclear etiology, ? related to hypoxic injury. 5. Triple X syndrome, 47 XXX. A 31-year-old woman with XXX syndrome and prior history of polymorphic VT cardiac arrest in 2011, now presenting in the hospital on February 22 with a similar event. She was extubated on Friday and transferred out to the floor and had two additional events yesterday because of which she was transferred here, but fortunately remains awake, interactive and avoided intubation. Plan per cardiology, Dr. Martinez, is to have an ICD placed tomorrow. In the meantime, her visual issues are interesting and difficult to explain. MRI of the brain does not show any focal deficits and I wonder if neurology has anything to add or if this is an ophthalmologic issue. She is on appropriate DVT and GI prophylaxis. I spoke with her and her mother at the bedside. CRITICAL CARE TIME: 40 minutes.
[2017-03-05 16:07] VITALS: BP 127/74; PULSE 69; RESP 19; O2SAT 97
--- NOTE | 2017-03-05 16:54 | NUR ---
Social Work: Continued Discharge Planning/Multidisciplinary Rounds D: Pt discussed in multidisciplinary rounds; the patient remains in CCU status and coded overnight. Patient is awaiting cardiac procedure before stable for discharge. PHONE OPERATOR met with the patient, her mother and sister at bedside. Discharge planning topic introduced. They are aware patient will need placement at discharge. Per providers orders, [facility] and local SNFs contracted with patient's insurance have been referred- mother easily confused by the different levels of care. PHONE OPERATOR provided the patient's mother with the SNF CHOICE LIST and informed her of the SNFs who are contracted with the patient's insurance- [facility], [facility], [facility]. She is agreeable to exploring these options. She would also like to see if [facility] is contracted as this the closest option to their home. PHONE OPERATOR agreed and requested Collections Agent refer to this facility. Pt's mother is going to tour the facilities in [place] to get a better idea of which facility would be the patient's preference. PHONE OPERATOR spoke with Saray Arango at [facility] who states that they did not receive the original referral. PHONE OPERATOR requested Collections Agent re-fax referral for review to all SNFs. A: Pt who will require skilled rehab at discharge. P: Evolving; [facility], [facility], [facility], [facility] and [facility] are reviewing for admission. PHONE OPERATOR to continue to follow to assess for discharge needs. JUAN Paiz
--- NOTE | 2017-03-05 17:53 | PROG NOTE ---
[address] [address] PROGRESS NOTE PATIENT: MOMO WORKMAN : 1985 MR#: [id number] ADMIT: 02/22/2017 JOB ID: [id number] DATE: 03/05/2017 CARDIOLOGY PROGRESS NOTE: IDENTIFICATION AND PERTINENT HISTORY: The patient is a very pleasant 28-year-old woman with triple X syndrome admitted with recurrent ventricular fibrillation arrest. She had had a previous VF arrest in 2011 attributed to acquired long QT from psychotropic medications. She was in her usual state of health when she sustained yet another episode of VF arrest at home while accompanied by her mother. She was admitted to the hospital on the 2nd of this month and ventilated and cooled. She was treated for aspiration pneumonia. Ultimately, she was extubated and has recovered to her baseline mental status, although she does have visual disturbances that are yet to be explained. She sustained yet another witnessed torsade arrest in the hospital last night and was started on amiodarone drip. She had been started on beta blockade earlier in the afternoon. I met with her and her mother yesterday, and her and her sister today. We discussed secondary prevention ICD implant. She is doing well when I meet with her today. She reports that her vision is improving. She denies any chest pain, pressure, or discomfort. She has had a negative ischemic evaluation as an outpatient with Dr. Mena. Her echocardiogram shows a structurally normal heart with preserved LV function and no significant valvular disease. Her baseline ECG shows sinus rhythm, with a least one ECG showing a prolonged QTc of 483 msec. IMPRESSION: The patient is a pleasant 31-year-old with a structurally normal heart and triple X syndrome now admitted with a 2nd episode of ventricular fibrillation (VF) arrest, having recurrent arrest while in the hospital yesterday. I certainly think she needs a secondary prevention ICD. Whether her long QT is purely acquired or if she has some baseline congenital long QT syndrome is in question. Nonetheless, a device is warranted. I advised dual-chamber ICD implant. We discussed the risks and benefits in detail in the presence of her mother. Ultimately, she wishes to proceed. In regard to medical therapy, I think amiodarone is reasonable for the short term. I would also like to maximize her beta blockade. I have asked her resident physician to increase her propranolol to the extended release formulation at 60 mg daily. We can transition her IV amiodarone to oral amiodarone 400 mg p.o. twice daily for one week, followed by 400 mg daily for one week, followed by 200 mg daily thereafter. RECOMMENDATIONS: 1. Dual-chamber ICD implantation. 2. Transition from IV to oral amiodarone as described above. 3. Increase propranolol to extended release 60 mg daily. Thank you very much for allowing me to participate in the care of this patient. Please call with any questions.
[2017-03-05] MEDS ORDERED: levETIRAcetam Inj 1,000 MG in IV Premix 1 EACH IV ONE ×2 (18:10→20:00)
[2017-03-05] MEDS: Propranolol LA 60 mg ER24 Capsule PO SCH (18:25)
--- NOTE | 2017-03-05 18:38 | PCM.PNMED ---
Subjective Date of Service Mar 05, 2017 Subjective NEUROLOGY PROGRESS NOTE Patient feels her mentation is improved. Her vision improved. No seizure activity reported. She has also been able to sit up at the edge of the bed for 20 minutes. Exam Vital Signs Vital Sign - Last Date Time Temp Pulse Resp B/P Pulse Ox O2 Delivery O2 Flow Rate FiO2 03/05/17 16:07 37.1 69 19 127/74 97 Nasal Cannula 5.00 03/03/17 08:00 30 Intake and Output 03/04/17 03/04/17 03/05/17 Cumulative From/Thru 15:00 23:00 07:00 02/22/17 13:36 - 03/05/17 06:08 Intake Total 100 ml 1165 ml 52803 ml Output Total 1200 ml 500 ml 19675 ml Balance -1100 ml 665 ml -91 ml Intake Oral 0 ml 0 ml IV Total 100 ml 1165 ml 63420 ml Tube Feeding 1465 ml Tube Irrigant 560 ml Output Urine Total 1200 ml 500 ml 55239 ml Stool Total 500 ml Gastric Drainage Total 2090 ml Emesis 300 ml # Bowel Movements 7 Exam General: Obese female laying in a hospital bed. Respiratory: Breathing spontaneously with normal effort. Abdomen: Obese, soft Neuro: Able to follow some commands, pupils are dilated, equal round and reactive to light, deep tendon reflexes brisk bilaterally. EOMI without prompting. Diffuse weakness. Neglect has improved a bit. MMSE scored 16/30 with good recall but poor abstract thinking and vision impairing. Lab and Diagnostics Result Diagram: 03/05/17 0805 03/05/17 0225 X-Rays, CTs and MRIs CT BRAIN WITHOUT CONTRAST IMPRESSION: 1. No acute intracranial process. 2. Scattered ethmoid and sphenoid sinus fluid Approved by: Mikaela Davila M.D. on 02/22/2017 at 15:02 CT BRAIN WITHOUT CONTRAST IMPRESSION: No acute process. Dictated by: Cruz Morley M.D. on 02/25/2017 at 15:38 Approved by: Cruz Morley M.D. on 02/25/2017 at 15:39 CT BRAIN WITHOUT CONTRAST IMPRESSION: Limited evaluation demonstrating no acute process. Dictated by: Cruz Morley M.D. on 02/28/2017 at 13:02 Approved by: Cruz Morley M.D. on 02/28/2017 at 13:02 MRI BRAIN WITH AND WITHOUT CONTRAST IMPRESSION: 1. No acute intracranial findings. Specifically, no increased restricted diffusion to suggest acute or subacute infarct. Dictated by: Jaqueline Montes De Oca M.D. 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 Neurology consultation is being obtained due to encephalopathy. Encephalopathy -Likely secondary to anoxic brain injury. -Prior EEGs nonspecific but suggestive of anoxic brain injury. -Today's EEG showing sharp waves suggestive of partial seizure. -Will initiate Keppra 1 g loading dose with 500 mg BID IV, switch to PO when able -Will reassess with MMSE tomorrow to look for improvement -EEG Friday AM. -MRI did not reveal any localized lesions. -Continue rehab Thank you for allowing us to participate in the care of this patient. GI Prophylaxis: H2 maddison VTE Prophylaxis: Sub-Q Heparin (Unfractionated) VTE Mechanical Devices: Intermittant Pneumatic CD Resuscitation Status: CPR: Attempt Resuscitation Thao Doran DO Mar 05, 2017 18:12
[2017-03-05 20:30] VITALS: BP 108/52; PULSE 65; RESP 22; O2SAT 98
[2017-03-06] VITALS (18 sets, daily range): BP systolic 96–147; BP diastolic 44–80; PULSE 61–82; RESP 16–22; O2SAT 91–100
[2017-03-06] MEDS: Sodium Chloride LOK Flush 10 mL Syringe IVFLUSH SCH ×3 (00:30→16:14)
[2017-03-06] MEDS ORDERED: Vancomycin Inj 1,000 MG in IV Premix 1 EACH IV ONE ×2 (06:00→07:55)
[2017-03-06] MEDS ORDERED: 0.9% Sodium Chloride 1,000 ML IV PRN (06:00)
[2017-03-06 06:31] LABS: BASOPHILS % (AUTO) 1.1 % (0-3); EOSINOPHILS % (AUTO) 2.8 % (0-5); Mean Corpuscular Hemoglobin 30.2 pg (27.0-35.0); Mean Corpuscular Volume 93.8 fL (81-100); NEUTROPHILS % (AUTO) 55.7 % (40-74); Platelet Count 397 bil/L (150-400)
[2017-03-06 07:06] LABS: Magnesium 2.1 mg/dL (1.6-2.6); Phosphorus 3.8 mg/dL (2.5-4.9)
--- NOTE | 2017-03-06 07:21 | NUR ---
Activity: pt able to help with turning. Took meds crushed in applesauce without any difficulty. During the night pt very large liquid BM. Tele remained SR to SB without any PVCs noted. Pt was npo after midnight for AICD insertion today in laborer/key man. Pt denies any pain.
[2017-03-06 07:22] LABS: INR 1.08 ratio
[2017-03-06] MEDS: Famotidine Inj 20 MG in IV Premix 1 EACH IV SCH ×2 (07:49→20:40)
[2017-03-06] MEDS: Propranolol LA 60 mg ER24 Capsule PO SCH (07:49)
--- NOTE | 2017-03-06 08:24 | NUR ---
[facility] TRANSFER : Refaxed facesheet to [facility], Mariel Daley and [facility] Addendum: 03/06/17 at 1047 by WEI DENIS CM [facility] can accept patient pending [facility] authorization Mariel Daley reviewed and could likely meet patient needs but thinks patient be better suited at higher level of care Updated DEBATE DIRECTOR
[2017-03-06] MEDS ORDERED: 0.9% Sodium Chloride 1,000 ML IV ONE (09:00)
--- NOTE | 2017-03-06 09:15 | PROCED ---
[address] [address] EEG PATIENT: MOMO WORKMAN : 1985 MR#: [id number] ADMIT: 02/22/2017 JOB ID: [id number] DATE OF SERVICE: 03/05/2017 HISTORY: The patient is a 31-year-old woman with altered mental status. TECHNICAL DESCRIPTION: This digital EEG was performed using 25 scalp and ear, and 2 EKG electrodes. It was reviewed in bipolar and referential montages following reformatting in 10-20 [employer] Electrode [employer] System. During the recording, the patient was noted to be awake and drowsy. The background was composed of a polymorphic mixture of delta and theta, but principally rhythms of 6-7 hertz, 20-50 microvolts that did appear symmetrical and reactive to eye opening. The rest of the background was composed of low voltage faster frequencies. There is a generalized degree of slowing throughout this recording. There were intermittent generalized sharp and slow waves noted, approximately 1-2 hertz spike in slow waves intermittently throughout this recording. There was one episode where there was abrupt onset of burst of generalized high-amplitude 1-2 hertz spike and slow wave activity noted that was generalized in nature and during this period of time the predictive maintenance technician asked the patient if she was okay, and she responded yes. There was no clear clinical symptoms of seizure at this time. There was evidence of a possible electrocortical seizure based on the EEG findings. Hyperventilation was not performed. Photic stimulation from 1-30 hertz did not elicit any photic driving response. This episode did occur after photic stimulation. The EKG rhythm strip revealed a heart rate of 60 to 80 beats per minute with no apparent arrhythmias. No sleep was appreciated. IMPRESSION: This electroencephalography performed in the awake and drowsy states is abnormal. The intermittent generalized spike and slow-wave discharges as well as the sudden onset of generalized high-amplitude spike and slow wave activity lasting approximately 1-2 hertz lasting for 5 seconds in duration is suspicious for a possible seizure/generalized seizure disorder. My concern is that at this point, there does not appear to be any clinical correlation to correlate with the abnormal electrocortical activity, rule out of nonconvulsive seizure. Other possibility certainly is (SREDA) subclinical rhythmic electrographic discharges with no clear clinical correlation. In most cases subclinical rhythmic electrographic discharges of adults (SREDA) is noted to be well organized rhythmic that remain stable over space in time. In light of this, I do recommend a repeat electroencephalogram. The results of this electroencephalogram were relayed to . Clinical correlation is advised.
--- NOTE | 2017-03-06 11:28 | PCM.PNMED ---
Subjective Date of Service Mar 06, 2017 Subjective Pulmonology Critical Care Progress Note: Nancy Leon is a 31 yo woman with triple X syndrome and a prior history of cardiac arrest due to polymorphic VT in 2011 who was brought to [facility] ED intubated for out of hospital cardiac arrest on 02/22/2017. She was on hypothermia protocol with a goal temperature of 33 until 02/24/2017, when she was rewarmed and taken off all paralytics, sedations, and vasopressor. ICU team have been asked to provide ventilator management while she requires intubation and ventilation. She was Hospital and Ventilator Day #13. Extubation day #4. No acute event overnight. Her Amiodarone ggt was switched to oral per Dr. Martinez' s recommendation. Her O2 requirement has significantly decreased and is saturating well at 4L via NC. This morning, patient denies any significant symptoms. Her vision is still poor , but her mental status seems clear today. Her NC was moved from her nose, but patient is still saturating at 97%. She admits that she cannot see very well and her vision is still spotty. She is NPO in anticipation of the AICD placement today. Exam Vital Signs Vital Sign - Last Date Time Temp Pulse Resp B/P Pulse Ox O2 Delivery O2 Flow Rate FiO2 03/06/17 07:40 65 03/06/17 07:40 37.0 17 107/55 97 Nasal Cannula 4.00 03/03/17 08:00 30 Intake and Output 03/05/17 03/05/17 03/06/17 Cumulative From/Thru 15:00 23:00 07:00 02/22/17 13:36 - 03/06/17 06:38 Intake Total 617 ml 415 ml 39595 ml Output Total 600 ml 350 ml 67045 ml Balance 17 ml 65 ml -9 ml Intake Oral 350 ml 100 ml 450 ml IV Total 267 ml 315 ml 05801 ml Tube Feeding 1465 ml Tube Irrigant 560 ml Output Urine Total 600 ml 350 ml 90126 ml Stool Total 500 ml Gastric Drainage Total 2090 ml Emesis 300 ml # Bowel Movements 1 8 Exam General: Obese young woman, alert and oriented to self and year. No acute distress. Head: Normocephalic, atraumatic. External ears without defect. Eyes: Pupils are equal, round, and reactive to light. EOMI. Anicteric sclerae, conjunctivae moist. Cardiovascular: Regular rate and rhythm with no murmurs, rubs, or gallops appreciated. Mild chest tenderness to palpation. Pulmonary: Scattered rales in the right lung field. Clear to auscultation on the left. No wheezes or rhonchi. Abdomen: Bowel tones present. Soft, nondistended, no tenderness to palpation. Extremities: No clubbing, cyanosis, trace pretibial edema. Skin: extremities are warm to touch, normal turgor and texture; no rash, ulcers , or subcutaneous nodules appreciated. Neurological: Slow but clear speech but is able to follow commands well. 4/5 motor strength in all extremities. Sensation is grossly intact. Unable to do [id number] due to poor vision. IVs and Medications Medications Reviewed: Medications were reviewed in detail Lab and Diagnostics Result Diagram: 03/06/17 0600 03/06/17 0600 X-Rays, CTs and MRIs CT BRAIN WITHOUT CONTRAST IMPRESSION: 1. No acute intracranial process. 2. Scattered ethmoid and sphenoid sinus fluid Approved by: Mikaela Davila M.D. on 02/22/2017 at 15:02 CT BRAIN WITHOUT CONTRAST IMPRESSION: No acute process. Dictated by: Cruz Morley M.D. on 02/25/2017 at 15:38 Approved by: Cruz Morley M.D. on 02/25/2017 at 15:39 CT BRAIN WITHOUT CONTRAST IMPRESSION: Limited evaluation demonstrating no acute process. Dictated by: Cruz Morley M.D. on 02/28/2017 at 13:02 Approved by: Cruz Morley M.D. on 02/28/2017 at 13:02 MRI BRAIN WITH AND WITHOUT CONTRAST IMPRESSION: 1. No acute intracranial findings. Specifically, no increased restricted diffusion to suggest acute or subacute infarct. Dictated by: Jaqueline Montes De Oca M.D. on 03/04/2017 at 19:34 Assessment & Plan 31-year-old female with medical history of triple X syndrome([id number]), chronic anxiety, depression, and previous cardiac arrest in 2011 who was sent to the ED via EMS after she was intubated on the field as a result of cardiac arrest. Polymorphic ventricular tachycardia, present on admission, active. - Likely secondary to QT prolongation due to polypharmacy. Similar episode in 2011 at [place] suspected due to long QT syndrome secondary to polypharmacy as well. - Per pt's pharmacy patient takes Fluoxetine and Aripiprazole which could possibly contribute to QT elongation. - QTc on arrival 483, EKG in Jul shows QTc 433. Repeat EKG today to monitor QTc. - Patient was initially placed on cooling protocol and was rewarmed. - Echo shows normal EF as above - Patient had an episode of 30-sec pause on 02/28, but it was thought due to technical error. continue to monitor telemetry. On the night of 03/04/17, patient had 2 episodes of Vtach that required defibrillation and CPR. ROSC quickly achieved with no intubation required. - Followed by cardiology. Dual-chamber ICD implantation scheduled for today. Will continue with Amiodarone 400 mg p.o. twice daily for one week, followed by 400 mg daily for one week, followed by 200 mg daily thereafter. Continue Propranolol ER 60 mg daily. - Keep K >/=4 and Mg >/=2 - Avoid QT-prolongation medications, including antiemetics. Will not resume her psych meds at this point. Anoxic encephalopathy, improved. -Both MRI and CT brain were unremarkable and do not correlate to her localized neurological findings. -Previous EEGs suggested anoxic brain injury. Yesterday EEG showed intermittent generalized spike and slow-wave discharges as well as the sudden onset of generalized high-amplitude spike and slow wave activity lasting approximately 1- 2 hertz lasting for 5 seconds in duration is suspicious for a possible seizure/ generalized seizure disorder. -Appreciate neurology's input. Keppra 1 g loading dose given yesterday with 500 mg BID IV currently. Will consider switching to PO if ok by speech. -Will reassess with MMSE tomorrow to look for improvement -Continue to work with PT and speech therapy for rehabilitation. Acute hypoxemic respiratory distress following cardiac arrest, extubated on 03/03, present on admission, improved. -Continue to titrate O2 to maintain SpO2 >/= 93% on NC. -Her echocardiogram was very technically difficult due to her positioning and medical devices, but cardiac anatomy appears normal on CT chest. -In addition to a primary arrhythmia as the cause for her arrest, other potential causes including PE was considered and ruled out by CT angiogram chest. Normocytic anemia, stable. - Likely secondary to hemodilution from IVF. - No other sign of fluid overload. - H/H has been stable. Will continue to monitor. Transfusion threshold is <7. - Iron panel showed slightly low Fe (34) but high Ferritin (274). Patient takes Iron supplement as outpatient. - B12 and Folate normal. Acute pneumonia likely secondary to aspiration, present on arrival, improved. - Initial leukocytosis with elevated procalcitonin and Chest x-ray consistent with pneumonia, now improving - Blood and sputum cultures have been negative. - Patient finished the 5 days of Zosyn on 02/28/17. Will continue to monitor her signs and symptoms off the antibiotics. Metabolic acidosis, present on admission, resolved. - May reflect poor tissue perfusion as a result of poor cardiac output which would not be explained by her ejection fraction of 50% by echocardiogram. Also could be iatrogenic and due to the large amounts of saline that she has received. - Lactic acid normalized. Remaining aspects of her care to be addressed by her primary team and their other consultants: Elevations in liver enzymes, present on arrival, resolved. Acute Hyperglycemia, present on arrival, resolved. Triple X syndrome, presumed stable. Chronic pain, presumed stable Anxiety/Depression: Recommend D/C all her home psych meds and consult Psychiatry. Primary care team will contact the patient's current psychiatrist to get a full history and consider consult [facility] to help with medication management before discharge. Patient is on Ranitidine BID for GI prophylaxis and Heparin SQ for DVT prophylaxis. Pain Evaluation: Adequate Pain Control GI Prophylaxis: H2 maddison VTE Prophylaxis: Sub-Q Heparin (Unfractionated) VTE Mechanical Devices: Intermittant Pneumatic CD Resuscitation Status: CPR: Attempt Resuscitation Attending Statement I have seen and examined this patient with the resident physician. Vital signs , labs, imaging have been reviewed. I agree with the assessment and plan above. Please refer to my separately dictated progress note for any modifications to above. Yaquelin Hurtado M.D. Pulmonary and Critical Care medicine Pager [phone] Ara Lehman DO Mar 06, 2017 11:13 Yaquelin Hurtado MD Mar 06, 2017 13:36
--- NOTE | 2017-03-06 11:34 | PROG NOTE ---
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 INTERVAL HISTORY: No further cardiac events overnight. She is scheduled to get an ICD placed later today. REVIEW OF SYSTEMS: No new complaints, specifically no fevers, chills, chest pain. PHYSICAL EXAMINATION: Vital signs reviewed. She is on 4 L oxygen on nasal cannula. General lying in bed, lethargic fast asleep. Chest is clear. LABORATORIES: Reviewed. IMAGING: Reviewed chest x-ray from yesterday, does not show any focal infiltrates. ASSESSMENT AND RECOMMENDATIONS: 1. Recurrent polymorphic ventricular tachycardia cardiac arrest-most recently on March 04. 2. Triple X syndrome [id number]. 3. Aspiration pneumonia-completed therapy. 4. Acute hypoxic respiratory failure-currently on OxyMask, but previously intubated until March 03. 5. Visual disturbance-unclear etiology without any MRI changes. 6. Partial seizures on electroencephalography. A 31-year-old woman with triple X syndrome prior history of polymorphic ventricular tachycardic cardiac arrest in 2011 presenting with recurrent cardiac arrest due to the same, most recently after being extubated on March 04. She is having an implantable cardioverter defibrillator placed by Dr. Martinez this afternoon. She is on amiodarone and propranolol per his recommendations in the hope of preventing this. Ablation is not an option because it is a polymorphic rhythm. With regards to her visual disturbance, it is unclear what the source of this is because her MRI brain is not revealing any areas of infarct. She may need an ophthalmologic evaluation post discharge. Also at this point, we are holding all of her antipsychotic meds, which have caused QT prolongation effects. She is on appropriate DVT and GI prophylaxis.
--- NOTE | 2017-03-06 12:51 | NUR ---
Note Patient NPO since midnight. Low urine output during the night 12h shift and teetee in color- consulted with MD- patient started on NS at 100ml/h at 0900 this morning- BP stable- continue assessment. Plant for pacemaker placement early afternoon today in medical laboratory specialist.
[2017-03-06] MEDS ORDERED: Bupivacaine-MPF 0.5% 30 mL Inj ONE (16:47)
[2017-03-06] MEDS ORDERED: fentaNYL-PF 50 mCg/mL 2 mL Inj ONE (16:47)
[2017-03-06] MEDS ORDERED: Heparin 10,000 Unit/1,000 mL NS Premix IV ONE (16:47)
[2017-03-06] MEDS ORDERED: Vancomycin 1,000 mg Inj ONE (16:48)
[2017-03-06] MEDS ORDERED: 0.9% Sodium Chloride 250 ML ONE (16:48)
--- NOTE | 2017-03-06 17:00 | NUR ---
Social Work: Continued Discharge Planning/Multidisciplinary Rounds D: Pt discussed in multidisciplinary rounds; the patient remains in CCU. The team now feels patient would best benefit from inpatient rehab. [employer] will refer to both [facility] in [place] and [facility] in [place] as they are the only two facilities. Patient continues to have impaired vision and will need intense therapy once discharged. Providers feel that this would be the best setting for her at this time. POND TENDER attempted to meet with the patient and her mother at bedside to review however the patient was resting and the mother requested POND TENDER return later to discuss discharge planning. A: Pt who will likely need inpatient rehab at time of discharge P: Evolving; Recommendation is now for Inpatient Rehab. [facility] and [facility] in [place] are reviewing. Patient has been accepted at [facility] and [facility] pending insurance authorization. JUAN Paiz
[2017-03-06] MEDS ORDERED: Methohexital 10 mg/mL 50 mL Inj ONE (17:02)
--- NOTE | 2017-03-06 18:37 | NUR ---
Note Patient was taken to laborer pole crew at [facility] for permanent pacemaker placement procedure. Patient was NPO since last night per MD orders. Patient had two peripheral IV sides one on the right wrist with infusing NS [id number] and the second left ANT patent saline lock. Report was given to the laborer pole crew teem at the beside.
--- NOTE | 2017-03-06 19:27 | PCM.PNMED ---
Subjective Date of Service Mar 06, 2017 Subjective Subjective: Patient continues relatively stable, she states that she has not had any new or significant symptoms overnight. Continues to deny pain, no complaints at this time. Events Overnight: No acute events overnight. ROS: Denies fever/chills, nausea/vomiting, headache, weakness, abdominal pain, chest pain, shortness of breath, increased swelling in hands or feet. Exam Vital Signs Vital Sign - Last Date Time Temp Pulse Resp B/P Pulse Ox O2 Delivery O2 Flow Rate FiO2 03/06/17 19:15 63 16 137/75 91 Room Air 03/06/17 19:10 2.00 30 03/06/17 16:18 36.5 Intake and Output 03/05/17 03/05/17 03/06/17 Cumulative From/Thru 15:00 23:00 07:00 02/22/17 13:36 - 03/06/17 06:38 Intake Total 617 ml 415 ml 85576 ml Output Total 600 ml 350 ml 28373 ml Balance 17 ml 65 ml -9 ml Intake Oral 350 ml 100 ml 450 ml IV Total 267 ml 315 ml 24755 ml Tube Feeding 1465 ml Tube Irrigant 560 ml Output Urine Total 600 ml 350 ml 25502 ml Stool Total 500 ml Gastric Drainage Total 2090 ml Emesis 300 ml # Bowel Movements 1 8 Exam General: No acute distress, well-developed, well-nourished Head: Normocephalic, atraumatic. External ears without defect. Eyes: Pupils equal, round, and reactive to light. Anicteric sclerae, injected conjunctivae. Cardiovascular: Regular rate and rhythm with no murmurs, rubs, or gallops appreciated Pulmonary: Clear to auscultation, no wheezes, rales, or rhonchi. Normal respiratory effort with no use of accessory muscles. Abdomen: Bowel tones present. Soft, obese nondistended. Extremities: No clubbing, cyanosis, trace edema Skin: Normal temperature, turgor, and texture; no rash, ulcers, or subcutaneous nodules appreciated. Neurological: Following commands, responding to questions, conversive, slurring of speech, decreased visual acuity Psychiatric: Difficult to assess however patient appears appropriate at this time IVs and Medications Medications Reviewed: Medications were reviewed in detail Lab and Diagnostics Result Diagram: 03/06/17 0600 03/06/17 0600 X-Rays, CTs and MRIs CT BRAIN WITHOUT CONTRAST IMPRESSION: 1. No acute intracranial process. 2. Scattered ethmoid and sphenoid sinus fluid Approved by: Mikaela Davila M.D. on 02/22/2017 at 15:02 CT BRAIN WITHOUT CONTRAST IMPRESSION: No acute process. Dictated by: Cruz Morley M.D. on 02/25/2017 at 15:38 Approved by: Cruz Morley M.D. on 02/25/2017 at 15:39 CT BRAIN WITHOUT CONTRAST IMPRESSION: Limited evaluation demonstrating no acute process. Dictated by: Cruz Morley M.D. on 02/28/2017 at 13:02 Approved by: Cruz Morley M.D. on 02/28/2017 at 13:02 MRI BRAIN WITH AND WITHOUT CONTRAST IMPRESSION: 1. No acute intracranial findings. Specifically, no increased restricted diffusion to suggest acute or subacute infarct. Dictated by: Jaqueline Montes De Oca M.D. on 03/04/2017 at 19:34 Assessment & Plan 31-year-old female patient with past medical history significant for triple X syndrome([id number]), chronic anxiety, depression, and previous cardiac arrest in 2011 who presents to the ED via EMS as a result of cardiac arrest. Acute anoxic encephalopathy secondary to cardiac arrest, present on admission, active - Patient continues to make slow progression from a neurologic standpoint. - Neurology (Dr. Marc) has been contacted and will evaluate the patient - MRI completed 03/04 shows no focal findings - Patient answering questions appropriately at this time, patient complains of decreased visual acuity bilaterally - Prognosis appears to be improving however patient is likely to have some prolonged functional limitations - Swallow eval daily as patient continues to progress Acute cardiac arrest, present on arrival, stable Prior episode in 2011 at [place] suspected due to long QT syndrome secondary to polypharmacy Patient saw Dr. Mena in August for workup of palpitations. Workup suggests no arrhythmia or cardiac ischemia. Per pt's pharmacy pt takes Fluoxetine, Aripiprazole which could possibly contribute to QT elongation - QTc on arrival 483, EKG in Jul shows QTc 433 - Keep magnesium >2, potassium >4 - Echo shows intact EF other results as above - Cardiology consulted, Dr. Martinez to place ICD on 03/06 - On 03/04 pt coverted to ventricular tachycardia with runs of torsades. Code blue was called and chest compressions were initiated. - The pt was rapidly cardioverted and remained normal sinus for a number of hours before undergoing another episode of Vtach. - Pt was initiated on an amioderone drip subsequently converted to oral amiodarone, AICD placement 03/06 Acute hypoxemic respiratory distress, present on arrival, resolved Patient unconscious on arrival, required intubation by EMS - Patient initially sedated with Propofol and fentanyl - No sedation currently, patient continues to have minimal neurologic activity. - Extubation successful 03/03 - Patient previously saturating well on room air - Currently requiring 2 L nasal cannula for oxygen support post ventricular tachycardic episodes. Acute pneumonia likely secondary to aspiration, present on arrival, resolved - Given leukocytosis with elevated procalcitonin and Chest x-ray consistent with pneumonia - Blood cultures 4 negative - Sputum cultures showed normal erin - Prophylactic Zosyn discontinued Elevations in liver enzymes, present on arrival, resolved Likely due to hypoperfusion secondary to cardiac arrest Lactic acidosis, present on arrival, Resolved Likely secondary to stress reaction in conjunction with cardiac hypoperfusion Acute Hyperglycemia, present on arrival, resolved - Glucose on admission 233 - No prior history of diabetes - A1c 5.8 - Continue to monitor glucose Chronic pain, presumed stable - Resume home medications when awake and alert Chronic Anxiety/depression Cannot rule out suicide attempt/overdose, mother states prior history of suicidal ideation without a plan or previous attempts. - Previously taking Aripiprazole 5 mg, Lamotrigine 200 mg, Prozac 20 mg, this was verified by outpatient pharmacy on 03/04 - Restart home medications if patient displays symptoms of anxiety - I would be very hesitant to restart home meds at this time due to recurrent Vtach. - Especially given the patient's neurologic status, it is highly likely that the patient will present much differently from a psychiatric standpoint, and I would hesitate to reinitiate medications that may or may not be useful Triple X syndrome, presumed stable - No known correlation with cardiac arrhythmia or cardiac arrest. - Consider other genetic phenomena as possible explanations to cardiac arrest/ arrhythmias - Per cardiology, possible channelopathy which would be treated with ICD placement. Disposition: Patient prognosis is improving with significant noted improvement in neurological function however with possibility for significant residual deficits, with successful extubation on 03/03 patient will likely require 3-5 days of inpatient management prior to discharge to pen[facility] facility. Pain Evaluation: Adequate Pain Control GI Prophylaxis: H2 maddison VTE Prophylaxis: Sub-Q Heparin (Unfractionated) VTE Mechanical Devices: Intermittant Pneumatic CD Resuscitation Status: CPR: Attempt Resuscitation Attending Statement The patient was seen and examined together with Dr. Carvalho on 03/06/2017 and I agree with the history, exam and plan as outlined in the note above. . Alcon Carvalho DO Mar 06, 2017 19:27 Kai Guallpa MD Mar 08, 2017 07:48
--- NOTE | 2017-03-06 19:54 | DRSVH ---
PROCEDURE: X-RAY CHEST ONE VIEW, PORTABLE ([id number]) INDICATIONS: For new leads placed TECHNIQUE: One view of the chest was acquired. COMPARISON: [facility], CR, XR CHEST 1VW (PORTABLE), 03/05/2017, 10:48. FINDINGS: Surgical changes and devices: Dual chamber cardiac pacemaking device and leads appear normal. Lungs and pleura: No pleural effusions or pneumothorax. Lungs are clear. Mediastinum: Mediastinal contours appear normal. Heart size is normal. Bones and chest wall: No suspicious bony lesions. Overlying soft tissues appear unremarkable. IMPRESSION: No pneumothorax after pacemaker placement. Dictated by: Marcial Kohli M.D. on 03/06/2017 at 19:51 Approved by: Marcial Kohli M.D. on 03/06/2017 at 19:52
--- NOTE | 2017-03-06 19:54 | NUR ---
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 Patient denies pain. Family at bedside. No bleeding or hematoma at incision site. Chest XRay and ECG complete. Report to receiving RN. Transferred back to room 2019 at 1950.
[2017-03-06] MEDS: 0.9% Sodium Chloride 1,000 ML IV SCH (20:40)
--- NOTE | 2017-03-06 22:41 | NUR ---
Post AICD: Pt returned to room per bed at 1950. Insertion site dressing is clean/dry/intact pt currently denies any pain. very little swelling noted to site. Ice pack is in place. Pt instructed on the limited use of left arm and the use of arm sling when out of bed.
--- NOTE | 2017-03-06 23:38 | OP ---
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 POSTOPERATIVE DIAGNOSIS(ES): Ventricular fibrillation arrest. PROCEDURES PERFORMED: 1. Dual-chamber internal cardioverter-defibrillator implantation. 2. Defibrillation threshold testing. 3. Fluoroscopy. SURGEON: Alex Martinez MD, Electrophysiology. INTERNAL MEDICINE PHYSICIAN ASSISTANT: Liliana Ordaz. IMPLANTED DEVICE: 1. [employer] pulse generator model [id number], serial number [id number]. 2. Right atrial lead [employer] 2088TC, 52 cm, serial number [id number]. 3. RV lead [employer] 7122Q, 65 cm, serial number [id number]. ANESTHESIA: Bolus dosing of Versed and fentanyl were utilized for an appropriate level of sedation. Brevital was utilized for defibrillation threshold testing. INDICATION: The patient is a very pleasant 31-year-old woman with a structurally normal heart, has long QT syndrome. She sustained ventricular fibrillation arrest. After discussion of risks and benefits of secondary prevention of ICD implantation she opted to proceed. PROCEDURE DESCRIPTION: Following informed consent, the patient was taken to the EP laboratory in a fasting nonsedated state, where she was prepped and draped in usual sterile fashion. The left infraclavicular region was infiltrated with 40 cc of a 50/50 mixture bupivacaine and lidocaine. Once adequate anesthesia had been achieved, a 3 cm transverse incision was performed 2 cm below the left clavicle. Dissection was carried down to the pectoralis fascia and a pocket was then fashioned using combination of electrocautery and blunt dissection. Once adequate hemostasis had been achieved, access to the left axillary vein was done with a micropuncture needle over the first rib twice to deploy two 0.035, 3 mm J guidewires. Over the first of these, a 7-Maldivian tear-away sheath was advanced. Once the guidewire was removed, an active fixation ICD lead was advanced to the RV outflow tract and ultimately the RV apex. The lead was affixed in position using its associated active fixation screw. It was connected to the external analyzer and demonstrated appropriately sensed R waves, impedance, capture threshold. The lead was checked to 10 V, and there was no evidence of diaphragmatic stimulation. Attention was now paid to the right atrial lead. Over the previously deployed J guidewire, a 6-Maldivian tear-away sheath was advanced. Once the guidewire was removed an active fixation lead was advanced to the right atrial appendage. This was affixed in position using associated active fixation screw. The lead was connected to the external analyzer and demonstrated appropriately sensed P waves, impedance, capture threshold. The lead was checked to 10 V, and there was no evidence of diaphragmatic stimulation. Of note the RA lead did have to be repositioned once for increasing threshold. Once the position and redundancy of both leads had been confirmed in multiple fluoroscopic views, the leads were anchored to the prepectoralis fascia using their associated anchoring sleeves and two Ethibond sutures. The pocket was then copiously irrigated with antibiotic solution. The leads were connected to a generator, placed into the pocket, and affixed to the floor of the pocket using 1-0 Ti-Cron suture. The incision was closed with running layers of absorbable suture. The wound was dressed with skin adhesive and dressing. At the end of procedure, the needle, sponge and instrument counts were all correct. The patient was prepared for defibrillation threshold testing. After adequate sedation and using the protocol and the [employer] analyst consultant, ventricular fibrillation was induced. The patient's self-terminated and another episode of ventricular fibrillation was induced at a cycle length of 195 msec. The device sensed appropriately, converted the patient to sinus rhythm with a 25 joule shock. Charge time was 5.4 seconds, impedance was 66 ohms. COMPLICATIONS: None. ESTIMATED BLOOD LOSS: 10 cc. DEVICE MEASURED DATA: 1. Right atrial lead 1.5 mV, 540 ohms, 0.75 V at 0.5 msec. 2. RV lead 11.4 mV, 610 ohms, 0.5 V at 0.5 msec. FINAL PROGRAM PARAMETERS: 1. DDD 60-130 beats per minute. 2. VF zone at 186 beats per minute with ATP during charge followed by shocks. 3. VT2 zone at 171 beats per minute with six rounds of ATP followed by shocks. 4. VT monitor zone at 150 beats per minute. IMPRESSION: Successful dual-chamber internal cardioverter-defibrillator implantation with defibrillation threshold testing. PLAN: 1. Stat portable chest x-ray. 2. PA and lateral chest x-ray in the morning. 3. Device interrogation in the morning. 4. IV vancomycin through tomorrow. 5. Doxycycline x7 days starting tomorrow. 6. Wound check one week. ATTENDING STATEMENT: Alex Martinez MD, electrophysiology attending, was present for and supervised/performed all aspects of this procedure.
[2017-03-07] VITALS (7 sets, daily range): BP systolic 106–124; BP diastolic 56–77; PULSE 70–75; RESP 16–22; O2SAT 90–100
--- NOTE | 2017-03-07 00:08 | NUR ---
Transfer to PCC; Pt recovered from AICD insertion and down graded to PCC status. Report given to Vanda Aguayo RN.
[2017-03-07] MEDS: Sodium Chloride LOK Flush 10 mL Syringe IVFLUSH SCH ×4 (00:28→23:50)
--- NOTE | 2017-03-07 04:33 | NUR ---
PO Intake/Pain/Respiratory Pt tolerated PO intake with no s/s of aspiration. Pt c/o pain 8/10 at the incision site on the left shoulder. Pt tried to take the liquid Tylenol but could not tolerate the taste and requested Tylenol in pill form. MD was paged and the order for Tylenol was placed for 650mg pill form vs the liquid. Pt also has requested to put ice on the incision site and says that it too helps with the pain. The incision site dressing is clean, dry, and intact and the site shows no signs of swelling or redness. Pt has begun to cough more frequently. Pt is currently on RA with SpO2 >92%.
[2017-03-07 05:34] LABS: BASOPHILS % (AUTO) 0.6 % (0-3); EOSINOPHILS % (AUTO) 2.7 % (0-5); Mean Corpuscular Hemoglobin 30.8 pg (27.0-35.0); Mean Corpuscular Volume 93.8 fL (81-100); NEUTROPHILS % (AUTO) 53.5 % (40-74); Platelet Count 355 bil/L (150-400)
[2017-03-07 05:40] LABS: Magnesium 1.8 mg/dL (1.6-2.6); Phosphorus 3.2 mg/dL (2.5-4.9)
[2017-03-07] MEDS ORDERED: Vancomycin Inj 1,000 MG in IV Premix 1 EACH IV ONE (06:30)
[2017-03-07] MEDS: 0.9% Sodium Chloride 1,000 ML IV SCH ×2 (06:46→18:20)
[2017-03-07] MEDS ORDERED: diphenhydrAMINE-Zinc 2%-0.1% 30 Gm Cream TOPICAL PRN (07:55)
[2017-03-07] MEDS: Famotidine Inj 20 MG in IV Premix 1 EACH IV SCH ×2 (08:33→19:54)
[2017-03-07] MEDS: Propranolol LA 60 mg ER24 Capsule PO SCH (09:30)
--- NOTE | 2017-03-07 11:08 | DRSVH ---
PROCEDURE: X-RAY CHEST ONE VIEW, PORTABLE ([id number]) INDICATIONS: POST PACEMAKER, SHORT OF BREATH TECHNIQUE: One view of the chest was acquired. COMPARISON: [facility], CR, XR CHEST 1VW (PORTABLE), 03/06/2017, 19:15. FINDINGS: Surgical changes and devices: Stable positioning of left chest AICD. Lungs and pleura: No pleural effusions or pneumothorax. Lungs are clear. Mediastinum: Mediastinal contours appear normal. Heart size is normal. Bones and chest wall: No suspicious bony lesions. Overlying soft tissues appear unremarkable. IMPRESSION: Stable chest post pacer placement. Dictated by: Ananth Curiel [facility] Interpreted: Nazario Cr MD on 03/07/2017 at 8:16 Approved by: Nazario Cr M.D. on 03/07/2017 at 11:06
--- NOTE | 2017-03-07 13:05 | PCM.PNMED ---
Subjective Date of Service Mar 07, 2017 Subjective Subjective: Patient states she is feeling relatively well today, complains of increased itching in the right arm, post vancomycin infusion. Patient was treated with Benadryl cream. Otherwise patient appears to be interacting appropriately and continues to be similar to previous days. Events Overnight: No acute events overnight. ROS: Denies fever/chills, nausea/vomiting, headache, weakness, abdominal pain, chest pain, shortness of breath, increased swelling in hands or feet. Exam Vital Signs Vital Sign - Last Date Time Temp Pulse Resp B/P Pulse Ox O2 Delivery O2 Flow Rate FiO2 03/07/17 08:01 36.8 75 18 124/67 90 Room Air 03/06/17 19:42 2.00 30 Intake and Output 03/06/17 03/06/17 03/07/17 Cumulative From/Thru 15:00 23:00 07:00 02/22/17 13:36 - 03/07/17 06:43 Intake Total 896 ml 100 ml 11360 ml Output Total 450 ml 700 ml 54663 ml Balance 446 ml -600 ml -163 ml Intake Oral 100 ml 550 ml IV Total 896 ml 26004 ml Tube Feeding 1465 ml Tube Irrigant 560 ml Output Urine Total 450 ml 700 ml 72558 ml Stool Total 500 ml Gastric Drainage Total 2090 ml Emesis 300 ml # Bowel Movements 8 Exam General: No acute distress, well-developed, well-nourished Head: Normocephalic, atraumatic. External ears without defect. Eyes: Pupils equal, round, and reactive to light. Anicteric sclerae, injected conjunctivae. Cardiovascular: Regular rate and rhythm with no murmurs, rubs, or gallops appreciated Pulmonary: Clear to auscultation, no wheezes, rales, or rhonchi. Normal respiratory effort with no use of accessory muscles. Abdomen: Bowel tones present. Soft, obese nondistended. Extremities: No clubbing, cyanosis, trace edema Skin: Normal temperature, turgor, and texture; no rash, ulcers, or subcutaneous nodules appreciated. Neurological: Slurring of speech, decreased visual acuity, slowed mentation Psychiatric: Difficult to assess however patient appears appropriate at this time, alert and oriented 3 IVs and Medications Medications Reviewed: Medications were reviewed in detail Lab and Diagnostics Result Diagram: 03/07/17 0528 03/07/17 0446 X-Rays, CTs and MRIs CT BRAIN WITHOUT CONTRAST IMPRESSION: 1. No acute intracranial process. 2. Scattered ethmoid and sphenoid sinus fluid Approved by: Mikaela Davila M.D. on 02/22/2017 at 15:02 CT BRAIN WITHOUT CONTRAST IMPRESSION: No acute process. Dictated by: Cruz Morley M.D. on 02/25/2017 at 15:38 Approved by: Cruz Morley M.D. on 02/25/2017 at 15:39 CT BRAIN WITHOUT CONTRAST IMPRESSION: Limited evaluation demonstrating no acute process. Dictated by: Cruz Morley M.D. on 02/28/2017 at 13:02 Approved by: Cruz Morley M.D. on 02/28/2017 at 13:02 MRI BRAIN WITH AND WITHOUT CONTRAST IMPRESSION: 1. No acute intracranial findings. Specifically, no increased restricted diffusion to suggest acute or subacute infarct. Dictated by: Jaqueline Montes De Oca M.D. on 03/04/2017 at 19:34 Assessment & Plan 31-year-old female patient with past medical history significant for triple X syndrome([id number]), chronic anxiety, depression, and previous cardiac arrest in 2011 who presents to the ED via EMS as a result of cardiac arrest. Acute anoxic encephalopathy secondary to cardiac arrest, present on admission, active - Patient continues to make slow progression from a neurologic standpoint. - Neurology (Dr. Marc) is following - MRI completed 03/04 shows no focal findings - Patient answering questions appropriately at this time, patient complains of decreased visual acuity bilaterally - Prognosis appears to be improving however patient is likely to have some prolonged functional limitations - Multiple EEG studies, most recent showing possible seizure activity Acute cardiac arrest, present on arrival, stable Prior episode in 2011 at [place] suspected due to long QT syndrome secondary to polypharmacy - Keep magnesium >2, potassium >4 - Cardiology consulted, AICD placement 03/06 - Amiodarone discontinued per recommendations of Dr. Martinez - Single-dose vancomycin given 03/07 - Continue doxycycline for 7 days Acute hypoxemic respiratory distress, present on arrival, resolved Patient unconscious on arrival, required intubation by EMS - Patient initially sedated with Propofol and fentanyl - No sedation currently, patient continues to have minimal neurologic activity. - Extubation successful 03/03 - Currently saturating well on room air Acute pneumonia likely secondary to aspiration, present on arrival, resolved - Given leukocytosis with elevated procalcitonin and Chest x-ray consistent with pneumonia - Blood cultures 4 negative - Sputum cultures showed normal erin - Prophylactic Zosyn discontinued Elevations in liver enzymes, present on arrival, resolved Likely due to hypoperfusion secondary to cardiac arrest Lactic acidosis, present on arrival, Resolved Likely secondary to stress reaction in conjunction with cardiac hypoperfusion Acute Hyperglycemia, present on arrival, resolved - Glucose on admission 233 - No prior history of diabetes - A1c 5.8 - Continue to monitor glucose Chronic pain, presumed stable - Resume home medications as needed Chronic Anxiety/depression Cannot rule out suicide attempt/overdose, mother states prior history of suicidal ideation without a plan or previous attempts. - Previously taking Aripiprazole 5 mg, Lamotrigine 200 mg, Prozac 20 mg, this was verified by outpatient pharmacy on 03/04 - Restart home medications if patient displays symptoms of anxiety - I would be very hesitant to restart home meds at this time due to recurrent Vtach. - Especially given the patient's neurologic status, it is highly likely that the patient will present much differently from a psychiatric standpoint, and I would hesitate to reinitiate medications that may or may not be useful Triple X syndrome, presumed stable - No known correlation with cardiac arrhythmia or cardiac arrest. - Consider other genetic phenomena as possible explanations to cardiac arrest/ arrhythmias - Per cardiology, possible channelopathy which would be treated with ICD placement. Disposition: Patient prognosis is improving with significant noted improvement in neurological function however with possibility for significant residual deficits. With successful extubation on 03/03 patient will likely require 3-5 days of inpatient management prior to discharge to senior care facility. GI Prophylaxis: H2 maddison VTE Prophylaxis: Sub-Q Heparin (Unfractionated) VTE Mechanical Devices: Intermittant Pneumatic CD Resuscitation Status: CPR: Attempt Resuscitation Attending Statement The patient was seen and examined together with Dr. Carvalho on 03/07/2017 and I agree with the history, exam and plan as outlined in the note above. . Alcon Carvalho DO Mar 07, 2017 09:36 Kai Guallpa MD Mar 08, 2017 07:49
--- NOTE | 2017-03-07 13:53 | NUR ---
Activity Patient alert and talking with mother. VSS. Maintaining SpO2 in the mid 90s on RA. Worked with PT, performing leg excersises, sitting at edge of bed and transferred to commode and back to bed, VSS remained WNL. Will encourage patient to keep moving as much as possible.
--- NOTE | 2017-03-07 14:02 | NUR ---
NUTRITION FOLLOW-UP: Assess: 31 YO F admitted to CCU following cardiac arrest, requiring intubation, now status post hypothermia protocol. Pt was able to be extubated 03/03. TF is off. ST cleared pt for pureed diet with HT liquids. She has been on and off NPO status for procedures. She is s/p AICD placement. Neurology is following. Plan for repeat EEG today. Pt reported that she is very happy with the meals and that everything tastes great. She has a good appetite but she gets full quickly. She has been able to tolerate ~50% of meals. PMHX: V-tach, Triple X syndrome, anxiety, depression, cardiac arrest. DIET: Puree, HT, PO 50% LABS: Reviewed. CO2 17, Bun 21, Glu 117, alb 3.5 MEDICATIONS: Reviewed. GI: BM x1 03/06 SKIN: No issues noted. ANTHROPOMETRICS: Wt: 116.9kg, BMI 34.0kg/m2, Admit: 130.0 kg, IBW: 75.0 kg. ESTIMATED NEEDS: BMI Calories: 2325-2560kcal/day (20-22 kcal/kg BW) Protein: 90-115g/day (1.2-1.5g/kg IBW) NUTRITION DIAGNOSIS: 1) Inadequate oral intake related to decreased ability to consume sufficient energy as evidenced by NPO/Vent status - IMPROVING 2) Chew/swallow difficulty related to dysphagia and prolonged intubation as evidence by need for pureed diet order with HT liquids per ST--PERSISTS INTERVENTION: 1) Continue diet per ST. Pt stated that she likes that carrera Gelatein so will continue to send it at dinner and pt agreed to try Vanilla Ensure at lunch. Encouraged pt to eat small, more frequent meals and to snack on the Ensure and Gelatein btwn meals if she gets too full during meals. MONITOR/EVALUATE: PO intake/tolerance, ST, wt, GI, POC, labs, nutrition status. Follow per moderate nutrition risk guidelines.
--- NOTE | 2017-03-07 14:08 | NUR ---
INPATIENT REHAB REFERRAL : Faxed referral to [facility] and [facility] Updated SLEEVE SEPARATOR Addendum: 03/07/17 at 1550 by WEI DENIS [facility] can clinically accept patient, she is following up with patient's mother and will work on insurance authorization. Updated SLEEVE SEPARATOR and let her know [facility] Updated SLEEVE SEPARATOR [employer]
--- NOTE | 2017-03-07 15:14 | NUR ---
Evaluation completed. Please go to "Notes" then click on "Assessments and Notes" (bottom left corner of screen). Then select appropriate discipline tab on top of screen.
--- NOTE | 2017-03-07 17:56 | NUR ---
Social Work: Brief Note Patient has been accepted to [facility]. AUGUSTIN received a call from facility stating that authorization will be started. SW informed patient and mother who was at bedside. SW informed them insurance will provided update regarding auth on Friday at the earliest. Mother states that she would like to be updated on Friday with status of discharge and transfer. AUGUSTIN will continue to follow. JUAN Escalante
--- NOTE | 2017-03-07 18:21 | NUR ---
Transfer Patient transferred to room 2030 via bed with all personal belongings. Tolerated room well. Vitals WNL. Mother at bedside and call light within reach.
[2017-03-08] VITALS (11 sets, daily range): BP systolic 103–131; BP diastolic 66–76; PULSE 71–79; RESP 16–20; O2SAT 94–96
--- NOTE | 2017-03-08 07:19 | NUR ---
Pain Pt c/o 12/30 LT chest discomfort where pacemaker was inserted. Redness noted to site without drainage or opening noted. Tylenol 650mg given and Ice pack which was helpful per pt. Pt requested more Tylenol, but time not allotted. Offered to contact the MD for another pain medication and the patient requested to wait until time allowed. IV therapy contacted for new IV, due to occlusion of previous site. VSS. Care continues.
[2017-03-08] MEDS: Propranolol LA 60 mg ER24 Capsule PO SCH (08:20)
[2017-03-08] MEDS: Sodium Chloride LOK Flush 10 mL Syringe IVFLUSH SCH ×3 (08:30→23:13)
[2017-03-08] MEDS ORDERED: oxyCODONE-Acetamin 5-325 mg Tablet PO PRN (09:15)
[2017-03-08] MEDS: 0.9% Sodium Chloride 1,000 ML IV SCH ×2 (09:51→23:12)
[2017-03-08] MEDS: levETIRAcetam 500 mg Tablet PO SCH ×2 (10:53→20:57)
--- NOTE | 2017-03-08 20:07 | PCM.PNMED ---
Subjective Date of Service Mar 08, 2017 Subjective Subjective: Patient states that she is doing relatively well, we discussed the rash overnight, which is likely related to vancomycin. The patient had multiple questions about plans for discharge from the hospital which I was able to answer. Events Overnight: Patient complains of itching rash which started on the arm a couple of days ago while receiving vancomycin, and progressively to the right face and chest. This became acute overnight although subsequently resolved. ROS: Denies fever/chills, nausea/vomiting, headache, weakness, abdominal pain, chest pain, shortness of breath, increased swelling in hands or feet. Exam Vital Signs Vital Sign - Last Date Time Temp Pulse Resp B/P Pulse Ox O2 Delivery O2 Flow Rate FiO2 03/08/17 13:06 37.1 75 18 113/73 96 Room Air 03/07/17 11:35 1.00 03/06/17 19:42 30 Intake and Output 03/07/17 03/07/17 03/08/17 Cumulative From/Thru 15:00 23:00 07:00 02/22/17 13:36 - 03/08/17 06:22 Intake Total 2294 ml 1103 ml 67150 ml Output Total 790 ml 950 ml 06220 ml Balance 1504 ml 153 ml 1494 ml Intake Oral 420 ml 0 ml 970 ml IV Total 1874 ml 1083 ml 52555 ml Tube Feeding 1465 ml Tube Irrigant 20 ml 580 ml Output Urine Total 790 ml 950 ml 08758 ml Stool Total 500 ml Gastric Drainage Total 2090 ml Emesis 300 ml # Bowel Movements 1 9 Exam General: No acute distress, well-developed, well-nourished Head: Normocephalic, atraumatic. External ears without defect. Eyes: Pupils equal, round, and reactive to light. Anicteric sclerae, injected conjunctivae. Cardiovascular: Regular rate and rhythm with no murmurs, rubs, or gallops appreciated Pulmonary: Clear to auscultation, no wheezes, rales, or rhonchi. Normal respiratory effort with no use of accessory muscles. Abdomen: Bowel tones present. Soft, obese nondistended. Extremities: No clubbing, cyanosis, trace edema Skin: Normal temperature, turgor, and texture; no rash, ulcers, or subcutaneous nodules appreciated. Neurological: Speech is slurred though slow and meticulous, decreased visual acuity, slowed mentation, slow daily progression Psychiatric: Difficult to assess however patient appears appropriate at this time, alert and oriented 3 IVs and Medications Medications Reviewed: Medications were reviewed in detail Lab and Diagnostics Result Diagram: 03/08/1734403/08/17344 X-Rays, CTs and MRIs CT BRAIN WITHOUT CONTRAST IMPRESSION: 1. No acute intracranial process. 2. Scattered ethmoid and sphenoid sinus fluid Approved by: Mikaela Davila M.D. on 02/22/2017 at 15:02 CT BRAIN WITHOUT CONTRAST IMPRESSION: No acute process. Dictated by: Cruz Morley M.D. on 02/25/2017 at 15:38 Approved by: Cruz Morley M.D. on 02/25/2017 at 15:39 CT BRAIN WITHOUT CONTRAST IMPRESSION: Limited evaluation demonstrating no acute process. Dictated by: Cruz Morley M.D. on 02/28/2017 at 13:02 Approved by: Cruz Morley M.D. on 02/28/2017 at 13:02 MRI BRAIN WITH AND WITHOUT CONTRAST IMPRESSION: 1. No acute intracranial findings. Specifically, no increased restricted diffusion to suggest acute or subacute infarct. Dictated by: Jaqueline Montes De Oca M.D. on 03/04/2017 at 19:34 Assessment & Plan 31-year-old female patient with past medical history significant for triple X syndrome([id number]), chronic anxiety, depression, and previous cardiac arrest in 2011 who presents to the ED via EMS as a result of cardiac arrest. Acute anoxic encephalopathy secondary to cardiac arrest, present on admission, active - Patient continues to make slow progression from a neurologic standpoint. - Neurology (Dr. Marc) is following - MRI completed 03/04 shows no focal findings - Patient answering questions appropriately at this time, patient complains of decreased visual acuity bilaterally - Prognosis appears to be improving however patient is likely to have some prolonged functional limitations - Multiple EEG studies, most recent showing possible seizure activity - Continue Kera Acute cardiac arrest, present on arrival, stable Prior episode in 2011 at [place] suspected due to long QT syndrome secondary to polypharmacy - Keep magnesium >2, potassium >4 - Cardiology consulted, AICD placement 03/06 - Amiodarone discontinued per recommendations of Dr. Martinez - Single-dose vancomycin given 03/07 - Continue doxycycline for 7 days Acute hypoxemic respiratory distress, present on arrival, resolved Patient unconscious on arrival, required intubation by EMS - Patient initially sedated with Propofol and fentanyl - Extubation successful 03/03 - Currently saturating well on room air Acute pneumonia likely secondary to aspiration, present on arrival, resolved - Given leukocytosis with elevated procalcitonin and Chest x-ray consistent with pneumonia - Blood cultures 4 negative - Sputum cultures showed normal erin - Prophylactic Zosyn discontinued Elevations in liver enzymes, present on arrival, resolved Likely due to hypoperfusion secondary to cardiac arrest Lactic acidosis, present on arrival, Resolved Likely secondary to stress reaction in conjunction with cardiac hypoperfusion Acute Hyperglycemia, present on arrival, resolved - Glucose on admission 233 - No prior history of diabetes - A1c 5.8 - Continue to monitor glucose Chronic pain, presumed stable - Resume home medications as needed Chronic Anxiety/depression Cannot rule out suicide attempt/overdose, mother states prior history of suicidal ideation without a plan or previous attempts. - Previously taking Aripiprazole 5 mg, Lamotrigine 200 mg, Prozac 20 mg, this was verified by outpatient pharmacy on 03/04 - Restart home medications if patient displays symptoms of anxiety - I would be very hesitant to restart home meds at this time due to recurrent Vtach. - Especially given the patient's neurologic status, it is highly likely that the patient will present much differently from a psychiatric standpoint, and I would hesitate to reinitiate medications that may or may not be useful - Psychiatric consult pending Triple X syndrome, presumed stable - No known correlation with cardiac arrhythmia or cardiac arrest. - Consider other genetic phenomena as possible explanations to cardiac arrest/ arrhythmias - Per cardiology, possible channelopathy which would be treated with ICD placement. Disposition: Patient prognosis is improving with significant noted improvement in neurological function however with possibility for significant residual deficits. With successful extubation on 03/03 patient will likely require 3-5 days of inpatient management prior to discharge to nursing home facility. GI Prophylaxis: H2 maddison VTE Prophylaxis: Sub-Q Heparin (Unfractionated) VTE Mechanical Devices: Intermittant Pneumatic CD Resuscitation Status: CPR: Attempt Resuscitation Attending Statement The patient was seen and examined together with Dr. Carvalho on 03/08/2017 and I agree with the history, exam and plan as outlined in the note above. . Alcon Carvalho DO Mar 08, 2017 13:57 Kai Guallpa MD Mar 09, 2017 08:12
[2017-03-09] VITALS (10 sets, daily range): BP systolic 113–130; BP diastolic 66–83; PULSE 75–84; RESP 16–18; O2SAT 93–95
--- NOTE | 2017-03-09 03:12 | NUR ---
neuro pt alert/oriented to self and year, no place, kathryn, delayed response in speech and movement to commands, tele- apaced, tylenol given for left chest musculoskeletal pains with movement, left upper chest inc cdi, see assessment charting,
[2017-03-09] MEDS: Propranolol LA 60 mg ER24 Capsule PO SCH (09:18)
[2017-03-09] MEDS: levETIRAcetam 500 mg Tablet PO SCH ×2 (09:18→19:58)
[2017-03-09] MEDS: Sodium Chloride LOK Flush 10 mL Syringe IVFLUSH SCH ×2 (09:18→16:29)
[2017-03-09] MEDS: 0.9% Sodium Chloride 1,000 ML IV SCH ×3 (09:18→20:08)
--- NOTE | 2017-03-09 16:00 | NUR ---
Neuro/doyle/nutrition pt alert and oriented to self, loosely to place and time. pt able to make needs known. speech continues to be slow. pt states vision slightly improved. maes. doyle discontinued, awaiting patient to void. collaboration with PT on getting pt to chair for meals or bsc. pt tolerating meals and motivated for self care. care continues.
--- NOTE | 2017-03-09 17:16 | NUR ---
/activity pt able to transfer from bed to bsc with 2pa and fww. voided yellow urine with difficulty. pt with high motivation for self care. pt up in chair for dinner. care continues.
--- NOTE | 2017-03-09 21:21 | PCM.PNMED ---
Subjective Date of Service Mar 09, 2017 Subjective Overnight: No acute events Today: Patient understands that she will be likely transferred to [facility] rehabilitation for continued therapy. The patient states that her vision does not feel improved at all day prior. She is able to some of the images on the screen. All questions were answered. Exam Vital Signs Vital Sign - Last Date Time Temp Pulse Resp B/P Pulse Ox O2 Delivery O2 Flow Rate FiO2 03/09/17 06:07 77 03/09/17 04:25 37.0 16 130/83 95 Room Air 03/07/17 11:35 1.00 03/06/17 19:42 30 Intake and Output 03/08/17 03/08/17 03/09/17 Cumulative From/Thru 15:00 23:00 07:00 02/22/17 13:36 - 03/09/17 05:54 Intake Total 669 ml 1352 ml 60337 ml Output Total 1600 ml 700 ml 27788 ml Balance -931 ml 652 ml 1215 ml Intake Oral 120 ml 120 ml 1210 ml IV Total 549 ml 1232 ml 41662 ml Tube Feeding 1465 ml Tube Irrigant 580 ml Output Urine Total 1600 ml 700 ml 34483 ml Stool Total 500 ml Gastric Drainage Total 2090 ml Emesis 300 ml # Bowel Movements 1 0 10 Exam General: Young female in no acute distress, well-developed, well-nourished Eyes: Pupils equal, round, and reactive to light. Mild disconjugate gaze noted but with intact extraocular motion Anicteric sclerae, injected conjunctivae. Head: Normocephalic, atraumatic. External ears without defect. Cardiovascular: Regular rate and rhythm with no murmurs, rubs, or gallops appreciated Pulmonary: Clear to auscultation, no wheezes, rales, or rhonchi. Normal respiratory effort with no use of accessory muscles. Pacer incision site is clean and dry without drainage or fluctuance Abdomen: Bowel tones present. Soft, obese nondistended. Extremities: No clubbing, cyanosis, trace edema Skin: Normal temperature, turgor, and texture; no rash, ulcers, or subcutaneous nodules appreciated. MSK: Strength intact bilaterally at museum preparator, bicep, tricep, plantar and dorsi flexion Neurological: Cranial nerves III through XII intact, decreased visual acuity with noted decreased visual phan in right eye, Speech is slurred though slow and meticulous, slowed mentation, notable dysdiadochokinesia in upper and lower extremities bilaterally worse in the left Psychiatric: Difficult to assess however patient appears appropriate at this time, alert and oriented 3 Lab and Diagnostics Result Diagram: 03/09/1741903/09/[id number] X-Rays, CTs and MRIs CT BRAIN WITHOUT CONTRAST IMPRESSION: 1. No acute intracranial process. 2. Scattered ethmoid and sphenoid sinus fluid Approved by: Mikaela Davila M.D. on 02/22/2017 at 15:02 CT BRAIN WITHOUT CONTRAST IMPRESSION: No acute process. Dictated by: Cruz Morley M.D. on 02/25/2017 at 15:38 Approved by: Cruz Morley M.D. on 02/25/2017 at 15:39 CT BRAIN WITHOUT CONTRAST IMPRESSION: Limited evaluation demonstrating no acute process. Dictated by: Cruz Morley M.D. on 02/28/2017 at 13:02 Approved by: Cruz Morley M.D. on 02/28/2017 at 13:02 MRI BRAIN WITH AND WITHOUT CONTRAST IMPRESSION: 1. No acute intracranial findings. Specifically, no increased restricted diffusion to suggest acute or subacute infarct. Dictated by: Jaqueline Montes De Oca M.D. on 03/04/2017 at 19:34 Assessment & Plan 31-year-old female patient with past medical history significant for triple X syndrome([id number]), chronic anxiety, depression, and previous cardiac arrest in 2011 who presents to the ED via EMS as a result of cardiac arrest. Acute anoxic encephalopathy secondary to cardiac arrest, present on admission, active - Patient continues to make slow progression from a neurologic standpoint. - Neurology (Dr. Marc) is following - MRI completed 03/04 shows no focal findings - Patient answering questions appropriately at this time, patient complains of decreased visual acuity bilaterally - Prognosis appears to be improving however patient is likely to have some prolonged functional limitations - Multiple EEG studies, most recent showing possible seizure activity, neurology plans to repeat EEG on March 10 for evaluation of improvement on antiseizure medication - Continue Keppra 500 twice a day - Patient to be discharged to [facility] rehabilitation for extensive PT OT Acute cardiac arrest secondary to prolonged QT and possible torsades, present on arrival, stable - Patient presented with prolonged QT in the 600s at admission, which resolved with discontinuation of home antidepressant medications - Prior episode in 2011 at [facility] suspected due to 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 Martinez - Propranolol HCL 60 mg Acute hypoxemic respiratory distress, present on arrival, resolved Patient unconscious on arrival, required intubation by EMS - Patient initially sedated with Propofol and fentanyl - Extubation successful 03/03 - Currently saturating well on room air Acute pneumonia likely secondary to aspiration, present on arrival, resolved - Given leukocytosis with elevated procalcitonin and Chest x-ray consistent with pneumonia - Blood cultures 4 negative - Sputum cultures showed normal erin - Prophylactic Zosyn discontinued Elevations in liver enzymes, present on arrival, resolved Likely due to hypoperfusion secondary to cardiac arrest Lactic acidosis, present on arrival, Resolved Likely secondary to stress reaction in conjunction with cardiac hypoperfusion Acute Hyperglycemia, present on arrival, resolved - Glucose on admission 233 - No prior history of diabetes - A1c 5.8 - Continue to monitor glucose Chronic pain, presumed stable - Resume home medications as needed Chronic Anxiety/depression Cannot rule out suicide attempt/overdose, mother states prior history of suicidal ideation without a plan or previous attempts. - Previously taking Aripiprazole 5 mg, Lamotrigine 200 mg, Prozac 20 mg, this was verified by outpatient pharmacy on 03/04 - Cardiology recommendations to avoid QT prolonging antidepressant medications at this time due to recurrent Vtach/torsades - Psychiatric consult pending - Patient will be monitored at inpatient neuro rehabilitation in [facility] and will likely need further evaluation by neurology as well as psychiatry Triple X syndrome, presumed stable - No known correlation with cardiac arrhythmia or cardiac arrest. - Consider other genetic phenomena as possible explanations to cardiac arrest/ arrhythmias - Per cardiology, possible channelopathy which would be treated with ICD placement. Disposition: Patient is likely to be discharged to inpatient rehabilitation at [facility] for continued PT/OT and neuro/psych evaluation GI Prophylaxis: H2 maddison VTE Prophylaxis: Sub-Q Heparin (Unfractionated) VTE Mechanical Devices: Intermittant Pneumatic CD Resuscitation Status: CPR: Attempt Resuscitation Attending Statement The patient was seen and examined together with Dr. Petersen on 03/09/2017 and I agree with the history, exam and plan as outlined in the note above. Saul Petersen DO Mar 09, 2017 07:59 Kai Guallpa MD Mar 13, 2017 10:16
[2017-03-10] VITALS (10 sets, daily range): BP systolic 104–139; BP diastolic 70–84; PULSE 72–79; RESP 16–20; O2SAT 94–100
[2017-03-10] MEDS: Sodium Chloride LOK Flush 10 mL Syringe IVFLUSH SCH ×4 (00:27→22:39)
[2017-03-10 02:49] LABS: Mean Corpuscular Hemoglobin 30.1 pg (27.0-35.0); Mean Corpuscular Volume 93.2 fL (81-100)
[2017-03-10 03:11] LABS: Magnesium 1.7 mg/dL (1.6-2.6); Phosphorus 3.5 mg/dL (2.5-4.9)
--- NOTE | 2017-03-10 04:25 | NUR ---
Activity/Tele Patient up to bedside commode with heavy two person assist and front wheel walker. Patient reports some lightheadedness with standing, but able to ambulate short distances with assistance once the lightheadedness clears. Tele: AV paced.
[2017-03-10] MEDS: 0.9% Sodium Chloride 1,000 ML IV SCH (06:34)
[2017-03-10] MEDS: Propranolol LA 60 mg ER24 Capsule PO SCH (08:09)
[2017-03-10] MEDS: levETIRAcetam 500 mg Tablet PO SCH ×2 (08:09→20:01)
--- NOTE | 2017-03-10 09:35 | NUR ---
[facility]: Called and left message for Carolyn at [facility], asking about update on authorization and when patient could be accepted. Updated METAL BOX MAKER Addendum: 03/10/17 at 0945 by WEI DENIS CM Also received call from [facility] and they do not have a Coordinated Care contract
--- NOTE | 2017-03-10 17:20 | NUR ---
Social Work: Continued Discharge Planning/Multidisciplinary Rounds D: Pt discussed in multidisciplinary rounds; the patient is not medically stable for discharge at this time but is anticipated to be ready in 1-2 days. RIPENING ROOM OPERATOR has requested Screw Machine Setter contact [facility] to determine the status of the patient's authorization with Coordinated Care. Screw Machine Setter has left a message to determine. [facility] has also left messages stating they are not in contract with [facility]. A: Pt who is improving medically but will need intensive inpatient rehab at time of discharge P: Evolving; [facility] has Accepted pending coordinated care authorization. RIPENING ROOM OPERATOR to continue to follow to coordinate discharge planning UJAN Paiz
--- NOTE | 2017-03-10 19:43 | PCM.PNMED ---
Subjective Date of Service Mar 10, 2017 Subjective Patient was seen and examined at bedside today. Patient up to bedside commode today and using walker with heavy two-person assist. Patient was nauseous this morning and received by mouth Reganne marie. Exam Vital Signs Vital Sign - Last Date Time Temp Pulse Resp B/P Pulse Ox O2 Delivery O2 Flow Rate FiO2 03/10/17 17:14 36.7 79 18 104/75 96 Room Air 03/07/17 11:35 1.00 03/06/17 19:42 30 Intake and Output 03/09/17 03/09/17 03/10/17 Cumulative From/Thru 15:00 23:00 07:00 02/22/17 13:36 - 03/10/17 06:21 Intake Total 1185 ml 1337 ml 81216 ml Output Total 275 ml 475 ml 68819 ml Balance 910 ml 862 ml 2987 ml Intake Oral 220 ml 150 ml 1580 ml IV Total 965 ml 1187 ml 84776 ml Tube Feeding 1465 ml Tube Irrigant 580 ml Output Urine Total 275 ml 475 ml 84996 ml Stool Total 500 ml Gastric Drainage Total 2090 ml Emesis 300 ml # Bowel Movements 10 Exam General: No acute distress, well-developed, well-nourished, appropriately interactive HEENT: Normocephalic, atraumatic. External ears without defect. Patient states that she sees shapes and colors but her vision is much decreased, but improved as she is able to read words. Patient is still having difficulty tracking as her right eye lags a bit compared to the right Neck: Supple with full range of motion. No jugular venous distension. No bruits. No lymphadenopathy or thyromegaly. Cardiovascular: Regular rate and rhythm with no murmurs, rubs, or gallops appreciated Pulmonary: Clear to auscultation bilaterally with no crackles, wheezes, or rhonchi. Normal respiratory effort with no use of accessory muscles. Abdomen: Bowel tones present. Soft, nontender, nondistended. No hepatosplenomegaly or masses appreciated. Extremities: No clubbing, cyanosis, edema, or lymphadenopathy appreciated. Skin: Normal temperature, turgor, and texture; no rash, ulcers, or subcutaneous nodules appreciated. Neurological: Normal muscle strength, tone, and bulk. Psychiatric: Blunted affect. Alert and oriented to person, place, and time. IVs and Medications Medications Reviewed: Medications were reviewed in detail Lab and Diagnostics Result Diagram: 03/10/17 0231 03/10/17 0231 X-Rays, CTs and MRIs CT BRAIN WITHOUT CONTRAST IMPRESSION: 1. No acute intracranial process. 2. Scattered ethmoid and sphenoid sinus fluid Approved by: Mikaela Davila M.D. on 02/22/2017 at 15:02 CT BRAIN WITHOUT CONTRAST IMPRESSION: No acute process. Dictated by: Cruz Morley M.D. on 02/25/2017 at 15:38 Approved by: Cruz Morley M.D. on 02/25/2017 at 15:39 CT BRAIN WITHOUT CONTRAST IMPRESSION: Limited evaluation demonstrating no acute process. Dictated by: Cruz Morley M.D. on 02/28/2017 at 13:02 Approved by: Cruz Morley M.D. on 02/28/2017 at 13:02 MRI BRAIN WITH AND WITHOUT CONTRAST IMPRESSION: 1. No acute intracranial findings. Specifically, no increased restricted diffusion to suggest acute or subacute infarct. Dictated by: Jaqueline Montes De Oca M.D. on 03/04/2017 at 19:34 Assessment & Plan 31-year-old female patient with past medical history significant for triple X syndrome([id number]), chronic anxiety, depression, and previous cardiac arrest in 2011 who presents to the ED via EMS as a result of cardiac arrest. Acute anoxic encephalopathy secondary to cardiac arrest, present on admission, active - Patient continues to make slow progression from a neurologic standpoint. - Neurology (Dr. Marc) is following - MRI completed 03/04 shows no focal findings - Patient answering questions appropriately at this time, patient complains of decreased visual acuity bilaterally - Prognosis appears to be improving however patient is likely to have some prolonged functional limitations - Multiple EEG studies, most recent showing possible seizure activity, neurology plans to repeat EEG for evaluation of improvement on antiseizure medication - Continue Keppra 500 twice a day - Patient to be discharged to [place] inpatient rehabilitation for extensive PT OT Acute cardiac arrest secondary to prolonged QT and possible torsades, present on arrival, stable - Patient presented with prolonged QT in the 600s at admission, which resolved with discontinuation of home antidepressant medications - Prior episode in 2011 at [place] suspected due to 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 Martinez - Propranolol HCL 60 mg Acute hypoxemic respiratory distress, present on arrival, resolved Patient unconscious on arrival, required intubation by EMS - Patient initially sedated with Propofol and fentanyl - Extubation successful 03/03 - Currently saturating well on room air Acute pneumonia likely secondary to aspiration, present on arrival, resolved - Given leukocytosis with elevated procalcitonin and Chest x-ray consistent with pneumonia - Blood cultures 4 negative - Sputum cultures showed normal erin - Prophylactic Zosyn discontinued Elevations in liver enzymes, present on arrival, resolved Likely due to hypoperfusion secondary to cardiac arrest Lactic acidosis, present on arrival, Resolved Likely secondary to stress reaction in conjunction with cardiac hypoperfusion Acute Hyperglycemia, present on arrival, resolved - Glucose on admission 233 - No prior history of diabetes - A1c 5.8 - Continue to monitor glucose Chronic pain, presumed stable - Resume home medications as needed Chronic Anxiety/depression Cannot rule out suicide attempt/overdose, mother states prior history of suicidal ideation without a plan or previous attempts. - Previously taking Aripiprazole 5 mg, Lamotrigine 200 mg, Prozac 20 mg, this was verified by outpatient pharmacy on 03/04 - Cardiology recommendations to avoid QT prolonging antidepressant medications at this time due to recurrent Vtach/torsades - Psychiatric consult pending - Patient will be monitored at inpatient neuro rehabilitation in [place] and will likely need further evaluation by neurology as well as psychiatry Triple X syndrome, presumed stable - No known correlation with cardiac arrhythmia or cardiac arrest. - Consider other genetic phenomena as possible explanations to cardiac arrest/ arrhythmias - Per cardiology, possible channelopathy which would be treated with ICD placement. Disposition: Patient is likely to be discharged to inpatient rehabilitation at [facility] for continued PT/OT and neuro/psych evaluation GI Prophylaxis: H2 maddison VTE Prophylaxis: Sub-Q Heparin (Unfractionated) VTE Mechanical Devices: Intermittant Pneumatic CD Resuscitation Status: CPR: Attempt Resuscitation Attending Statement The patient was seen and examined together with Dr. Anguiano on 03/10/17 and I have added additional information to the note above. Herrera Anguiano DO Mar 10, 2017 19:43 Vale Hairston DO Mar 11, 2017 13:19
[2017-03-11] VITALS (9 sets, daily range): BP systolic 97–122; BP diastolic 55–75; PULSE 77–79; RESP 12–16; O2SAT 94–97
[2017-03-11] MEDS: 0.9% Sodium Chloride 1,000 ML IV SCH ×2 (02:05→09:31)
[2017-03-11 03:49] LABS: Mean Corpuscular Hemoglobin 29.9 pg (27.0-35.0); Mean Corpuscular Volume 93.4 fL (81-100)
[2017-03-11] MEDS ORDERED: KCl 40 mEq/D5W 500 mL 40 MEQ in IV Premix 1 EACH IV ONE (04:35)
--- NOTE | 2017-03-11 05:00 | NUR ---
Mobility/labs Has been up to commode twice with 1 person assist and a second standby for safety. Continues to need cuing with mobility. Alert and oriented. Speech continues to be delayed, and she still has dilated pupils, but states she feels her coordination and strength are improving. Denies pain. Tolerating meds in applesauce and nectar thick liquids without problems. K level lower than yesterday. MD notified and order received. Mother has been in room with patient.
[2017-03-11] MEDS: Sodium Chloride LOK Flush 10 mL Syringe IVFLUSH SCH ×3 (08:30→20:45)
[2017-03-11] MEDS: Propranolol LA 60 mg ER24 Capsule PO SCH (09:30)
[2017-03-11] MEDS: levETIRAcetam 500 mg Tablet PO SCH ×2 (09:30→20:45)
--- NOTE | 2017-03-11 10:31 | NUR ---
INPATIENT REHAB FOLLOW UP : Received phone call from [employer] RN Suzanne, she is working on authorization for inpatient rehab and she is needing some additional information for this patient. Spoke with [facility] RN and this will be followed up by them. Spoke with Carolyn at [facility] and they are just pending authorization from [employer]. Let her know patient may be ready for discharge today. Updated TUBULAR SPLITTING MACHINE TENDER
--- NOTE | 2017-03-11 10:49 | PCM.PNMED ---
Subjective Date of Service Mar 11, 2017 Subjective Patient denies nausea and is tolerating oral intake. She still complains of double vision. She is anticipating her transfer to [facility] for inpatient PT/ OT Exam Vital Signs Vital Sign - Last Date Time Temp Pulse Resp B/P Pulse Ox O2 Delivery O2 Flow Rate FiO2 03/11/17 09:10 122/60 03/11/17 07:39 36.6 78 12 94 Room Air 03/07/17 11:35 1.00 03/06/17 19:42 30 Intake and Output 03/10/17 03/10/17 03/11/17 Cumulative From/Thru 15:00 23:00 07:00 02/22/17 13:36 - 03/11/17 06:50 Intake Total 1837 ml 1268 ml 30998 ml Output Total 850 ml 950 ml 86979 ml Balance 987 ml 318 ml 4292 ml Intake Oral 600 ml 200 ml 2380 ml IV Total 1237 ml 1068 ml 28702 ml Tube Feeding 1465 ml Tube Irrigant 580 ml Output Urine Total 850 ml 700 ml 09584 ml Stool Total 500 ml Urine/Stool Mix 250 ml 250 ml Gastric Drainage Total 2090 ml Emesis 300 ml # Voids 3 3 # Bowel Movements 1 1 12 Exam General: No acute distress, well-developed, well-nourished, appropriately interactive HEENT: Normocephalic, atraumatic. External ears without defect. Patient states that she sees shapes and colors and has diplopia. Neck: Supple with full range of motion. No jugular venous distension. No bruits. No lymphadenopathy or thyromegaly. Cardiovascular: Regular rate and rhythm with no murmurs, rubs, or gallops appreciated Pulmonary: Clear to auscultation bilaterally with no crackles, wheezes, or rhonchi. Normal respiratory effort with no use of accessory muscles. Abdomen: Bowel tones present. Soft, nontender, nondistended. No hepatosplenomegaly or masses appreciated. Extremities: No clubbing, cyanosis, edema, or lymphadenopathy appreciated. Skin: Normal temperature, turgor, and texture; no rash, ulcers, or subcutaneous nodules appreciated. Neurological: Reduced upper extremety strength Psychiatric: Blunted affect. Alert and oriented to person, place, and time. IVs and Medications Medications Reviewed: Medications were reviewed in detail Lab and Diagnostics Result Diagram: 03/11/17 0325 03/11/17 0325 X-Rays, CTs and MRIs CT BRAIN WITHOUT CONTRAST IMPRESSION: 1. No acute intracranial process. 2. Scattered ethmoid and sphenoid sinus fluid Approved by: Mikaela Davila M.D. on 02/22/2017 at 15:02 CT BRAIN WITHOUT CONTRAST IMPRESSION: No acute process. Dictated by: Cruz Morley M.D. on 02/25/2017 at 15:38 Approved by: Cruz Morley M.D. on 02/25/2017 at 15:39 CT BRAIN WITHOUT CONTRAST IMPRESSION: Limited evaluation demonstrating no acute process. Dictated by: Cruz Morley M.D. on 02/28/2017 at 13:02 Approved by: Cruz Morley M.D. on 02/28/2017 at 13:02 MRI BRAIN WITH AND WITHOUT CONTRAST IMPRESSION: 1. No acute intracranial findings. Specifically, no increased restricted diffusion to suggest acute or subacute infarct. Dictated by: Jaqueline Montes De Oca M.D. on 03/04/2017 at 19:34 Assessment & Plan 31-year-old female patient with past medical history significant for triple X syndrome(47XXX), chronic anxiety, depression, and previous cardiac arrest in 2011 who presents to the ED via EMS as a result of cardiac arrest. Acute anoxic encephalopathy secondary to cardiac arrest, present on admission, active - Patient continues to make slow progression from a neurologic standpoint. - Neurology (Dr. Marc) is following - MRI completed 03/04 shows no focal findings - Patient answering questions appropriately at this time, patient complains of decreased visual acuity bilaterally - Prognosis appears to be improving however patient is likely to have some prolonged functional limitations - Multiple EEG studies, most recent showing possible seizure activity, neurology plans to repeat EEG for evaluation of improvement on antiseizure medication - Continue Keppra 500 twice a day - Patient to be discharged to [place] inpatient rehabilitation for extensive PT OT pending authorization from insurance Acute cardiac arrest secondary to prolonged QT and possible torsades, present on arrival, stable - Patient presented with prolonged QT in the 600s at admission, which resolved with discontinuation of home antidepressant medications - Prior episode in 2011 at [place] suspected due to long QT syndrome secondary to polypharmacy - On March 04 the patient was noted to have an episode of torsades on telemetry and was started on short acting propranolol, patient eventually coded twice overnight on March 04 requiring CPR once and defibrillation twice before again regaining sinus rhythm - Keep magnesium >2, potassium >4. 40 mEq of potassium given today brought level to 4.1 - Cardiology consulted, AICD placement 03/06, Single-dose vancomycin given 03/07, - Continue doxycycline for 7 days, wound check on March 13 - Amiodarone discontinued on 9: per recommendations of Dr. Martinez - Propranolol HCL 60 mg Acute hypoxemic respiratory distress, present on arrival, resolved Patient unconscious on arrival, required intubation by EMS - Patient initially sedated with Propofol and fentanyl - Extubation successful 03/03 - Currently saturating well on room air Acute pneumonia likely secondary to aspiration, present on arrival, resolved - Given leukocytosis with elevated procalcitonin and Chest x-ray consistent with pneumonia - Blood cultures 4 negative - Sputum cultures showed normal erin - Prophylactic Zosyn discontinued Elevations in liver enzymes, present on arrival, resolved Likely due to hypoperfusion secondary to cardiac arrest Lactic acidosis, present on arrival, Resolved Likely secondary to stress reaction in conjunction with cardiac hypoperfusion Acute Hyperglycemia, present on arrival, resolved - Glucose on admission 233 - No prior history of diabetes - A1c 5.8 - Continue to monitor glucose Chronic pain, presumed stable - Resume home medications as needed Chronic Anxiety/depression Cannot rule out suicide attempt/overdose, mother states prior history of suicidal ideation without a plan or previous attempts. - Previously taking Aripiprazole 5 mg, Lamotrigine 200 mg, Prozac 20 mg, this was verified by outpatient pharmacy on 03/04 - Cardiology recommendations to avoid QT prolonging antidepressant medications at this time due to recurrent Vtach/torsades - Psychiatric consult pending - Patient will be monitored at inpatient neuro rehabilitation in [place] and will likely need further evaluation by neurology as well as psychiatry Triple X syndrome, presumed stable - No known correlation with cardiac arrhythmia or cardiac arrest. - Consider other genetic phenomena as possible explanations to cardiac arrest/ arrhythmias - Per cardiology, possible channelopathy which would be treated with ICD placement. Disposition: Patient is likely to be discharged to inpatient rehabilitation at [facility] for continued PT/OT and neuro/psych evaluation GI Prophylaxis: H2 maddison VTE Prophylaxis: Sub-Q Heparin (Unfractionated) VTE Mechanical Devices: Intermittant Pneumatic CD Resuscitation Status: CPR: Attempt Resuscitation Attending Statement The patient was seen and examined together with Dr. Anguiano on 9/19/17 and I agree with the history, exam and plan as outlined in the note above. Herrera Anguiano DO Mar 11, 2017 10:49 Vale Hairston DO Mar 13, 2017 14:27
--- NOTE | 2017-03-11 11:24 | NUR ---
Case Management: Left v/m w/MICHAEL land, Equipment Superintendent from [employer]...waiting to hear back from her. Thao TEIXEIRA RN
[2017-03-11 11:27] LABS: Magnesium 1.7 mg/dL (1.6-2.6)
--- NOTE | 2017-03-11 14:46 | NUR ---
Social Work: Readiness for Discharge/Multidisciplinary Rounds D: Pt discussed in multidisciplinary rounds; the patient is medically stable for discharge to inpatient rehab. pt's insurance has not yet provided authorization. STERILIZATION TECH received a t/c from LLUV[facility] RN who states that the pt's [facility] CM is recommending that the patient be followed closely by a psychiatrist due to her previous mental health history and that [facility] would not be able to do this. Provider states that the patient's mental health has been apparently stable during admission with patient very engaged, friendly and showing no signs of psychiatric distress. Psychiatry was consulted on the to consult for medication recommendations. This has not yet occurred. Attending provider has spoken with Psychiatry who will see the patient tomorrow morning. STERILIZATION TECH spoke with Yarelis, admission coordinator at [facility]. They are having questions about the patient's psychiatric history after speaking with the [facility] CM. They are willing to re-review the patient's clinicals but would like to see psychiatry notes as well. Fax number is [phone]). STERILIZATION TECH will fax updated clinicals once psych notes consult is completed. STERILIZATION TECH updated LLUVAI RN of this development. STERILIZATION TECH spoke with patient's mother to provide update. She is aware that the insurance has not yet authorized the patient's stay at an Inpatient Rehabilitation program. She continues to agree with the plan to d/c to [facility] once auth is received. A: Pt who will need inpatient rehab at time of discharge. P: STERILIZATION TECH to re-fax clinicals to [facility] once psychiatry notes are entered; STERILIZATION TECH to continue to follow to coordinate discharge plan and communicate developments with providers and patient/family JUAN Paiz
--- NOTE | 2017-03-11 14:57 | NUR ---
Labs Per MD, Mag 1.7 and K 4.1 stable, no need for replacement at this time. VSS, tele stable.
--- NOTE | 2017-03-11 17:40 | NUR ---
Behavior Pt pleasant and appropriate, compliant with all cares. No concerns. Good and stable family support system.
[2017-03-11] MEDS: Heparin 5,000 Unit/mL Inj SUBQ SCH ×2 (20:45→23:53)
[2017-03-12] VITALS (7 sets, daily range): BP systolic 105–133; BP diastolic 62–79; PULSE 75–86; RESP 16–18; O2SAT 91–99
--- NOTE | 2017-03-12 06:48 | NUR ---
Pain Pt reported pain to L calf at approx. 0245; pt described it as "electrifying numbness; almost like when your leg falls asleep, but more painful." Pt requested Tylenol for 5/10 pain; upon reassessment, pt reported pain reduced to 3/10. No erythema, swelling, pain, or heat upon assessment. VSS, tele SR 70s with occasional atrial pacing.
[2017-03-12] MEDS: Propranolol LA 60 mg ER24 Capsule PO SCH (08:41)
[2017-03-12] MEDS: Sodium Chloride LOK Flush 10 mL Syringe IVFLUSH SCH ×2 (08:41→16:42)
[2017-03-12] MEDS: levETIRAcetam 500 mg Tablet PO SCH ×2 (08:41→20:38)
[2017-03-12] MEDS: Heparin 5,000 Unit/mL Inj SUBQ SCH ×2 (08:41→16:42)
--- NOTE | 2017-03-12 10:00 | NUR ---
Tele Per pt ok to come off tele for shower. VSS. Tele a paced 70s.
--- NOTE | 2017-03-12 11:15 | NUR ---
NUTRITION FOLLOW-UP: Assess: 31 YO F admitted to CCU following cardiac arrest, requiring intubation, now status post hypothermia protocol. Pt was able to be extubated 03/03. Her diet was advance to dysphagia mechanical, NT liquids per ST 03/09. PO has been fair at 25-75% of meals. Pt reported good appetite but that she continues to get full from meals quickly so she was encouraged to eat smaller, more frequent meals. PMHX: V-tach, Triple X syndrome, anxiety, depression, cardiac arrest. DIET: Dysphagia Mechanical, NT. PO 25-75% LABS: Reviewed. 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 GI: BM x2 03/11 SKIN: No issues noted. ANTHROPOMETRICS: Wt: 112.2kg, BMI 32.6kg/m2, Admit: 130.0 kg, IBW: 75.0 kg. ESTIMATED NEEDS: BMI Calories: 2245-2470kcal/day (20-22 kcal/kg BW) Protein: 90-115g/day (1.2-1.5g/kg IBW) NUTRITION DIAGNOSIS: 1) Inadequate oral intake related to decreased ability to consume sufficient energy as evidenced by NPO/Vent status - IMPROVING 2) Chew/swallow difficulty related to dysphagia and prolonged intubation as evidence by need for pureed diet order with HT liquids per ST--IMPROVING INTERVENTION: 1) Continue diet per ST and current supplements. Pt was encouraged to snack on supplements between meals because she reported getting full quickly during meals. MONITOR/EVALUATE: PO intake/tolerance, ST, wt, GI, POC, labs, nutrition status. Follow per moderate nutrition risk guidelines.
--- NOTE | 2017-03-12 14:00 | NUR ---
Labs Per MD care team, no need for mag replacement 03/12 for result of 1.9. K stable at 4.2
--- NOTE | 2017-03-12 16:56 | CONS ---
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 The patient is referred due to question of which medications to restart given cardiology's request to limit QTc prolonging medications. CHIEF COMPLAINT: "I am feeling pretty good, tired but overall pretty good." HISTORY OF PRESENT ILLNESS: The patient endorsed having a history of depression beginning in 10th grade with sadness and sleepiness and sought help and was treated and felt "pretty good." The patient saw Dr. De León from [id number] and was most recently treated with fluoxetine 20 mg, lamotrigine 200 mg, and aripiprazole 5 mg. She also received lorazepam 0.5 mg up to three times a day. The patient denied a history of manic symptoms but did endorse anxiety attacks with no clear panic. She also endorsed picking behavior but no obsessive-compulsive symptoms. She was treated in 2011 at the time of her last torsades de points with a combination of propranolol, Effexor, desipramine, citalopram, and Abilify, according to the patient's mother. The patient received Compazine in the emergency department and at that point reportedly developed torsades and subsequent cardiac arrest. More recently the patient was in her normal state of health until she suddenly developed cardiac arrest. The mother reports the patient's mental state had been essentially at baseline until approximately one month prior, when she did note some change in her mental state, with decreased energy and sadness. Overall sleep has been increased, appetite and libido were normal, and energy was decreased. PAST PSYCHIATRIC HISTORY: Outpatient from [id number] De León. Most recently with [facility] in [place] with Dr. Lopez beginning March or April 2016. Inpatient psychiatric hospitalization: None. Past psychiatric medications: As noted above. Most recently fluoxetine, lamotrigine, aripiprazole, and lorazepam. Previously propranolol, desipramine, Effexor, citalopram, and aripiprazole. Past suicide attempts: None. History of self-injurious behavior: No cutting or burning, but does endorse picking. History of violence towards others: None. PAST MEDICAL HISTORY: Acute cardiac arrest, acute anoxic encephalopathy, acute hypoxic respiratory distress resolved, acute pneumonia likely secondary to aspiration resolved, elevated liver enzymes present on arrival resolved, lactic acidosis resolved, acute hyperglycemia resolved, chronic pain stable, chronic anxiety and depression, triple X syndrome stable. CURRENT MEDICATIONS: Propranolol 60 mg daily, doxycycline 100 mg daily, Keppra 500 mg twice daily, famotidine 20 mg twice daily. ALLERGIES: SULFA AND LACTATE. LABORATORY FINDINGS: Chemistry panel from March 11 within normal limits, except for a creatinine of 0.54 and a total protein of 5.6. TSH of 2.670 on February 24, 2017. B12 of 871 and folate of 18 on February 27, 2017. CBC from March 11, 2017 within normal limits except for RBC of 3.01, hemoglobin 9.0, hematocrit 28.1. Hemoglobin had risen to 10.9 and hematocrit 33.4 on March 12, 2017. Urine tox screen from ED not available. IMAGING: Brain MRI from March 04, 2017 showed no acute intracranial findings. Brain CT showed limited evaluation demonstrating no acute process. SOCIAL HISTORY: The patient has one older sister, five years older, with rheumatoid arthritis. Both parents were together while she was being raised, but her father was diagnosed with Alzheimer's at the age of 61. She has never been , has no children, and is not currently in a relationship. She identifies as heterosexual. She is a high school graduate and has two AA degrees. 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 She is currently living with her parents in [place]. FAMILY HISTORY: Family history of mental illness. Significant for two great uncles with schizophrenia and a maternal aunt and uncle with depression. Family history of suicide: None. Family history of substance use: An uncle with marijuana and alcohol use. Family history of medical illness: Rheumatoid, lupus, Alzheimer's, cancer, and hypertension. History of physical, sexual, or emotional abuse: None. Legal history: None. Substance use history: None. MENTAL STATUS EXAMINATION: Appearance: The patient is an adequately groomed female laying in bed, wearing hospital issue clothing. Behavior: The patient makes fair eye contact and is generally pleasant and cooperative. Speech: Slow and somewhat dysarthric. Mood: "Pretty good, I guess." Affect: Fairly restricted to almost flat at times. Content of thought: She denies suicidal or homicidal ideation, auditory or visual hallucinations, thought insertion, thought broadcasting, thought withdrawal, or paranoid ideation. Orientation: She is oriented to March 13, 2017, [facility]. Memory: She had 3/3 object recall at 0 minutes and 3/3 object recall at 3 minutes. Short term memory: She did serial sevens accurately to 65, and spelled the word "world" correctly forward and backwards. Language: She was able to repeat the phrase "no ifs, ands, or buts" and name three objects. Fund of knowledge: She was aware that the president wasNitin Patricio and stated that the distance from here to the [facility] was 8000 miles. Intelligence: Estimated to be in the average range based upon history and vocabulary. Attention and concentration: Appeared grossly intact although long-term memory appears to be impaired. Cognitive processing: Regarding the phrase "don't cry over spilled milk" she stated "if things do not go your way don't worry about it, there is another day tomorrow." Insight and judgment: Fair. Sensorium: Appears to be generally intact, though was not entirely oriented to location. It is unclear whether this was a misunderstanding or represents a mild delirium status post cardiac arrest. IMPRESSION: The patient is a 31-year-old female with trisomy X who presents with a status post 2nd cardiac arrest with pacemaker placement. The patient had been treated with a number of medications including fluoxetine, lamotrigine, aripiprazole, and lorazepam prior to admission. Fluoxetine and aripiprazole were unlikely to contribute to QT prolongation. Lorazepam likewise was unlikely to have caused QT prolongation significantly. The patient's mood is currently fairly stable, though she does have a long history of depression and is currently endorsing picking behavior. A restart of fluoxetine at 5 mg daily could be initiated and if there is still residual depression or picking behavior this could be increased in 10-14 days to 10 mg, and then an additional 14 days or more later to 20 mg. Followup EKGs could be performed if cardiology is concerned about QT prolongation. The patient is currently receiving Keppra and unless there is a psychiatric reason for the lamotrigine this does not necessarily need to be restarted. Aripiprazole should only be restarted if depression does not improve with fluoxetine or if she develops psychotic symptoms. The patient has not had recent psychotic symptoms and those that appeared in the past appear to have been possibly symptoms of a delirium. Regardless, aripiprazole is unlikely to increase QT and has been shown to lower QT in some individuals, although this cannot be said definitively in this patient. With each stage of adding a new medication it would be recommended to recheck an EKG after several weeks. The patient does currently have a pacemaker and so the likelihood of torsades is reduced. The patient does not appear to be in need of inpatient psychiatric care at this time and is currently denying suicidal ideation. DSM-IV DIAGNOSES: Pike I: 1. Major depression, recurrent, with possible psychotic features. No psychotic features present currently. 2. Anxiety disorder by history with current picking behavior. Pike II: Deferred. Pike III: See past medical history. Pike IV: Moderate to severe, primarily due to recent illness. Pike V: Global Assessment of Functioning 35. PLAN: 1. As noted above would slowly restart fluoxetine 5 mg daily given recent neurological sequelae and slowly titrate to 20 mg. An EKG could be performed episodically if cardiology has concerns. 2. Should psychotic symptoms return, aripiprazole could be restarted at 5 mg with a followup EKG in 3-4 weeks given aripiprazole's long half-life. 3. Inpatient psychiatric treatment is not indicated at this time. 4. The patient should have outpatient followup with [facility], with Dr. Lopez. Please feel free to contact Psychiatry should you have any further questions. We appreciate this opportunity to consult on your patient. MARIANGEL
--- NOTE | 2017-03-12 18:49 | PCM.PNMED ---
Subjective Date of Service Mar 12, 2017 Subjective Patient was seen and examined today. Resting in bed, her mother is curious about recent EEG results. Per nursing, no acute events overnight. Exam Vital Signs Vital Sign - Last Date Time Temp Pulse Resp B/P Pulse Ox O2 Delivery O2 Flow Rate FiO2 03/12/17 17:04 Supplement Oxygen 03/12/17 16:57 86 16 105/62 95 03/12/17 12:11 36.6 03/07/17 11:35 1.00 03/06/17 19:42 30 Intake and Output 03/11/17 03/11/17 03/12/17 Cumulative From/Thru 15:00 23:00 07:00 02/22/17 13:36 - 03/12/17 05:27 Intake Total 609 ml 350 ml 400 ml 61624 ml Output Total 350 ml 700 ml 04020 ml Balance 609 ml 0 ml -300 ml 4601 ml Intake Oral 350 ml 400 ml 3130 ml IV Total 609 ml 05178 ml Tube Feeding 1465 ml Tube Irrigant 580 ml Output Urine Total 350 ml 700 ml 46531 ml Stool Total 500 ml Urine/Stool Mix 250 ml Gastric Drainage Total 2090 ml Emesis 300 ml # Voids 3 # Bowel Movements 1 0 13 Exam General: No acute distress, well-developed, well-nourished, appropriately interactive HEENT: Decreased visual acuity, though patient and I feel this is improving Neck: Supple with full range of motion. No jugular venous distension. No bruits. No lymphadenopathy or thyromegaly. Cardiovascular: Regular rate and rhythm with no murmurs, rubs, or gallops appreciated Pulmonary: Clear to auscultation bilaterally with no crackles, wheezes, or rhonchi. Normal respiratory effort with no use of accessory muscles. Abdomen: Bowel tones present. Soft, nontender, nondistended. No hepatosplenomegaly or masses appreciated. Extremities: No clubbing, cyanosis, edema, or lymphadenopathy appreciated. Skin: Normal temperature, turgor, and texture; no rash, ulcers, or subcutaneous nodules appreciated. Neurological: Significant neurological deficits persist, the patient was able to get up with assist to take a shower today Psychiatric: Seems to be in good spirits. Alert and oriented to person, place, and time. IVs and Medications Medications Reviewed: Medications were reviewed in detail Lab and Diagnostics Result Diagram: 03/12/17 0815 03/12/17 0815 X-Rays, CTs and MRIs CT BRAIN WITHOUT CONTRAST IMPRESSION: 1. No acute intracranial process. 2. Scattered ethmoid and sphenoid sinus fluid Approved by: Mikaela Davila M.D. on 02/22/2017 at 15:02 CT BRAIN WITHOUT CONTRAST IMPRESSION: No acute process. Dictated by: Cruz Morley M.D. on 02/25/2017 at 15:38 Approved by: Cruz Morley M.D. on 02/25/2017 at 15:39 CT BRAIN WITHOUT CONTRAST IMPRESSION: Limited evaluation demonstrating no acute process. Dictated by: Cruz Morley M.D. on 02/28/2017 at 13:02 Approved by: Cruz Morley M.D. on 02/28/2017 at 13:02 MRI BRAIN WITH AND WITHOUT CONTRAST IMPRESSION: 1. No acute intracranial findings. Specifically, no increased restricted diffusion to suggest acute or subacute infarct. Dictated by: Jaqueline Montes De Oca M.D. on 03/04/2017 at 19:34 Assessment & Plan 31-year-old female patient with past medical history significant for triple X syndrome([id number]), chronic anxiety, depression, and previous cardiac arrest in 2011 who presents to the ED via EMS as a result of cardiac arrest. Acute anoxic encephalopathy secondary to cardiac arrest, present on admission, active - Patient continues to make slow progression from a neurologic standpoint. - Neurology (Dr. Marc) is following. Dr. Hairston spoke with him 03/12/17, and he stated that patient's recent EEG showed no evidence of seizure activity, but did show diffuse slowing indicative of anoxic brain injury - MRI completed 03/04 shows no focal findings - Patient answering questions appropriately at this time, patient complains of decreased visual acuity bilaterally - Prognosis appears to be improving however patient is likely to have some prolonged functional limitations - Continue Keppra 500 twice a day - Patient to be discharged to [place] inpatient rehabilitation for extensive PT OT pending authorization from insurance Acute cardiac arrest secondary to prolonged QT and possible torsades, present on arrival, stable - Patient presented with prolonged QT in the 600s at admission, which resolved with discontinuation of home antidepressant medications - Prior episode in 2011 at [place] suspected due to 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 Martinez - Propranolol HCL 60 mg Acute hypoxemic respiratory distress, present on arrival, resolved Patient unconscious on arrival, required intubation by EMS - Patient initially sedated with Propofol and fentanyl - Extubation successful 03/03 - Currently saturating well on room air Acute pneumonia likely secondary to aspiration, present on arrival, resolved - Given leukocytosis with elevated procalcitonin and Chest x-ray consistent with pneumonia - Blood cultures 4 negative - Sputum cultures showed normal erin - Prophylactic Zosyn discontinued Elevations in liver enzymes, present on arrival, resolved Likely due to hypoperfusion secondary to cardiac arrest Lactic acidosis, present on arrival, Resolved Likely secondary to stress reaction in conjunction with cardiac hypoperfusion Acute Hyperglycemia, present on arrival, resolved - Glucose on admission 233 - No prior history of diabetes - A1c 5.8 - Continue to monitor glucose Chronic pain, presumed stable - Resume home medications as needed Chronic Anxiety/depression Cannot rule out suicide attempt/overdose, mother states prior history of suicidal ideation without a plan or previous attempts. - Previously taking Aripiprazole 5 mg, Lamotrigine 200 mg, Prozac 20 mg, this was verified by outpatient pharmacy on 03/04 - Cardiology recommendations to avoid QT prolonging antidepressant medications at this time due to recurrent Vtach/torsades - Psychiatric consult 03/12/17 recommends reinstituting fluoxetine at 5 mg daily to titrate up to 20 mg. Will start at 10 mg, as this is the lowest dose available per pharmacy. - Patient will be monitored at inpatient neuro rehabilitation in [place] and will likely need further evaluation by neurology as well as psychiatry Triple X syndrome, presumed stable - No known correlation with cardiac arrhythmia or cardiac arrest. - Consider other genetic phenomena as possible explanations to cardiac arrest/ arrhythmias - Per cardiology, possible channelopathy which would be treated with ICD placement. Disposition: Patient is likely to be discharged soon to inpatient rehabilitation at [facility] for continued PT/OT and neuro/psych evaluation GI Prophylaxis: H2 maddison VTE Prophylaxis: Sub-Q Heparin (Unfractionated) VTE Mechanical Devices: Intermittant Pneumatic CD Resuscitation Status: CPR: Attempt Resuscitation Attending Statement The patient was seen and examined together with Dr. Anguiano on 03/12/17 and I agree with the history, exam and plan as outlined in the note above. Herrera Anguiano DO Mar 12, 2017 18:49 Vale Hairston DO Mar 13, 2017 14:25
--- NOTE | 2017-03-12 18:56 | PCM.PROC ---
Procedure Note Date of Service: Mar 12, 2017 Provider and Construction Quality Control Manager: Dr. Irene Procedure Details: Procedure: Osteopathic Manipulative Treatment Subjective: Patient is a 31-year-old female who has suffered an anoxic brain injury status post cardiac arrest. The patient has been progressing well however she stating that she still has some vision difficulties. The patient complains of blurred vision on occasion and unable to focus especially with her right eye. The right eye does not track as well as the left. The patient does seem to be progressing and improving however it was thought that potentially doing some OMT could help improve her vision. Risks and benefits of OMT were explained to the patient and verbal consent obtained. Osteopathic Structural Exam: Head: Cranial rhythm in extension with underlying internal rotation of the temporal bones, parietal bones stuck in extension Cervicals: C3-C5 extended rotated right sidebent right Thoracics: T3 flexed rotated left side bent left, thoracic outlet rotated left Upper extremities: Latissimus dorsi hypertonicity on the left greater than right , levator scapula hypertonicity on the right Patient responded well to treatment. Patient stated that she felt her head was later and in that her muscles in her neck and upper back felt more loose. Patient tolerated the treatment well Osteopathic treatment modalities used: Myofascial release, Cranial, BLT, and soft tissue technique Vale Hairston DO Mar 12, 2017 18:56
[2017-03-12 19:17] LABS: Magnesium 1.8 mg/dL (1.6-2.6)
[2017-03-13] MEDS: Heparin 5,000 Unit/mL Inj SUBQ SCH ×2 (00:14→08:20)
[2017-03-13] MEDS: Sodium Chloride LOK Flush 10 mL Syringe IVFLUSH SCH ×2 (00:30→08:20)
[2017-03-13 03:10] VITALS: BP 114/75; PULSE 75; RESP 18; O2SAT 94
[2017-03-13 05:46] VITALS: PULSE 75
--- NOTE | 2017-03-13 06:29 | NUR ---
Pain/Activity Pt c/o of pain 5/10 in her legs. Administered PRN Tylenol and effective, pt able to rest for most of shift. Pt up to BSC with 1P/SBA with FWW and tolerated well. VSS and Tele Apaced 60's to 70's.
[2017-03-13 07:43] VITALS: BP 114/74; PULSE 75; RESP 16; O2SAT 97
[2017-03-13 07:50] VITALS: PULSE 75
[2017-03-13 08:00] VITALS: PULSE 76
[2017-03-13] MEDS: levETIRAcetam 500 mg Tablet PO SCH (08:20)
[2017-03-13] MEDS: Propranolol LA 60 mg ER24 Capsule PO SCH (08:20)
--- NOTE | 2017-03-13 11:46 | NUR ---
INPATIENT REHAB FOLLOW UP: Faxed additional clinicals to [facility] per FACILITIES MANAGER Addendum: 03/13/17 at 1258 by WEI DENIS CM [facility] biomedical engineering technologist has formally accepted patient, [facility] is working on expedited authorization and Yarelis is going to call me back just after 1300 with confirmation of acceptance today versus tomorrow. Updated FACILITIES MANAGER Addendum: 03/13/17 at 1352 by WEI DENIS CM Faxed orders to [facility] [phone] RN to RN phone call be called into [phone] Updated FACILITIES MANAGER Addendum: 03/13/17 at 1415 by WEI DENIS CM [facility] Will do wheelchair transport at 1530. This is being covered by hospital, approved by FACILITIES MANAGER [employer] [address] Judge
[2017-03-13 12:34] VITALS: BP 114/72; PULSE 75; RESP 18; O2SAT 95
[2017-03-13] MEDS ORDERED: PROP60CA8 PO (13:37)
[2017-03-13] MEDS ORDERED: KEP500TA PO (13:37)
--- NOTE | 2017-03-13 13:40 | PCM.DIMED ---
SilvioHerrera Eduarda DO 03/13/17 1329: Discharge Instructions Date of Service Mar 13, 2017 Dates of Hospitalization Feb 22, 2017 at 14:41 Discharge Diagnosis Discharge Diagnosis Acute anoxic encephalopathy Cardiac arrest secondary to prolonged QT Acute hypoxemic respiratory distress Acute pneumonia Transaminitis Lactic acidosis Hyperglycemia Chronic pain Chronic anxiety/depression Triple X syndrome Medication Instructions Additional med instructions We are restarting you on fluoxetine at 10 mg once per day. RENAE IRENE DO 03/13/17 1409: Discharge Instructions Medication Instructions Additional med instructions New prescriptions include: Keppra 500 mg by mouth twice per day Propanolol ER 60mg capsule daily. Fluoxetine 10mg by mouth daily Stopped medications include: Lamotrigine Regarding the rest of your regularly prescribed medications, All of your regularly prescribed medications can be continued once you arrive at [facility] and after approval from the receiving Physician at [place] Diet Discharge Diet: Heart Healthy Activity Discharge Activity: Limited until seen by PCP Call your provider Call your provider for: Fever or Chills, Shortness of breath, Bleeding, Chest pain, Vomitting, Excessive diarrhea, Weakness (unilateral) Patient Instructions Patient Instructions You are being transferred to a traumatic brain injury hopkins at [place] for continued rehabilitation. the psychiatrist that evaluated you here at [facility] recommends that you receive ongoing evaluation and treatment by neurology and psychiatry. During your stay at our Hospital you received osteopathic manipulative treatment , which you responded very well to. If you would like to continue with this treatment modality there are osteopathic physicians (D.O.- doctor of osteopathic medicine) in the [facility] who would be please to give you this treatment, including our family medicine and internal medicine residents at the residency clinics which are part of the hospital. your primary care provider can give you a referral for this treatment or you may consider changing primary care providers. The number for the residency Clinic is [phone] this is the number for the family med clinic but either the family mad or internal med residency clinics will be happy to treat you. It was very nice to have met you and your mother and we wish you a speedy recovery. If we may be of any assistance to you during your recovery process please don't hesitate to ask. Follow-up plan [facility] [phone] Devise/Wound Check on at 9am Devise Check on April 20 at 10:30 then you will see Miguel Childs PA-C at 11am Mid-level Provider (F9): Miguel Childs PA-C Follow-up with Mid-level in: 5 weeks Vale Hairston DO 03/13/17 1547: Discharge Instructions Attending's Statement The patient was seen and examined together with Dr. Irene on 03/13/17 and I agree with the history, exam and plan as outlined in the note above. Herrera Anguiano DO Mar 13, 2017 13:29 RENAE IRENE DO Mar 13, 2017 14:09 Vale Hairston DO Mar 13, 2017 15:47
--- NOTE | 2017-03-13 13:46 | PCM.DC.MED ---
Discharge Summary Date of Service Mar 13, 2017 Dates of Hospitalization Date of Hospital Admission Feb 22, 2017 at 14:41 Date of Discharge: Mar 13, 2017 Providers: Admitting Physician: Vale Hairston DO Primary Care Physician: Nuris Reeder Pa-C Attending Physician: Vale Hairston DO Diagnosis at Time of Discharge Diagnosis at Time of Discharge Acute anoxic encephalopathy Cardiac arrest secondary to prolonged QT Acute hypoxemic respiratory distress Acute pneumonia Transaminitis Lactic acidosis Hyperglycemia Chronic pain Chronic anxiety/depression Triple X syndrome Consultations Neurology, Dr. Davidson Cardiology, Dr. Friend Psychiatry, Dr. Martinez Procedures XRay, CTs & MRIs CT BRAIN WITHOUT CONTRAST IMPRESSION: 1. No acute intracranial process. 2. Scattered ethmoid and sphenoid sinus fluid Approved by: iMkaela Davila M.D. on 02/22/2017 at 15:02 CT BRAIN WITHOUT CONTRAST IMPRESSION: No acute process. Dictated by: Cruz Morley M.D. on 02/25/2017 at 15:38 Approved by: Cruz Morley M.D. on 02/25/2017 at 15:39 CT BRAIN WITHOUT CONTRAST IMPRESSION: Limited evaluation demonstrating no acute process. Dictated by: Cruz Morley M.D. on 02/28/2017 at 13:02 Approved by: Cruz Morley M.D. on 02/28/2017 at 13:02 MRI BRAIN WITH AND WITHOUT CONTRAST IMPRESSION: 1. No acute intracranial findings. Specifically, no increased restricted diffusion to suggest acute or subacute infarct. Dictated by: Jaqueline Montes De Oca M.D. on 03/04/2017 at 19:34 Cardiac Echo Impression Echo performed 02/22/17 Interpretation Summary Technically difficult echocardiogram due to patient positioning and limited acoustic imaging windows. The patient was intubated during the exam. The left ventricle is grossly normal size. The ejection fraction is estimated to be 50-55% (s/p cardiac arrest). In 09/2013, LV EF was 60-65%. The right ventricle is not well visualized. No significant valvular pathology seen. The IVC is dilated. Inspiratory collapse cannot be assessed because of mechanical ventilation, thus CVP cannot be estimated.. Brief History Mrs. Leon is a 31-year-old female with a history of triple X syndrome ( [id number]), chronic anxiety, depression, torsades de pointes cardiac arrest in 2011 admitted for recurrent cardiac arrest while on antipsychotics and anti- depressants. She was resuscitated and intubated in the field and stabilized and our ICU. The patient had a previous history of cardiac arrest in 2011 secondary to medications which were prescribed to her for her anxiety and depression including desipramine. The patient was taken off of desipramine however upon admission she was taking Aripiprazole 5 mg, Lamotrigine 200 mg, Prozac 20 mg and this was verified with pharmacy. The patient has been taking her medications as prescribed however she does have a known history of prolonged QTC. It was thought that due to the combination of the multiple medications that this is what caused the patient to go into cardiac arrest. The patient was progressing well and sedation was turned off however the patient was not responding very well. At first the patient did not respond to voice nor did she respond to any pain stimuli. There was significant concern for anoxic brain injury and neurology was consulted and an EEG was performed showing delta waves and slow waves consistent with anoxic brain injury. The patient gradually started to respond to her name, and also to pain stimuli first in the lower extremities followed by the left upper extremity and then the right upper extremity. There were some concerns that the patient may have seizure activity and the patient was started on Keppra 500 mg twice a day. The patient gradually started to be able to follow commands and was able to protect her airway and the patient was successfully extubated on 03/03/2017. On March 04 the patient coded twice overnight requiring CPR once and defibrillation twice before regaining sinus rhythm. Dr. Martinez of cardiology was consulted and agreed that the patient should have an AICD placement and this was done on 03/06/2017. The patient was treated with doxycycline for 7 days status post procedure for prophylactic coverage. Since this time the patient has been doing well working with physical therapy and daily progressing. The patient is not able to do her own toileting however she is still very slow with speech and processing. Dr. davidson feels that this is most likely secondary to her anoxic brain injury and will like to continue her on the Keppra 500 mg twice a day. There were Some concerns as the patient does roberts from depression and anxiety and psychiatry was consulted (Dr. Delatorre) who evaluated the patient and stated that she should continue on fluoxetine 10 mg daily and may titrate up from this point as the patient tolerates/needs. The patient is very pleasant and is doing well and would continue to benefit from inpatient rehabilitation as she has been making progress daily. The patient is being discharged to [place] inpatient rehabilitation in stable condition Hospital Course 31-year-old female patient with past medical history significant for triple X syndrome(47XXX), chronic anxiety, depression, and previous cardiac arrest in 2011 who presents to the ED via EMS as a result of cardiac arrest. Acute anoxic encephalopathy secondary to cardiac arrest, present on admission, active - Patient continues to make slow progression from a neurologic standpoint. - Neurology (Dr. Davidson) is following. Dr. Hairston spoke with him 03/12/17, and he stated that patient's recent EEG showed no evidence of seizure activity, but did show diffuse slowing indicative of anoxic brain injury - MRI completed 03/04 shows no focal findings - Patient answering questions appropriately at this time, patient complains of decreased visual acuity bilaterally - Prognosis appears to be improving however patient is likely to have some prolonged functional limitations - Continue Keppra 500 twice a day - Patient to be discharged to [facility] inpatient rehabilitation for extensive PT OT pending authorization from insurance Acute cardiac arrest secondary to prolonged QT and possible torsades, present on arrival, stable - Patient presented with prolonged QT in the 600s at admission, which resolved with discontinuation of home antidepressant medications - Prior episode in 2011 at [place] suspected due to 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 Martinez - Propranolol HCL 60 mg Acute hypoxemic respiratory distress, present on arrival, resolved Patient unconscious on arrival, required intubation by EMS - Patient initially sedated with Propofol and fentanyl - Extubation successful 03/03 - Currently saturating well on room air Acute pneumonia likely secondary to aspiration, present on arrival, resolved - Given leukocytosis with elevated procalcitonin and Chest x-ray consistent with pneumonia - Blood cultures 4 negative - Sputum cultures showed normal erin - Prophylactic Zosyn discontinued Elevations in liver enzymes, present on arrival, resolved Likely due to hypoperfusion secondary to cardiac arrest Lactic acidosis, present on arrival, Resolved Likely secondary to stress reaction in conjunction with cardiac hypoperfusion Acute Hyperglycemia, present on arrival, resolved - Glucose on admission 233 - No prior history of diabetes - A1c 5.8 - Continue to monitor glucose Chronic pain, presumed stable - Resume home medications as needed Chronic Anxiety/depression Cannot rule out suicide attempt/overdose, mother states prior history of suicidal ideation without a plan or previous attempts. - Previously taking Aripiprazole 5 mg, Lamotrigine 200 mg, Prozac 20 mg, this was verified by outpatient pharmacy on 03/04 - Cardiology recommendations to avoid QT prolonging antidepressant medications at this time due to recurrent Vtach/torsades - Psychiatric consult 03/12/17 recommends reinstituting fluoxetine at 5 mg daily to titrate up to 20 mg. Will start at 10 mg, as this is the lowest dose available per pharmacy. - Patient will be monitored at inpatient neuro rehabilitation in [place] and will likely need further evaluation by neurology as well as psychiatry Triple X syndrome, presumed stable - No known correlation with cardiac arrhythmia or cardiac arrest. - Consider other genetic phenomena as possible explanations to cardiac arrest/ arrhythmias - Per cardiology, possible channelopathy which would be treated with ICD placement. Disposition: Patient is likely to be discharged soon to inpatient rehabilitation at [facility] for continued PT/OT and neuro/psych evaluation Exam Vital Signs (Last) Date Time Temp Pulse Resp B/P Pulse Ox O2 Delivery O2 Flow Rate FiO2 03/13/17 12:34 37.1 75 18 114/72 95 Room Air 03/07/17 11:35 1.00 Exam Physical Exam: GEN: Patient was awake, alert, responding appropriately to questions HEENT: Pupils equal round and reactive to light, extraocular eye muscles intact , however the patient's right eye lags behind the left eye in the H test this is gradually improved, Neck soft supple, trachea midline, nomocephalic/ atraumatic CV: +S1/S2, regular rate and rhythm, no murmurs auscultated Respiratory: CTAB, no wheezes, rales, rhonchi GI: +bowel sounds x4, soft, compressible, nontender to palpation EXT: no clubbing, cyanosis, edema Neuro: Cranial nerves II-XII grossly intact Psych: mood and affect were appropriate Test 02/22/17 13:40 02/23/17 09:20 02/23/17 16:23 02/24/17 03:18 Hemoglobin A1c 5.8% (4.8-5.6) Pro-B-Type Natriuretic Peptide 113.4pg/mL (0-130) Total Creatine Kinase 458U/L (21-215) Creatine Kinase MB 49.3ng/mL (0.0-5.3) Creatine Kinase MB % 10.8% (0.0-5.0) Troponin T 0.783ug/L (0.0-0.011) Lactic Acid Level 1.2mmol/L (0.4-2.0) Thyroid Stimulating Hormone (TSH) 2.670uIU/mL (0.450-4.500) Test 02/25/17 05:45 02/27/17 05:00 02/27/17 08:17 03/04/17 20:10 HCG Beta Subunit < 0.500mIU/mL Reticulocyte Count,Calculated 1.8% (0.6-2.6) Iron Level 34ug/dL (35-150) Total Iron Binding Capacity 228ug/dL (250-450) Percent Iron Saturation 15%sat (15-50) Unsaturated Iron Binding 193.8ug/dL Ferritin 274ng/mL (13-150) Vitamin B12 Level 871pg/mL (211-946) Folate 18.0ng/mL (>3.0) Hold Purple Top Tube Received (Received) Hold Blue Top Tube Received (Received) Hold Stanley Top Tube Received (Received) Hold Boogie Top Tube Received (Received) Test 03/05/17 00:45 03/05/17 08:05 03/06/17 06:00 03/07/17 04:46 Urine Color Yellow (YELLOW) Urine Appearance Slightly cloudy Urine pH 6.0 (5.0-8.0) Urine Specific Worden 1.015 (1.003-1.035) Urine Protein 100mg/dL (NEG,TRACE) Urine Glucose (UA) Negativemg/dL (NEGATIVE) Urine Ketones Tracemg/dL (NEGATIVE) Urine Occult Blood Large (NEGATIVE) Urine Nitrite Negative (NEGATIVE) Urine Bilirubin Negative (NEGATIVE) Urine Urobilinogen Normalmg/dL (NORMAL) Urine Leukocyte Esterase Negative (NEGATIVE) Urine RBC >50/hpf (0-2) Urine WBC 11-50/hpf (0-5) Urine Epithelial Cells Many/hpf (NONE-MOD) Urine Crystals None seen (NONE SEEN) Urine Bacteria Many/hpf (NONE-FEW) Urine Hyaline Casts None/lpf (NONE) Urine Granular Casts Occasional (NONE SEEN) Urine Waxy Casts None seen (NONE SEEN) Urine Red Blood Cell Casts None seen (NONE SEEN) Urine White Blood Cell Casts None seen (NONE SEEN) Urine Mucus Present (None Seen) Urine Trichomonas None seen (NONE SEEN) Urine Yeast None (NONE SEEN) Urinalysis Comment None Urine Culture Reflexed Indicated Hold Urine Received (Received) Activated Partial Thromboplast Time 45.0sec (22.8-33.0) Prothrombin Time 11.6sec (8.1-12.5) Prothromb Time International Ratio 1.08ratio Procalcitonin 0.20ng/mL (0.00-0.08) Test 03/07/17 05:28 03/10/17 02:31 03/11/17 03:25 03/12/17 18:54 Neutrophils (%) (Auto) 53.5% (40-74) Lymphocytes (%) (Auto) 34.1% (14-46) Monocytes (%) (Auto) 9.0% (4-12) Eosinophils (%) (Auto) 2.7% (0-5) Basophils (%) (Auto) 0.6% (0-3) Phosphorus Level 3.5mg/dL (2.5-4.9) White Blood Count 6.0th/mm3 (3.8-10.1) Red Blood Count 3.01mil/mm3 (3.90-5.20) Mean Corpuscular Volume 93.4fL (81-100) Mean Corpuscular Hemoglobin 29.9pg (27.0-35.0) Mean Corpuscular Hemoglobin Concent 32.0% (32.0-37.0) Red Cell Distribution Width 13.6% (12.3-15.4) Platelet Count 339bil/L (150-400) Total Bilirubin 0.7mg/dL (0.0-1.2) Aspartate Amino Transf (AST/SGOT) 20U/L (0-50) Alanine Aminotransferase (ALT/SGPT) 17U/L (0-32) Alkaline Phosphatase 113U/L (25-150) Total Protein 5.6g/dL (6.4-8.4) Albumin 3.4g/dL (3.4-5.0) Hemoglobin 10.2g/dL (12.0-15.6) Hematocrit 31.4% (35.0-46.0) Test 03/13/17 08:00 Sodium Level 143mEq/L (134-144) Potassium Level 4.5mEq/L (3.5-5.2) Chloride Level 104mEq/L (97-108) Carbon Dioxide Level 24mmol/L (18-29) Blood Urea Nitrogen 9mg/dL (6-20) Creatinine 0.66mg/dL (0.57-1.00) Estimat Glomerular Filtration Rate 148mL/min (>59) Glucose Level 91mg/dL (60-99) Calcium Level 9.6mg/dL (8.5-10.1) Magnesium Level 2.0mg/dL (1.6-2.6) Microbiology Results Blood, stool, MRSA nasal swab, PCR for viruses were all negative Discharge Medications Discharge Medications Aripiprazole (Aripiprazole) 10 Mg Tablet 5 MG PO QAM (Reported) Ascorbic Acid (Vitamin C) 250 Mg Tab.chew 500 MG PO QAM (Reported) Calcium Citrate/Vitamin D3 (Calcium Cit 200-Vit D3 250 Tab) 200 Mg Calcium-250 Unit Tablet 2 TABLET PO BIDWM (Reported) Cholecalciferol (Vitamin D3) (Vitamin D3) 1,000 Unit Tab.chew 1,000 UNIT PO BIDWM (Reported) Ferrous Gluconate (Ferrous Gluconate) 324 Mg Tab 324 MG PO QAM (Reported) Lamotrigine (Lamictal) 25 Mg Tablet 25 MG PO QAM (Reported) Levetiracetam (Keppra) 500 Mg Tablet 500 MG PO BID Prescribed by: SWETHA ANGUIANO DO Magnesium Oxide (Magnesium) 500 Mg Capsule 500 MG PO HS (Reported) Norethindrone-E.estradiol-Iron (Cdhjupew-Tfpuru-Uvps 1-0.02 mg) 1 Each Tablet 1 EACH PO DAILY (Reported) Omeprazole (Omeprazole) 20 Mg Capsule.dr 20 MG PO QAM (Reported) Propranolol ER (Inderal LA) 60 Mg Capsule 60 MG PO DAILY Prescribed by: SWETHA C ANGUIANO, DO Sodium Fluoride (Prevident 5000 Plus) 51 Gm Cream..g. 1 APPLIC DT HS (Reported) Ubidecarenone (Coenzyme Q10) 100 Mg Capsule 100 MG PO HS (Reported) Vitamin B Complex & Vit C No.3 (B Complex with Vitamin C) 1 Each Capsule 1 EACH PO QAM (Reported) Zinc Gluconate (Zinc) 50 Mg Tablet 50 MG PO QAM (Reported) As needed Acetaminophen (Acetaminophen) 500 Mg Capsule 500 MG PO Q4H PRN PRN For Pain ( Reported) Betamethasone Nayeli (Betamethasone Valerate) 60 Applic/15 Gm Cream 1 APPLIC TOP BID PRN PRN RASH (Reported) Clotrimazole (Itch Relief) 1 % Cream..g. 1 APPLIC TP BID PRN PRN For Itching ( Reported) Ibuprofen (Ibuprofen) 600 Mg Tablet 600 MG PO Q6H PRN PRN For Pain (Reported) Lorazepam (Lorazepam) 0.5 Mg Tablet 0.5 MG PO TID PRN PRN For Anxiety (Reported ) Oxycodone HCl/Acetaminophen 5-325 (Endocet 5-325) 1 Each Tablet 1-2 TABLET PO Q6H PRN PRN For Pain (Reported) Simethicone (Gas-X) 125 Mg Capsule 125 MG PO Q8H PRN PRN GAS (Reported) Additional med instructions We are restarting you on fluoxetine at 10 mg once per day. Followup Plan Follow-up plan Follow-up with cardiology for wound track on March 14 and for a device check on April 20 Discharge Diet: Heart Healthy Discharge Activity: Other (As tolerated and to be determined by the rehabilitation center) Follow-up Provider: CARDIOLOGYJAMES CLI Follow-up with PCP in: 1 week (03/14/17 at 0900 and 04/20/17 at 1030 for device check with Miguel Childs [phone]) Time spent Greater than 35 minutes Attending Statement The patient was seen and examined together with Dr. Anguiano on 03/13/17 and I have added additional information to the note above. copies to: JAMES MENDEZ CLI; NURIS REEDER PA-C, Aaron C DO Mar 13, 2017 13:46 Vale Hairston DO Mar 13, 2017 14:13
--- NOTE | 2017-03-13 14:01 | NUR ---
Social Work: Discharge/Bedside Rounding D: Pt bedside rounded on today with attending, resident team, TOWER EQUIPMENT REPAIRER, UR RN, Bedside RN and insurance examining clerk. Patient is medically stable for discharge to [facility]. JUAN has [facility] with [facility] who states that their associate medical director has officially accepted the patient for admission. Psychiatry notes have been faxed to them for review. Patient's insurance has authorized the transfer and the provider is working on discharge. RN-to-RN phone number provided to bedside nurse. Patient's mother and patient both agree with this plan. Case Overse[employer] has provided approval for [facility] to pay for patient's transportation via cabulance down to [place] as the patient does not have means to do so. [employer] Application Architect will fax discharge summary and ppw once completed by physician and arrange for transportation. Pt's mother is requesting directions to [facility] which TOWER EQUIPMENT REPAIRER has provided to her. A: Pt who has been approved by insurance for transfer to [facility] P: Pt to discharge today to [facility] via cabulance. [employer] Application Architect to arrange for transport and update bedside RN of this time. JUAN Paiz
[2017-03-13] MEDS ORDERED: FLUO10CA20 PO (14:38)
--- NOTE | 2017-03-13 16:04 | NUR ---
Discharge note Patient a/o x 4, c/o nausea and back pain, declined meds this shift. Patient sitting up indep and dangling on edge of bed for meals, eating approx 50%. Patient oob amb in room with 1 PA and FWWlali. VSS, tele A paced, SR. IV SL and tele removed intact. Patient transported via cabulance, accompanied by mom who took pt belongings Addendum: 03/13/17 at 1612 by MILY EDMOND RN Report called to Prov Inpt.
== END 2017-03-13 15:49 | DRG 161 ==
LOC: SED 13:29 → CCU 14:35 → PCC 14:41 → CCU 14:41 → UNDOADMIN 14:41 → CCU 14:47 → PCC 14:47 → CCU 03-04 20:09 → PCC 03-06 23:05
PROVIDERS: ADMIT Neuromusculoskeletal Medicine & OMM; ATTEND Internal Medicine
PROC: 5A1955Z Respiratory Ventilation, Greater than 96 Consecutive Hours (ICD-10-PCS; 2017-02-22)
PROC: 02HV33Z Insertion of Infusion Device into Superior Vena Cava, Percutaneous Approach (ICD-10-PCS; 2017-02-22)
PROC: 4A033R1 Measurement of Arterial Saturation, Peripheral, Percutaneous Approach (ICD-10-PCS; 2017-02-22)
PROC: 6A4Z0ZZ Hypothermia, Single (ICD-10-PCS; 2017-02-22)
PROC: 4A00X4Z Measurement of Central Nervous Electrical Activity, External Approach (ICD-10-PCS; 2017-02-28)
PROC: 5A2204Z Restoration of Cardiac Rhythm, Single (ICD-10-PCS; 2017-03-04)
PROC: 4A00X4Z Measurement of Central Nervous Electrical Activity, External Approach (ICD-10-PCS; 2017-03-05)
PROC: 0JH608Z Insertion of Defibrillator Generator into Chest Subcutaneous Tissue and Fascia, Open Approach (ICD-10-PCS; principal; 2017-03-06)
PROC: 02HK3KZ Insertion of Defibrillator Lead into Right Ventricle, Percutaneous Approach (ICD-10-PCS; 2017-03-06)
PROC: 02H63KZ Insertion of Defibrillator Lead into Right Atrium, Percutaneous Approach (ICD-10-PCS; 2017-03-06)
DX: I47.2 Ventricular tachycardia (principal); J96.01 Acute respiratory failure with hypoxia; I46.2 Cardiac arrest due to underlying cardiac condition; J69.0 Pneumonitis due to inhalation of food and vomit; G93.1 Anoxic brain damage, not elsewhere classified; E87.2 Acidosis; Q97.0 Karyotype 47, XXX; R73.9 Hyperglycemia, unspecified; G89.29 Other chronic pain; F41.9 Anxiety disorder, unspecified; F32.9 Major depressive disorder, single episode, unspecified; I45.81 Long QT syndrome; R94.5 Abnormal results of liver function studies; D64.9 Anemia, unspecified; R56.9 Unspecified convulsions; H53.2 Diplopia